=== PATIENT | male | born 1945 | race Caucasian/White ===

== ENCOUNTER → 2017-06-10 | Outpatient (RCR) | payer MEDICARE ==
[~2017-06-10] MED LIST: ACID1TAB PO; ASPI-624 PO; CARV12.53 PO; DIGO125T PO; FOLI1TAB6 PO; HYDR-34 PO; LISI10TA2 PO; LISI2.5T85 PO; LOVA20TA2 PO; OXYC1TAB12 PO; SNN187T PO; TMSL.4C PO
== END | disposition home or self-care (01) ==
LOC: CR3 05-11 10:00
PROVIDERS: ATTEND Orthopaedic Surgery
DX: Z29.8 Encounter for other specified prophylactic measures (principal)

== ENCOUNTER → 2017-07-15 | Outpatient (RCR) | payer MEDICARE | END | disposition home or self-care (01) | LOC: CR3 06-15 09:00 | PROVIDERS: ATTEND Family Medicine | DX: Z29.8 Encounter for other specified prophylactic measures (principal) ==

== ENCOUNTER → 2017-08-19 | Outpatient (RCR) | payer MEDICARE | END | disposition home or self-care (01) | LOC: CR3 07-20 09:05 | PROVIDERS: ATTEND Family Medicine | DX: Z29.8 Encounter for other specified prophylactic measures (principal) ==

== ENCOUNTER 2017-09-21 09:25 | Outpatient (RCR) | payer MEDICARE | END 2017-09-23 | disposition home or self-care (01) | LOC: CR3 09:25 | PROVIDERS: ATTEND Family Medicine | DX: Z29.8 Encounter for other specified prophylactic measures (principal) ==

== ENCOUNTER → 2017-11-04 | Outpatient (RCR) | payer MEDICARE | END | disposition home or self-care (01) | LOC: CR3 10-05 09:00 | PROVIDERS: ATTEND Family Medicine | DX: Z29.8 Encounter for other specified prophylactic measures (principal) ==

== ENCOUNTER 2017-12-09 09:58 | Outpatient (RCR) | payer MEDICARE | END 2017-12-11 | disposition home or self-care (01) | LOC: CR3 09:58 | PROVIDERS: ATTEND Family Medicine | DX: Z29.8 Encounter for other specified prophylactic measures (principal) ==

== ENCOUNTER → 2018-01-13 | Outpatient (RCR) | payer MEDICARE | END | disposition home or self-care (01) | LOC: CR3 12-14 06:00 | PROVIDERS: ATTEND Family Medicine | DX: Z29.8 Encounter for other specified prophylactic measures (principal) ==

== ENCOUNTER → 2018-02-17 | Outpatient (RCR) | payer MEDICARE | END | disposition home or self-care (01) | LOC: CR3 01-18 09:30 | PROVIDERS: ATTEND Family Medicine | DX: Z29.8 Encounter for other specified prophylactic measures (principal) ==

== ENCOUNTER → 2018-03-24 | Outpatient (RCR) | payer MEDICARE | END | disposition home or self-care (01) | LOC: CR3 02-22 09:00 | PROVIDERS: ATTEND Family Medicine | DX: Z29.8 Encounter for other specified prophylactic measures (principal) ==

== ENCOUNTER 2018-04-05 12:06 | Outpatient (RCR) | payer MEDICARE | END 2018-04-28 | disposition home or self-care (01) | LOC: CR3 12:06 | PROVIDERS: ATTEND Family Medicine | DX: Z29.8 Encounter for other specified prophylactic measures (principal) ==

== ENCOUNTER → 2018-06-16 | Outpatient (RCR) | payer MEDICARE | END | disposition home or self-care (01) | LOC: CR3 05-17 09:53 | PROVIDERS: ATTEND Family Medicine | DX: Z29.8 Encounter for other specified prophylactic measures (principal) ==

== ENCOUNTER 2018-07-19 08:53 | Outpatient (RCR) | payer MEDICARE | END 2018-07-21 | disposition home or self-care (01) | LOC: CR3 08:53 | PROVIDERS: ATTEND Family Medicine | DX: Z29.8 Encounter for other specified prophylactic measures (principal) ==

== ENCOUNTER 2018-08-18 09:09 | Outpatient (RCR) | payer MEDICARE | END 2018-08-21 | disposition home or self-care (01) | LOC: CR3 09:09 | PROVIDERS: ATTEND Family Medicine | DX: Z29.8 Encounter for other specified prophylactic measures (principal) ==

== ENCOUNTER 2018-09-20 09:18 | Outpatient (RCR) | payer MEDICARE | END 2018-09-22 | disposition home or self-care (01) | LOC: CR3 09:18 | PROVIDERS: ATTEND Family Medicine | DX: Z29.8 Encounter for other specified prophylactic measures (principal) ==

== ENCOUNTER 2018-10-20 09:51 | Outpatient (RCR) | payer MEDICARE | END 2018-10-24 | disposition home or self-care (01) | LOC: CR3 09:51 | PROVIDERS: ATTEND Family Medicine | DX: Z29.8 Encounter for other specified prophylactic measures (principal) ==

== ENCOUNTER → 2018-11-24 | Outpatient (RCR) | payer MEDICARE | END | disposition home or self-care (01) | LOC: CR3 10-25 09:00 | PROVIDERS: ATTEND Family Medicine | DX: Z29.8 Encounter for other specified prophylactic measures (principal) ==

== ENCOUNTER 2018-12-29 09:28 | Outpatient (RCR) | payer MEDICARE | END 2018-12-31 | disposition home or self-care (01) | LOC: CR3 09:28 | PROVIDERS: ATTEND Family Medicine | DX: Z29.8 Encounter for other specified prophylactic measures (principal) ==

== ENCOUNTER 2019-01-06 19:52 | Emergency (ER) | payer MEDICARE ==
[~2019-01-06] VITALS: Ht 163 cm; Wt 88.0 kg
[2019-01-06] MEDS ORDERED: SOTA80TA62 (19:59)
[2019-01-06] MEDS ORDERED: LOVA20TA2 (19:59)
--- NOTE | 2019-01-06 20:20 | NUR ---
informed pt/family of anticipated wait times for lab results. no needs at this time.
[2019-01-06 20:27] LABS: BASOPHILS % (AUTO) 1 % (0-10); EOSINOPHILS # (AUTO) 0.3 10^3/uL (0.0-0.3); EOSINOPHILS % (AUTO) 5 % (0-10); HEMATOCRIT 37 % (40-54); HEMOGLOBIN 12.2 G/DL (13.3-17.7); LYMPHOCYTES # (AUTO) 2.2 X 10^3 (1.0-4.0); LYMPHOCYTES % (AUTO) 32 % (12-44); MEAN CORPUSCULAR HEMOGLOBIN 32 PG (25-34); MEAN CORPUSCULAR HGB CONC 33 G/DL (32-36); MEAN CORPUSCULAR VOLUME 98 FL (80-99); MEAN PLATELET VOLUME 11.5 FL (7.4-10.4); MONOCYTES # (AUTO) 0.8 X 10^3 (0.0-1.0); MONOCYTES % (AUTO) 12 % (0-12); NEUTROPHILS # (AUTO) 3.5 X 10^3 (1.8-7.8); NEUTROPHILS % (AUTO) 51 % (42-75); PLATELET COUNT 121 10^3/uL (130-400); RED CELL DISTRIBUTION WIDTH 12.8 % (10.0-14.5); WHITE BLOOD COUNT 6.9 10^3/uL (4.3-11.0)
--- NOTE | 2019-01-06 20:35 | NUR ---
pacemaker interrogation completed.
[2019-01-06 20:40] LABS: ALANINE AMINOTRANSFERASE 15 U/L (0-55); ALBUMIN 4.1 GM/DL (3.2-4.5); ALKALINE PHOSPHATASE 78 U/L (40-136); BILIRUBIN,TOTAL 0.3 MG/DL (0.1-1.0); BUN/CREATININE RATIO 18; CARBON DIOXIDE 22 MMOL/L (21-32); CHLORIDE 107 MMOL/L (98-107); CREATININE SERUM 1.59 MG/DL (0.60-1.30); GFR ESTIMATED 43; GLUCOSE 99 MG/DL (70-105); POTASSIUM 4.5 MMOL/L (3.6-5.0); SODIUM 140 MMOL/L (135-145); TOTAL PROTEIN 6.9 GM/DL (6.4-8.2)
--- NOTE | 2019-01-06 20:47 | ED Fall/Injury ---
General Chief Complaint: Trauma-Non Activation Stated Complaint: FALL,HEAD LAC Nursing Triage Note: fall, no loc Source: patient Exam Limitations: no limitations History of Present Illness Date Seen by Provider: Jan 06, 2019 Time Seen by Provider: 19:53 Initial Comments This 73-year-old gentleman presents to the emergency room via EMS after having a fall in the home. The fall was unwitnessed but family was in the other room and heard it. They report that he seemed rather dazed at that time but quickly came around to his baseline level of consciousness. They're uncertain if he actually lost consciousness. He hasn't abrasion and some swelling to the right scalp. 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 He denies any pain at this time. He is alert and oriented to his baseline. Family reports no issues with acute illnesses recently. He has a pacemaker. He denies any chest pain, shortness of breath, or palpitations. He is in an atrial paced rhythm on the monitor. Location Injury Occurred: home Allergies and Home Medications Allergies Coded Allergies: No Known Drug Allergies (Unverified , 03/14/13) Home Medications Aspirin 81 Mg Tablet, 81 MG PO DAILY, (Reported) Carvedilol 12.5 Mg Tablet, 12.5 MG PO BID, (Reported) Digoxin 125 Mcg Tablet, 125 MCG PO DAILY, (Reported) Folic Acid/Mv,Fe,Other Min 1 Each Tablet, 1 TAB PO DAILY, (Reported) Lisinopril 2.5 Mg Tablet, 2.5 MG PO DAILY, (Reported) Lovastatin 20 Mg Tablet, 20 MG PO DAILY, (Reported) Oxycodone Hcl/Acetaminophen 1 Tab Tablet, 1-2 TAB PO Q4H PRN for PAIN Prescribed by: IRMA VELEZ on 06/28/13 1653 Oxycodone Hcl/Acetaminophen 1 Tab Tablet, 1 TAB PO TID Prescribed by: IRMA VELEZ on 06/28/13 1653 Senna 187 Mg Tab, 17.2 MG PO HS Prescribed by: IRMA VELEZ on 03/25/13 1037 Tamsulosin Hcl 0.4 Mg Cap.sr.24h, 0.4 MG PO DAILY Prescribed by: IRMA VELEZ on 03/25/13 1037 Patient Home Medication List Home Medication List Reviewed: Yes Review of Systems Review of Systems Constitutional: no symptoms reported Eyes: No Symptoms Reported Ears, Nose, Mouth, Throat: no symptoms reported Respiratory: no symptoms reported Cardiovascular: see HPI Gastrointestinal: no symptoms reported Genitourinary: no symptoms reported Musculoskeletal: see HPI Skin: see HPI Psychiatric/Neurological: See HPI Past Yhujthj-Kstwkr-Qebrsn Hx Past Med/Social Hx: Reviewed and Corrections made Patient Social History Alcohol Use: Occasionally Uses Alcohol Beverage of Choice: Beer Recreational Drug Use: No Smoking Status: Former Smoker 2nd Hand Smoke Exposure: No Recent Foreign Travel: No Contact w/Someone Who Travel: No Recent Infectious Disease Expo: No Recent Hopitalizations: No Physical Abuse: No Sexual Abuse: No Mistreated: No Fear: No Immunizations Up To Date Date of Pneumonia Vaccine: Dec 10, 2012 Date of Influenza Vaccine: Dec 10, 2012 Seasonal Allergies Seasonal Allergies: No Past Medical History Surgeries: Yes (PACEMAKER/ILEOSTOMY, left knee patella fracture) Bowel Surgery, Defibrillator, Orthopedic, Pacemaker Respiratory: No Cardiac: Yes (DEFIBRILLATOR, heart block ) High Cholesterol, Hypertension Neurological: Yes (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) TIA Reproductive Disorders: No Sexually Transmitted Disease: No HIV/AIDS: No Genitourinary: Yes Renal Failure, Dialysis Gastrointestinal: Yes (ABD TRAUMA/PREVIOUS ILEOSTOMY) Obstructive Bowel Musculoskeletal: Yes Arthritis Endocrine: No HEENT: No Cancer: No Psychosocial: No Integumentary: Yes (MRSA) Blood Disorders: No Adverse Reaction/Blood Tranf: No Family Medical History Dementia 03 MOTHER Family history: Cardiovascular disease 03 FATHER 09 BROTHER Physical Exam Vital Signs Vital Signs - First Documented 01/06/19 19:53 Temp 36.5 Pulse 81 Resp 18 B/P (MAP) 141/76 (97) Pulse Ox 100 O2 Delivery Room Air Capillary Refill : Less Than 3 Seconds Height, Weight, BMI Height: 5'7.00" Weight: 190lbs. 0.0oz. 86.188392su; 33.00 BMI Method: General Appearance: WD/WN, no apparent distress HEENT: PERRL/EOMI, other (Swelling and bruising over the right parietal scalp) Neck: normal inspection Cardiovascular: regular rate, rhythm, no edema, no murmur Respiratory: lungs clear, normal breath sounds, no respiratory distress, no accessory muscle use Gastrointestinal: normal bowel sounds, non tender, soft Extremities: non-tender, normal inspection, no pedal edema Neurologic/Psychiatric: piano technician II-XII nml as tested, no motor/sensory deficits, alert, normal mood/affect, oriented x 3, other (Memory deficits) Skin: normal color, warm/dry Progress/Results/Core Measures Results/Orders Lab Results Laboratory Tests Test 01/06/19 20:10 01/06/19 21:15 Range/Units White Blood Count 6.9 4.3-11.0 10^3/uL Red Blood Count 3.76 L 4.35-5.85 10^6/uL Hemoglobin 12.2 L 13.3-17.7 G/DL Hematocrit 37 L 40-54 % Mean Corpuscular Volume 98 80-99 FL Mean Corpuscular Hemoglobin 32 25-34 PG Mean Corpuscular Hemoglobin Concent 33 32-36 G/DL Red Cell Distribution Width 12.8 10.0-14.5 % Platelet Count 121 L 130-400 10^3/uL Mean Platelet Volume 11.5 H 7.4-10.4 FL Neutrophils (%) (Auto) 51 42-75 % Lymphocytes (%) (Auto) 32 12-44 % Monocytes (%) (Auto) 12 0-12 % Eosinophils (%) (Auto) 5 0-10 % Basophils (%) (Auto) 1 0-10 % Neutrophils # (Auto) 3.5 1.8-7.8 X 10^3 Lymphocytes # (Auto) 2.2 1.0-4.0 X 10^3 Monocytes # (Auto) 0.8 0.0-1.0 X 10^3 Eosinophils # (Auto) 0.3 0.0-0.3 10^3/uL Basophils # (Auto) 0.0 0.0-0.1 10^3/uL Sodium Level 140 135-145 MMOL/L Potassium Level 4.5 3.6-5.0 MMOL/L Chloride Level 107 98-107 MMOL/L Carbon Dioxide Level 22 21-32 MMOL/L Anion Gap 11 5-14 MMOL/L Blood Urea Nitrogen 29 H 7-18 MG/DL Creatinine 1.59 H 0.60-1.30 MG/DL Estimat Glomerular Filtration Rate 43 BUN/Creatinine Ratio 18 Glucose Level 99 70-105 MG/DL Calcium Level 9.0 8.5-10.1 MG/DL Corrected Calcium 8.9 8.5-10.1 MG/DL Magnesium Level 2.0 1.6-2.4 MG/DL Total Bilirubin 0.3 0.1-1.0 MG/DL Aspartate Amino Transf (AST/SGOT) 24 5-34 U/L Alanine Aminotransferase (ALT/SGPT) 15 0-55 U/L Alkaline Phosphatase 78 40-136 U/L Troponin I < 0.028 <0.028 NG/ML Total Protein 6.9 6.4-8.2 GM/DL Albumin 4.1 3.2-4.5 GM/DL Digoxin Level < 0.30 L 0.80-2.00 NG/ML Urine Color YELLOW Urine Clarity CLEAR Urine pH 6.0 5-9 Urine Specific [place] 1.020 1.016-1.022 Urine Protein NEGATIVE NEGATIVE Urine Glucose (UA) NEGATIVE NEGATIVE Urine Ketones NEGATIVE NEGATIVE Urine Nitrite NEGATIVE NEGATIVE Urine Bilirubin NEGATIVE NEGATIVE Urine Urobilinogen 0.2 < = 1.0 MG/DL Urine Leukocyte Esterase NEGATIVE NEGATIVE Urine RBC (Auto) NEGATIVE NEGATIVE Urine RBC NONE /HPF Urine WBC 0-2 /HPF Urine Crystals NONE /LPF Urine Bacteria TRACE /HPF Urine Casts NONE /LPF Urine Mucus NEGATIVE /LPF Urine Culture Indicated NO My Orders Orders - YVON NAVA MD Ed Iv/Invasive Line Start (01/06/19 20:07) Ekg Tracing (01/06/19 20:07) Monitor-Rhythm Ecg Trace Only (01/06/19 20:07) Cbc With Automated Diff (01/06/19 20:07) Comprehensive Metabolic Panel (01/06/19 20:07) Magnesium (01/06/19 20:07) Troponin I (01/06/19 20:07) Ua Culture If Indicated (01/06/19 20:07) Digoxin (01/06/19 20:12) Ct Head/Cervical Spine Wo (01/06/19 20:47) Amiodarone For Bolus (Cordarone Bolus) (01/06/19 22:00) Amiodarone Injection (Cordarone Injectio (01/06/19 22:00) Medications Given in ED Current Medications Medications Dose Ordered Sig/Cristal Route Start Time Stop Time Status Last Admin Dose Admin Amiodarone HCl 150 mg/Dextrose 103 ml @ 600 mls/hr ONCE ONCE IV 01/06/19 22:00 01/06/19 22:10 DC 01/06/19 22:06 600 MLS/HR Vital Signs/I&O 01/06/19 01/06/19 01/06/19 01/06/19 19:53 20:15 20:30 20:45 Temp 36.5 Pulse 81 79 78 71 Resp 18 18 16 16 B/P (MAP) 141/76 (97) 143/76 135/71 141/72 Pulse Ox 100 100 99 99 O2 Delivery Room Air 01/06/19 01/06/19 01/06/19 01/06/19 21:00 21:15 21:30 22:31 Temp 36.6 Pulse 73 79 70 70 Resp 18 16 16 12 B/P (MAP) 132/73 132/74 147/86 138/93 Pulse Ox 100 99 100 100 O2 Delivery Room Air 01/07/19 00:00 Intake Total 103 ml Balance 103 ml Blood Pressure Mean: 97 POS Progress Progress Note : Time: 21:35 Progress Note Patient was seen and evaluated. Initial workup was relatively unremarkable. CT of the head and C-spine is pending at this time. Device was interrogated and he was found to have an episode of V. tach with a heart rate around 178. This resulted in anti-VT pacing. This resulted in acceleration of the heart rate to around 270. This had the appearance of ventricular fibrillation and was defibrillated. The device client account representative recommended electrophysiological consultation due to these events. I consulted with Dr. Fox, mixer operator raw salt sanitation worker at [facility]. He recommends transfer to patient's primary mixer operator raw salt at [facility] if possible. Patient and family are agreeable to this and also prefer transfer for continuity of care which is important in this case. Initial ECG Impression Date: Jan 06, 2019 Initial ECG Impression Time: 20:16 Initial ECG Rate: 70 Comment Atrial paced rhythm with no ischemic changes. QTC 506. Diagnostic Imaging Diagonstic Imaging: CT Plain Films/CT/US/NM/MRI: c-spine, head Comments CT head and cervical spine viewed by me and report reviewed. See report below: NAME: GREG MACEDO [facility] REC#: [id number] PT STATUS: REG ER : 1945 PHYSICIAN: YVON NAVA MD ADMIT DATE: 01/06/19/ER Signed Date of Exam:01/06/19 CT HEAD/CERVICAL SPINE WO PROCEDURE: CT head and CT cervical spine without contrast. TECHNIQUE: Multiple contiguous axial images were obtained through the brain and cervical spine without the use of intravenous contrast. Sagittal and coronal reformations through the cervical spine were then performed. Auto Exposure Controls were utilized during the CT exam to meet ALARA standards for radiation dose reduction. DATE: January 06, 2019. COMPARISON: None. INDICATION: 73-year-old male, fall. Head and neck pain. FINDINGS: There is mucosal thickening of the left maxillary sinus. There is no identified air-fluid level in the paranasal sinuses. The mastoid air cells and middle ears are well aerated bilaterally. There is no identified skull fracture. There is proportional prominence of the ventricles and CSF spaces consistent with moderate cerebral volume loss. There are areas of low attenuation in the periventricular and subcortical white matter which are nonspecific but most likely relate to changes of chronic small vessel ischemic disease. There is no mass effect or midline shift. There is no acute intracranial hemorrhage. There is no abnormal extra-axial fluid collection. There is no identified facet joint subluxation or dislocation. There are facet degenerative changes. There is ankylosis across the right C2-C3 and C3-C4 facet articulations and ankylosis across the left C2-C3 facet articulation. There is no asymmetric widening of the cervical disc spaces. There is straightening of the normal lumbar lordosis. There is grade 1 anterolisthesis of C2 on C3. There is mild grade 1 anterolisthesis of C7 on T1. There is chondrocalcinosis and arthritis at the C1-C2 articulation. There is no identified acute fracture. Multilevel advanced disc degenerative changes of the cervical spine. CT is limited for assessment of disc pathology as well as additional non-bony causes of pathology in the spinal canal. There are bilateral carotid vascular calcifications. The carotid arteries have a retropharyngeal course. IMPRESSION: 1. No identified acute intracranial abnormality. 2. Moderate cerebral volume loss and changes of chronic small vessel ischemic disease. 3. No identified acute abnormality of the cervical spine. Dictated by: Dictated on workstation # [id number] Dict: 01/06/192133 Trans: 01/06/192144 [facility] [id number] Interpreted by: DIONE ESPINAL MD Electronically signed by: DIONE ESPINAL MD 11/28/19 2145 Departure Impression Primary Impression: Ventricular tachycardia Additional Impressions: Ventricular fibrillation Syncope Qualified Codes: R55 - Syncope and collapse Defibrillator discharge Contusion of scalp Qualified Codes: S00.03XA - Contusion of scalp, initial encounter Disposition: XFER SHT-TRM HOSP Condition: Improved Transfer Transfer Reason: Exceeds level of care Time Spoke to Accepting Phy: 21:31 Transfer Progress Notes Patient was accepted by Dr. Lam on-call for Dr. Stark at [facility] in [place]. Transfer Time: 22:39 Transfer Facility: [facility] Method of Transfer: EMS Departure-Patient Inst. Referrals: IRMA VELEZ MD (PCP/Family) Primary Care Physician Copy Copies To 1: IRMA VELEZ MD, JOSHUA T MD Jan 06, 2019 20:47 POS
[2019-01-06 21:23] LABS: BILIRUBIN,URINE NEGATIVE (NEGATIVE); CLARITY,URINE CLEAR; COLOR,URINE YELLOW; GLUCOSE, URINE (UA) NEGATIVE (NEGATIVE); KETONES,URINE NEGATIVE (NEGATIVE); LEUKOCYTE ESTERASE ,URINE NEGATIVE (NEGATIVE); NITRITE,URINE NEGATIVE (NEGATIVE); PROTEIN,URINE NEGATIVE (NEGATIVE)
[2019-01-06 21:29] LABS: BACTERIA,URINE TRACE /HPF; WBC,URINE 0-2 /HPF
--- NOTE | 2019-01-06 21:42 | Diagnostic Imaging Report ---
PROCEDURE: CT head and CT cervical spine without contrast. TECHNIQUE: Multiple contiguous axial images were obtained through the brain and cervical spine without the use of intravenous contrast. Sagittal and coronal reformations through the cervical spine were then performed. Auto Exposure Controls were utilized during the CT exam to meet ALARA standards for radiation dose reduction. DATE: January 06, 2019. COMPARISON: None. INDICATION: 73-year-old male, fall. Head and neck pain. FINDINGS: There is mucosal thickening of the left maxillary sinus. There is no identified air-fluid level in the paranasal sinuses. The mastoid air cells and middle ears are well aerated bilaterally. There is no identified skull fracture. There is proportional prominence of the ventricles and CSF spaces consistent with moderate cerebral volume loss. There are areas of low attenuation in the periventricular and subcortical white matter which are nonspecific but most likely relate to changes of chronic small vessel ischemic disease. There is no mass effect or midline shift. There is no acute intracranial hemorrhage. There is no abnormal extra-axial fluid collection. There is no identified facet joint subluxation or dislocation. There are facet degenerative changes. There is ankylosis across the right C2-C3 and C3-C4 facet articulations and ankylosis across the left C2-C3 facet articulation. There is no asymmetric widening of the cervical disc spaces. There is straightening of the normal lumbar lordosis. There is grade 1 anterolisthesis of C2 on C3. There is mild grade 1 anterolisthesis of C7 on T1. There is chondrocalcinosis and arthritis at the C1-C2 articulation. There is no identified acute fracture. Multilevel advanced disc degenerative changes of the cervical spine. CT is limited for assessment of disc pathology as well as additional non-bony causes of pathology in the spinal canal. There are bilateral carotid vascular calcifications. The carotid arteries have a retropharyngeal course. IMPRESSION: 1. No identified acute intracranial abnormality. 2. Moderate cerebral volume loss and changes of chronic small vessel ischemic disease. 3. No identified acute abnormality of the cervical spine. Dictated by: Dictated on workstation # [id number]
--- NOTE | 2019-01-06 21:51 | NUR ---
shift capt. contacted for transfer. [id number]- dispatch contacted for transfer.
[2019-01-06] MEDS ORDERED: AMIODARONE FOR BOLUS 150 MG in D5W 100 ML IVPB 100 ML IV ONE (22:00)
[2019-01-06] MEDS ORDERED: AMIODARONE INJECTION 450 MG in D5W IV SOLUTION (EXCEL) 250 ML IV SCH (22:00)
[2019-01-06 22:31] VITALS: BP 138/93
--- OUTSIDE RECORDS SUMMARY | 2019-02-01 23:31 | XMS REPORT | Referral Summary ---
Author Author [facility] Organization [facility] Address Unknown Phone Unavailable Care Team Providers Care Property Investor Name Role Phone Tonio Hawkins PCP Encounter [facility] [id number] Date(s): 12/05/14 - 12/05/14 [facility] [address] [place], [place] [address] Discharge Diagnosis: Nonsustained ventricular tachycardia Discharge Diagnosis: Overweight Discharge Diagnosis: Anemia Discharge Diagnosis: Cardiomyopathy, nonischemic Discharge Diagnosis: Hyperlipidemia Discharge Diagnosis: Encounter for immunization Discharge Diagnosis: Kidney disease, chronic, stage III (GFR 30-59 ml/min) Discharge Disposition: 01-Home or Self Care Attending Physician: Tonio Hawkins MD Admitting Physician: Tonio Hawkins MD Vital Signs Most recent to 1 oldest [Reference Range]: Peripheral Pulse 60 bpm Rate [60-100 bpm] (12/05/14 10:19 AM) Blood Pressure 132/80 mmHg [90-140/60-90 mmHg] (12/05/14 10:19 AM) Problem List Condition Effective Dates Status Health Status Informan t Anemia(Confirmed) Active Cardiac Active defibrillator in situ(Confirmed) Cardiomyopathy(Confi Active rmed) CKD (chronic kidney Active disease)(Confirmed) 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) Hyperlipidemia(Confi Active rmed) Obesity(Confirmed) Active patient Knee Active osteoarthritis(Confi rmed) Ventricular Active arrhythmia(Confirmed ) Allergies, Adverse Reactions, Alerts Substance Reaction Severity Status LORazepam hallucinations Active Medications amoxicillin 500 mg oral capsule See Instructions, 4 caps Oral one hr before dental procedure, 0 Refill(s) Start Date: 06/05/14 Status: Ordered aspirin 81 mg, 0 Refill(s) Start Date: 11/29/13 Status: Ordered digoxin 125 mcg (0.125 mg) oral tablet tabs, Oral, Daily, 0 Refill(s) Start Date: 11/29/13 Status: Ordered lisinopril 2.5 mg, Oral, Daily, 0 Refill(s) Start Date: 11/29/13 Status: Ordered lovastatin 20 mg oral tablet tabs, Oral, Daily, 0 Refill(s) Start Date: 11/29/13 Status: Ordered Multivitamins oral capsule caps, Oral, Daily, 0 Refill(s) Start Date: 11/29/13 Status: Ordered sotalol 80 mg oral tablet 1 tabs, Oral, BID, Dr Stark, # 60 tabs, 0 Refill(s) Start Date: 12/05/13 Status: Ordered Results Hematology Most recent to 1 oldest [Reference Range]: WBC [4.8-10.8 8.3 10*3/uL 10*3/uL] (12/05/14 11:40 AM) RBC [4.60-6.20] 4.14 *LOW* (12/05/14 11:40 AM) Hgb [14.0-18.0 13.2 gm/dL gm/dL] *LOW* (12/05/14 11:40 AM) Hct [42.0-52.0 %] 39.2 % *LOW* (12/05/14 11:40 AM) MCV [82.0-99.0 fL] 94.7 fL (12/05/14 11:40 AM) MCH [27.0-32.0 pg] 31.9 pg (12/05/14 11:40 AM) MCHC [32.0-36.0 33.7 gm/dL gm/dL] (12/05/14 11:40 AM) RDW [11.5-14.5 %] 13.2 % (12/05/14 11:40 AM) Platelet [150-400 163 10*3/uL 10*3/uL] (12/05/14 11:40 AM) MPV [8.8-14.8 fL] 10.9 fL (12/05/14 11:40 AM) Immature 0.4 % Granulocytes (12/05/14 11:40 AM) [0.0-1.0 %] Neutrophils [51-75 64 % %] (12/05/14 1140 AM) Lymphocytes [20-46 23 % %] (12/05/14 1140 AM) Monocytes [4-11 %] 9 % (12/05/14 11:40 AM) Eosinophils [0-4 %] 3 % (12/05/1440 AM) Basophils [0-2 %] 1 % (12/05/1440 AM) Neutro Absolute 5.37 10*3 [1.90-7.00 10*3] (12/05/1440 AM) Lymph Absolute 1.88 10*3 [0.80-3.30 10*3] (12/05/14 11:40 AM) [place] Absolute 0.73 10*3 [0.30-1.00 10*3] (12/05/1440 AM) Eos Absolute 0.27 10*3 [0.00-0.50 10*3] (12/05/14 11:40 AM) Baso Absolute 0.05 10*3 [0.00-0.20 10*3] (12/05/14 11:40 AM) Chemistry Most recent to 1 oldest [Reference Range]: Sodium Lvl [135-144 139 mEq/L mEq/L] (12/05/1440 AM) Potassium Lvl 5.0 mEq/L [3.5-5.2 mEq/L] (12/05/1440 AM) Chloride [99-111 103 mEq/L mEq/L] (12/05/1440 AM) CO2 [23-31 mEq/L] 29 mEq/L (12/05/1440 AM) AGAP [3-20] 7 (12/05/14 11:40 AM) BUN [8-26 mg/dL] 28 mg/dL *HI* (12/05/1440 AM) Glucose Lvl [70-99 101 mg/dL mg/dL] *HI* (12/05/1440 AM) Creatinine Lvl 1.39 mg/dL [0.72-1.25 mg/dL] *HI* (12/05/14 11:40 AM) eGFR [>60 mL/min] 51 mL/min 1 *ABN* (12/05/14 11:40 AM) Calcium Lvl 10.2 mg/dL [8.9-10.5 mg/dL] (12/05/14 11:40 AM) Albumin Lvl [3.4-4.8 4.3 gm/dL gm/dL] (12/05/14 11:40 AM) Total Protein 7.3 gm/dL [6.2-8.1 gm/dL] (12/05/14 11:40 AM) Globulin [1.8-4.0 3.0 gm/dL gm/dL] (12/05/14 11:40 AM) ALT [0-55 U/L] 17 U/L (12/05/14 11:40 AM) AST [5-34 U/L] 21 U/L (12/05/14 11:40 AM) Alk Phos [40-150 70 U/L U/L] (12/05/14 11:40 AM) Bili Total [0.2-1.2 0.8 mg/dL mg/dL] (12/05/14 11:40 AM) LDL Direct [0-129 94 mg/dL mg/dL] (12/05/14 11:40 AM) 1Result Comment: Multiply eGFR results by 1.21 for race. Immunizations Vaccine Date Refusal Reason tetanus/diphth/pertuss (Tdap) adult/adol 06/20/11 influenza virus vaccine, inactivated 12/05/14 influenza virus vaccine, live 12/10/12 influenza virus vaccine, live 12/03/11 pneumococcal 23-polyvalent vaccine 06/20/11 Procedures Procedure Date Related Diagnosis Body Site Revision-rt TKA 2006 Abscess-rt leg Social History Social History Type Response Smoking Status Never smoker Assessment and Plan Extracted from: Title: Office Visit Note Author: Tonio Hawkins MD Date: 12/05/14 Assessment/Plan Anemia Mild, hemoglobin stable 13.7 Cardiomyopathy, nonischemic EF stable around 30 percent Chronic kidney disease (CKD), Kidney disease, chronic, stage III (GFR 30-59 ml/min) Creatinine stable around 1.3 Hyperlipidemia Check LDL today, annual lipids in the spring looked good Immunization due Flu shot today Nonsustained ventricular tachycardia Overweight BMI 31 Orders: CBC w/ Differential Comprehensive Metabolic Panel LDL Direct Return to Clinic Plan--patient seems to be doing pretty well overall. We'll administer flu shot today, also lab work, and see me back in 6 months but sooner if needed. He'll see Dr. Stark probably around March. Referrals to Other Providers Referred by: Tonio Hawkins MD
--- OUTSIDE RECORDS SUMMARY | 2019-02-01 23:31 | XMS REPORT | Referral Summary ---
Author Author [facility] Organization [facility] Address Unknown Phone Unavailable Care Team Providers Care Project Internship Name Role Phone Tonio Hawkins PCP Encounter [facility] [id number] Date(s): 12/05/14 - 12/05/14 [facility] [address] [place], [place] [address] Discharge Diagnosis: Nonsustained ventricular tachycardia Discharge Diagnosis: [...] 1.88 10*3 [0.80-3.30 10*3] (12/05/14 11:40 AM) [place] Absolute 0.73 10*3 [0.30-1.00 10*3] (12/05/1440 AM) [...]
--- OUTSIDE RECORDS SUMMARY | 2019-02-01 23:31 | XMS REPORT ---
Author Author Andrade Stark [facility] Address [address] [place] [address] Care Team Providers Care Chief Of Staff Name Role Phone Sourav Stark Unavailable PROBLEMS Type Condition ICD9-CM Code [id number] Code Onset Dates Condition S tatus SNOMED Code Problem DVT 453.9 Active 260474330 Problem Methicillin resistant Staphylococcus aureus 041.12 Active 059575778 Problem Long-term use of high-risk medication Z79.899 Active 288919727 Problem Long-term use of aspirin therapy Z79.82 Active 622813291 Problem S/P implantation of automatic cardioverter/defib rillator (AICD) Z95.810 Active 489984754 Problem Dyslipidemia (high LDL; low HDL) E78.4 Active 476131375 Problem 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 Active 24447694698811 Problem Nonischemic cardiomyopathy I42.9 Act flakita 96304598 ALLERGIES No Known Allergies ENCOUNTERS Encounter Location Date Diagnosis [facility] [address] [place] [address] [id number] Feb, [facility] [address] [place] [address] [id number] Aug, Nonischemic cardiomyopathy I42.9 ; Nonsu stained paroxysmal ventricular tachycardia I47.2 ; S/P implantation of automatic cardioverter/defibrillator (AICD) Z95.810 ; Long-term use of high-risk medication Z79.899 and Long-term use of aspirin therapy Z79.82 [facility] [address] [place] [address] [id number] Aug, Nonischemic cardiomyopathy I42.9 ; Nonsu stained paroxysmal ventricular tachycardia I47.2 and S/P implantation of automatic cardioverter/defibrillator (AICD) Z95.[address] [address] Feb, [address] [place] [address] Feb, Nonischemic cardiomyopathy I42.9 ; Nonsu stained paroxysmal ventricular tachycardia I47.2 ; S/P implantation of automatic cardioverter/defibrillator (AICD) Z95.810 ; Long-term use of high-risk medicat ion Z79.899 and Long-term use of aspirin therapy Z79.[address] [place] [address] Oct, [address] [place] [address] Oct, [address] [place] [address] Sep, [address] [place] [address] Sep, [address] [place] [address] Sep, Nonischemic cardiomyopathy I42.9 ; Nonsu stained paroxysmal ventricular tachycardia I47.2 ; S/P implantation of automatic cardioverter/defibrillator (AICD) Z95.810 ; Dyslipidemia (high LDL; low HDL) E 78.4 ; Long-term use of high-risk medication Z79.899 and Long-term use of aspirin therapy Z79.[address] [place] [address] Aug, [address] [place] [address] Aug, [address] [place] [address] June, [address] [place] [address] June, [address] [place] [address] June, [address] [place] [address] June, [address] [place] [address] May, Nonischemic cardiomyopathy I42.[address] [place] [address] Apr, Nonischemic cardiomyopathy I42.[address] [place] [address] Apr, [address] [place] [address] Mar, [address] [place] [address] Mar, [address] [place] [address] Mar, [address] [place] [address] Mar, [address] [place] [address] Mar, [address] [place] [address] Mar, Nonischemic cardiomyopathy I42.9 ; Nonsu stained paroxysmal ventricular tachycardia I47.2 ; S/P implantation of automatic cardioverter/defibrillator (AICD) Z95.810 ; Dyslipidemia (high LDL; low HDL) E 78.4 ; Long-term use of high-risk medication Z79.899 and Long-term use of aspirin therapy Z79.[address] [place] [address] Mar, Nonischemic cardiomyopathy I42.9 ; Nonsu stained paroxysmal ventricular tachycardia I47.2 ; S/P implantation of automatic cardioverter/defibrillator (AICD) Z95.810 and Dyslipidemia (high LDL; low HDL) E78.[address] [place] [address] Nov, [address] [place] [address] Oct, S/P implantation of automatic cardiovert er/defibrillator (AICD) Z95.810 and Nonischemic cardiomyopathy I42.9 [address] [address] [place] [address] Sep, Nonischemic cardiomyopathy I42.9 ; Nonsu stained paroxysmal ventricular tachycardia I47.2 ; S/P implantation of automatic cardioverter/defibrillator (AICD) Z95.810 and Dyslipidemia (high LDL; low HDL) E78.[address] [place] [address] Apr, Presence of automatic (implantable) card iac defibrillator Z95.810 and Non-ischemic cardiomyopathy I42.[address] [place] [address] Apr, [address] [place] [address] Mar, Ventricular Tachycardia, Nonsustained [address] [place] [address] Mar, Nonischemic cardiomyopathy I42.9 ; Nonsu stained paroxysmal ventricular tachycardia I47.2 ; S/P implantation of automatic cardioverter/defibrillator (AICD) Z95.810 and Dyslipidemia (high LDL; low HDL) E78.4 [address] [place] [address] Sep, [address] [place] [address] Sep, Cardiomyopathy, Nonischemic 425.4 ; DVT 453.9 ; Methicillin resistant Staphylococcus aureus 041.12 ; S/P ICD Placement V45.02 ; Ventricular Tachycardia, Nonsustained 427.1 and Dyslipidemia 272.4 [address] [address] [place] [address] Feb, Cardiomyopathy, Nonischemic 425.4 ; DVT 453.9 ; Methicillin resistant Staphylococcus aureus 041.12 ; S/P ICD Placement V45.02 ; Ventricular Tachycardia, Nonsustained 427.1 and Dyslipidemia 272.[address] [place] [address] Aug, Cardiomyopathy, Nonischemic 425.4 ; DVT 453.9 ; Methicillin resistant Staphylococcus aureus 041.12 ; S/P ICD Placement V45.02 ; Ventricular Tachycardia, Nonsustained 427.1 and Dyslipidemia 272.[address] [facility] [address] [place] [address] Aug, Cardiomyopathy, Nonischemic 425.4 ; S/P ICD Placement V45.02 ; Ventricular Tachycardia, Nonsustained 427.1 and Dyslipidemia 272.[address] [facility] [address] [place] [address] Aug, Cardiomyopathy, Nonischemic 425.4 ; S/P ICD Placement V45.02 ; Ventricular Tachycardia, Nonsustained 427.1 and Dyslipidemia 272.[address] [facility] [address] [place] [address] Feb, [address] [facility] [address] [place] [address] Feb, Cardiomyopathy, Nonischemic 425.4 ; S/P ICD Placement V45.02 ; Ventricular Tachycardia, Nonsustained 427.1 and Dyslipidemia 272.[address] [place] [address] Aug, [address] [facility] [address] [place] [address] Aug, Cardiomyopathy, Nonischemic 425.4 ; S/P ICD Placement V45.02 ; Ventricular Tachycardia, Nonsustained 427.1 and Dyslipidemia 272.[address] [place] [address] May, [address] [facility] [address] [place] [address] Feb, Cardiomyopathy, Nonischemic 425.4 ; S/P ICD Placement V45.02 ; Ventricular Tachycardia, Nonsustained 427.1 and Dyslipidemia 272.[address] [place] [address] Aug, Cardiomyopathy, Nonischemic 425.4 ; S/P ICD Placement V45.02 ; Ventricular Tachycardia, Nonsustained 427.1 and Dyslipidemia 272.[address] [place] [address] Feb, Ventricular Tachycardia, Nonsustained 42 7.1 ; Cardiomyopathy, Nonischemic 425.4 and S/P ICD Placement V45.[address] [facility] [address] [place] [address] Oct, Cardiomyopathy, Nonischemic 425.4 ; S/P ICD Placement V45.02 ; Ventricular Tachycardia, Nonsustained 427.1 and Dyslipidemia 272.[address] [facility] [address] [place] [address] Jul, Battery End Of Life Cardiac Defibrillato r V53.32 ; Cardiomyopathy, Nonischemic 425.4 and Ventricular Tachycardia, Nonsustained 427.[address] [place] [address] Jul, [address] [facility] [address] [place] [address] June, [address] [facility] [address] [facility] [address] June, Cardiomyopathy, Nonischemic 425.4 ; DVT 453.9 ; S/P ICD Placement V45.02 and Ventricular Tachycardia, Nonsustained 427.[address] [facility] [address] [place] [address] May, [address] [facility] [address] [place] [address] Dec, Cardiomyopathy, Nonischemic 425.4 ; S/P ICD Placement V45.02 and Ventricular Tachycardia, Nonsustained 427.[address] [place] [address] Dec, Cardiomyopathy, Nonischemic 425.[address] [place] [address] Aug, [address] [place] [address] Jul, [address] [place] [address] May, Cardiomyopathy, Nonischemic 425.4 ; S/P ICD Placement V45.02 and Ventricular Tachycardia, Nonsustained 427.[address] [place] [address] Dec, [address] [place] [address] Nov, Cardiomyopathy, Nonischemic 425.4 and Ve ntricular Tachycardia, Nonsustained 427.1 IMMUNIZATIONS No Known Immunizations SOCIAL HISTORY Never Assessed REASON FOR VISIT 6 month follow up with a [place] ICD check. PLAN OF CARE Activity Details Follow Up 6 Months icd cv Reason: VITAL SIGNS Height 67 in 2017-09-07 Weight 194 lbs 2017-09-07 BMI 30.38 kg/m2 2017-09-07 Oximetry 97% % 2017-09-07 Heart Rate 83 /min 2017-09-07 Blood pressure systolic 110 mm Hg 2017-09-07 Blood pressure diastolic 72 mm Hg 2017-09-07 MEDICATIONS Medication Instructions Dosage Frequency Start Date End Date Duration S tatus Amoxicillin 500 MG Orally for dentist 4 caps Active Lisinopril 2.5 MG TAKE 1 TABLET BY MOUTH EVERY DAY Active multivitamin po qd 1 tab 24h Active Sotalol HCl 80 MG Orally bid 2.0 tab 12h Aug, Active Aspirin 81 MG Orally qd 1 tab 24h Active Lovastatin 20 MG Orally Once a day in the evening 1 tablet 2016 Active RESULTS No Results PROCEDURES No Known procedures INSTRUCTIONS MEDICATIONS ADMINISTERED No Known Medications MEDICAL (GENERAL) HISTORY Type Description Date Medical History Nonischemic cardiomyopathy Medical History Hx Staph methacillin resistent Medical History LVEF 18%; Medical History Renal insufficiency Medical History DVT LLE; coumadin therapy; Medical History [employer] 3D Biomatrix ICD; Medical History Episode of V Fib, appropriate shock, 06/09 Medical History ICD gen change, BS Teligen, 07/20 Medical History 2D echo, EF 25%, no significant valvular disease, 08/2017 Surgical History knee surgery, right Surgical History Hernia repair Surgical History LT knee surgery
--- OUTSIDE RECORDS SUMMARY | 2019-02-01 23:31 | XMS REPORT | Referral Summary ---
Author Author [facility] Organization [facility] Address Unknown Phone Unavailable Care Team Providers Care Animal Surgeon Name Role Phone Tonio Hawkins PCP Encounter [facility] Date(s): 12/03/15 - 12/03/15 [facility] [address] [place] [address] Discharge Diagnosis: Cardiomyopathy Discharge Diagnosis: Mild chronic anemia Discharge Diagnosis: Cardiac defibrillator in place Discharge Diagnosis: CKD (chronic kidney disease), stage III Discharge Diagnosis: Mixed hyperlipidemia Discharge Disposition: 01-Home or Self Care Attending Physician: Tonio Hawkins MD Admitting Physician: Tonio Hawkins MD Vital Signs Most recent to 1 oldest [Reference Range]: Peripheral Pulse 60 bpm Rate [60-100 bpm] (12/03/15 9:11 AM) Blood Pressure 130/74 mmHg [90-140/60-90 mmHg] (12/03/15 9:11 AM) Problem List Condition Effective Dates Status [...] to 1 oldest [Reference Range]: WBC [4.8-10.8 8.0 10*3/uL 10*3/uL] (12/03/15 9:55 AM) RBC [4.60-6.20] 4.26 *LOW* (12/03/15 9:55 AM) Hgb [14.0-18.0 13.6 gm/dL gm/dL] *LOW* (12/03/15 9:55 AM) Hct [42.0-52.0 %] 41.3 % *LOW* (12/03/15 9:55 AM) MCV [82.0-99.0 fL] 96.9 fL (12/03/15 9:55 AM) MCH [27.0-32.0 pg] 31.9 pg (12/03/15 9:55 AM) MCHC [32.0-36.0 32.9 gm/dL gm/dL] (12/03/15 9:55 AM) RDW [11.5-14.5 %] 12.8 % (12/03/15 9:55 AM) Platelet [150-400 147 10*3/uL 10*3/uL] *LOW* (12/03/15 9:55 AM) MPV [8.8-14.8 fL] 11.2 fL (12/03/15 9:55 AM) Immature 0.1 % Granulocytes (12/03/15 9:55 AM) [0.0-1.0 %] Neutrophils [51-75 67 % %] (12/03/15 9:55 AM) Lymphocytes [20-46 19 % %] *LOW* (12/03/15 9:55 AM) Monocytes [4-11 %] 9 % (12/03/15 9:55 AM) Eosinophils [0-4 %] 4 % (12/03/15 9:55 AM) Basophils [0-2 %] 1 % (12/03/15 9:55 AM) Neutro Absolute 5.37 10*3 [1.90-7.00 10*3] (12/03/15 9:55 AM) Lymph Absolute 1.52 10*3 [0.80-3.30 10*3] (12/03/15 9:55 AM) Mckenzie Absolute 0.73 10*3 [0.30-1.00 10*3] (12/03/15 9:55 AM) Eos Absolute 0.32 10*3 [0.00-0.50 10*3] (12/03/15 9:55 AM) Baso Absolute 0.05 10*3 [0.00-0.20 10*3] (12/03/15 9:55 AM) Chemistry Most recent to 1 oldest [Reference Range]: Sodium Lvl [135-144 141 mEq/L mEq/L] (12/03/15:55 AM) Potassium Lvl 4.6 mEq/L [3.5-5.2 mEq/L] (12/03/15 9:55 AM) Chloride [99-111 104 mEq/L mEq/L] (12/03/15 9:55 AM) CO2 [23-31 mEq/L] 27 mEq/L (12/03/15 9:55 AM) AGAP [3-20] 10 (12/03/15 9:55 AM) BUN [8-26 mg/dL] 28 mg/dL *HI* (12/03/15 9:55 AM) Glucose Lvl [70-99 107 mg/dL mg/dL] *HI* (12/03/15 9:55 AM) Creatinine Lvl 1.38 mg/dL [0.72-1.25 mg/dL] *HI* (12/03/15 9:55 AM) eGFR [>60 mL/min] 51 mL/min 1 *ABN* (12/03/15 9:55 AM) Calcium Lvl 9.6 mg/dL [8.9-10.5 mg/dL] (12/03/15 9:55 AM) Albumin Lvl [3.4-4.8 4.4 gm/dL gm/dL] (12/03/15 9:55 AM) Total Protein 7.1 gm/dL [6.0-7.6 gm/dL] (12/03/15 9:55 AM) Globulin [1.8-4.0 2.7 gm/dL gm/dL] (12/03/15 9:55 AM) ALT [0-55 U/L] 15 U/L (12/03/15 9:55 AM) AST [5-34 U/L] 22 U/L (12/03/15 9:55 AM) Alk Phos [40-150 60 U/L U/L] (12/03/15 9:55 AM) Bili Total [0.2-1.2 0.8 mg/dL mg/dL] (12/03/15 9:55 AM) Chol [0-199 mg/dL] 183 mg/dL (12/03/15 9:55 AM) Trig [0-149 mg/dL] 102 mg/dL (12/03/15 9:55 AM) HDL [40-84 mg/dL] 63 mg/dL (12/03/15 9:55 AM) LDL [0-130 mg/dL] 100 mg/dL (12/03/15 9:55 AM) VLDL Cholesterol 20 mg/dL [0-28 mg/dL] (12/03/15 9:55 AM) Cardiac Risk 2.9 [0.0-5.7] (12/03/15 9:55 AM) 1Result Comment: Multiply eGFR results by 1.21 for race. Immunizations Vaccine Date Refusal Reason tetanus/diphth/pertuss (Tdap) adult/adol 06/20/11 influenza virus vaccine, inactivated 12/03/15 influenza virus vaccine, inactivated 12/05/14 influenza virus vaccine, live 12/10/12 influenza virus vaccine, live 12/03/11 pneumococcal 13-valent conjugate vaccine1 06/07/15 pneumococcal 23-polyvalent vaccine 06/20/11 1Early/Late Reason: Other : just arrived. Procedures Procedure Date Related Diagnosis Body Site Revision-rt TKA 2006 Abscess-rt leg Social History Social History Type Response Smoking Status Former smoker Assessment and Plan Extracted from: Title: Office Visit Note Author: Tonio Hawkins MD Date: 12/03/15 Assessment/Plan Cardiac defibrillator in place Cardiomyopathy CKD (chronic kidney disease), stage III Last creatinine stable 1.39 Ordered: CBC w/ Differential Comprehensive Metabolic Panel Return to Clinic Immunization due Flu shot today, we'll get Zostavax later in [place] Mild chronic anemia Stable hemoglobin around 13 Mixed hyperlipidemia Continue statin, check fasting lipids today Ordered: Lipid Panel Plan--plan is overall doing well, hopefully that will continue. He will continue exercising. We will check lab today and then make further decisions,and see me back in 6 months but sooner if needed. Keep appointment with Dr. Stark for this winter. Referrals to Other Providers Referred by: Tonio Hawkins MD
--- OUTSIDE RECORDS SUMMARY | 2019-02-01 23:31 | XMS REPORT | Referral Summary ---
Author Author [facility] [place] [facility] Organization [facility] Address Unknown Phone Unavailable Care Team Providers Care Wire Roller Name Role Phone Tonio Hawkins PCP Encounter [facility] Date(s): 06/07/15 - 06/07/15 [facility] [address] [place], [place] [address] Discharge Disposition: 01-Home or Self Care Attending Physician: Tonio Hawkins MD Admitting Physician: Tonio Hawkins MD Vital Signs No data available for this section Problem List Condition Effective Dates Status Health [...] 0 Refill(s) Start Date: 11/29/13 Status: Ordered Flonase 50 mcg/inh nasal spray 2 sprays, Nasal, Daily, # 16 g, 6 Refill(s) Start Date: 06/07/15 Status: Ordered lisinopril 2.5 mg, Oral, Daily, [...] Refill(s) Start Date: 12/05/13 Status: Ordered Results No data available for this section Immunizations Vaccine Date Refusal Reason tetanus/diphth/pertuss (Tdap) [...] Smoking Status Former smoker Assessment and Plan No data available for this section
--- OUTSIDE RECORDS SUMMARY | 2019-02-01 23:31 | XMS REPORT | Referral Summary ---
Author Author [facility] [place] [facility] Organization [facility] Address Unknown Phone Unavailable Care Team Providers Care Assistant At Surgery Name Role Phone Tonio Hawkins PCP Encounter [facility] [id number] Date(s): 12/05/14 - 12/05/14 [facility] [address] [place], [place] [address] Discharge Diagnosis: Nonsustained ventricular tachycardia Discharge Diagnosis: Overweight Discharge Diagnosis: Anemia Discharge Diagnosis: Cardiomyopathy, nonischemic Discharge Diagnosis: Hyperlipidemia Discharge Diagnosis: Encounter for immunization Discharge Diagnosis: Kidney disease, chronic, stage III (GFR 30-59 ml/min) Discharge Disposition: 01-Home or Self Care Attending Physician: Tonio Hawkisn MD Admitting Physician: Tonio Hawkins MD Vital [...] 11:40 AM) MPV [8.8-14.8 fL] 10.9 fL (12/05/1440 AM) Immature 0.4 % Granulocytes (12/05/1440 AM) [0.0-1.0 %] Neutrophils [51-75 64 % %] (12/05/14 1140 AM) Lymphocytes [20-46 23 % %] (12/05/14 1140 AM) Monocytes [4-11 %] 9 % (12/05/14 1140 AM) Eosinophils [0-4 %] 3 % (12/05/1440 AM) Basophils [0-2 %] 1 % (12/05/1440 AM) Neutro Absolute 5.37 10*3 [1.90-7.00 10*3] (12/05/1440 AM) Lymph Absolute 1.88 10*3 [0.80-3.30 10*3] (12/05/1440 AM) Williams Absolute 0.73 10*3 [0.30-1.00 10*3] (12/05/1440 AM) Eos Absolute 0.27 10*3 [0.00-0.50 10*3] (12/05/14 11:40 AM) Baso Absolute 0.05 10*3 [0.00-0.20 10*3] (12/05/14 1140 AM) Chemistry Most recent to 1 oldest [Reference Range]: Sodium Lvl [135-144 139 mEq/L mEq/L] (12/05/1440 AM) Potassium Lvl 5.0 mEq/L [3.5-5.2 mEq/L] (12/05/1440 AM) Chloride [99-111 103 mEq/L mEq/L] (12/05/1440 AM) CO2 [23-31 mEq/L] 29 mEq/L (12/05/1440 AM) AGAP [3-20] 7 (12/05/1440 AM) BUN [8-26 mg/dL] 28 mg/dL *HI* (12/05/14 11:40 AM) Glucose Lvl [70-99 101 mg/dL mg/dL] *HI* (12/05/14 11:40 AM) Creatinine Lvl 1.39 mg/dL [0.72-1.25 mg/dL] [...]
--- OUTSIDE RECORDS SUMMARY | 2019-02-01 23:31 | XMS REPORT ---
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 Active 91593527215156 Problem S/P implantation of automatic cardioverter/defib rillator (AICD) Z95.810 Active 547961526 Problem Dyslipidemia (high LDL; low HDL) E78.4 Active 690116778 Problem Nonischemic cardiomyopathy I42.9 Act flakita [id number] ALLERGIES No Known Allergies ENCOUNTERS Encounter Location Date Diagnosis [facility] [address] [place] [address] Feb, [facility] [address] [place], [place] [phone] Jan, Nonischemic cardiomyopathy I42.9 ; Nonsu stained paroxysmal ventricular tachycardia I47.2 ; S/P implantation of automatic cardioverter/defibrillator (AICD) Z95.810 ; Long-term use of high-risk medication Z79.899 and Long-term use of aspirin therapy Z79.82 [facility] [address] [place] [phone] Aug, Nonischemic cardiomyopathy I42.9 ; Nonsu stained paroxysmal ventricular tachycardia I47.2 ; S/P implantation of automatic cardioverter/defibrillator (AICD) Z95.810 ; Long-term use of high-risk medication Z79.899 and Long-term use of aspirin therapy Z79.82 [facility] [address] [place] [phone] Aug, Nonsustained paroxysmal ventricular tach ycardia I47.2 [facility] [address] [place] [phone] Aug, Dyslipidemia (high LDL; low HDL) E78.4 [facility] [address] [place] [phone] Feb, Nonischemic cardiomyopathy I42.9 ; Nonsu stained paroxysmal ventricular tachycardia I47.2 ; S/P implantation of automatic cardioverter/defibrillator (AICD) Z95.810 ; Long-term use of high-risk medication Z79.899 and Long-term use of aspirin therapy Z79.82 [facility] [address] [place] [id number] Aug, Nonischemic cardiomyopathy I42.9 ; Nonsu stained paroxysmal ventricular tachycardia I47.2 ; S/P implantation of automatic cardioverter/defibrillator (AICD) Z95.810 ; Long-term use of high-risk medication Z79.899 and Long-term use of aspirin therapy Z79.82 [facility] [address] [place] [phone] Aug, Nonischemic cardiomyopathy I42.9 ; Nonsu stained paroxysmal ventricular tachycardia I47.2 and S/P implantation of automatic cardioverter/defibrillator (AICD) Z95.[address] [phone] Feb, [address] [address] Feb, Nonischemic cardiomyopathy I42.9 ; Nonsu stained paroxysmal ventricular tachycardia I47.2 ; S/P implantation of automatic cardioverter/defibrillator (AICD) Z95.810 ; Long-term use of high-risk medication Z79.899 and Long-term use of aspirin therapy Z79.[address] [phone] Oct, [address] [address] Oct, [facility] [address] [facility] [address] [place] [phone] Sep, [facility] [address] [address] Sep, [facility] [address] [place] [phone] Sep, Nonischemic cardiomyopathy I42.9 ; Nonsu stained paroxysmal ventricular tachycardia I47.2 ; S/P implantation of automatic cardioverter/defibrillator (AICD) Z95.810 ; Dyslipidemia (high LDL; low HDL) E78.4 ; Long-term use of high- risk medication Z79.899 and Long-term use of aspirin therapy Z79.82 [facility] [address] [facility] [address] [address] Aug, [facility] [address] [place] [address] [address] Aug, [facility] [address] [facility] [address] [place] [phone] June, [facility] [address] [facility] [address] [address] June, [facility] [address] [address] June, [facility] [address] [place] [address] [phone] June, [facility] [address] [facility] [address] [address] May, Nonischemic cardiomyopathy I42.9 [facility] [address] [facility] [address] [place] [address], [place] [address] Apr, Nonischemic cardiomyopathy I42.9 [facility] [address] [facility] [address] [place] [address] Apr, [facility] [address] [facility] [address] [address] [place] [phone] Mar, [facility] [address] [address] Mar, [address] [address] Mar, [address] [address] Mar, [address] [address] Mar, [address] [address] Mar, Nonischemic cardiomyopathy I42.9 ; Nonsu stained paroxysmal ventricular tachycardia I47.2 ; S/P implantation of automatic cardioverter/defibrillator (AICD) Z95.810 ; Dyslipidemia (high LDL; low HDL) E78.4 ; Long-term use of high- risk medication Z79.899 and Long-term use of aspirin therapy Z79.[address] [address] Mar, Nonischemic cardiomyopathy I42.9 ; Nonsu stained paroxysmal ventricular tachycardia I47.2 ; S/P implantation of automatic cardioverter/defibrillator (AICD) Z95.810 and Dyslipidemia (high LDL; low HDL) E78.[address] [address] Nov, [address] [address] Oct, S/P implantation of automatic cardiovert er/defibrillator (AICD) Z95.810 and Nonischemic cardiomyopathy I42.[address] [address] Sep, Nonischemic cardiomyopathy I42.9 ; Nonsu stained paroxysmal ventricular tachycardia I47.2 ; S/P implantation of automatic cardioverter/defibrillator (AICD) Z95.810 and Dyslipidemia (high LDL; low HDL) E78.[address] [address] Apr, Presence of automatic (implantable) card iac defibrillator Z95.810 and Non- ischemic cardiomyopathy I42.[address] [address] Apr, [address] [address] Mar, Ventricular Tachycardia, Nonsustained [address] [address] Mar, Nonischemic cardiomyopathy I42.9 ; Nonsu stained paroxysmal ventricular tachycardia I47.2 ; S/P implantation of automatic cardioverter/defibrillator (AICD) Z95.810 and Dyslipidemia (high LDL; low HDL) E78.[address] [address] Sep, [address] [address] Sep, Cardiomyopathy, Nonischemic 425.4 ; DVT 453.9 ; Methicillin resistant Staphylococcus aureus 041.12 ; S/P ICD Placement V45.02 ; Ventricular Tachycardia, Nonsustained 427.1 and Dyslipidemia 272.[address] [address] Feb, Cardiomyopathy, Nonischemic 425.4 ; DVT 453.9 ; Methicillin resistant Staphylococcus aureus 041.12 ; S/P ICD Placement V45.02 ; Ventricular Tachycardia, Nonsustained 427.1 and Dyslipidemia 272.[address] [address] Aug, Cardiomyopathy, Nonischemic 425.4 ; DVT 453.9 ; Methicillin resistant Staphylococcus aureus 041.12 ; S/P ICD Placement V45.02 ; Ventricular Tachycardia, Nonsustained 427.1 and Dyslipidemia 272.[address] [address] Aug, Cardiomyopathy, Nonischemic 425.4 ; S/P ICD Placement V45.02 ; Ventricular Tachycardia, Nonsustained 427.1 and Dyslipidemia 272.4 [facility] [address] [place] [address] Aug, Cardiomyopathy, Nonischemic 425.4 ; S/P ICD Placement V45.02 ; Ventricular Tachycardia, Nonsustained 427.1 and Dyslipidemia 272.[address] [address] Feb, [address] [address] Feb, Cardiomyopathy, Nonischemic 425.4 ; S/P ICD Placement V45.02 ; Ventricular Tachycardia, Nonsustained 427.1 and Dyslipidemia 272.[address] [address] Aug, [address] [address] Aug, Cardiomyopathy, Nonischemic 425.4 ; S/P ICD Placement V45.02 ; Ventricular Tachycardia, Nonsustained 427.1 and Dyslipidemia 272.[address] [address] May, [address] [address] Feb, Cardiomyopathy, Nonischemic 425.4 ; S/P ICD Placement V45.02 ; Ventricular Tachycardia, Nonsustained 427.1 and Dyslipidemia 272.[address] [address] Aug, Cardiomyopathy, Nonischemic 425.4 ; S/P ICD Placement V45.02 ; Ventricular Tachycardia, Nonsustained 427.1 and Dyslipidemia 272.[address] [address] Feb, Ventricular Tachycardia, Nonsustained 42 7.1 ; Cardiomyopathy, Nonischemic 425.4 and S/P ICD Placement V45.[address] [address] Oct, Cardiomyopathy, Nonischemic 425.4 ; S/P ICD Placement V45.02 ; Ventricular Tachycardia, Nonsustained 427.1 and Dyslipidemia 272.4 [facility] [address] [place] [address] [address] 15 Jul, 2010 [facility] [employer] Cardiac Defibrillato r V53.32 ; Cardiomyopathy, Nonischemic 425.4 and Ventricular Tachycardia, Nonsustained 427.1 [facility] [address] [place] [address] [address] 08 Jul, 2010 [facility] [address] [place] [address] [address] June, [facility] [address] [place] [address] [address] June, Cardiomyopathy, Nonischemic 425.4 ; DVT 453.9 ; S/P ICD Placement V45.02 and Ventricular Tachycardia, Nonsustained 427.1 [facility] [address] [place] [address] May, [facility] [address] [place] [address] [address] Dec, Cardiomyopathy, Nonischemic 425.4 ; S/P ICD Placement V45.02 and Ventricular Tachycardia, Nonsustained 427.1 [facility] [address] [place] [address] Dec, Cardiomyopathy, Nonischemic 425.4 [facility] [address] [place] [address] Aug, [facility] [address] [place] [address] [address] Jul, [facility] [address] [place] [address] [address] May, Cardiomyopathy, Nonischemic 425.4 ; S/P ICD Placement V45.02 and Ventricular Tachycardia, Nonsustained 427.1 [facility] [address] [place] [address] [address] Dec, [facility] [address] [place] [address] [address] Nov, Cardiomyopathy, Nonischemic 425.4 and Ve ntricular Tachycardia, Nonsustained 427.1 IMMUNIZATIONS No Known Immunizations SOCIAL HISTORY Never Assessed REASON FOR VISIT [facility]P W/[facility] CHK DX CP PLAN OF CARE Activity Details Follow Up keep benito appt with icd Reaso n: VITAL SIGNS Height 67 in 2019-01-26 Weight 213 lbs 2019-01-26 BMI 33.36 kg/m2 2019-01-26 Oximetry 97 % 2019-01-26 Heart Rate 72 /min 2019-01-26 Blood pressure systolic 128 mm Hg 2019-01-26 Blood pressure diastolic 70 mm Hg 2019-01-26 MEDICATIONS Medication Instructions Dosage Frequency Start Date End Date Duration S clayton Lisinopril 5 MG take 1 tablet by mouth every day Not-Taking Sotalol HCl 80 MG Orally every 12 hrs 2 tablet 12h Not-Taking Lovastatin 20 MG Orally Once a day in the evening 1 tablet 23 2016 Active Carvedilol 6.25 MG Orally Twice a day 1 tablet 12h Active multivitamin po qd 1 tab 24h Active Aspirin 81 MG Orally qd 1 tab 24h Active Amiodarone HCl 200 MG Orally Once a day 1 tablet 24h Active Amoxicillin 500 MG Orally for dentist 4 caps Active RESULTS No Results PROCEDURES Procedure Date Ordered Result Body Site Ofc Program ICD Dual, Staff Jan 26, 2019 INSTRUCTIONS MEDICATIONS ADMINISTERED No Known Medications MEDICAL (GENERAL) HISTORY Type Description Date Medical History Nonischemic cardiomyopathy Medical History Hx Staph methacillin resistent Medical History LVEF 18%; Medical History Renal insufficiency Medical History DVT LLE; coumadin therapy; Medical History Storm Player ICD; Medical History Episode of V Fib, appropriate shock, 06/09 1 Medical History ICD gen change, BS Teligen, 07/20 Medical History 2D echo, EF 25%, no significant valvular disease, 08/2017 Medical History Cath: moderate CAD, 12/2018, [facility], Hosp for V fib, placed on Amioderone therapy Surgical History knee surgery, right Surgical History Hernia repair Surgical History LT knee surgery -2013 Hospitalization History [facility] for episode of syncope 12/2018
--- OUTSIDE RECORDS SUMMARY | 2019-02-01 23:31 | XMS REPORT | Referral Summary ---
Author Author [facility] [place] [facility] Organization [facility] Address Unknown Phone Unavailable Care Team Providers Care Scratch Finisher Name Role Phone Tonio Hawkins PCP Encounter VC Date(s): 06/07/15 - 06/07/15 [facility] [address] [place], [place] [address] Discharge Diagnosis: Hyperlipidemia Discharge Diagnosis: CKD (chronic kidney disease), stage III Discharge Diagnosis: Cardiomyopathy Discharge Diagnosis: OA (osteoarthritis) of knee Discharge Diagnosis: Seasonal allergies Discharge Disposition: 01-Home or Self Care Attending Physician: Tonio Hawkins MD Admitting Physician: Tonio Hawkins MD Vital Signs Most recent to 1 oldest [Reference Range]: Peripheral Pulse 70 bpm Rate [60-100 bpm] (06/07/15 10:15 AM) Blood Pressure 163/84 mmHg [90-140/60-90 mmHg] *HI* (06/07/15 10:15 AM) SpO2 96 % (06/07/15 10:15 AM) Problem List Condition Effective Dates Status [...] to 1 oldest [Reference Range]: WBC [4.8-10.8 7.0 10*3/uL 10*3/uL] (06/07/15 11:40 AM) RBC [4.60-6.20] 4.17 *LOW* (06/07/15 11:40 AM) Hgb [14.0-18.0 13.2 gm/dL gm/dL] *LOW* (06/07/15 11:40 AM) Hct [42.0-52.0 %] 40.8 % *LOW* (06/07/15 11:40 AM) MCV [82.0-99.0 fL] 97.8 fL (06/07/15 11:40 AM) MCH [27.0-32.0 pg] 31.7 pg (06/07/15 11:40 AM) MCHC [32.0-36.0 32.4 gm/dL gm/dL] (06/07/15 11:40 AM) RDW [11.5-14.5 %] 13.0 % (06/07/15 11:40 AM) Platelet [150-400 164 10*3/uL 10*3/uL] (06/07/15 11:40 AM) MPV [8.8-14.8 fL] 10.7 fL (06/07/1540 AM) Immature 0.1 % Granulocytes (06/07/1540 AM) [0.0-1.0 %] Neutrophils [51-75 60 % %] (06/07/1540 AM) Lymphocytes [20-46 23 % %] (06/07/1540 AM) Monocytes [4-11 %] 11 % (06/07/1540 AM) Eosinophils [0-4 %] 5 % *HI* (06/07/1540 AM) Basophils [0-2 %] 1 % (06/07/1540 AM) Neutro Absolute 4.19 10*3 [1.90-7.00 10*3] (06/07/15 AM) Lymph Absolute 1.62 10*3 [0.80-3.30 10*3] (06/07/1540 AM) [place] Absolute 0.74 10*3 [0.30-1.00 10*3] (06/07/1540 AM) Eos Absolute 0.34 10*3 [0.00-0.50 10*3] (06/07/1540 AM) Baso Absolute 0.06 10*3 [0.00-0.20 10*3] (06/07/1540 AM) Chemistry Most recent to 1 oldest [Reference Range]: Sodium Lvl [135-144 141 mEq/L mEq/L] (06/07/1540 AM) Potassium Lvl 4.6 mEq/L [3.5-5.2 mEq/L] (06/07/1540 AM) Chloride [99-111 105 mEq/L mEq/L] (06/07/1540 AM) CO2 [23-31 mEq/L] 28 mEq/L (06/07/1540 AM) AGAP [3-20] 8 (06/07/1540 AM) BUN [8-26 mg/dL] 25 mg/dL (06/07/1540 AM) Glucose Lvl [70-99 116 mg/dL mg/dL] *HI* (06/07/1540 AM) Creatinine Lvl 1.39 mg/dL [0.72-1.25 mg/dL] *HI* (06/07/15 11:40 AM) eGFR [>60 mL/min] 51 mL/min 1 *ABN* (06/07/15 11:40 AM) Calcium Lvl 9.5 mg/dL [8.9-10.5 mg/dL] (06/07/15 11:40 AM) Albumin Lvl [3.4-4.8 4.3 gm/dL gm/dL] (06/07/15 11:40 AM) Total Protein 6.9 gm/dL [6.2-8.1 gm/dL] (06/07/15 11:40 AM) Globulin [1.8-4.0 2.6 gm/dL gm/dL] (06/07/15 11:40 AM) ALT [0-55 U/L] 17 U/L (06/07/15 11:40 AM) AST [5-34 U/L] 19 U/L (06/07/15 11:40 AM) Alk Phos [40-150 66 U/L U/L] (06/07/15 11:40 AM) Bili Total [0.2-1.2 0.3 mg/dL mg/dL] (06/07/15 11:40 AM) PSA (wihout Reflex 1.1 ng/mL 2 Free) [0.0-4.5 (06/07/15 11:40 AM) ng/mL] LDL Direct [0-129 93 mg/dL mg/dL] (06/07/15 11:40 AM) 1Result Comment: Multiply eGFR results by 1.21 for race. 2Result Comment: AUA PSA Best Practice Guidelines: Age-Adjusted PSA Values by Ethnic Group Age Range Asians - Caucasians Americans 40-49 0-2.0 0-2.0 0-2.5 50-59 0-3.0 0-4.0 0-3.5 60-69 0-4.0 0-4.5 0-4.5 70-79 0-5.0 0-5.5 0-6.5 Immunizations Vaccine Date Refusal Reason tetanus/diphth/pertuss (Tdap) [...] Visit Note Author: Tonio Hawkins MD Date: 06/07/15 Assessment/Plan Cardiomyopathy Follow-up with Dr. Stark as directed CKD (chronic kidney disease), stage III Last creatinine stable 1.39 Ordered: CBC w/ Differential Comprehensive Metabolic Panel Hyperlipidemia Continue statin, check lab today Ordered: LDL Direct Return to Clinic Immunization due Prevnar 13 today, Zostavax later Ordered: pneumococcal 13-valent conjugate vaccine, 0.5 mL, IntraMuscular, Once, First Dose: 06/07/15 12:00:00 CDT, Stop Date: 06/07/15 12:00:00 CDT, Form: Injection OA (osteoarthritis) of knee Prostate cancer screening Check PSA Ordered: Prostate Specific Antigen Seasonal allergies Rx printed and given for generic Flonase nasal spray which should be safeif he wants to try Orders: fluticasone nasal, 2 sprays, Nasal, Daily, # 16 g, 6 Refill(s) Plan--he appears to be doing well, says he did great on the trip in [place] [address] [facility]. It was a long trip but he did not have any difficulty and he seemed to havebettersense of well-being after the trip. We will check lab today, administer Prevnar vaccination, see me back in 6 months but sooner if needed. He will continue exercising. Referrals to Other Providers Referred by: Tonio Hawkins MD
--- OUTSIDE RECORDS SUMMARY | 2019-02-01 23:31 | XMS REPORT ---
Author Author Andrade Stark Organization [facility] Address [address] 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 Active 37882122345353 Problem S/P implantation of automatic cardioverter/defib rillator (AICD) Z95.810 Active 440844532 Problem Dyslipidemia (high LDL; low HDL) E78.4 Active 379161872 Problem Nonischemic cardiomyopathy I42.9 Act flakita 40808047 ALLERGIES No Known Allergies ENCOUNTERS Encounter Location Date [facility] [address] [place] [phone] Feb, [facility] [address] [place], [place] [phone] Aug, Nonischemic cardiomyopathy I42.9 ; Nonsu stained paroxysmal ventricular tachycardia I47.2 ; S/P implantation of automatic cardioverter/defibrillator (AICD) Z95.810 ; Long-term use of high-risk medication Z79.899 and Long-term use of aspirin therapy Z79.82 [facility] [address] [place], [place] [phone] Aug, Nonsustained paroxysmal ventricular tach ycardia I47.2 [facility] [address] [place], [place] [phone] Aug, Dyslipidemia (high LDL; low HDL) E78.4 [facility] [address] [place], [place] [phone] Feb, Nonischemic cardiomyopathy I42.9 ; Nonsu stained paroxysmal ventricular tachycardia I47.2 ; S/P implantation of automatic cardioverter/defibrillator (AICD) Z95.810 ; Long-term use of high-risk medication Z79.899 and Long-term use of aspirin therapy Z79.82 [facility] [address] [place] [phone] Aug, Nonischemic cardiomyopathy I42.9 ; Nonsu stained paroxysmal ventricular tachycardia I47.2 ; S/P implantation of automatic cardioverter/defibrillator (AICD) Z95.810 ; Long-term use of high-risk medication Z79.899 and Long-term use of aspirin therapy Z79.82 [facility] [address] [place] [phone] Aug, Nonischemic cardiomyopathy I42.9 ; Nonsu stained paroxysmal ventricular tachycardia I47.2 and S/P implantation of automatic cardioverter/defibrillator (AICD) Z95.[address] [facility] [phone] Feb, [address] 6 [phone] Feb, Nonischemic cardiomyopathy I42.9 ; Nonsu stained paroxysmal ventricular tachycardia I47.2 ; S/P implantation of automatic cardioverter/defibrillator (AICD) Z95.810 ; Long-term use of high-risk medication Z79.899 and Long-term use of aspirin therapy Z79.[address] 6 [phone] Oct, [address] 6 [phone] Oct, [address] 6 [phone] Sep, [facility] [address] [place] [phone] Sep, [address] 6 [phone] Sep, Nonischemic cardiomyopathy I42.9 ; Nonsu stained paroxysmal ventricular tachycardia I47.2 ; S/P implantation of automatic cardioverter/defibrillator (AICD) Z95.810 ; Dyslipidemia (high LDL; low HDL) E78.4 ; Long-term use of high- risk medication Z79.899 and Long-term use of aspirin therapy Z79.82 [facility] [address] 6 [phone] Aug, [facility] [address] [place] [phone] Aug, [facility] [address] [place] [address] 6 [phone] June, [facility] [address] [place] [phone] June, [facility] [address] [place] [phone] June, [facility] [address] [place] [phone] June, [facility] [address] [place] [phone] May, Nonischemic cardiomyopathy I42.9 [facility] [address] [place] [phone] Apr, Nonischemic cardiomyopathy I42.9 [facility] [address] [place] [phone] Apr, [facility] [address] [place] [phone] Mar, [facility] [address] [place] [address] 6 [phone] Mar, [facility] [address] [place] [address] 6 [phone] Mar, [facility] [address] [place] [address] 6 [phone] Mar, [facility] [address] [place] [address] 6 [phone] Mar, [facility] [address] [place] [address] 6 [phone] Mar, Nonischemic cardiomyopathy I42.9 ; Nonsu stained paroxysmal ventricular tachycardia I47.2 ; S/P implantation of automatic cardioverter/defibrillator (AICD) Z95.810 ; Dyslipidemia (high LDL; low HDL) E78.4 ; Long-term use of high- risk medication Z79.899 and Long-term use of aspirin therapy Z79.[address] 6 [phone] 08 Mar, 2016 Nonischemic cardiomyopathy I42.9 ; Nonsu stained paroxysmal ventricular tachycardia I47.2 ; S/P implantation of automatic cardioverter/defibrillator (AICD) Z95.810 and Dyslipidemia (high LDL; low HDL) E78.[address] 6 [phone] Nov, [address] 6 [phone] Oct, S/P implantation of automatic cardiovert er/defibrillator (AICD) Z95.810 and Nonischemic cardiomyopathy I42.9 [place] [phone] Sep, Nonischemic cardiomyopathy I42.9 ; Nonsu stained paroxysmal ventricular tachycardia I47.2 ; S/P implantation of automatic cardioverter/defibrillator (AICD) Z95.810 and Dyslipidemia (high LDL; low HDL) E78.[address] 6 [phone] Apr, Presence of automatic (implantable) card iac defibrillator Z95.810 and Non- ischemic cardiomyopathy I42.[address] 6 [phone] Apr, [address] 6 [phone] 17 Mar, 2015 Ventricular Tachycardia, Nonsustained [address] 6 [phone] 03 Mar, 2015 Nonischemic cardiomyopathy I42.9 ; Nonsu stained paroxysmal ventricular tachycardia I47.2 ; S/P implantation of automatic cardioverter/defibrillator (AICD) Z95.810 and Dyslipidemia (high LDL; low HDL) E78.4 [facility] [phone] Sep, [place] [phone] Sep, Cardiomyopathy, Nonischemic 425.4 ; DVT 453.9 ; Methicillin resistant Staphylococcus aureus 041.12 ; S/P ICD Placement V45.02 ; Ventricular Tachycardia, Nonsustained 427.1 and Dyslipidemia 272.4 [place] [phone] Feb, Cardiomyopathy, Nonischemic 425.4 ; DVT 453.9 ; Methicillin resistant Staphylococcus aureus 041.12 ; S/P ICD Placement V45.02 ; Ventricular Tachycardia, Nonsustained 427.1 and Dyslipidemia 272.4 [place] [phone] Aug, Cardiomyopathy, Nonischemic 425.4 ; DVT 453.9 ; Methicillin resistant Staphylococcus aureus 041.12 ; S/P ICD Placement V45.02 ; Ventricular Tachycardia, Nonsustained 427.1 and Dyslipidemia 272.4 [place] [phone] Aug, Cardiomyopathy, Nonischemic 425.4 ; S/P ICD Placement V45.02 ; Ventricular Tachycardia, Nonsustained 427.1 and Dyslipidemia 272.4 [place] [phone] Aug, Cardiomyopathy, Nonischemic 425.4 ; S/P ICD Placement V45.02 ; Ventricular Tachycardia, Nonsustained 427.1 and Dyslipidemia 272.4 [place] [phone] Feb, [place] [phone] Feb, Cardiomyopathy, Nonischemic 425.4 ; S/P ICD Placement V45.02 ; Ventricular Tachycardia, Nonsustained 427.1 and Dyslipidemia 272.4 [place] [phone] Aug, [place] [phone] Aug, Cardiomyopathy, Nonischemic 425.4 ; S/P ICD Placement V45.02 ; Ventricular Tachycardia, Nonsustained 427.1 and Dyslipidemia 272.[address] 6 [phone] May, [place] [phone] Feb, Cardiomyopathy, Nonischemic 425.4 ; S/P ICD Placement V45.02 ; Ventricular Tachycardia, Nonsustained 427.1 and Dyslipidemia 272.4 [place] [phone] Aug, Cardiomyopathy, Nonischemic 425.4 ; S/P ICD Placement V45.02 ; Ventricular Tachycardia, Nonsustained 427.1 and Dyslipidemia 272.4 [place] [phone] Feb, Ventricular Tachycardia, Nonsustained 42 7.1 ; Cardiomyopathy, Nonischemic 425.4 and S/P ICD Placement V45.02 [place] [phone] Oct, Cardiomyopathy, Nonischemic 425.4 ; S/P ICD Placement V45.02 ; Ventricular Tachycardia, Nonsustained 427.1 and Dyslipidemia 272.[address] 6 [phone] Jul, [facility] [employer] Cardiac Defibrillato r V53.32 ; Cardiomyopathy, Nonischemic 425.4 and Ventricular Tachycardia, Nonsustained 427.[address] 6 [phone] Jul, [address] 6 [phone] June, [address] 6 [phone] June, Cardiomyopathy, Nonischemic 425.4 ; DVT 453.9 ; S/P ICD Placement V45.02 and Ventricular Tachycardia, Nonsustained 427.[address] 6 [phone] May, [place] [phone] Dec, Cardiomyopathy, Nonischemic 425.4 ; S/P ICD Placement V45.02 and Ventricular Tachycardia, Nonsustained 427.1 [facility] [address] [place] [phone] Dec, Cardiomyopathy, Nonischemic 425.[address] [facility] [address] [place] [phone] Aug, [facility] [address] [place] [phone] Jul, [facility] [address] [place] [phone] May, Cardiomyopathy, Nonischemic 425.4 ; S/P ICD Placement V45.02 and Ventricular Tachycardia, Nonsustained 427.1 [facility] [address] [place] [phone] Dec, [facility] [address] [place] [phone] Nov, Cardiomyopathy, Nonischemic 425.4 and Ve ntricular Tachycardia, Nonsustained 427.1 IMMUNIZATIONS No Known Immunizations SOCIAL HISTORY Never Assessed REASON FOR VISIT 6 month follow up with Echo, results and [place] device check DX: Dyslipidemia PLAN OF CARE Activity Details Follow Up feb 2019 cv Reason: VITAL SIGNS Height 67 in 2018-09-08 Weight 200 lbs 2018-09-08 BMI 31.32 kg/m2 2018-09-08 Oximetry 93 % 2018-09-08 Heart Rate 77 /min 2018-09-08 Blood pressure systolic 110 mm Hg 2018-09-08 Blood pressure diastolic 70 mm Hg 2018-09-08 MEDICATIONS Medication Instructions Dosage Frequency Start Date End Date Duration S tatus Lovastatin 20 MG Orally Once a day in the evening 1 tablet 23 2016 Active Lisinopril 5 MG take 1 tablet by mouth every day Active Amoxicillin 500 MG Orally for dentist 4 caps Active multivitamin po qd 1 tab 24h Active Aspirin 81 MG Orally qd 1 tab 24h Active Sotalol HCl 80 MG TAKE 2 TABLETS BY MOUTH TWICE DAILY 90 Active RESULTS No Results PROCEDURES Procedure Date Ordered Result Body Site Ofc Program ICD Dual, Staff September 08, 2018 INSTRUCTIONS MEDICATIONS ADMINISTERED No Known Medications MEDICAL (GENERAL) HISTORY Type Description Date Medical History Nonischemic cardiomyopathy Medical History Hx Staph methacillin resistent Medical History LVEF 18%; 10-2004 Medical History Renal insufficiency Medical History DVT LLE; coumadin therapy; Medical History RallyOn ICD; Medical History Episode of V Fib, appropriate shock, 06/09 Medical History ICD gen change, BS Teligen, 07/20 Medical History 2D echo, EF 25%, no significant valvular disease, 08/2017 Surgical History knee surgery, right Surgical History Hernia repair Surgical History LT knee surgery
--- OUTSIDE RECORDS SUMMARY | 2019-02-01 23:31 | XMS REPORT | Referral Summary ---
Author Author [facility] Organization [facility] Address Unknown Phone Unavailable Care Team Providers Care Riveting Machine Operator Tape Control Name Role Phone Tonio Hawkins PCP Encounter VC Date(s): 06/02/16 - 06/02/16 [facility] [address] [place] [place] [address] Discharge Diagnosis: Anemia Discharge Diagnosis: CKD (chronic kidney disease) Discharge Diagnosis: Total knee replacement status Discharge Diagnosis: Mixed hyperlipidemia Discharge Diagnosis: CKD (chronic kidney disease), stage III Discharge Diagnosis: Cardiac defibrillator in situ Discharge Diagnosis: Obesity Discharge Diagnosis: Cardiomyopathy Discharge Disposition: 01-Home or Self Care Attending Physician: Tonio Hawkins MD Vital Signs Most recent to 1 oldest [Reference Range]: Peripheral Pulse 67 bpm Rate [60-100 bpm] (06/02/16 10:17 AM) Blood Pressure 146/92 mmHg [90-140/60-90 mmHg] *HI* (06/02/16 10:17 AM) Problem List Condition Effective Dates Status Health Status Informan t Anemia(Confirmed) Active Cardiac Active defibrillator in situ(Confirmed) Cardiomyopathy(Confi Active rmed) CKD (chronic kidney Active disease)(Confirmed) 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) Hyperlipidemia(Confi Active rmed) Knee Active osteoarthritis(Confi rmed) Obesity(Confirmed) Active patient Ventricular Active arrhythmia(Confirmed ) Allergies, Adverse Reactions, [...] Status: Ordered sotalol 80 mg oral tablet 120 mg 1.5 tabs, Oral, BID, Dr Stark, # 60 tabs, 0 Refill(s) Start Date: 12/05/13 Status: Ordered Results Hematology Most recent to 1 oldest [Reference Range]: WBC [4.8-10.8 7.8 10*3/uL 10*3/uL] (06/02/16 11:10 AM) RBC [4.60-6.20] 4.30 *LOW* (06/02/16 11:10 AM) Hgb [14.0-18.0 13.0 gm/dL gm/dL] *LOW* (06/02/16 11:10 AM) Hct [42.0-52.0 %] 41.3 % *LOW* (06/02/16 11:10 AM) MCV [82.0-99.0 fL] 96.0 fL (06/02/16 11:10 AM) MCH [27.0-32.0 pg] 30.2 pg (06/02/16 11:10 AM) MCHC [32.0-36.0 31.5 gm/dL gm/dL] *LOW* (06/02/16 11:10 AM) RDW [11.5-14.5 %] 12.8 % (06/02/16 11:10 AM) Platelet [150-400 215 10*3/uL 10*3/uL] (06/02/16 11:10 AM) MPV [8.8-14.8 fL] 10.3 fL (06/02/16 11:10 AM) Immature 0.3 % Granulocytes (06/02/16 11:10 AM) [0.0-1.0 %] Neutrophils [51-75 66 % %] (06/02/16 11:10 AM) Lymphocytes [20-46 17 % %] *LOW* (06/02/16:10 AM) Monocytes [4-11 %] 12 % *HI* (06/02/16 11:10 AM) Eosinophils [0-4 %] 4 % (06/02/16 11:10 AM) Basophils [0-2 %] 1 % (06/02/16 11:10 AM) Neutro Absolute 5.20 [1.90-7.00] (06/02/16 11:10 AM) Lymph Absolute 1.35 [0.80-3.30] (06/02/16 11:10 AM) [place] Absolute 0.90 [0.30-1.00] (06/02/16 11:10 AM) Eos Absolute 0.29 [0.00-0.50] (06/02/16 11:10 AM) Baso Absolute 0.07 [0.00-0.20] (06/02/16 11:10 AM) Chemistry Most recent to 1 oldest [Reference Range]: Sodium Lvl [135-144 141 mEq/L mEq/L] (06/02/16:10 AM) Potassium Lvl 4.7 mEq/L [3.5-5.2 mEq/L] (06/02/16:10 AM) Chloride [99-111 106 mEq/L mEq/L] (06/02/16 11:10 AM) CO2 [23-31 mEq/L] 28 mEq/L (06/02/16 11:10 AM) AGAP [3-20 mEq/L] 7 mEq/L (06/02/16 11:10 AM) BUN [8-26 mg/dL] 26 mg/dL (06/02/16 11:10 AM) Glucose Lvl [70-99 92 mg/dL mg/dL] (06/02/16 11:10 AM) Creatinine Lvl 1.27 mg/dL [0.72-1.25 mg/dL] *HI* (06/02/16 11:10 AM) eGFR [>60 mL/min] 56 mL/min 1 *ABN* (06/02/16 1110 AM) Calcium Lvl 9.7 mg/dL [8.4-10.2 mg/dL] (06/02/16 11:10 AM) Albumin Lvl [3.4-4.8 4.1 gm/dL gm/dL] (06/02/16 11:10 AM) Total Protein 7.5 gm/dL [6.0-7.6 gm/dL] (06/02/16 11:10 AM) Globulin [1.8-4.0 3.4 gm/dL gm/dL] (06/02/16 11:10 AM) ALT [0-55 U/L] 16 U/L (06/02/16 11:10 AM) AST [5-34 U/L] 22 U/L (06/02/16 11:10 AM) Alk Phos [40-150 75 U/L U/L] (06/02/16 11:10 AM) Bili Total [0.2-1.2 0.3 mg/dL mg/dL] (06/02/16 11:10 AM) LDL Direct [0-129 99 mg/dL mg/dL] (06/02/16 11:10 AM) 1Result Comment: Multiply eGFR results by 1.21 for race. Immunizations Given and Recorded Vaccine Date Status Refusal Reason tetanus/diphth/pertuss (Tdap) adult/adol 06/20/11 Recorded influenza virus vaccine, inactivated 12/03/15 G iven influenza virus vaccine, inactivated 12/05/ G iven influenza virus vaccine, live 12/10/12 Given influenza virus vaccine, live 12/03/11 Given pneumococcal 13-valent conjugate vaccine1 06/07/15 Given pneumococcal 23-polyvalent vaccine 06/20/11 Rec orded 1Early/Late Reason: Other : just arrived. Procedures Procedure Date Related Diagnosis Body Site Revision-rt TKA 2006 Abscess-rt leg Social History Social History Type Response Smoking Status Former smoker Assessment and Plan Extracted from: Title: Office Visit Note Author: Tonio Hawkins MD Date: 06/02/16 Assessment/Plan 1.CKD (chronic kidney disease) Creatinine has been stable around 1.4 2.Cardiomyopathy EF 35 percent as above 3.Cardiac defibrillator in situ As per Dr. Stark 4.Total knee replacement status 5.Obesity BMI 31 although has lost some weight 6.Mixed hyperlipidemia Check lab today, apparently ate not taking the statin 7.Anemia Hemoglobin has been stable at over 13, likely related to chronic kidney disease Plan--overall he appears to be doing relatively well, hopefully that will continue. Continue to avoid falls. We will check some lab today and then make further decisions. is going to call the dentist office in [place] to clarify the antibioticand if he is taking it properly. He brought in all of his medshere in the office for me to review, fortunately is not on a lot. We will see him back in 6 months, give flu shot at thattime, consider Zostavax at some point, call if needs somethingsooner. [facility]. Referrals to Other Providers Referred by: Tonio Hawkins MD
--- OUTSIDE RECORDS SUMMARY | 2019-02-01 23:31 | XMS REPORT | Referral Summary ---
Author Organization Unknown Address Unknown Phone Unavailable Care Team Providers Care Extermination Inspector Name Role Phone Tonio Hawkins PCP Encounter VC Date(s): 06/05/14 - 06/05/14 [facility] [place] [address] [place], [place] [address] Discharge Diagnosis: Hyperlipidemia Discharge Diagnosis: Cardiomyopathy Discharge Diagnosis: Anemia Discharge Diagnosis: CKD (chronic kidney disease) Discharge Disposition: Home or Self Care Attending Physician: Tonio Hawkins MD Admitting Physician: Tonio Hawkins MD Vital Signs Most recent to 1 oldest [Reference Range]: Peripheral Pulse 60 bpm Rate [60-100 bpm] (06/05/14 1:01 PM) Blood Pressure 141/78 mmHg [90-140/60-90 mmHg] *HI* (06/05/14 1:01 PM) Problem List Condition Effective Dates Status Health Status Informan t Anemia(Confirmed) Active Cardiac Active defibrillator in situ(Confirmed) Cardiomyopathy(Confi Active rmed) CKD (chronic kidney Active disease)(Confirmed) 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) Hyperlipidemia(Confi Active rmed) Ventricular Active arrhythmia(Confirmed ) Allergies, Adverse Reactions, Alerts Substance Reaction Severity Status LORazepam hallucinations Active Medications amoxicillin 500 mg oral capsule See Instructions, 4 caps Oral one hr before dental procedure, 0 Refill(s) Special Instructions: 4 caps Oral one hr before dental procedure Start Date: 06/05/14 Status: Ordered aspirin 81 mg, 0 Refill(s) Start Date: 11/29/13 Status: Ordered digoxin 125 mcg (0.125 mg) oral tablet tabs, Oral, Daily, 0 Refill(s) Start Date: 11/29/13 Status: Ordered lisinopril 2.5 mg, Oral, Daily, 0 Refill(s) Start Date: 10/21/14 Status: Ordered lovastatin 20 mg oral tablet tabs, Oral, Daily, 0 Refill(s) Start Date: 11/29/13 Status: Ordered Multivitamins oral capsule caps, Oral, Daily, 0 Refill(s) Start Date: 11/29/13 Status: Ordered sotalol 80 mg oral tablet 1 tabs, Oral, BID, Dr Stark, # 60 tabs, 0 Refill(s) Special Instructions: Dr Stark Start Date: 12/05/13 Status: Ordered Results Hematology Most recent to 1 oldest [Reference Range]: WBC [4.8-10.8 K/uL] 9.3 K/uL (06/05/14 1:45 PM) RBC [4.60-6.20 M/uL] 4.28 M/uL *LOW* (06/05/14 1:45 PM) Hgb [14.0-18.0 13.7 gm/dL gm/dL] *LOW* (06/05/14 1:45 PM) Hct [42.0-52.0 %] 41.4 % *LOW* (06/05/14 1:45 PM) MCV [82.0-99.0 fL] 96.7 fL (06/05/14 1:45 PM) MCH [27.0-32.0 pg] 32.0 pg (06/05/14 1:45 PM) MCHC [32.0-36.0 33.1 gm/dL gm/dL] (06/05/14 1:45 PM) RDW [11.5-14.5 %] 12.9 % (06/05/14 1:45 PM) Platelet [150-400 165 K/uL K/uL] (06/05/14 1:45 PM) MPV [8.8-14.8 fL] 11.0 fL (06/05/14 1:45 PM) Immature 0.2 % Granulocytes (06/05/14 1:45 PM) [0.0-1.0 %] Neutrophils [51-75 63 % %] (06/05/14 1:45 PM) Lymphocytes [20-46 24 % %] (06/05/14 1:45 PM) Monocytes [4-11 %] 8 % (06/05/14 1:45 PM) Eosinophils [0-4 %] 4 % (06/05/14 1:45 PM) Basophils [0-2 %] 1 % (06/05/14 1:45 PM) Neutro Absolute 5.85 THOUS [1.90-7.00 THOUS] (06/05/14 1:45 PM) Lymph Absolute 2.22 THOUS [0.80-3.30 THOUS] (06/05/14 1:45 PM) [place] Absolute 0.74 THOUS [0.30-1.00 THOUS] (06/05/14 1:45 PM) Eos Absolute 0.37 THOUS [0.00-0.50 THOUS] (06/05/14 1:45 PM) Baso Absolute 0.05 THOUS [0.00-0.20 THOUS] (06/05/14 1:45 PM) Chemistry Most recent to 1 oldest [Reference Range]: Sodium Lvl [135-144 142 mEq/L mEq/L] (06/05/14 1:45 PM) Potassium Lvl 4.7 mEq/L [3.5-5.2 mEq/L] (06/05/14 1:45 PM) Chloride [99-111 106 mEq/L mEq/L] (06/05/14 1:45 PM) CO2 [23-31 mEq/L] 28 mEq/L (06/05/14 1:45 PM) AGAP [3-20] 8 (06/05/14 1:45 PM) BUN [8-26 mg/dL] 24 mg/dL (06/05/14 1:45 PM) Glucose Lvl [70-99 101 mg/dL mg/dL] *HI* (06/05/14 1:45 PM) Creatinine Lvl 1.29 mg/dL [0.72-1.25 mg/dL] *HI* (06/05/14 1:45 PM) eGFR [>60 mL/min] 56 mL/min 1 *ABN* (06/05/14 1:45 PM) Calcium Lvl 10.4 mg/dL [8.9-10.5 mg/dL] (06/05/14 1:45 PM) Albumin Lvl [3.4-4.8 4.5 gm/dL gm/dL] (06/05/14 1:45 PM) Total Protein 7.6 gm/dL [6.2-8.1 gm/dL] (06/05/14 1:45 PM) Globulin [1.8-4.0 3.1 gm/dL gm/dL] (06/05/14 1:45 PM) ALT [0-55 unit/L] 17 unit/L (06/05/14 1:45 PM) AST [5-34 unit/L] 20 unit/L (06/05/14 1:45 PM) Alk Phos [40-150 73 unit/L unit/L] (06/05/14 1:45 PM) Bili Total [0.2-1.2 0.6 mg/dL mg/dL] (06/05/14 1:45 PM) Chol [0-199 mg/dL] 189 mg/dL (06/05/14 1:45 PM) Trig [0-149 mg/dL] 110 mg/dL (06/05/14 1:45 PM) HDL [40-84 mg/dL] 68 mg/dL (06/05/14 1:45 PM) LDL [0-130 mg/dL] 99 mg/dL (06/05/14 1:45 PM) VLDL Cholesterol 22 mg/dL [0-28 mg/dL] (06/05/14 1:45 PM) Cardiac Risk 2.8 [0.0-5.7] (06/05/14 1:45 PM) 1Result Comment: Multiply eGFR results by 1.21 for race. Immunizations Vaccine Date Refusal Reason tetanus/diphth/pertuss (Tdap) adult/adol 06/20/11 influenza virus vaccine, live 12/10/12 influenza virus vaccine, live 12/03/11 pneumococcal 23-polyvalent vaccine 06/20/11 Procedures Procedure Date Related Diagnosis Body Site Revision-rt TKA 2006 Abscess-rt leg Social History Social History Type Response Smoking Status Never smoker Assessment and Plan Extracted from: Title: Ambulatory Patient Education Author: Tonio Hawkins MD Date: 06/05/14 Family Medicine Chronic Kidney Disease Chronic kidney disease occurs when the kidneys are damaged over a long period. The kidneys are two organs that lie on either side of the spine between the middle of the back and the front of the abdomen. The kidneys: Remove wastes and extra water from the blood. Produce important hormones. These help keep bones strong, regulate blood pressure, and help create red blood cells. Balance the fluids and chemicals in the blood and tissues. A small amount of kidney damage may not cause problems, but a large amount of damage may make it difficult or impossible for the kidneys to work the way they should. If steps are not taken to slow down the kidney damage or stop it from getting worse, the kidneys may stop working permanently. Most of the time, chronic kidney disease does not go away. However, it can often be controlled, and those with the disease can usually live normal lives. CAUSES The most common causes of chronic kidney disease are diabetes and high blood pressure (hypertension ). Chronic kidney disease may also be caused by: Diseases that cause kidneys' filters to become inflamed. Diseases that affect the immune system. Genetic diseases. Medicines that damage the kidneys, such as anti-inflammatory medicines. Poisoning or exposure to toxic substances. A reoccurring kidney or urinary infection. A problem with urine flow. This may be caused by: Cancer. Kidney stones. An enlarged prostate in males. SYMPTOMS Because the kidney damage in chronic kidney disease occurs slowly, symptoms develop slowly and may not be obvious until the kidney damage becomes severe. A person may have a kidney disease for years without showing any symptoms. Symptoms can include: Swelling (edema ) of the legs, ankles, or feet. Tiredness (lethargy ). Nausea or vomiting. Confusion. Problems with urination, such as: Decreased urine production. Frequent urination, especially at night. Frequent accidents in children who are potty trained. Muscle twitches and cramps. Shortness of breath. Weakness. Persistent itchiness. Loss of appetite. Metallic taste in the mouth. Trouble sleeping. Slowed development in children. Short stature in children. DIAGNOSIS Chronic kidney disease may be detected and diagnosed by tests, including blood, urine, imaging, or kidney biopsy tests. TREATMENT Most chronic kidney diseases cannot be cured. Treatment usually involves relieving symptoms and preventing or slowing the progression of the disease. Treatment may include: A special diet. You may need to avoid alcohol and foods thatare salty and high in potassium. Medicines. These may: Lower blood pressure. Relieve anemia. Relieve swelling. Protect the bones. HOME CARE INSTRUCTIONS Follow your prescribed diet. Only take mwtt-nni-prnptjd or prescription medicines as directed by your caregiver. Do not take any new medicines (prescription, ndfw-zxe-idxkijv, or nutritional supplements) unless approved by your caregiver. Many medicines can worsen your kidney damage or need to have the dose adjusted. Quit smoking if you are a smoker. Talk to your caregiver about a smoking cessation program. Keep all follow-up appointments as directed by your caregiver. SEEK IMMEDIATE MEDICAL CARE IF: Your symptoms get worse or you develop new symptoms. You develop symptoms of end-stage kidney disease. These include: Headaches. Abnormally dark or light skin. Numbness in the hands or feet. Easy bruising. Frequent hiccups. Menstruation stops. You have a fever. You have decreased urine production. You havepain or bleeding when urinating. MAKE SURE YOU: Understand these instructions. Will watch your condition. Will get help right away if you are not doing well or get worse. FOR MORE INFORMATION [place] [employer] Patients: www.aakp.org National Kidney Foundation: www.kidney.org [employer]: www.akfinc.org Life Options [facility] Program: www.lifeoptions.org and www.kidneyschool.org Document Released: 11/04/2008 Document Revised: 01/12/2013 Document Reviewed: 09/24/2012 ExitCare Patient Information 2014 [employer]. No follow up information was provided. Extracted from: Title: Office Visit Note Author: Tonio Hawkins MD Date: 06/05/14 Assessment/Plan Anemia Last hemoglobin stable 13.6 Cardiomyopathy Stable as per Dr. Stark CKD (chronic kidney disease) Last creatinine stable 1.35 Hyperlipidemia Continue statin, check annual fasting lipids today Plan he is doing overall well, hopefully that will continue. Continue exercising. Check lab today and then make further decisions. See me back in 6 months, administer flu shot and probably Prevnar vaccine at that time. He did not want Prevnar today. Call if needs something sooner. Referrals to Other Providers Referred by: Tonio Hawkins MD
--- OUTSIDE RECORDS SUMMARY | 2019-02-01 23:31 | XMS REPORT ---
Author Author Andrade Stark Organization [facility] Address [address] [place] [address] Care Team Providers Care Fabric Designer Name Role Phone Sourav Stark Unavailable PROBLEMS Type Condition ICD9-CM Code KPI79-AR Code Onset Dates Condition S tatus SNOMED Code Problem DVT 453.9 Active 433866690 Problem Methicillin resistant Staphylococcus aureus 041.12 Active 196513057 Problem Long-term use of high-risk medication Z79.899 Active 168351378 Problem Long-term use of aspirin therapy Z79.82 Active 448246349 Problem S/P implantation of automatic cardioverter/defib rillator (AICD) Z95.810 Active 307755503 Problem Dyslipidemia (high LDL; low HDL) E78.4 Active 803410457 Problem 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 Active 99668913185669 Problem Nonischemic cardiomyopathy I42.9 Act flakita 65038439 ALLERGIES No Information ENCOUNTERS Encounter Location Date Diagnosis [facility] [address] [address] Aug, [facility] [address] Feb, [facility] [address] [address] Feb, Nonischemic cardiomyopathy I42.9 ; Nonsu stained paroxysmal ventricular tachycardia I47.2 ; S/P implantation of automatic cardioverter/defibrillator (AICD) Z95.810 ; Long-term use of high-risk medication Z79.899 and Long-term use of aspirin therapy Z79.82 [facility] [address] [address] Oct, [facility] [address] [address] Oct, [facility] [address] [facility] [address] [facility] [address] [place] [address] Sep, [facility] [address] [place] [address] [address] [facility] [address] [place] [phone] Sep, [facility] [address] [place] [address] [address] [facility] [address] [place] [address] Sep, Nonischemic cardiomyopathy I42.9 ; Nonsu stained paroxysmal ventricular tachycardia I47.2 ; S/P implantation of automatic cardioverter/defibrillator (AICD) Z95.810 ; Dyslipidemia (high LDL; low HDL) E78.4 ; Long-term use of high- risk medication Z79.899 and Long-term use of aspirin therapy Z79.82 [facility] [address] [place] [address] [address] [facility] [address] [place] [address], [place] [address] Aug, [facility] [address] [place] [address] [address] [facility] [address] [place] [address] Aug, [facility] [address] [place] [address] [address] [facility] [address] [place] [address], [place] [address] June, [facility] [address] [place] [address] [address] [facility] [address] [place] [address], [place] [address] June, [facility] [address] [place] [address] [address] [facility] [address] [place] [address], [place] [address] June, [facility] [address] [place] [address] [address] [facility] [address] [place] [address] June, [facility] [address] [place] [address] [address] [address] [place] [address] May, Nonischemic cardiomyopathy I42.9 [facility] [address] [place] [address] [address] [address] [place] [address], [place] [address] Apr, Nonischemic cardiomyopathy I42.9 [facility] [address] [place] [address] [address] [address] [place] [address] Apr, [facility] [address] [place] [address] [address] [address] [place] [address], [place] [address] Mar, [facility] [address] [place] [address] [address] [place] [address] Mar, [facility] [address] [place] [address] [address] [facility] [address] [place] [address] [address] Mar, [facility] [address] [address] Mar, [facility] [address] [address] Mar, [facility] [address] [address] Mar, Nonischemic cardiomyopathy I42.9 ; Nonsu stained paroxysmal ventricular tachycardia I47.2 ; S/P implantation of automatic cardioverter/defibrillator (AICD) Z95.810 ; Dyslipidemia (high LDL; low HDL) E78.4 ; Long-term use of high- risk medication Z79.899 and Long-term use of aspirin therapy Z79.82 [facility] [address] [address] Mar, Nonischemic cardiomyopathy I42.9 ; Nonsu stained paroxysmal ventricular tachycardia I47.2 ; S/P implantation of automatic cardioverter/defibrillator (AICD) Z95.810 and Dyslipidemia (high LDL; low HDL) E78.4 [facility] [address] [address] Nov, [facility] [address] [address] Oct, S/P implantation of automatic cardiovert er/defibrillator (AICD) Z95.810 and Nonischemic cardiomyopathy I42.9 [facility] [address] [address] Sep, Nonischemic cardiomyopathy I42.9 ; Nonsu stained paroxysmal ventricular tachycardia I47.2 ; S/P implantation of automatic cardioverter/defibrillator (AICD) Z95.810 and Dyslipidemia (high LDL; low HDL) E78.4 [facility] [address] [address] Apr, Presence of automatic (implantable) card iac defibrillator Z95.810 and Non-ischemic cardiomyopathy I42.9 [facility] [address] [address] Apr, [address] [address] 17 Mar, 2015 Ventricular Tachycardia, Nonsustained [address] [address] 03 Mar, 2015 Nonischemic cardiomyopathy I42.9 ; Nonsu stained paroxysmal ventricular tachycardia I47.2 ; S/P implantation of automatic cardioverter/defibrillator (AICD) Z95.810 and Dyslipidemia (high LDL; low HDL) E78.[address] [address] Sep, [address] [address] Sep, Cardiomyopathy, Nonischemic 425.4 ; DVT 453.9 ; Methicillin resistant Staphylococcus aureus 041.12 ; S/P ICD Placement V45.02 ; Ventricular Tachycardia, Nonsustained 427.1 and Dyslipidemia 272.[address] [address] Feb, Cardiomyopathy, Nonischemic 425.4 ; DVT 453.9 ; Methicillin resistant Staphylococcus aureus 041.12 ; S/P ICD Placement V45.02 ; Ventricular Tachycardia, Nonsustained 427.1 and Dyslipidemia 272.[address] [address] Aug, Cardiomyopathy, Nonischemic 425.4 ; DVT 453.9 ; Methicillin resistant Staphylococcus aureus 041.12 ; S/P ICD Placement V45.02 ; Ventricular Tachycardia, Nonsustained 427.1 and Dyslipidemia 272.[address] [address] Aug, Cardiomyopathy, Nonischemic 425.4 ; S/P ICD Placement V45.02 ; Ventricular Tachycardia, Nonsustained 427.1 and Dyslipidemia 272.[address] [address] Aug, Cardiomyopathy, Nonischemic 425.4 ; S/P ICD Placement V45.02 ; Ventricular Tachycardia, Nonsustained 427.1 and Dyslipidemia 272.[address] [address] Feb, [facility] [address] [address] Feb, Cardiomyopathy, Nonischemic 425.4 ; S/P ICD Placement V45.02 ; Ventricular Tachycardia, Nonsustained 427.1 and Dyslipidemia 272.4 [facility] [address] [address] Aug, [facility] [address] [address] Aug, Cardiomyopathy, Nonischemic 425.4 ; S/P ICD Placement V45.02 ; Ventricular Tachycardia, Nonsustained 427.1 and Dyslipidemia 272.[address] [facility] [address] [address] May, [facility] [address] [address] Feb, Cardiomyopathy, Nonischemic 425.4 ; S/P ICD Placement V45.02 ; Ventricular Tachycardia, Nonsustained 427.1 and Dyslipidemia 272.[address] [address] Aug, Cardiomyopathy, Nonischemic 425.4 ; S/P ICD Placement V45.02 ; Ventricular Tachycardia, Nonsustained 427.1 and Dyslipidemia 272.[address] [address] Feb, Ventricular Tachycardia, Nonsustained 42 7.1 ; Cardiomyopathy, Nonischemic 425.4 and S/P ICD Placement V45.02 [facility] [address] [address] Oct, Cardiomyopathy, Nonischemic 425.4 ; S/P ICD Placement V45.02 ; Ventricular Tachycardia, Nonsustained 427.1 and Dyslipidemia 272.[address] [address] 15 Jul, 2010 Battery End Of Life Cardiac Defibrillato r V53.32 ; Cardiomyopathy, Nonischemic 425.4 and Ventricular Tachycardia, Nonsustained 427.1 [facility] [address] [address] Jul, [facility] [address] [address] June, [facility] [address] [address] June, Cardiomyopathy, Nonischemic 425.4 ; DVT 453.9 ; S/P ICD Placement V45.02 and Ventricular Tachycardia, Nonsustained 427.1 [facility] [address] [address] May, [facility] [address] [address] Dec, Cardiomyopathy, Nonischemic 425.4 ; S/P ICD Placement V45.02 and Ventricular Tachycardia, Nonsustained 427.1 [facility] [address] [address] Dec, Cardiomyopathy, Nonischemic 425.4 [facility] [address] [address] Aug, [facility] [address] [address] Jul, [facility] [address] [address] May, Cardiomyopathy, Nonischemic 425.4 ; S/P ICD Placement V45.02 and Ventricular Tachycardia, Nonsustained 427.1 [facility] [address] [address] Dec, [facility] [address] [address] Nov, Cardiomyopathy, Nonischemic 425.4 and Ve ntricular Tachycardia, Nonsustained 427.1 IMMUNIZATIONS No Known Immunizations SOCIAL HISTORY Never Assessed REASON FOR VISIT med refill PLAN OF CARE VITAL SIGNS MEDICATIONS Medication Instructions Dosage Frequency Start Date End Date Duration S tatus Lisinopril 2.5 MG Orally Once a day 1 tablet 24h 90 days Active RESULTS No Results PROCEDURES No Known procedures INSTRUCTIONS MEDICATIONS ADMINISTERED No Known Medications MEDICAL (GENERAL) HISTORY Type Description Date Medical History Nonischemic cardiomyopathy Medical History Hx Staph methacillin resistent Medical History LVEF 18%; Medical History Renal insufficiency Medical History DVT LLE; coumadin therapy; Medical History Slack ICD; Medical History Episode of V Fib, appropriate shock, 06/09 1 Medical History ICD gen change, BS Hira, 07/20 Surgical History knee surgery, right Surgical History Hernia repair Surgical History LT knee surgery
--- OUTSIDE RECORDS SUMMARY | 2019-02-01 23:31 | XMS REPORT | Referral Summary ---
Author Author [facility] [place] Organization [facility] Address Unknown Phone Unavailable Care Team Providers Care Warp Tier Name Role Phone Tonio Hawkins PCP Encounter VC Date(s): 12/02/16 - 12/02/16 [facility] [address] [place], [place] [address] Discharge Diagnosis: Cardiomyopathy Discharge Diagnosis: Cardiac defibrillator in situ Discharge Diagnosis: CKD (chronic kidney disease) Discharge Diagnosis: Obesity Discharge Diagnosis: Anemia Discharge Diagnosis: Hyperlipidemia Discharge Disposition: 01-Home or Self Care Attending Physician: Tonio Hawkins MD Admitting Physician: Tonio Hawkins MD Vital Signs Most recent to 1 oldest [Reference Range]: Peripheral Pulse 92 bpm Rate [60-100 bpm] (12/02/16 10:45 AM) Blood Pressure 102/70 mmHg [90-140/60-90 mmHg] (12/02/16 10:45 AM) SpO2 99 % (12/02/16 10:45 AM) Problem List Condition Effective Dates Status [...] No data available for this section Immunizations Given and Recorded Vaccine Date Status Refusal Reason influenza virus vaccine, inactivated 12/02/16 G iven influenza virus vaccine, inactivated 12/03/15 G iven influenza virus vaccine, inactivated 12/05/14 G iven pneumococcal 13-valent conjugate vaccine1 06/07/15 Given influenza virus vaccine, live 12/10/12 Given influenza virus vaccine, live 12/03/11 Given tetanus/diphth/pertuss (Tdap) adult/adol 06/20/11 Recorded pneumococcal 23-polyvalent vaccine 06/20/11 Rec orded 1Early/Late Reason: Other : just arrived. Procedures Procedure Date Related Diagnosis Body Site Revision-rt TKA 2006 Abscess-rt leg Social History Social History Type Response Smoking Status Former smoker entered on: 06/07/15 Assessment and Plan Extracted from: Title: Office Visit Note Author: Tonio Hawkins MD Date: 12/02/16 1.Cardiomyopathy 2.Cardiac defibrillator in situ As per Dr. Stark 3.Anemia Recent hemoglobin stable 13.3 4.CKD (chronic kidney disease) Recent creatinine stable 1.4 5.Hyperlipidemia Continue statin, recent lipids are good as above 6.Obesity weightbetter BMI 29.9 Flu vaccine need flu Shot today, he will get Zostavax locally Ordered: influenza virus vaccine, inactivated, 0.5 mL, IntraMuscular, Once, First Dose: 12/02/16 10:50:00 CDT, Stop Date: 12/02/16 10:50:00 CDT, NOW Plan--overallAndrade appears to be doing well and hopefully that will continue. We'll continue current medical regimen and stay active and exercise. He will see Dr. Stark in February, see me in 6 months or May but call sooner if needed. Referrals to Other Providers Referred by: Tonio Hawkins MD
--- OUTSIDE RECORDS SUMMARY | 2019-02-01 23:32 | XMS REPORT ---
Author Author Andrade Stark Organization [employer] Address Unknown Phone Unavailable Care Team Providers Care Senior Sql Developer Name Role Phone Sourav Stark CP Unavailable Allergies, Adverse Reactions, Alerts Substance Reaction Event Type N.K.D.A. Info Not Available Non Drug Allergy Problems Problem Type Condition ICD-9 Code Onset Dates Condition Statu s Assessment S/P ICD Placement V45.02 Active Assessment DVT 453.9 Active Assessment Methicillin resistant Staphylococcus aureus 041.12 Active Assessment Dyslipidemia 272.4 Active Assessment Ventricular Tachycardia, Nonsustained 427.1 Active Problem Cardiomyopathy, Nonischemic 425.4 Active Problem DVT 453.9 Active Problem Dyslipidemia 272.4 Active Problem Ventricular Tachycardia, Nonsustained 427.1 Active Assessment Cardiomyopathy, Nonischemic 425.4 Active Problem S/P ICD Placement V45.02 Active Problem Methicillin resistant Staphylococcus aureus 041.12 Active Medications Medication Code System Code Instructions Start Date End Date Status Dosage Digoxin [facility] [address]-93 125MCG Orally q[place] 1 [place] [address]-26 2.5 MG qd 1 [place] [address]-44 81 MG Orally qd 1 [place] [address]-58 80 MG Orally bid September 05, 2013 1.5 tab multivitamin NDC 0 po qd 1 tab Procedures Procedure Coding System Code Date Office Visit, Est Pt., Level 4 CPT-4 14854 A 2014 Ofc Program ICD Dual, Staff CPT-4 86399 Sep 13, 2014 Vital Signs Date/Time: Sep 13, 2014 BMI 32.39 Index Weight 206.8 lbs Height 67 in Cardiac Monitoring Heart Rate 72 /min Oximetry 98% % Blood Pressure Diastolic 70 mm Hg Blood Pressure Systolic 120 mm Hg Results No Known Results Summary Purpose [employer] Submission
--- OUTSIDE RECORDS SUMMARY | 2019-02-01 23:32 | XMS REPORT ---
Author Author Andrade Stark Organization [facility] Address [address] [place] [address] Care Team Providers Care Tour Narrator Name Role Phone Sourav Stark Unavailable PROBLEMS Type Condition ICD9-CM Code [id number]-MD Code Onset Dates Condition S tatus SNOMED Code Problem DVT 453.9 Active 202934309 Problem Dyslipidemia 272.4 Active 0138539 07 Problem Cardiomyopathy, Nonischemic 425.4 Ac tive 72739874 Problem Ventricular Tachycardia, Nonsustained 427.1 Active 10532918793931 Problem Methicillin resistant Staphylococcus aureus 041.12 Active 193038022 Problem S/P ICD Placement V45.02 Active 44 1521511 Problem Long-term use of high-risk medication Z79.899 Active 564102750 Problem Long-term use of aspirin therapy Z79.82 Active 603694937059313 Problem S/P implantation of automatic cardioverter/defib rillator (AICD) Z95.810 Active 871190412 Problem Dyslipidemia (high LDL; low HDL) E78.4 Active 637151610 Problem Nonsustained paroxysmal ventricular tachycardia I47.2 Active 91762201508900 Problem Nonischemic cardiomyopathy I42.9 Act flakita [id number] ALLERGIES Unknown Allergies SOCIAL HISTORY No smoking Hx information available PLAN OF CARE VITAL SIGNS MEDICATIONS Medication Instructions Dosage Frequency Start Date End Date Duration S tatus Lisinopril 2.5 MG Orally qd 1 tab 24h 90 days Acti ve RESULTS No Results PROCEDURES No Known procedures IMMUNIZATIONS No Known Immunizations
--- OUTSIDE RECORDS SUMMARY | 2019-02-01 23:32 | XMS REPORT ---
Author Author Andrade Stark Organization [facility] Address [address] [place] [address] Care Team Providers Care Automatic Bandsaw Tender Name Role Phone Sourav Stark Unavailable PROBLEMS Type Condition ICD9-CM Code SZR80-ER Code Onset Dates Condition S tatus SNOMED Code Problem DVT 453.9 Active 785137695 Problem Methicillin resistant Staphylococcus aureus 041.12 Active 096000189 Problem Long-term use of high-risk medication Z79.899 Active 665396310 Problem Long-term use of aspirin therapy Z79.82 Active 775759434 Problem S/P implantation of automatic cardioverter/defib rillator (AICD) Z95.810 Active 725385391 Problem Dyslipidemia (high LDL; low HDL) E78.4 Active 852109389 Problem 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 Active 00420291267776 Problem Nonischemic cardiomyopathy I42.9 Act flakita 29249353 ALLERGIES No Information ENCOUNTERS Encounter Location Date Diagnosis [facility] [address] [address] Aug, [facility] [address] Feb, [facility] [address] [address] Feb, Nonischemic cardiomyopathy I42.9 ; Nonsu stained paroxysmal ventricular tachycardia I47.2 ; S/P implantation of automatic cardioverter/defibrillator (AICD) Z95.810 ; Long-term use of high-risk medication Z79.899 and Long-term use of aspirin therapy Z79.82 [facility] [address] [address] Oct, [facility] [address] [address] Oct, [facility] [address] [address] [place] [address] Sep, [facility] [address] [place] [address] [address] [place] [address] Sep, [facility] [address] [place] [address] [address] [place] [address] Sep, Nonischemic cardiomyopathy I42.9 ; Nonsu stained paroxysmal ventricular tachycardia I47.2 ; S/P implantation of automatic cardioverter/defibrillator (AICD) Z95.810 ; Dyslipidemia (high LDL; low HDL) E78.4 ; Long-term use of high- risk medication Z79.899 and Long-term use of aspirin therapy Z79.82 [facility] [address] [place] [address] [address] [place] [address], [place] [address] Aug, [facility] [address] [place] [address] [address] [place] [address] Aug, [facility] [address] [place] [address] [address] [place] [address], [place] [address] June, [facility] [address] [place] [address] [address] [place] [address], [place] [address] June, [facility] [address] [place] [address] [address] [place] [address], [place] [address] June, [facility] [address] [place] [address] [address] [place] [address] June, [facility] [address] [place] [address] [address] [place] [address] May, Nonischemic cardiomyopathy I42.9 [facility] [address] [place] [address] [address] [place] [address], [place] [address] Apr, Nonischemic cardiomyopathy I42.9 [facility] [address] [place] [address] [address] [place] [address] Apr, [facility] [address] [place] [address] [address] [place] [address], [place] [address] Mar, [facility] [address] [place] [address] [address] [place] [address] Mar, [facility] [address] [place] [address] [address] [place] [address] [address] Mar, [facility] [address] [address] Mar, [facility] [address] [address] Mar, [facility] [address] [address] Mar, Nonischemic cardiomyopathy I42.9 ; Nonsu stained paroxysmal ventricular tachycardia I47.2 ; S/P implantation of automatic cardioverter/defibrillator (AICD) Z95.810 ; Dyslipidemia (high LDL; low HDL) E78.4 ; Long-term use of high- risk medication Z79.899 and Long-term use of aspirin therapy Z79.82 [facility] [address] [address] Mar, Nonischemic cardiomyopathy I42.9 ; Nonsu stained paroxysmal ventricular tachycardia I47.2 ; S/P implantation of automatic cardioverter/defibrillator (AICD) Z95.810 and Dyslipidemia (high LDL; low HDL) E78.4 [facility] [address] [address] Nov, [facility] [address] [address] Oct, S/P implantation of automatic cardiovert er/defibrillator (AICD) Z95.810 and Nonischemic cardiomyopathy I42.9 [facility] [address] [address] Sep, Nonischemic cardiomyopathy I42.9 ; Nonsu stained paroxysmal ventricular tachycardia I47.2 ; S/P implantation of automatic cardioverter/defibrillator (AICD) Z95.810 and Dyslipidemia (high LDL; low HDL) E78.4 [facility] [address] [address] Apr, Presence of automatic (implantable) card iac defibrillator Z95.810 and Non-ischemic cardiomyopathy I42.9 [facility] [address] [address] Apr, [address] [address] 17 Mar, 2015 Ventricular Tachycardia, Nonsustained [address] [address] 03 Mar, 2015 Nonischemic cardiomyopathy I42.9 ; Nonsu stained paroxysmal ventricular tachycardia I47.2 ; S/P implantation of automatic cardioverter/defibrillator (AICD) Z95.810 and Dyslipidemia (high LDL; low HDL) E78.[address] [address] Sep, [address] [address] Sep, Cardiomyopathy, Nonischemic 425.4 ; DVT 453.9 ; Methicillin resistant Staphylococcus aureus 041.12 ; S/P ICD Placement V45.02 ; Ventricular Tachycardia, Nonsustained 427.1 and Dyslipidemia 272.[address] [address] Feb, Cardiomyopathy, Nonischemic 425.4 ; DVT 453.9 ; Methicillin resistant Staphylococcus aureus 041.12 ; S/P ICD Placement V45.02 ; Ventricular Tachycardia, Nonsustained 427.1 and Dyslipidemia 272.[address] [address] Aug, Cardiomyopathy, Nonischemic 425.4 ; DVT 453.9 ; Methicillin resistant Staphylococcus aureus 041.12 ; S/P ICD Placement V45.02 ; Ventricular Tachycardia, Nonsustained 427.1 and Dyslipidemia 272.[address] [address] Aug, Cardiomyopathy, Nonischemic 425.4 ; S/P ICD Placement V45.02 ; Ventricular Tachycardia, Nonsustained 427.1 and Dyslipidemia 272.[address] [address] Aug, Cardiomyopathy, Nonischemic 425.4 ; S/P ICD Placement V45.02 ; Ventricular Tachycardia, Nonsustained 427.1 and Dyslipidemia 272.[address] [address] Feb, [facility] [address] [address] Feb, Cardiomyopathy, Nonischemic 425.4 ; S/P ICD Placement V45.02 ; Ventricular Tachycardia, Nonsustained 427.1 and Dyslipidemia 272.4 [facility] [address] [address] Aug, [facility] [address] [address] Aug, Cardiomyopathy, Nonischemic 425.4 ; S/P ICD Placement V45.02 ; Ventricular Tachycardia, Nonsustained 427.1 and Dyslipidemia 272.4 [facility] [address] [address] May, [facility] [address] [address] Feb, Cardiomyopathy, Nonischemic 425.4 ; S/P ICD Placement V45.02 ; Ventricular Tachycardia, Nonsustained 427.1 and Dyslipidemia 272.[address] [address] Aug, Cardiomyopathy, Nonischemic 425.4 ; S/P ICD Placement V45.02 ; Ventricular Tachycardia, Nonsustained 427.1 and Dyslipidemia 272.[address] [address] Feb, Ventricular Tachycardia, Nonsustained 42 7.1 ; Cardiomyopathy, Nonischemic 425.4 and S/P ICD Placement V45.02 [facility] [address] [address] Oct, Cardiomyopathy, Nonischemic 425.4 ; S/P ICD Placement V45.02 ; Ventricular Tachycardia, Nonsustained 427.1 and Dyslipidemia 272.[address] [address] 15 Jul, 2010 Battery End Of Life Cardiac Defibrillato r V53.32 ; Cardiomyopathy, Nonischemic 425.4 and Ventricular Tachycardia, Nonsustained 427.1 [facility] [address] [address] Jul, [facility] [address] [address] June, [facility] [address] [address] June, Cardiomyopathy, Nonischemic 425.4 ; DVT 453.9 ; S/P ICD Placement V45.02 and Ventricular Tachycardia, Nonsustained 427.1 [facility] [address] [address] May, [facility] [address] [address] Dec, Cardiomyopathy, Nonischemic 425.4 ; S/P ICD Placement V45.02 and Ventricular Tachycardia, Nonsustained 427.1 [facility] [address] [address] Dec, Cardiomyopathy, Nonischemic 425.4 [facility] [address] [address] Aug, [facility] [address] [address] Jul, [facility] [address] [address] May, Cardiomyopathy, Nonischemic 425.4 ; S/P ICD Placement V45.02 and Ventricular Tachycardia, Nonsustained 427.1 [facility] [address] [address] Dec, [facility] [address] [address] Nov, Cardiomyopathy, Nonischemic 425.4 and Ve ntricular Tachycardia, Nonsustained 427.1 IMMUNIZATIONS No Known Immunizations SOCIAL HISTORY Never Assessed REASON FOR VISIT Lisinopril refill PLAN OF CARE VITAL SIGNS MEDICATIONS [...] History DVT LLE; coumadin therapy; Medical History StyleSeek ICD; Medical History Episode of V Fib, appropriate shock, 06/09 1 Medical History ICD gen change, BS Teligen, 07/20 Surgical History knee surgery, right Surgical History Hernia repair Surgical History LT knee surgery
--- OUTSIDE RECORDS SUMMARY | 2019-02-01 23:32 | XMS REPORT ---
Author Author Andrade Stark Organization [facility] Address [address] [place] [address] Care Team Providers Care Upscale Security Officer Name Role Phone Sourav Stark Unavailable PROBLEMS Type Condition ICD9-CM Code BSK91-TR Code Onset Dates Condition S tatus SNOMED Code Problem DVT 453.9 Active 732607044 Problem Dyslipidemia 272.4 Active 8269301 07 Problem Cardiomyopathy, Nonischemic 425.4 Ac tive 33965742 Problem Ventricular Tachycardia, Nonsustained 427.1 Active 03880717644190 Problem Methicillin resistant Staphylococcus aureus 041.12 Active 973616424 Problem S/P ICD Placement V45.02 Active 44 0063509 Problem Long-term use of high-risk medication Z79.899 Active 825206520 Problem Long-term use of aspirin therapy Z79.82 Active 026042682956949 Problem S/P implantation of automatic cardioverter/defib rillator (AICD) Z95.810 Active 909702755 Problem Dyslipidemia (high LDL; low HDL) E78.4 Active 593830728 Problem Nonsustained paroxysmal ventricular tachycardia I47.2 Active 16018098933357 Problem Nonischemic cardiomyopathy I42.9 Act flakita 00289682 ALLERGIES Unknown Allergies SOCIAL HISTORY No smoking Hx information available PLAN OF CARE VITAL SIGNS MEDICATIONS Unknown Medications RESULTS No Results PROCEDURES No Known procedures IMMUNIZATIONS No Known Immunizations
--- OUTSIDE RECORDS SUMMARY | 2019-02-01 23:32 | XMS REPORT ---
Author Author Andrade Stark Organization [facility] Address [address] [place] [address] Care Team Providers Care Professor Of Environmental Engineering Name Role Phone Sourav Stark Unavailable PROBLEMS Type Condition ICD9-CM Code XEM16-AO Code Onset Dates Condition S tatus SNOMED Code Problem DVT 453.9 Active 135298075 Problem Dyslipidemia 272.4 Active 2646055 07 Problem Cardiomyopathy, Nonischemic 425.4 Ac tive 27059766 Problem Ventricular Tachycardia, Nonsustained 427.1 Active 61220463991275 Problem Methicillin resistant Staphylococcus aureus 041.12 Active 227125459 Problem S/P ICD Placement V45.02 Active 44 6238072 Problem Long-term use of high-risk medication Z79.899 Active 147037418 Problem Long-term use of aspirin therapy Z79.82 Active 966841413475374 Problem S/P implantation of automatic cardioverter/defib rillator (AICD) Z95.810 Active 396849009 Problem Dyslipidemia (high LDL; low HDL) E78.4 Active 831610994 Problem Nonsustained paroxysmal ventricular tachycardia I47.2 Active 36739290487644 Problem Nonischemic cardiomyopathy I42.9 Act flakita 63000774 ALLERGIES Unknown Allergies SOCIAL HISTORY No smoking Hx information available PLAN OF CARE VITAL SIGNS MEDICATIONS Medication Instructions Dosage Frequency Start Date End Date Duration S tatus Lisinopril 2.5 MG Orally qd 1 tab 24h 90 days Acti ve RESULTS No Results PROCEDURES No Known procedures IMMUNIZATIONS No Known Immunizations
--- OUTSIDE RECORDS SUMMARY | 2019-02-01 23:32 | XMS REPORT ---
Author Author Andrade Stark Organization [facility] Address [address] [place] [address] Care Team Providers Care Senior Portfolio Analyst Name Role Phone Sourav Stark Unavailable PROBLEMS Type Condition ICD9-CM Code MUW80-YC Code Onset Dates Condition S tatus SNOMED Code Problem DVT 453.9 Active 585952746 Problem Dyslipidemia 272.4 Active 6082285 07 Problem Cardiomyopathy, Nonischemic 425.4 Ac tive 01376426 Problem Ventricular Tachycardia, Nonsustained 427.1 Active 01508677884601 Problem Methicillin resistant Staphylococcus aureus 041.12 Active 479396625 Problem S/P ICD Placement V45.02 Active 44 4198013 Problem Long-term use of high-risk medication Z79.899 Active 325788743 Problem Long-term use of aspirin therapy Z79.82 Active 563004960407797 Problem S/P implantation of automatic cardioverter/defib rillator (AICD) Z95.810 Active 107833467 Problem Dyslipidemia (high LDL; low HDL) E78.4 Active 435496824 Problem Nonsustained paroxysmal ventricular tachycardia I47.2 Active 94223961554401 Problem Nonischemic cardiomyopathy I42.9 Act flakita 83069415 ALLERGIES Unknown Allergies SOCIAL HISTORY No smoking Hx information available PLAN OF CARE VITAL SIGNS MEDICATIONS Medication Instructions Dosage Frequency Start Date End Date Duration S tatus Lovastatin 20 MG Orally Once a day 1 tab 24h 30 da ys Active RESULTS No Results PROCEDURES No Known procedures IMMUNIZATIONS No Known Immunizations
--- OUTSIDE RECORDS SUMMARY | 2019-02-01 23:32 | XMS REPORT ---
Author Author Andrade Stark Organization [facility] Address [address] [place] [address] Care Team Providers Care Knockup Worker Name Role Phone Sourav Stark Unavailable PROBLEMS Type Condition ICD9-CM Code SAW30-BO Code Onset Dates Condition S tatus SNOMED Code Problem DVT 453.9 Active 745711443 Problem Dyslipidemia 272.4 Active 8200159 07 Problem Cardiomyopathy, Nonischemic 425.4 Ac tive 71223179 Problem Ventricular Tachycardia, Nonsustained 427.1 Active 20865495160437 Problem Methicillin resistant Staphylococcus aureus 041.12 Active 655699281 Problem S/P ICD Placement V45.02 Active 44 0216114 Problem Long-term use of high-risk medication Z79.899 Active 251511013 Problem Long-term use of aspirin therapy Z79.82 Active 044313425383091 Problem S/P implantation of automatic cardioverter/defib rillator (AICD) Z95.810 Active 530102874 Problem Dyslipidemia (high LDL; low HDL) E78.4 Active 398904027 Problem Nonsustained paroxysmal ventricular tachycardia I47.2 Active 30181417728695 Problem Nonischemic cardiomyopathy I42.9 Act flakita 86424192 ALLERGIES Unknown Allergies SOCIAL HISTORY No smoking Hx information available PLAN OF CARE VITAL SIGNS MEDICATIONS Medication Instructions Dosage Frequency Start Date End Date Duration S tatus Lisinopril 2.5 MG Orally qd 1 tab 24h 90 days Acti ve RESULTS No Results PROCEDURES No Known procedures IMMUNIZATIONS No Known Immunizations
--- OUTSIDE RECORDS SUMMARY | 2019-02-01 23:32 | XMS REPORT ---
Author Author Andrade Stark Organization [facility] Address [address] [place] [address] Care Team Providers Care Machine Clerical Verifier Name Role Phone Sourav Stark Unavailable PROBLEMS Type Condition ICD9-CM Code AEG68-KW Code Onset Dates Condition S tatus SNOMED Code Problem DVT 453.9 Active 611376984 Problem Dyslipidemia 272.4 Active 6667116 07 Problem Cardiomyopathy, Nonischemic 425.4 Ac tive 45241431 Problem Ventricular Tachycardia, Nonsustained 427.1 Active 75008332873243 Problem Methicillin resistant Staphylococcus aureus 041.12 Active 910020853 Problem S/P ICD Placement V45.02 Active 44 7486893 Problem Long-term use of high-risk medication Z79.899 Active 105219637 Problem Long-term use of aspirin therapy Z79.82 Active 299704067592998 Problem S/P implantation of automatic cardioverter/defib rillator (AICD) Z95.810 Active 510627183 Problem Dyslipidemia (high LDL; low HDL) E78.4 Active 343922081 Problem Nonsustained paroxysmal ventricular tachycardia I47.2 Active 23388488417104 Problem Nonischemic cardiomyopathy I42.9 Act flakita 97798646 ALLERGIES Unknown Allergies SOCIAL HISTORY No smoking Hx information available PLAN OF CARE VITAL SIGNS MEDICATIONS Medication Instructions Dosage Frequency Start Date End Date Duration S tatus Sotalol HCl 80 MG Orally every 12 hrs one and one half tablet 12h June, 90 days Active RESULTS No Results PROCEDURES No Known procedures IMMUNIZATIONS No Known Immunizations
--- OUTSIDE RECORDS SUMMARY | 2019-02-01 23:32 | XMS REPORT ---
Author Author Andrade Stark Organization [facility] Address [address] [place] [address] Care Team Providers Care Hr Shared Services Consultant Name Role Phone Soruav Stark Unavailable PROBLEMS Type Condition ICD9-CM Code HFL76-HZ Code Onset Dates Condition S tatus SNOMED Code Problem DVT 453.9 Active 135973146 Problem Dyslipidemia 272.4 Active 7452981 07 Problem Cardiomyopathy, Nonischemic 425.4 Ac tive 79089108 Problem Ventricular Tachycardia, Nonsustained 427.1 Active 86934081813566 Problem Methicillin resistant Staphylococcus aureus 041.12 Active 781130139 Problem S/P ICD Placement V45.02 Active 44 9578470 Problem Long-term use of high-risk medication Z79.899 Active 397374191 Problem Long-term use of aspirin therapy Z79.82 Active 321652228484703 Problem S/P implantation of automatic cardioverter/defib rillator (AICD) Z95.810 Active 429852995 Problem Dyslipidemia (high LDL; low HDL) E78.4 Active 640337315 Problem Nonsustained paroxysmal ventricular tachycardia I47.2 Active 36398865720261 Problem Nonischemic cardiomyopathy I42.9 Act flakita 01977082 ALLERGIES Unknown Allergies SOCIAL HISTORY No smoking Hx information available PLAN OF CARE VITAL SIGNS MEDICATIONS Medication Instructions Dosage Frequency Start Date End Date Duration S tatus Lovastatin 20 MG Orally Once a day in the evening 1 tablet June, 30 day(s) Active RESULTS No Results PROCEDURES No Known procedures IMMUNIZATIONS No Known Immunizations
--- OUTSIDE RECORDS SUMMARY | 2019-02-01 23:32 | XMS REPORT ---
Author Author Andrade Stark Organization [facility] Address [address] [place] [address] Care Team Providers Care Stitcher Operator Name Role Phone Sourav Stark Unavailable PROBLEMS Type Condition ICD9-CM Code [id number] Code Onset Dates Condition S tatus SNOMED Code Problem DVT 453.9 Active 947752894 Problem Methicillin resistant Staphylococcus aureus 041.12 Active 176078311 Problem Long-term use of high-risk medication Z79.899 Active 645251029 Problem Long-term use of aspirin therapy Z79.82 Active 646562870 Problem S/P implantation of automatic cardioverter/defib rillator (AICD) Z95.810 Active 435894793 Problem Dyslipidemia (high LDL; low HDL) E78.4 Active 129159037 Problem 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 Active 01597420228262 Problem Nonischemic cardiomyopathy I42.9 Act flakita [id number] ALLERGIES No Information ENCOUNTERS Encounter Location Date Diagnosis [facility] [address] [address] Aug, [facility] [address] Feb, [facility] [address] [address] Feb, Nonischemic cardiomyopathy I42.9 ; Nonsu stained paroxysmal ventricular tachycardia I47.2 ; S/P implantation of automatic cardioverter/defibrillator (AICD) Z95.810 ; Long-term use of high-risk medication Z79.899 and Long-term use of aspirin therapy Z79.82 [facility] [address] [address] Oct, [facility] [address] [address] Oct, [facility] [address] [facility] [address] [place] [address] Sep, [facility] [address] [place] [address] [address] [place] [address] Sep, [facility] [address] [place] [address] [address] [place] [address] Sep, Nonischemic cardiomyopathy I42.9 ; Nonsu stained paroxysmal ventricular tachycardia I47.2 ; S/P implantation of automatic cardioverter/defibrillator (AICD) Z95.810 ; Dyslipidemia (high LDL; low HDL) E78.4 ; Long-term use of high- risk medication Z79.899 and Long-term use of aspirin therapy Z79.82 [facility] [address] [place] [address] [address] [place] [address], [place] [address] Aug, [facility] [address] [place] [address] [address] [place] [address] Aug, [facility] [address] [place] [address] [address] [place] [address], [place] [address] June, [facility] [address] [place] [address] [address] [place] [address], [place] [address] June, [facility] [address] [place] [address] [address] [place] [address], [place] [address] June, [facility] [address] [place] [address] [address] [place] [address] June, [facility] [address] [place] [address] [address] [place] [address] May, Nonischemic cardiomyopathy I42.9 [facility] [address] [place] [address] [address] [place] [address], [place] [address] Apr, Nonischemic cardiomyopathy I42.9 [facility] [address] [place] [address] [address] [place] [address] Apr, [facility] [address] [place] [address] [address] [place] [address], [place] [address] Mar, [facility] [address] [place] [address] [address] [place] [address] Mar, [facility] [address] [place] [address] [address] [place], [place] [address] [address] Mar, [facility] [address] [address] Mar, [facility] [address] [address] Mar, [facility] [address] [address] Mar, Nonischemic cardiomyopathy I42.9 ; Nonsu stained paroxysmal ventricular tachycardia I47.2 ; S/P implantation of automatic cardioverter/defibrillator (AICD) Z95.810 ; Dyslipidemia (high LDL; low HDL) E78.4 ; Long-term use of high- risk medication Z79.899 and Long-term use of aspirin therapy Z79.82 [facility] [address] [address] Mar, Nonischemic cardiomyopathy I42.9 ; Nonsu stained paroxysmal ventricular tachycardia I47.2 ; S/P implantation of automatic cardioverter/defibrillator (AICD) Z95.810 and Dyslipidemia (high LDL; low HDL) E78.4 [facility] [address] [address] Nov, [facility] [address] [address] Oct, S/P implantation of automatic cardiovert er/defibrillator (AICD) Z95.810 and Nonischemic cardiomyopathy I42.9 [facility] [address] [address] Sep, Nonischemic cardiomyopathy I42.9 ; Nonsu stained paroxysmal ventricular tachycardia I47.2 ; S/P implantation of automatic cardioverter/defibrillator (AICD) Z95.810 and Dyslipidemia (high LDL; low HDL) E78.4 [facility] [address] [address] Apr, Presence of automatic (implantable) card iac defibrillator Z95.810 and Non-ischemic cardiomyopathy I42.9 [facility] [address] [address] Apr, [address] [address] 17 Mar, 2015 Ventricular Tachycardia, Nonsustained [address] [address] 03 Mar, 2015 Nonischemic cardiomyopathy I42.9 ; Nonsu stained paroxysmal ventricular tachycardia I47.2 ; S/P implantation of automatic cardioverter/defibrillator (AICD) Z95.810 and Dyslipidemia (high LDL; low HDL) E78.[address] [address] Sep, [address] [address] Sep, Cardiomyopathy, Nonischemic 425.4 ; DVT 453.9 ; Methicillin resistant Staphylococcus aureus 041.12 ; S/P ICD Placement V45.02 ; Ventricular Tachycardia, Nonsustained 427.1 and Dyslipidemia 272.[address] [address] Feb, Cardiomyopathy, Nonischemic 425.4 ; DVT 453.9 ; Methicillin resistant Staphylococcus aureus 041.12 ; S/P ICD Placement V45.02 ; Ventricular Tachycardia, Nonsustained 427.1 and Dyslipidemia 272.[address] [address] Aug, Cardiomyopathy, Nonischemic 425.4 ; DVT 453.9 ; Methicillin resistant Staphylococcus aureus 041.12 ; S/P ICD Placement V45.02 ; Ventricular Tachycardia, Nonsustained 427.1 and Dyslipidemia 272.[address] [address] Aug, Cardiomyopathy, Nonischemic 425.4 ; S/P ICD Placement V45.02 ; Ventricular Tachycardia, Nonsustained 427.1 and Dyslipidemia 272.[address] [address] Aug, Cardiomyopathy, Nonischemic 425.4 ; S/P ICD Placement V45.02 ; Ventricular Tachycardia, Nonsustained 427.1 and Dyslipidemia 272.[address] [address] Feb, [facility] [address] [address] Feb, Cardiomyopathy, Nonischemic 425.4 ; S/P ICD Placement V45.02 ; Ventricular Tachycardia, Nonsustained 427.1 and Dyslipidemia 272.4 [facility] [address] [address] Aug, [facility] [address] [address] Aug, Cardiomyopathy, Nonischemic 425.4 ; S/P ICD Placement V45.02 ; Ventricular Tachycardia, Nonsustained 427.1 and Dyslipidemia 272.4 [facility] [address] [address] May, [facility] [address] [address] Feb, Cardiomyopathy, Nonischemic 425.4 ; S/P ICD Placement V45.02 ; Ventricular Tachycardia, Nonsustained 427.1 and Dyslipidemia 272.[address] [address] Aug, Cardiomyopathy, Nonischemic 425.4 ; S/P ICD Placement V45.02 ; Ventricular Tachycardia, Nonsustained 427.1 and Dyslipidemia 272.[address] [address] Feb, Ventricular Tachycardia, Nonsustained 42 7.1 ; Cardiomyopathy, Nonischemic 425.4 and S/P ICD Placement V45.02 [facility] [address] [address] Oct, Cardiomyopathy, Nonischemic 425.4 ; S/P ICD Placement V45.02 ; Ventricular Tachycardia, Nonsustained 427.1 and Dyslipidemia 272.[address] [address] 15 Jul, 2010 [employer] Cardiac Defibrillato r V53.32 ; Cardiomyopathy, Nonischemic 425.4 and Ventricular Tachycardia, Nonsustained 427.1 [facility] [address] [address] Jul, [facility] [address] [address] June, [facility] [address] [address] June, Cardiomyopathy, Nonischemic 425.4 ; DVT 453.9 ; S/P ICD Placement V45.02 and Ventricular Tachycardia, Nonsustained 427.1 [facility] [address] [address] May, [facility] [address] [address] Dec, Cardiomyopathy, Nonischemic 425.4 ; S/P ICD Placement V45.02 and Ventricular Tachycardia, Nonsustained 427.1 [facility] [address] [address] Dec, Cardiomyopathy, Nonischemic 425.4 [facility] [address] [address] Aug, [facility] [address] [address] Jul, [facility] [address] [address] May, Cardiomyopathy, Nonischemic 425.4 ; S/P ICD Placement V45.02 and Ventricular Tachycardia, Nonsustained 427.1 [facility] [address] [address] Dec, [facility] [address] [address] Nov, Cardiomyopathy, Nonischemic 425.4 and Ve ntricular Tachycardia, Nonsustained 427.1 IMMUNIZATIONS No Known Immunizations SOCIAL HISTORY Never Assessed REASON FOR VISIT *LABS* PLAN OF CARE VITAL SIGNS MEDICATIONS Unknown Medications RESULTS No Results PROCEDURES No Known procedures INSTRUCTIONS MEDICATIONS ADMINISTERED No Known Medications MEDICAL (GENERAL) HISTORY Type Description Date Medical History Nonischemic cardiomyopathy Medical History Hx Staph methacillin resistent Medical History LVEF 18%; Medical History Renal insufficiency Medical History DVT LLE; coumadin therapy; Medical History [employer] ICD; Medical History Episode of V Fib, appropriate shock, 5/1 1 Medical History ICD gen change, BS Teligen, 07/20 Surgical History knee surgery, right Surgical History Hernia repair Surgical History LT knee surgery
--- OUTSIDE RECORDS SUMMARY | 2019-02-01 23:32 | XMS REPORT ---
Author Author Andrade Stark Organization [employer] Address Unknown Phone Unavailable Care Team Providers Care Dairy Technologist Name Role Phone Sourav Stark CP Unavailable Allergies No Known Allergies Problems Problem Type Condition Code Onset Dates Condition Statu s Problem Ventricular Tachycardia, Nonsustained 427.1 Active Problem S/P ICD Placement V45.02 Active Problem Methicillin resistant Staphylococcus aureus 041.12 Active Problem Nonischemic cardiomyopathy I42.9 A ctive Problem S/P implantation of automatic cardioverter/defib rillator (AICD) Z95.810 Active Problem Nonsustained paroxysmal ventricular tachycardia I47.2 Active Problem Cardiomyopathy, Nonischemic 425.4 Active Problem DVT 453.9 Active Problem Dyslipidemia (high LDL; low HDL) E78.4 Active Problem Dyslipidemia 272.4 Active Medications No Known Medications Results No Known Results Summary Purpose [employer] Submission
--- OUTSIDE RECORDS SUMMARY | 2019-02-01 23:32 | XMS REPORT ---
Author Author Andrade Stark Organization [facility] Address [address] [place] [address] Care Team Providers Care User Experience Architect Name Role Phone Sourav Stark Unavailable PROBLEMS Type Condition ICD9-CM Code CIS70-BL Code Onset Dates Condition S tatus SNOMED Code Problem DVT 453.9 Active 705127487 Problem Methicillin resistant Staphylococcus aureus 041.12 Active 043288024 Problem Long-term use of high-risk medication Z79.899 Active 747462203 Problem Long-term use of aspirin therapy Z79.82 Active 003326584 Problem S/P implantation of automatic cardioverter/defib rillator (AICD) Z95.810 Active 012657370 Problem Dyslipidemia (high LDL; low HDL) E78.4 Active 856384160 Problem 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 Active 87797871452912 Problem Nonischemic cardiomyopathy I42.9 Act flakita 77910171 ALLERGIES No Information ENCOUNTERS Encounter Location Date Diagnosis [facility] [address] [place] [address] [address] Aug, [facility] [address] Feb, [facility] [address] [address] Feb, Nonischemic cardiomyopathy I42.9 ; Nonsu stained paroxysmal ventricular tachycardia I47.2 ; S/P implantation of automatic cardioverter/defibrillator (AICD) Z95.810 ; Long-term use of high-risk medication Z79.899 and Long-term use of aspirin therapy Z79.82 [facility] [address] [address] Oct, [facility] [address] [address] Oct, [facility] [address] [facility] [address] [place] [address] Sep, [facility] [address] [place] [address] [address] [place] [address] Sep, [facility] [address] [place] [address] [address] [place] [address] Sep, Nonischemic cardiomyopathy I42.9 ; Nonsu stained paroxysmal ventricular tachycardia I47.2 ; S/P implantation of automatic cardioverter/defibrillator (AICD) Z95.810 ; Dyslipidemia (high LDL; low HDL) E78.4 ; Long-term use of high- risk medication Z79.899 and Long-term use of aspirin therapy Z79.82 [facility] [address] [place] [address] [address] [place] [address], [place] [address] Aug, [facility] [address] [place] [address] [address] [place] [address] Aug, [facility] [address] [place] [address] [address] [place] [address], [place] [address] June, [facility] [address] [place] [address] [address] [place] [address], [place] [address] June, [facility] [address] [place] [address] [address] [place] [address], [place] [address] June, [facility] [address] [place] [address] [address] [place] [address] June, [facility] [address] [place] [address] [address] [place] [address] May, Nonischemic cardiomyopathy I42.9 [facility] [address] [place] [address] [address] [place] [address], [place] [address] Apr, Nonischemic cardiomyopathy I42.9 [facility] [address] [place] [address] [address] [place] [address] Apr, [facility] [address] [place] [address] [address] [place] [address], [place] [address] Mar, [facility] [address] [place] [address] [address] [place] [address] Mar, [facility] [address] [place] [address] [address] [place], [place] [address] [address] Mar, [facility] [address] [address] Mar, [facility] [address] [address] Mar, [facility] [address] [address] Mar, Nonischemic cardiomyopathy I42.9 ; Nonsu stained paroxysmal ventricular tachycardia I47.2 ; S/P implantation of automatic cardioverter/defibrillator (AICD) Z95.810 ; Dyslipidemia (high LDL; low HDL) E78.4 ; Long-term use of high- risk medication Z79.899 and Long-term use of aspirin therapy Z79.82 [facility] [address] [address] Mar, Nonischemic cardiomyopathy I42.9 ; Nonsu stained paroxysmal ventricular tachycardia I47.2 ; S/P implantation of automatic cardioverter/defibrillator (AICD) Z95.810 and Dyslipidemia (high LDL; low HDL) E78.4 [facility] [address] [address] Nov, [facility] [address] [address] Oct, S/P implantation of automatic cardiovert er/defibrillator (AICD) Z95.810 and Nonischemic cardiomyopathy I42.9 [facility] [address] [address] Sep, Nonischemic cardiomyopathy I42.9 ; Nonsu stained paroxysmal ventricular tachycardia I47.2 ; S/P implantation of automatic cardioverter/defibrillator (AICD) Z95.810 and Dyslipidemia (high LDL; low HDL) E78.4 [facility] [address] [address] Apr, Presence of automatic (implantable) card iac defibrillator Z95.810 and Non-ischemic cardiomyopathy I42.9 [facility] [address] [address] Apr, [address] [address] 17 Mar, 2015 Ventricular Tachycardia, Nonsustained [address] [address] 03 Mar, 2015 Nonischemic cardiomyopathy I42.9 ; Nonsu stained paroxysmal ventricular tachycardia I47.2 ; S/P implantation of automatic cardioverter/defibrillator (AICD) Z95.810 and Dyslipidemia (high LDL; low HDL) E78.[address] [address] Sep, [address] [address] Sep, Cardiomyopathy, Nonischemic 425.4 ; DVT 453.9 ; Methicillin resistant Staphylococcus aureus 041.12 ; S/P ICD Placement V45.02 ; Ventricular Tachycardia, Nonsustained 427.1 and Dyslipidemia 272.[address] [address] Feb, Cardiomyopathy, Nonischemic 425.4 ; DVT 453.9 ; Methicillin resistant Staphylococcus aureus 041.12 ; S/P ICD Placement V45.02 ; Ventricular Tachycardia, Nonsustained 427.1 and Dyslipidemia 272.[address] [address] Aug, Cardiomyopathy, Nonischemic 425.4 ; DVT 453.9 ; Methicillin resistant Staphylococcus aureus 041.12 ; S/P ICD Placement V45.02 ; Ventricular Tachycardia, Nonsustained 427.1 and Dyslipidemia 272.[address] [address] Aug, Cardiomyopathy, Nonischemic 425.4 ; S/P ICD Placement V45.02 ; Ventricular Tachycardia, Nonsustained 427.1 and Dyslipidemia 272.[address] [address] Aug, Cardiomyopathy, Nonischemic 425.4 ; S/P ICD Placement V45.02 ; Ventricular Tachycardia, Nonsustained 427.1 and Dyslipidemia 272.[address] [address] Feb, [facility] [address] [address] Feb, Cardiomyopathy, Nonischemic 425.4 ; S/P ICD Placement V45.02 ; Ventricular Tachycardia, Nonsustained 427.1 and Dyslipidemia 272.4 [facility] [address] [address] Aug, [facility] [address] [address] Aug, Cardiomyopathy, Nonischemic 425.4 ; S/P ICD Placement V45.02 ; Ventricular Tachycardia, Nonsustained 427.1 and Dyslipidemia 272.4 [facility] [address] [address] May, [facility] [address] [address] Feb, Cardiomyopathy, Nonischemic 425.4 ; S/P ICD Placement V45.02 ; Ventricular Tachycardia, Nonsustained 427.1 and Dyslipidemia 272.[address] [address] Aug, Cardiomyopathy, Nonischemic 425.4 ; S/P ICD Placement V45.02 ; Ventricular Tachycardia, Nonsustained 427.1 and Dyslipidemia 272.[address] [address] Feb, Ventricular Tachycardia, Nonsustained 42 7.1 ; Cardiomyopathy, Nonischemic 425.4 and S/P ICD Placement V45.02 [facility] [address] [address] Oct, Cardiomyopathy, Nonischemic 425.4 ; S/P ICD Placement V45.02 ; Ventricular Tachycardia, Nonsustained 427.1 and Dyslipidemia 272.[address] [address] 15 Jul, 2010 [employer] Cardiac Defibrillato r V53.32 ; Cardiomyopathy, Nonischemic 425.4 and Ventricular Tachycardia, Nonsustained 427.1 [facility] [address] [address] Jul, [facility] [address] [address] June, [facility] [address] [address] June, Cardiomyopathy, Nonischemic 425.4 ; DVT 453.9 ; S/P ICD Placement V45.02 and Ventricular Tachycardia, Nonsustained 427.1 [facility] [address] [address] May, [facility] [address] [address] Dec, Cardiomyopathy, Nonischemic 425.4 ; S/P ICD Placement V45.02 and Ventricular Tachycardia, Nonsustained 427.1 [facility] [address] [address] Dec, Cardiomyopathy, Nonischemic 425.4 [facility] [address] [address] Aug, [facility] [address] [address] Jul, [facility] [address] [address] May, Cardiomyopathy, Nonischemic 425.4 ; S/P ICD Placement V45.02 and Ventricular Tachycardia, Nonsustained 427.1 [facility] [address] [address] Dec, [facility] [address] [address] Nov, Cardiomyopathy, Nonischemic 425.4 and Ve ntricular Tachycardia, Nonsustained 427.1 IMMUNIZATIONS No Known Immunizations SOCIAL HISTORY Never Assessed REASON FOR VISIT refill PLAN OF CARE VITAL SIGNS MEDICATIONS [...] History DVT LLE; coumadin therapy; Medical History [employer] ICD; Medical History Episode of V Fib, appropriate shock, 06/09 1 Medical History ICD gen change, BS Teligen, 07/20 Surgical History knee surgery, right Surgical History Hernia repair Surgical History LT knee surgery
--- OUTSIDE RECORDS SUMMARY | 2019-02-01 23:32 | XMS REPORT ---
Author Author Andrade Stark Organization [facility] Address [address] [place] [address] Care Team Providers Care Funder Name Role Phone Sourav Stark Unavailable PROBLEMS Type Condition ICD9-CM Code [id number] Code Onset Dates Condition S tatus SNOMED Code Problem DVT 453.9 Active 266069552 Problem Methicillin resistant Staphylococcus aureus 041.12 Active 914096248 Problem Long-term use of high-risk medication Z79.899 Active 896048805 Problem Long-term use of aspirin therapy Z79.82 Active 737583903 Problem S/P implantation of automatic cardioverter/defib rillator (AICD) Z95.810 Active 557005343 Problem Dyslipidemia (high LDL; low HDL) E78.4 Active 132385570 Problem 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 Active 93885812961404 Problem Nonischemic cardiomyopathy I42.9 Act flakita 76321042 ALLERGIES No Information ENCOUNTERS Encounter Location Date Diagnosis [facility] [address] [address] Aug, [facility] [address] Feb, [facility] [address] [address] Feb, Nonischemic cardiomyopathy I42.9 ; Nonsu stained paroxysmal ventricular tachycardia I47.2 ; S/P implantation of automatic cardioverter/defibrillator (AICD) Z95.810 ; Long-term use of high-risk medication Z79.899 and Long-term use of aspirin therapy Z79.82 [facility] [address] [address] Oct, [facility] [address] [address] Oct, [facility] [address] [facility] [address] [place] [address] Sep, [facility] [address] [place] [address] [facility] [address] [place] [address] Sep, [facility] [address] [place] [address] [address] [facility] [address] [place] [address] Sep, Nonischemic cardiomyopathy I42.9 ; Nonsu stained paroxysmal ventricular tachycardia I47.2 ; S/P implantation of automatic cardioverter/defibrillator (AICD) Z95.810 ; Dyslipidemia (high LDL; low HDL) E78.4 ; Long-term use of high- risk medication Z79.899 and Long-term use of aspirin therapy Z79.82 [facility] [address] [place] [address] [facility] [address] [place] [address], [place] [address] Aug, [facility] [address] [place] [address] [address] [facility] [address] [place] [phone] Aug, [facility] [address] [place] [address] [facility] [address] [place] [address], [place] [address] June, [facility] [address] [place] [address] [facility] [address] [place] [address], [place] [address] June, [facility] [address] [place] [address] [facility] [address] [place] [address], [place] [address] June, [facility] [address] [place] [address] [address] [facility] [address] [place] [address] June, [facility] [address] [place] [address] [address] [facility] [address] [place] [address] May, Nonischemic cardiomyopathy I42.9 [facility] [address] [place] [address] [address] [facility] [address] [place] [address], [place] [address] Apr, Nonischemic cardiomyopathy I42.9 [facility] [address] [place] [address] [address] [facility] [address] [place] [address] Apr, [facility] [address] [place] [address] [address] [facility] [address] [place] [address], [place] [address] Mar, [facility] [address] [place] [address] [address] [facility] [address] [place] [address] Mar, [facility] [address] [place] [address] [address] [facility] [address] [place] [address] [address] Mar, [facility] [address] [address] Mar, [facility] [address] [address] Mar, [facility] [address] [address] Mar, Nonischemic cardiomyopathy I42.9 ; Nonsu stained paroxysmal ventricular tachycardia I47.2 ; S/P implantation of automatic cardioverter/defibrillator (AICD) Z95.810 ; Dyslipidemia (high LDL; low HDL) E78.4 ; Long-term use of high- risk medication Z79.899 and Long-term use of aspirin therapy Z79.82 [facility] [address] [address] Mar, Nonischemic cardiomyopathy I42.9 ; Nonsu stained paroxysmal ventricular tachycardia I47.2 ; S/P implantation of automatic cardioverter/defibrillator (AICD) Z95.810 and Dyslipidemia (high LDL; low HDL) E78.4 [facility] [address] [address] Nov, [facility] [address] [address] Oct, S/P implantation of automatic cardiovert er/defibrillator (AICD) Z95.810 and Nonischemic cardiomyopathy I42.9 [facility] [address] [address] Sep, Nonischemic cardiomyopathy I42.9 ; Nonsu stained paroxysmal ventricular tachycardia I47.2 ; S/P implantation of automatic cardioverter/defibrillator (AICD) Z95.810 and Dyslipidemia (high LDL; low HDL) E78.4 [facility] [address] [address] Apr, Presence of automatic (implantable) card iac defibrillator Z95.810 and Non-ischemic cardiomyopathy I42.9 [facility] [address] [address] Apr, [address] [address] 17 Mar, 2015 Ventricular Tachycardia, Nonsustained [address] [address] 03 Mar, 2015 Nonischemic cardiomyopathy I42.9 ; Nonsu stained paroxysmal ventricular tachycardia I47.2 ; S/P implantation of automatic cardioverter/defibrillator (AICD) Z95.810 and Dyslipidemia (high LDL; low HDL) E78.[address] [address] Sep, [address] [address] Sep, Cardiomyopathy, Nonischemic 425.4 ; DVT 453.9 ; Methicillin resistant Staphylococcus aureus 041.12 ; S/P ICD Placement V45.02 ; Ventricular Tachycardia, Nonsustained 427.1 and Dyslipidemia 272.[address] [address] Feb, Cardiomyopathy, Nonischemic 425.4 ; DVT 453.9 ; Methicillin resistant Staphylococcus aureus 041.12 ; S/P ICD Placement V45.02 ; Ventricular Tachycardia, Nonsustained 427.1 and Dyslipidemia 272.[address] [address] Aug, Cardiomyopathy, Nonischemic 425.4 ; DVT 453.9 ; Methicillin resistant Staphylococcus aureus 041.12 ; S/P ICD Placement V45.02 ; Ventricular Tachycardia, Nonsustained 427.1 and Dyslipidemia 272.[address] [address] Aug, Cardiomyopathy, Nonischemic 425.4 ; S/P ICD Placement V45.02 ; Ventricular Tachycardia, Nonsustained 427.1 and Dyslipidemia 272.[address] [address] Aug, Cardiomyopathy, Nonischemic 425.4 ; S/P ICD Placement V45.02 ; Ventricular Tachycardia, Nonsustained 427.1 and Dyslipidemia 272.[address] [address] Feb, [facility] [address] [address] Feb, Cardiomyopathy, Nonischemic 425.4 ; S/P ICD Placement V45.02 ; Ventricular Tachycardia, Nonsustained 427.1 and Dyslipidemia 272.4 [facility] [address] [address] Aug, [facility] [address] [address] Aug, Cardiomyopathy, Nonischemic 425.4 ; S/P ICD Placement V45.02 ; Ventricular Tachycardia, Nonsustained 427.1 and Dyslipidemia 272.4 [facility] [address] [address] May, [facility] [address] [address] Feb, Cardiomyopathy, Nonischemic 425.4 ; S/P ICD Placement V45.02 ; Ventricular Tachycardia, Nonsustained 427.1 and Dyslipidemia 272.[address] [address] Aug, Cardiomyopathy, Nonischemic 425.4 ; S/P ICD Placement V45.02 ; Ventricular Tachycardia, Nonsustained 427.1 and Dyslipidemia 272.[address] [address] Feb, Ventricular Tachycardia, Nonsustained 42 7.1 ; Cardiomyopathy, Nonischemic 425.4 and S/P ICD Placement V45.02 [facility] [address] [address] Oct, Cardiomyopathy, Nonischemic 425.4 ; S/P ICD Placement V45.02 ; Ventricular Tachycardia, Nonsustained 427.1 and Dyslipidemia 272.[address] [address] 15 Jul, 2010 [employer] Cardiac Defibrillato r V53.32 ; Cardiomyopathy, Nonischemic 425.4 and Ventricular Tachycardia, Nonsustained 427.1 [facility] [address] [address] Jul, [facility] [address] [address] June, [facility] [address] [address] June, Cardiomyopathy, Nonischemic 425.4 ; DVT 453.9 ; S/P ICD Placement V45.02 and Ventricular Tachycardia, Nonsustained 427.1 [facility] [address] [address] May, [facility] [address] [address] Dec, Cardiomyopathy, Nonischemic 425.4 ; S/P ICD Placement V45.02 and Ventricular Tachycardia, Nonsustained 427.1 [facility] [address] [address] Dec, Cardiomyopathy, Nonischemic 425.4 [facility] [address] [address] Aug, [facility] [address] [address] Jul, [facility] [address] [address] May, Cardiomyopathy, Nonischemic 425.4 ; S/P ICD Placement V45.02 and Ventricular Tachycardia, Nonsustained 427.1 [facility] [address] [address] Dec, [facility] [address] [address] Nov, Cardiomyopathy, Nonischemic 425.4 and Ve ntricular Tachycardia, Nonsustained 427.1 IMMUNIZATIONS No Known Immunizations SOCIAL HISTORY Never Assessed REASON FOR VISIT Lovastatin refill PLAN OF CARE VITAL SIGNS MEDICATIONS Unknown Medications RESULTS No Results PROCEDURES No Known procedures INSTRUCTIONS MEDICATIONS ADMINISTERED No Known Medications MEDICAL (GENERAL) HISTORY Type Description Date Medical History Nonischemic cardiomyopathy Medical History Hx Staph methacillin resistent Medical History LVEF 18%; Medical History Renal insufficiency Medical History DVT LLE; coumadin therapy; Medical History [employer] ICD; Medical History Episode of V Fib, appropriate shock, 5/1 1 Medical History ICD gen change, BS Teligen, 07/20 Surgical History knee surgery, right Surgical History Hernia repair Surgical History LT knee surgery
--- OUTSIDE RECORDS SUMMARY | 2019-02-01 23:33 | XMS REPORT | CCD ---
Author Author Andrade Joseph Organization Carri Joseph MD, [facility] Address [address] [place] [address] Phone Care Team Providers Care Human Resources Intern Name Role Phone Carri Joseph PP Unavailable CCM Unavailable Summary Purpose Interface Exchange Insurance Providers Payer name Policy type / Coverage type Covered green party ID Effective Begin Date Effective End Date WPS Medicare Part B Medicare Part B [id number] 2017 Unknown [facility] ica Part B [id number] 2017 Un known Family history Brother Diagnosis Age At Onset Heart disease Unknown Obesity Unknown Grandfather Diagnosis Age At Onset Diabetes mellitus Type 2 Unknown Brother Diagnosis Age At Onset Heart disease Unknown Hypertension Unknown Sister Diagnosis Age At Onset No Known Diseases N/A Mother Diagnosis Age At Onset advanced age Unknown Father Diagnosis Age At Onset Heart Attack Unknown Side Diagnosis Age At Onset Hypertension Unknown Social History Social History Element Codes Description Effective Dates Marital status Unknown M arried with children 10/17/2010 Employment Unknown Sandrae ntly unemployed Disabled - previously worked at [employer] work 10/17/[address]: 578493256 Never smoker 10/17/[address]: 189809412 Never drinks alcohol 10/17/2010 Has the patient ever used illegal drugs? Unknown Has never used illegal drugs 011 Allergies, Adverse Reactions, Alerts Substance Reaction Codes Entered Date Inactivated Date Status * NO KNOWN DRUG [place] RGIES Unknown 10/17/2010 No Inactive Date Active * NO KNOWN FOOD [place] RGIES Unknown 04/10/2011 No Inactive Date Active Past Medical History Illness Codes Condition Status Onset Date Resolved Date Allergic rhinitis du e to pollen ICD-9: 477.0 ICD-10: J30.1 Active 09/22/2018 Unknown Essential (primary) hypertension ICD-9: 401.1 ICD-10: I10 Active 06/02/2017 Unknown Mixed hyperlipidemia ICD-9: 272.2 ICD-10: E78.2 Active 06/02/2017 Unknown Other seborrheic ker atosis ICD-9: 702.19 ICD-10: L82.1 Active 06/03/2018 Unknown Encounter for immuni zation ICD-9: V04.81 ICD-10: Z23 Active 10/18/2013 Unknown Mixed hyperlipidemia ICD-9: 272.4 ICD-10: E78.2 Active 10/18/2013 Unknown Encounter for genera l adult medical examination with abnormal findings ICD-9: V70.0 ICD-10: Z00.01 Active 05/28/2016 Unknown Unsteadiness on feet ICD-9: 781.2 ICD-10: R26.81 Active 12/29/2016 Unknown Ventricular tachycardia ICD-9: 427.1 ICD-10: I47.2 Active 06/02/2017 Unknown Essential (primary) hypertension ICD-9: 401.9 ICD-10: I10 Active 10/18/2013 Unknown Chronic atrial fibri llation ICD-9: 427.31 ICD-10: I48.2 Active 12/21/2013 Unknown Hypothyroidism, unsp ecified ICD-9: 244.9 ICD-10: E03.9 Active 11/27/2016 Unknown Encounter for therap eutic drug level monitoring ICD-9: V58.69 ICD-10: Z51.81 Active 05/27/2016 Unknown Cough ICD-9: 786.2 ICD-10: R05 Active 12/21/2013 Unknown Encounter for immuni zation ICD-9: V03.82 ICD-10: Z23 Active 11/22/2014 Unknown Renal insufficiency ICD- 9: 593.9 Active 04/19/2014 Unknown Atrial fibrillation ICD- 9: 427.31 Active 12/21/2013 Unknown COUGH ICD-9: 786.2 Active 12/21/2013 Unknow n HYPOTHYROIDISM ICD-9: 244.9 Active 12/21/2013 Unknown ESSENTIAL HYPERTENSION ICD-9: 401.9 Active 10/18/2013 Unknown Gait instability ICD-9: 781.2 Active 10/18/2013 Unknown HYPERLIPIDEMIA ICD-9: 272.4 Active 10/18/2013 Unknown Cellulitis of left knee ICD-9: 682.6 Active 06/09/2013 Unknown Knee pain ICD-9: 719.46 Active 04/11/2013 Unknow n Osteoarthritis of le ft knee ICD-9: 715.96 Active 07/2011 Unknown OBESITY ICD-9: 278.00 Active 12/05/2010 Unknow n Hyperlipidemia Unknown Active 11/28/2010 Unknow n Hypothryroidism Unknown Active 11/28/2010 Unknow n VACCIN FOR INFLUENZA ICD-9: V04.81 Active 11/28/2010 Unknown Anemia Unknown Active 10/17/2010 Unknow n Atrial fibrillation Unknown Active 10/17/2010 Unknown Constipation Unknown Active 10/17/2010 Unknow n Hypertension Unknown Active 10/17/2010 Unknow n Hyperthyroidism Unknown Active 10/17/2010 Unknow n Benign essential HTN ICD-9: 401.1 Active 10/17/2010 Unknown ENCNTR LONG-RX USE NEC ICD-9: V58.69 Active 10/17/2010 Unknown Overweight ICD-9: 278.02 Active 10/17/2010 Unknow n Problems Condition Codes Effectiv e Dates Condition Status Allergic rhinitis du e to pollen ICD-9: 477.0 ICD-10: J30.1 09/22/2018 Active Essential (primary) hypertension ICD-9: 401.1 ICD-10: I10 06/02/2017 Active Mixed hyperlipidemia ICD-9: 272.2 ICD-10: E78.2 06/02/2017 Active Other seborrheic ker atosis ICD-9: 702.19 ICD-10: L82.1 06/03/2018 Active Encounter for immuni zation ICD-9: V04.81 ICD-10: Z23 10/18/2013 Active Mixed hyperlipidemia ICD-9: 272.4 ICD-10: E78.2 10/18/2013 Active Encounter for genera l adult medical examination with abnormal findings ICD-9: V70.0 ICD-10: Z00.01 05/28/2016 Active Unsteadiness on feet ICD-9: 781.2 ICD-10: R26.81 12/29/2016 Active Ventricular tachycardia ICD-9: 427.1 ICD-10: I47.2 06/02/2017 Active Essential (primary) hypertension ICD-9: 401.9 ICD-10: I10 10/18/2013 Active Chronic atrial fibri llation ICD-9: 427.31 ICD-10: I48.2 12/21/2013 Active Hypothyroidism, unsp ecified ICD-9: 244.9 ICD-10: E03.9 11/27/2016 Active Encounter for therap eutic drug level monitoring ICD-9: V58.69 ICD-10: Z51.81 05/27/2016 Active Cough ICD-9: 786.2 ICD-10: R05 12/21/2013 Active Encounter for immuni zation ICD-9: V03.82 ICD-10: Z23 11/22/2014 Active Renal insufficiency ICD- 9: 593.9 04/19/2014 Active Atrial fibrillation ICD- 9: 427.31 12/21/2013 Active COUGH ICD-9: 786.2 12/21/2013 Active HYPOTHYROIDISM ICD-9: 244.9 12/21/2013 Active ESSENTIAL HYPERTENSION ICD-9: 401.9 10/18/2013 Active Gait instability ICD-9: 781.2 10/18/2013 Active HYPERLIPIDEMIA ICD-9: 272.4 10/18/2013 Active Cellulitis of left knee ICD-9: 682.6 06/09/2013 Active Knee pain ICD-9: 719.46 04/11/2013 Active Osteoarthritis of le ft knee ICD-9: 715.96 10/16/2011 Active OBESITY ICD-9: 278.00 12/05/2010 Active Hyperlipidemia Unknown 11/28/2010 Active Hypothryroidism Unknown 11/28/2010 Active VACCIN FOR INFLUENZA ICD-9: V04.81 11/28/2010 Active Anemia Unknown 10/17/2010 Active Atrial fibrillation Unknown 10/17/2010 Active Constipation Unknown 10/17/2010 Active Hypertension Unknown 10/17/2010 Active Hyperthyroidism Unknown 10/17/2010 Active Benign essential HTN ICD-9: 401.1 10/17/2010 Active ENCNTR LONG-RX USE NEC ICD-9: V58.69 10/17/2010 Active Overweight ICD-9: 278.02 10/17/2010 Active Medications Medication Codes Instruc tions Start Date Stop Date Sta tus Fill Instructions lisinopril 5 mg tablet RxNorm: 364308 1/2 Tablet(s) PO BID 09/22/2018 12/15/2019 Active this is just an update to his RX - he do es not need it filled at this time lovastatin 20 mg tablet RxNorm: 637059 1 Tablet(s) daily TAKE 1 TABLET BY MOUTH EVERY EVENING 02/04/2018 04/29/2019 Active Generic For:MEVACOR 20MG 9:05:15 AM lisinopril 2.5 mg ta blet RxNorm: 331497 1 Tablet(s) PO daily 02/04/2018 09/21/2018 Inactive lovastatin 20 mg tablet RxNorm: 940032 TAKE 1 TABLET BY MOUTH EVERY EVENING 10/08/2017 02/03/2018 In active Generic For:MEVACOR 20MG 10/08/2017 9:0 5:15 AM sotalol 80 mg tablet RxNorm: 0771424 2 Tablet(s) PO BID Dr Sourav Stark 06/02/2017 No Stop Date Active lovastatin 20 mg tablet RxNorm: 328066 TAKE 1 TABLET BY MOUTH EVERY EVENING 04/03/2017 09/29/2017 In active Generic For:MEVACOR 20MG 04/02/2017 1:1 1:51 PM lovastatin 20 mg tablet RxNorm: 001549 Tablet(s) 1 Tablet(s) PO QPM TAKE 1 TABL ET BY MOUTH EVERY EVENING 10/22/2016 11/20/2016 Inactive [SAVINGS FOR UNINSURED MARGARET ENTS -- BIN:[id number], PCN: ASPROD1, Group: [id number], ID# [id number], Process claim through [employer]Ivision, for questions: . THIS IS NOT INSURANCE.] lovastatin 20 mg tablet RxNorm: 828930 Tablet(s) 1 Tablet(s) PO QPM TAKE 1 TABL ET BY MOUTH EVERY EVENING 09/26/2016 10/21/2016 Inactive [SAVINGS FOR UNINSURED MARGARET ENTS -- BIN:[id number], PCN: ASPROD1, Group: [id number], ID# [id number], Process claim through [employer], for questions: . THIS IS NOT INSURANCE.] Lanoxin 125 mcg tablet RxNorm: 124646 Tablet(s) TAKE 1 TABLET BY MOUTH EVERY M ORNING 11/14/2015 10/06/2017 Inactive lovastatin 20 mg tablet RxNorm: 140541 Tablet(s) 1 Tablet(s) PO QPM TAKE 1 TABL ET BY MOUTH EVERY EVENING 10/01/2015 03/28/2016 Inactive [SAVINGS FOR UNINSURED MARGARET ENTS -- BIN:[id number], PCN: ASPROD1, Group: [id number], ID# [id number], Process claim through MedImpact, for questions: . THIS IS NOT INSURANCE.] Lanoxin 125 mcg tablet RxNorm: 245699 Tablet(s) TAKE 1 TABLET BY MOUTH EVERY M ORNING 07/16/2015 11/12/2015 Inactive Generic For:LANOXIN 0.125MG 07/22/2014 9:09:16 AM lovastatin 20 mg tablet RxNorm: 640495 Tablet(s) 1 Tablet(s) PO QPM TAKE 1 TABL ET BY MOUTH EVERY EVENING 03/23/2015 09/18/2015 Inactive [SAVINGS FOR UNINSURED MARGARET ENTS -- BIN:[id number], PCN: ASPROD1, Group: [id number], ID# [id number], Process claim through Corhythmact, for questions: . THIS IS NOT INSURANCE.] lovastatin 20 mg tablet RxNorm: 243041 1 Tablet(s) PO QPM TAKE 1 TABLET BY MOUT H EVERY EVENING 09/11/2014 03/09/2015 Inactive [SAVINGS FOR UNINSURED MARGARET ENTS -- BIN:[id number], PCN: ASPROD1, Group: [id number], ID# [id number], Process claim through MedImp[employer], for questions: . THIS IS NOT INSURANCE.] Lanoxin 125 mcg tablet RxNorm: 739078 TAKE 1 TABLET BY MOUTH EVERY MORNING 07/24/2014 07/15/2015 In active Generic For:LANOXIN 0.125MG 07/22/2014 9:09:16 AM sotalol 80 mg tablet RxNorm: 3316600 1 1/2 Tablet(s) PO BID 04/19/2014 06/01/2017 Inactive [SAVINGS FOR NON-COVERED DRUGS -- BIN:[id number], PCN: ASPROD1, Group: XXXXX, ID# [id number], Questions: . THIS IS NOT INSURANCE.] lovastatin 20 mg tablet RxNorm: 628815 1 Tablet(s) PO QPM TAKE 1 TABLET BY MOUT H EVERY EVENING 09/06/2013 09/05/2013 Inactive [SAVINGS FOR UNINSURED MARGARET ENTS -- BIN:[id number], PCN: ASPROD1, Group: [id number], ID# [id number], Process claim through MedImpact, for questions: . THIS IS NOT INSURANCE.] lovastatin 20 mg tablet RxNorm: 050023 1 Tablet(s) PO QPM TAKE 1 TABLET BY MOUT H EVERY EVENING 09/06/2013 09/10/2014 Inactive [SAVINGS FOR UNINSURED MARGARET ENTS -- BIN:[id number], PCN: ASPROD1, Group: [id number], ID# [id number], Process claim through MedImpact, for questions: . THIS IS NOT INSURANCE.] Lanoxin 125 mcg tablet RxNorm: 309466 1 Tablet(s) PO daily TAKE 1 TABLET BY MO UTH EVERY MORNING 07/25/2013 07/24/2013 Inactive [SAVINGS FOR UNINSURED MARGARET ENTS -- BIN:[id number], PCN: ASPROD1, Group: [id number], ID# [id number], Process claim through [employer]Imp[employer], for questions: . THIS IS NOT INSURANCE.] Lanoxin 125 mcg tablet RxNorm: 403386 1 Tablet(s) PO daily TAKE 1 TABLET BY MO UTH EVERY MORNING 07/25/2013 08/18/2014 Inactive [SAVINGS FOR UNINSURED MARGARET ENTS -- BIN:[id number], PCN: ASPROD1, Group: [id number], ID# [id number], Process claim through MedImpact, for questions: . THIS IS NOT INSURANCE.] tamsulosin ER 0.4 mg capsule,extended release 24 hr RxNorm: 906062 1 Capsule(s) PO QAM 04/20/2013 04/14/2014 Inactive lovastatin 20 mg tablet RxNorm: 628536 1 Tablet(s) PO QPM TAKE 1 TABLET BY MOUT H EVERY EVENING 08/26/2012 08/26/2012 Inactive lovastatin 20 mg tablet RxNorm: 452934 1 Tablet(s) PO QPM TAKE 1 TABLET BY MOUT H EVERY EVENING 08/26/2012 09/05/2013 Inactive Lanoxin 125 mcg tablet RxNorm: 070405 Tablet(s) PO TAKE 1 TABLET BY MOUTH EVER Y MORNING 06/28/2012 07/24/2013 Inactive lovastatin 20 mg tablet RxNorm: 005552 Tablet(s) PO TAKE 1 TABLET BY MOUTH EVER Y EVENING 04/27/2012 08/26/2012 Inactive lovastatin 20 mg tablet RxNorm: 681536 Tablet(s) PO 11/24/2011 04/26/2012 Inactive TAKE 1 TABLET BY MOUTH EVERY EVENING Lanoxin 125 mcg tablet RxNorm: 645822 Tablet(s) PO 07/14/2011 06/27/2012 Inactive TAKE 1 TABLET BY MOUTH EVERY MORNING lovastatin 20 mg tablet RxNorm: 525386 1 Tablet(s) PO daily 12/05/2010 11/23/2011 Inactive Influenza Virus Vacc ine 0.5 mL RxNorm: IM 11/28/2010 11/28/2010 Inactive multivitamin Oral RxNorm: Oral No Start Date Active aspirin 81 mg Tab, D elayed Release RxNorm: 067750 1 Tablet(s) PO daily No Start Date Active Lanoxin 125 mcg Tab RxNorm: 775897 1 Tablet(s) PO daily No Start Date 07/13/2011 Inactive carvedilol 6.25 mg Tab RxNorm: 952488 1 Tablet(s) PO BID No Start Date 08/17/2012 Inactive lisinopril 2.5 mg ta blet RxNorm: 716616 1 Tablet(s) PO daily No Start Date 02/03/2018 Inactive Lipitor 10 mg Tab RxNorm: 892034 1 Tablet(s) PO daily No Start Date 12/04/2010 Inactive sotalol 80 mg tablet RxNorm: 170823 1 Tablet(s) PO BID No Start Date 04/18/2014 Inactive carvedilol 12.5 mg t ablet RxNorm: 268730 1 Tablet(s) PO BID No Start Date 09/21/2013 Inactive senna 187 mg tablet RxNorm: 271575 1 Tablet(s) PO daily No Start Date 06/22/2013 Inactive Coreg 3.125 mg Tab RxNorm: 979736 1 Tablet(s) PO BID No Start Date 04/09/2011 Inactive tamsulosin ER 0.4 mg capsule,extended release 24 hr RxNorm: 340322 1 Capsule(s) PO QAM No Start Date 04/19/2013 Inactive Medication Administered Medication Codes Instruc tions Start Date Status Influenza Virus Vaccine 0.5 mL RxNorm: 11/28/2010 No longer Active Immunizations Vaccine Codes Date Status Influenza CVX: 141 12/24 completed Zoster CVX: 121 03/23/19 18 completed Pneumococcal (Adult) CVX: 133 11/23/2014 completed Pneumococcal (Adult) CVX: 133 11/23/2014 completed Influenza CVX: 141 10/18 completed Influenza CVX: 141 12/10 completed Pneumococcal CVX: 33 02/2012 completed Influenza CVX: 141 12/03 completed Influenza CVX: 141 12/05 completed Influenza CVX: 141 11/28 completed Assessments Condition Codes Effectiv e Dates Essential (primary) hypertension ICD -10: I10 ICD-9: 401.1 09/22/2018 Allergic rhinitis due to pollen ICD- 10: J30.1 ICD-9: 477.0 09/22/2018 Mixed hyperlipidemia ICD-10: E78.2 ICD-9: 272.2 09/22/2018 Other seborrheic keratosis ICD-10: L 82.1 ICD-9: 702.19 06/03/2018 Encounter for immunization ICD-10: Z 23 ICD-9: V04.81 12/24/2017 Mixed hyperlipidemia ICD-10: E78.2 ICD-9: 272.4 10/07/2017 Encounter for general adult medical exam ination with abnormal findings ICD-10: Z00.01 ICD-9: V70.0 06/04/2017 Unsteadiness on feet ICD-10: R26.81 ICD-9: 781.2 06/02/2017 Ventricular tachycardia ICD-10: I47. 2 ICD-9: 427.1 06/02/2017 Essential (primary) hypertension ICD -10: I10 ICD-9: 401.9 01/28/2017 Hypothyroidism, unspecified ICD-10: E03.9 ICD-9: 244.9 11/27/2016 Chronic atrial fibrillation ICD-10: I48.2 ICD-9: 427.31 11/27/2016 Encounter for therapeutic drug level monitoring ICD-10: Z51.81 ICD-9: V58.69 05/27/2016 Cough ICD-10: R05 ICD-9: 786.2 01/09/2016 Encounter for immunization ICD-10: Z 23 ICD-9: V03.82 11/23/2014 ESSENTIAL HYPERTENSION ICD-9: 401.9 07/20/2014 Renal insufficiency ICD-9: 593.9 04/19/2014 Atrial fibrillation ICD-9: 427.31 04/19/2014 HYPOTHYROIDISM ICD-9: 244.9 04/19/2014 COUGH ICD-9: 786.2 12/21 Gait instability ICD-9: 781.2 10/18/2013 HYPERLIPIDEMIA ICD-9: 272.4 10/18/2013 Arthralgia of knee ICD-9: 719.46 07/13/2013 CELLULITIS OF LEG ICD-9: 682.6 06/23/2013 ENCNTR LONG-RX USE NEC ICD-9: V58.69 08/18/2012 Osteoarthritis of left knee ICD-9: 715.96 10/16/2011 VACCIN FOR INFLUENZA ICD-9: V04.81 12/05/2010 OBESITY ICD-9: 278.00 Overweight ICD-9: 278.02 10/17/2010 Benign essential HTN ICD-9: 401.1 10/17/2010 Reason For Visit Reason For Visit Effective Dates Notes skin lesion 09/22/2018 skin lesion 06/03/2018 hypertension 02/04/2018 vaccination against influenza 12/24/2017 hypertension 10/07/2017 Annual Medicare Wellness Exam 06/04/2017 hypertension 06/02/2017 hypertension 01/28/2017 hypertension 12/29/2016 hypertension 12/01/2016 Annual Medicare Wellness Exam 05/28/2016 hypertension 05/27/2016 cough 01/09/2016 hypertension 11/27/2015 hypertension 05/29/2015 hypertension 11/23/2014 hypertension 07/20/2014 hypertension 04/19/2014 hypertension 12/21/2013 hypertension 10/18/2013 Hospital Follow Up 07/13/2013 knee pain 06/23/2013 cellulitis 06/09/2013 hypertension 04/11/2013 hypertension 02/16/2013 hypertension 08/18/2012 hypertension 02/19/2012 hypertension 10/16/2011 blood pressure followup 04/10/2011 hypertension 12/05/2010 vaccination against influenza 11/28/2010 Results Observation Observation Code Item Item Code Result Date Comp Metabolic Inh869 NA 139 mEq/L 07/12/2018 Comp Metabolic Gao028 K 4.4 mEq/L 07/12/2018 Comp Metabolic Ejt359 CL 105 mEq/L 07/12/2018 Comp Metabolic Myc556 CO2 27.0 mEq/L 07/12/2018 Comp Metabolic Vsj226 AN ION GAP 11 07/12/2018 Comp Metabolic Vff977 GL UCOSE 109 mg/dL 07/12/2018 Comp Metabolic Two572 Cr eat 1.4 mg/dL 07/12/2018 Comp Metabolic Fyr551 eG FR 55 ml/min/1.73m2 07/12 Comp Metabolic Bre009 BUN 26 mg/dL 07/12/2018 Comp Metabolic Gwo481 B/ C Ratio 19.3 Ratio 07/12/2018 Comp Metabolic Quv695 CA LCIUM 9.4 mg/dL 07/12/2018 Comp Metabolic Zdy034 AL K PHOS 62 U/L 07/12/2018 Comp Metabolic Nsc272 T(SGOT) 18 U/L 07/12/2018 Comp Metabolic Jje334 AL T(SGPT) 11 U/L 07/12/2018 Comp Metabolic Tyc303 BI LI T 0.5 mg/dL 07/12/2018 Comp Metabolic Trt919 AL BUMIN 4.2 g/dL 07/12/2018 Comp Metabolic Cka460 TP RO 6.8 g/dL 07/12/2018 Comp Metabolic Utd051 GL OB 2.6 g/dL 07/12/2018 Comp Metabolic Wwm542 A/ G Ratio 1.6 Ratio 07/12/2018 Comp Metabolic Pra828 Os mo 283 mOsmo 07/12/2018 Tsh Ord6 TSH (3rd IS) 2.16 uIU/mL 07/12/2018 Cbc With Differential Ord2 WBC 7.76 K/ul 07/12/2018 Cbc With Differential Ord2 RBC 3.78 M/ul 07/12/2018 Cbc With Differential Ord2 HGB 12.0 g/dl 07/12/2018 Cbc With Differential Ord2 HCT 37.5 % 07/12/2018 Cbc With Differential Ord2 Neut% 57.9 % 07/12/2018 Cbc With Differential Ord2 MCV 99.2 fl 07/12/2018 Cbc With Differential Ord2 Lymph% 24.1 % 07/12/2018 Cbc With Differential Ord2 MCH 31.7 pg 07/12/2018 Cbc With Differential Ord2 Routt% 9.9 % 07/12/2018 Cbc With Differential Ord2 MCHC 32.0 pg 07/12/2018 Cbc With Differential Ord2 Eos% 7.2 % 07/12/2018 Cbc With Differential Ord2 PLT 154 K/ul 07/12/2018 Cbc With Differential Ord2 Baso% 0.9 % 07/12/2018 Cbc With Differential Ord2 RDW 13.6 % 07/12/2018 Cbc With Differential Ord2 Neut ABS# 4.49 K/ul 07/12/2018 Cbc With Differential Ord2 Lymph ABS# 1.87 K/ul 07/12/2018 Cbc With Differential Ord2 Routt ABS# 0.8 K/ul 07/12/2018 Cbc With Differential Ord2 Eos ABS# 0.6 K/ul 07/12/2018 Cbc With Differential Ord2 Baso ABS# 0.1 K/ul 07/12/2018 Total Psa Ord10 PSA 1.05 ng/mL 07/12/2018 Lipid Ord30 CHOL 157 mg/dL 07/12/2018 Lipid Ord30 HDL 68.0 mg/dl 07/12/2018 Lipid Ord30 TRIG 82 mg/dL 07/12/2018 Lipid Ord30 LDL 73 mg/dL 07/12/2018 Lipid Ord30 C/HDL 2.3 Ratio 07/12/2018 Lipid Ord30 CHOL 166 mg/dL 11/27/2016 Lipid Ord30 HDL 57.0 mg/dl 11/27/2016 Lipid Ord30 TRIG 104 mg/dL 11/27/2016 Lipid Ord30 LDL 88 mg/dL 11/27/2016 Lipid Ord30 C/HDL 2.9 Ratio 11/27/2016 Comp Metabolic Ize468 NA 140 mEq/L 11/27/2016 Comp Metabolic Mnd915 K 4.6 mEq/L 11/27/2016 Comp Metabolic Ioy887 CL 103 mEq/L 11/27/2016 Comp Metabolic Yuv106 CO2 28.0 mEq/L 11/27/2016 Comp Metabolic Lgv420 AN ION GAP 14 11/27/2016 Comp Metabolic Lsn292 GL UCOSE 107 mg/dL 11/27/2016 Comp Metabolic Jed358 Cr eat 1.4 mg/dL 11/27/2016 Comp Metabolic Alg367 eG FR 55 ml/min/1.73m2 11/27 Comp Metabolic Zht726 BUN 27 mg/dL 11/27/2016 Comp Metabolic Wdm247 B/ C Ratio 19.9 Ratio 11/27/2016 Comp Metabolic Gpi067 CA LCIUM 9.8 mg/dL 11/27/2016 Comp Metabolic Bmj072 AL K PHOS 61 U/L 11/27/2016 Comp Metabolic Fpm161 T(SGOT) 19 U/L 11/27/2016 Comp Metabolic Pxb985 AL T(SGPT) 14 U/L 11/27/2016 Comp Metabolic Cgx579 BI LI T 0.5 mg/dL 11/27/2016 Comp Metabolic Plp336 AL BUMIN 4.1 g/dL 11/27/2016 Comp Metabolic Gzb521 TP RO 7.1 g/dL 11/27/2016 Comp Metabolic Jda229 GL OB 3.0 g/dL 11/27/2016 Comp Metabolic Oyc572 A/ G Ratio 1.4 Ratio 11/27/2016 Comp Metabolic Noq349 Os mo 285 mOsmo 11/27/2016 Cbc With Differential Ord2 WBC 8.51 K/ul 11/27/2016 Cbc With Differential Ord2 RBC 4.14 M/ul 11/27/2016 Cbc With Differential Ord2 HGB 13.3 g/dl 11/27/2016 Cbc With Differential Ord2 HCT 40.2 % 11/27/2016 Cbc With Differential Ord2 Neut% 71.3 % 11/27/2016 Cbc With Differential Ord2 MCV 97.1 fl 11/27/2016 Cbc With Differential Ord2 Lymph% 16.0 % 11/27/2016 Cbc With Differential Ord2 MCH 32.1 pg 11/27/2016 Cbc With Differential Ord2 Routt% 9.3 % 11/27/2016 Cbc With Differential Ord2 MCHC 33.1 pg 11/27/2016 Cbc With Differential Ord2 Eos% 2.8 % 11/27/2016 Cbc With Differential Ord2 PLT 188 K/ul 11/27/2016 Cbc With Differential Ord2 Baso% 0.6 % 11/27/2016 Cbc With Differential Ord2 RDW 13.4 % 11/27/2016 Cbc With Differential Ord2 Neut ABS# 6.07 K/ul 11/27/2016 Cbc With Differential Ord2 Lymph ABS# 1.36 K/ul 11/27/2016 Cbc With Differential Ord2 Routt ABS# 0.8 K/ul 11/27/2016 Cbc With Differential Ord2 Eos ABS# 0.2 K/ul 11/27/2016 Cbc With Differential Ord2 Baso ABS# 0.1 K/ul 11/27/2016 Tsh Ord6 hTSH II 1.36 uIU/mL 11/27/2016 Cbc With Differential Ord2 WBC 7.82 K/ul 07/04/2016 Cbc With Differential Ord2 RBC 4.08 M/ul 07/04/2016 Cbc With Differential Ord2 HGB 12.9 g/dl 07/04/2016 Cbc With Differential Ord2 HCT 39.5 % 07/04/2016 Cbc With Differential Ord2 Neut% 65.1 % 07/04/2016 Cbc With Differential Ord2 MCV 96.8 fl 07/04/2016 Cbc With Differential Ord2 Lymph% 20.3 % 07/04/2016 Cbc With Differential Ord2 MCH 31.6 pg 07/04/2016 Cbc With Differential Ord2 Routt% 10.4 % 07/04/2016 Cbc With Differential Ord2 MCHC 32.7 pg 07/04/2016 Cbc With Differential Ord2 Eos% 3.7 % 07/04/2016 Cbc With Differential Ord2 PLT 170 K/ul 07/04/2016 Cbc With Differential Ord2 Baso% 0.5 % 07/04/2016 Cbc With Differential Ord2 RDW 13.7 % 07/04/2016 Cbc With Differential Ord2 Neut ABS# 5.09 K/ul 07/04/2016 Cbc With Differential Ord2 Lymph ABS# 1.59 K/ul 07/04/2016 Cbc With Differential Ord2 Routt ABS# 0.8 K/ul 07/04/2016 Cbc With Differential Ord2 Eos ABS# 0.3 K/ul 07/04/2016 Cbc With Differential Ord2 Baso ABS# 0.0 K/ul 07/04/2016 Cbc With Differential Ord2 WBC 8.08 K/ul 05/27/2016 Cbc With Differential Ord2 RBC 4.06 M/ul 05/27/2016 Cbc With Differential Ord2 HGB 12.9 g/dl 05/27/2016 Cbc With Differential Ord2 HCT 39.8 % 05/27/2016 Cbc With Differential Ord2 Neut% 70.7 % 05/27/2016 Cbc With Differential Ord2 MCV 98.0 fl 05/27/2016 Cbc With Differential Ord2 Lymph% 15.0 % 05/27/2016 Cbc With Differential Ord2 MCH 31.8 pg 05/27/2016 Cbc With Differential Ord2 Routt% 10.8 % 05/27/2016 Cbc With Differential Ord2 MCHC 32.4 pg 05/27/2016 Cbc With Differential Ord2 Eos% 3.1 % 05/27/2016 Cbc With Differential Ord2 PLT 202 K/ul 05/27/2016 Cbc With Differential Ord2 Baso% 0.4 % 05/27/2016 Cbc With Differential Ord2 RDW 13.2 % 05/27/2016 Cbc With Differential Ord2 Neut ABS# 5.72 K/ul 05/27/2016 Cbc With Differential Ord2 Lymph ABS# 1.21 K/ul 05/27/2016 Cbc With Differential Ord2 Routt ABS# 0.9 K/ul 05/27/2016 Cbc With Differential Ord2 Eos ABS# 0.3 K/ul 05/27/2016 Cbc With Differential Ord2 Baso ABS# 0.0 K/ul 05/27/2016 Digoxin Ord9 DIGOXIN 0.8 NG/ML 05/27/2016 Lipid Ord30 CHOL 168 mg/dL 05/27/2016 Lipid Ord30 HDL 53.0 mg/dl 05/27/2016 Lipid Ord30 TRIG 100 mg/dL 05/27/2016 Lipid Ord30 LDL 95 mg/dL 05/27/2016 Lipid Ord30 C/HDL 3.2 Ratio 05/27/2016 Comp Metabolic Pcq942 NA 138 mEq/L 05/27/2016 Comp Metabolic Cfv051 K 4.9 mEq/L 05/27/2016 Comp Metabolic Wgj040 CL 101 mEq/L 05/27/2016 Comp Metabolic Kvx094 CO2 28.0 mEq/L 05/27/2016 Comp Metabolic Dhf594 AN ION GAP 14 05/27/2016 Comp Metabolic Ohh014 GL UCOSE 95 mg/dL 05/27/2016 Comp Metabolic Frw688 Cr eat 1.4 mg/dL 05/27/2016 Comp Metabolic Lao591 eG FR 55 ml/min/1.73m2 05/27 Comp Metabolic Waj982 BUN 26 mg/dL 05/27/2016 Comp Metabolic Xsz586 B/ C Ratio 19.0 Ratio 05/27/2016 Comp Metabolic Opg453 CA LCIUM 9.4 mg/dL 05/27/2016 Comp Metabolic Xej452 AL K PHOS 62 U/L 05/27/2016 Comp Metabolic Gpx260 T(SGOT) 19 U/L 05/27/2016 Comp Metabolic Xol294 AL T(SGPT) 14 U/L 05/27/2016 Comp Metabolic Zqo984 BI LI T 0.5 mg/dL 05/27/2016 Comp Metabolic Oyu947 AL BUMIN 3.8 g/dL 05/27/2016 Comp Metabolic Sem435 TP RO 7.1 g/dL 05/27/2016 Comp Metabolic Fdh138 GL OB 3.3 g/dL 05/27/2016 Comp Metabolic Czf432 A/ G Ratio 1.2 Ratio 05/27/2016 Comp Metabolic Yph291 Os mo 280 mOsmo 05/27/2016 Tsh Ord6 hTSH II 1.30 uIU/mL 05/27/2016 Total Psa Ord10 PSA 1.61 ng/mL 05/27/2016 LIPID GRP HDL TE ST 62 MG/DL 08/18/2012 LIPID GRP TRIG 115 MG/DL 08/18/2012 LIPID GRP TEST L DL 103 MG/DL 08/18/2012 LIPID GRP CHOL 188 MG/DL 08/18/2012 LIPID GRP RCHOL/ HDL 3.03 RATIO 08/18/2012 TSH [id number] TSH 1.296 uIU/ML 08/18/2012 CBC [id number] WBC 6.2 10e9/L 08/18/2012 CBC [id number] RBC 4.13 10e12/L 08/18/2012 CBC [id number] HGB 13.5 g/dL 08/18/2012 CBC [id number] HCT DET 40.3 % 08/18/2012 CBC [id number] MCV 97.6 fL 08/18/2012 CBC [id number] MCH 32.7 pg 08/18/2012 CBC [id number] MCHC 33.5 g/dL 08/18/2012 CBC [id number] PLT 159 10e9/L 08/18/2012 CBC [id number] MPV 10.8 fL 08/18/2012 CBC [id number] [place] % 60.9 % 08/18/2012 CBC [id number] LY % 23.1 % 08/18/2012 CBC [id number] MON % 11.2 % 08/18/2012 CBC [id number] EOS % 4.2 % 08/18/2012 CBC [id number] BASO % 0.6 % 08/18/2012 CBC [id number] RDW 13.0 % 08/18/2012 CBC [id number] ABS [place] 3.78 10e9/L 08/18/2012 CBC [id number] ABS LYMPH 1.43 10e9/L 08/18/2012 CBC [id number] ABS MONO 0.69 10e9/L 08/18/2012 CBC [id number] ABS EOS 0.26 10e9/L 08/18/2012 CBC [id number] ABS BASO 0.04 10e9/L 08/18/2012 CBC [id number] RDW-SD 45.1 fL 08/18/2012 GFR CALC [id number] GFR AA >60 ML/MIN 08/18/2012 GFR CALC [id number] GFR NON -AA 51.0L ML/MIN 3 CHEM 14 [id number] AST 21 U/L 08/18/2012 CHEM 14 [id number] ALT 16 IU/L 08/18/2012 CHEM 14 [id number] BUN 26 MG/DL 08/18/2012 CHEM 14 [id number] ALBUMIN 4.3 GM/DL 08/18/2012 CHEM 14 0040038 CHLORIDE 105 MMOL/L 08/18/2012 CHEM 14 [id number] BILI TOT 0.7 MG/DL 08/18/2012 CHEM 14 [id number] ALK PHOS 41 U/L 08/18/2012 CHEM 14 [id number] SODIUM 138 MMOL/L 08/18/2012 CHEM 14 [id number] CREATINI NE 1.39 MG/DL 08/18/2012 CHEM 14 [id number] CALCIUM 9.6 MG/DL 08/18/2012 CHEM 14 [id number] POTASSIUM 4.4 MMOL/L 08/18/2012 CHEM 14 [id number] PROT TOT 7.0 GM/DL 08/18/2012 CHEM 14 [id number] GLUCOSE 104 MG/DL 08/18/2012 CHEM 14 [id number] BICARB 28 MMOL/L 08/18/2012 CHEM 14 [id number] ANION GAP 5 MEQ/L 08/18/2012 GFR CALC [id number] GFR AA 58.0L ML/MIN 02/19/2012 GFR CALC [id number] GFR NON -AA 47.0L ML/MIN 3 CHEM 14 [id number] AST 20 U/L 02/19/2012 CHEM 14 [id number] ALT 18 IU/L 02/19/2012 CHEM 14 [id number] BUN 30 MG/DL 02/19/2012 CHEM 14 [id number] ALBUMIN 4.4 GM/DL 02/19/2012 CHEM 14 [id number] CHLORIDE 105 MMOL/L 02/19/2012 CHEM 14 [id number] BILI TOT 0.5 MG/DL 02/19/2012 CHEM 14 [id number] ALK PHOS 54 U/L 02/19/2012 CHEM 14 [id number] SODIUM 139 MMOL/L 02/19/2012 CHEM 14 [id number] CREATINI NE 1.49 MG/DL 02/19/2012 CHEM 14 [id number] CALCIUM 9.6 MG/DL 02/19/2012 CHEM 14 [id number] POTASSIUM 4.5 MMOL/L 02/19/2012 CHEM 14 [id number] PROT TOT 7.0 GM/DL 02/19/2012 CHEM 14 [id number] GLUCOSE 84 MG/DL 02/19/2012 CHEM 14 [id number] BICARB 26 MMOL/L 02/19/2012 CHEM 14 [id number] ANION GAP 8 MEQ/L 02/19/2012 Review of Systems System Result Effective Dates Constitutional No recent illness 09/22/2018 Constitutional No anorexia 09/22/2018 Constitutional No fatigue 09/22/2018 Constitutional No fever 09/22/2018 Eyes No blindness 2018 Eyes No eye discharge Eyes No vision change Ears/Nose/Throat/Neck No dizziness 09/22/2018 Ears/Nose/Throat/Neck No sore throat 09/22/2018 Ears/Nose/Throat/Neck No otalgia 09/22/2018 Cardiovascular No chest pain/pressure 09/22/2018 Cardiovascular No dyspnea 09/22/2018 Cardiovascular No edema 09/22/2018 Cardiovascular No exercise intolerance 09/22/2018 Cardiovascular No fatigue 09/22/2018 Cardiovascular hypertension 09/22/2018 Cardiovascular No near-syncope/dizziness 09/22/2018 Respiratory No chest congestion 09/22/2018 Respiratory No chest tightness 09/22/2018 Respiratory No cough Respiratory No dyspnea on exertion 09/22/2018 Gastrointestinal No abdominal pain 09/22/2018 Gastrointestinal No constipation 09/22/2018 Gastrointestinal No diarrhea 09/22/2018 Genitourinary/Nephrology No dysuria 09/22/2018 Genitourinary/Nephrology No nocturia 09/22/2018 Genitourinary/Nephrology No urinary incontinence 09/22/2018 Musculoskeletal No stiffness 09/22/2018 Musculoskeletal No arthralgia(s) 09/22/2018 Musculoskeletal No back pain 09/22/2018 Musculoskeletal joint complaint 09/22/2018 Musculoskeletal muscle weakness 09/22/2018 Musculoskeletal No neck pain 09/22/2018 Dermatologic No rash Dermatologic sores 09/22 Neurologic No dizziness 09/22/2018 Neurologic No headache 0 09/22/2018 Neurologic No neck pain 09/22/2018 Neurologic No syncope Psychiatric No anxiety 0 09/22/2018 Psychiatric No depression 09/22/2018 Ears/Nose/Throat/Neck nasal allergies 09/22/2018 Constitutional No recent illness 06/03/2018 Constitutional No anorexia 06/03/2018 Constitutional No fatigue 06/03/2018 Constitutional No fever 06/03/2018 Eyes No blindness 2018 Eyes No eye discharge Eyes No vision change Ears/Nose/Throat/Neck No dizziness 06/03/2018 Ears/Nose/Throat/Neck No sore throat 06/03/2018 Ears/Nose/Throat/Neck No otalgia 06/03/2018 Cardiovascular No chest pain/pressure 06/03/2018 Cardiovascular No dyspnea 06/03/2018 Cardiovascular No edema 06/03/2018 Cardiovascular No exercise intolerance 06/03/2018 Cardiovascular No fatigue 06/03/2018 Cardiovascular hypertension 06/03/2018 Cardiovascular No near-syncope/dizziness 06/03/2018 Respiratory No chest congestion 06/03/2018 Respiratory No chest tightness 06/03/2018 Respiratory No cough Respiratory No dyspnea on exertion 06/03/2018 Gastrointestinal No abdominal pain 06/03/2018 Gastrointestinal No constipation 06/03/2018 Gastrointestinal No diarrhea 06/03/2018 Genitourinary/Nephrology No dysuria 06/03/2018 Genitourinary/Nephrology No nocturia 06/03/2018 Genitourinary/Nephrology No urinary incontinence 06/03/2018 Musculoskeletal No stiffness 06/03/2018 Musculoskeletal No arthralgia(s) 06/03/2018 Musculoskeletal No back pain 06/03/2018 Musculoskeletal joint complaint 06/03/2018 Musculoskeletal muscle weakness 06/03/2018 Musculoskeletal No neck pain 06/03/2018 Dermatologic No rash Dermatologic No sores Neurologic No dizziness 06/03/2018 Neurologic No headache 0 06/03/2018 Neurologic No neck pain 06/03/2018 Neurologic No syncope Psychiatric No anxiety 0 06/03/2018 Psychiatric No depression 06/03/2018 Dermatologic mole change 06/03/2018 Constitutional No recent illness 02/04/2018 Constitutional No anorexia 02/04/2018 Constitutional No fatigue 02/04/2018 Constitutional No fever 02/04/2018 Eyes No blindness 2017 Eyes No eye discharge Eyes No vision change Ears/Nose/Throat/Neck No dizziness 02/04/2018 Ears/Nose/Throat/Neck No sore throat 02/04/2018 Ears/Nose/Throat/Neck No otalgia 02/04/2018 Cardiovascular No chest pain/pressure 02/04/2018 Cardiovascular No dyspnea 02/04/2018 Cardiovascular No edema 02/04/2018 Cardiovascular No exercise intolerance 02/04/2018 Cardiovascular No fatigue 02/04/2018 Cardiovascular hypertension 02/04/2018 Cardiovascular No near-syncope/dizziness 02/04/2018 Respiratory No chest congestion 02/04/2018 Respiratory No chest tightness 02/04/2018 Respiratory No cough Respiratory No dyspnea on exertion 02/04/2018 Gastrointestinal No abdominal pain 02/04/2018 Gastrointestinal No constipation 02/04/2018 Gastrointestinal No diarrhea 02/04/2018 Genitourinary/Nephrology No dysuria 02/04/2018 Genitourinary/Nephrology No nocturia 02/04/2018 Genitourinary/Nephrology No urinary incontinence 02/04/2018 Musculoskeletal No stiffness 02/04/2018 Musculoskeletal No arthralgia(s) 02/04/2018 Musculoskeletal No back pain 02/04/2018 Musculoskeletal joint complaint 02/04/2018 Musculoskeletal muscle weakness 02/04/2018 Musculoskeletal No neck pain 02/04/2018 Dermatologic No rash Dermatologic No sores Neurologic No dizziness 02/04/2018 Neurologic No headache 1 04/07/2017 Neurologic No neck pain 02/04/2018 Neurologic No syncope Psychiatric No anxiety 1 04/07/2017 Psychiatric No depression 02/04/2018 Constitutional No recent illness 10/07/2017 Constitutional No fatigue 10/07/2017 Constitutional No fever 10/07/2017 Eyes No eye discharge Ears/Nose/Throat/Neck No sore throat 10/07/2017 Ears/Nose/Throat/Neck No otalgia 10/07/2017 Cardiovascular No fatigue 10/07/2017 Cardiovascular hypertension 10/07/2017 Respiratory No cough Respiratory No dyspnea on exertion 10/07/2017 Gastrointestinal No abdominal pain 10/07/2017 Musculoskeletal No stiffness 10/07/2017 Musculoskeletal No arthralgia(s) 10/07/2017 Dermatologic No rash Dermatologic No sores Constitutional No anorexia 10/07/2017 Eyes No blindness 2017 Eyes No vision change Ears/Nose/Throat/Neck No dizziness 10/07/2017 Cardiovascular No chest pain/pressure 10/07/2017 Cardiovascular No dyspnea 10/07/2017 Cardiovascular No edema 10/07/2017 Cardiovascular No exercise intolerance 10/07/2017 Cardiovascular No near-syncope/dizziness 10/07/2017 Respiratory No chest congestion 10/07/2017 Respiratory No chest tightness 10/07/2017 Gastrointestinal No constipation 10/07/2017 Gastrointestinal No diarrhea 10/07/2017 Genitourinary/Nephrology No dysuria 10/07/2017 Genitourinary/Nephrology No nocturia 10/07/2017 Genitourinary/Nephrology No urinary incontinence 10/07/2017 Musculoskeletal No back pain 10/07/2017 Musculoskeletal joint complaint 10/07/2017 Musculoskeletal muscle weakness 10/07/2017 Musculoskeletal No neck pain 10/07/2017 Neurologic No dizziness 10/07/2017 Neurologic No headache 0 10/07/2017 Neurologic No neck pain 10/07/2017 Neurologic No syncope Psychiatric No anxiety 0 10/07/2017 Psychiatric No depression 10/07/2017 Constitutional No recent illness 06/04/2017 Constitutional No chills 06/04/2017 Constitutional No diaphoresis 06/04/2017 Constitutional No fever 06/04/2017 Eyes No eye erythema Ears/Nose/Throat/Neck No nasal discharge 06/04/2017 Cardiovascular No chest pain/pressure 06/04/2017 Cardiovascular No dyspnea 06/04/2017 Respiratory No cough Respiratory No dyspnea 0 06/04/2017 Neurologic No alteration of consciousness 06/04/2017 Neurologic No mental status change 06/04/2017 Constitutional No recent illness 06/02/2017 Constitutional No fatigue 06/02/2017 Constitutional No fever 06/02/2017 Cardiovascular No fatigue 06/02/2017 Cardiovascular hypertension 06/02/2017 Respiratory No cough Respiratory No dyspnea on exertion 06/02/2017 Gastrointestinal No abdominal pain 06/02/2017 Musculoskeletal stiffness 06/02/2017 Musculoskeletal No arthralgia(s) 06/02/2017 Psychiatric anxiety 05/11 Psychiatric depression 0 06/02/2017 Eyes No eye discharge Ears/Nose/Throat/Neck No otalgia 06/02/2017 Ears/Nose/Throat/Neck No sore throat 06/02/2017 Dermatologic No rash Dermatologic No sores Constitutional No recent illness 01/28/2017 Constitutional No fatigue 01/28/2017 Constitutional No fever 01/28/2017 Cardiovascular No fatigue 01/28/2017 Cardiovascular hypertension 01/28/2017 Respiratory No cough Respiratory No dyspnea on exertion 01/28/2017 Gastrointestinal No abdominal pain 01/28/2017 Musculoskeletal stiffness 01/28/2017 Musculoskeletal No arthralgia(s) 01/28/2017 Psychiatric anxiety 01/10 Psychiatric depression 1 03/31/2016 Genitourinary/Nephrology No urinary incontinence 01/28/2017 Dermatologic No rash Dermatologic No sores Constitutional No recent illness 12/29/2016 Constitutional No fatigue 12/29/2016 Constitutional No fever 12/29/2016 Psychiatric anxiety 12/11 Psychiatric depression 1 02/29/2016 Musculoskeletal stiffness 12/29/2016 Musculoskeletal No arthralgia(s) 12/29/2016 Cardiovascular hypertension 12/29/2016 Cardiovascular No fatigue 12/29/2016 Respiratory No cough Respiratory No dyspnea on exertion 12/29/2016 Gastrointestinal No abdominal pain 12/29/2016 Constitutional No recent illness 12/01/2016 Constitutional No anorexia 12/01/2016 Constitutional No fatigue 12/01/2016 Constitutional No fever 12/01/2016 Eyes No blindness 2016 Eyes No vision change Ears/Nose/Throat/Neck No dizziness 12/01/2016 Cardiovascular No chest pain/pressure 12/01/2016 Cardiovascular No dyspnea 12/01/2016 Cardiovascular No edema 12/01/2016 Cardiovascular No exercise intolerance 12/01/2016 Cardiovascular No fatigue 12/01/2016 Cardiovascular No near-syncope/dizziness 12/01/2016 Respiratory No chest congestion 12/01/2016 Respiratory No chest tightness 12/01/2016 Respiratory No cough Gastrointestinal No abdominal pain 12/01/2016 Gastrointestinal No constipation 12/01/2016 Gastrointestinal No diarrhea 12/01/2016 Genitourinary/Nephrology No dysuria 12/01/2016 Genitourinary/Nephrology No nocturia 12/01/2016 Genitourinary/Nephrology No urinary incontinence 12/01/2016 Musculoskeletal No stiffness 12/01/2016 Musculoskeletal arthralgia(s) 12/01/2016 Musculoskeletal No back pain 12/01/2016 Musculoskeletal joint complaint 12/01/2016 Musculoskeletal muscle weakness 12/01/2016 Musculoskeletal No neck pain 12/01/2016 Dermatologic No rash Dermatologic No sores Neurologic No dizziness 12/01/2016 Neurologic No headache 1 Neurologic No neck pain 12/01/2016 Neurologic No syncope Psychiatric No anxiety 1 Psychiatric No depression 12/01/2016 Cardiovascular hypertension 12/01/2016 Constitutional No recent illness 05/28/2016 Constitutional No fever 05/28/2016 Eyes No eye erythema Eyes No vision change Cardiovascular No chest pain/pressure 05/28/2016 Cardiovascular No dyspnea 05/28/2016 Respiratory No cough Gastrointestinal No abdominal pain 05/28/2016 Gastrointestinal No constipation 05/28/2016 Gastrointestinal No diarrhea 05/28/2016 Musculoskeletal arthralgia(s) 05/28/2016 Constitutional No chills 05/28/2016 Ears/Nose/Throat/Neck No nasal discharge 05/28/2016 Respiratory No dyspnea 0 05/28/2016 Neurologic No alteration of consciousness 05/28/2016 Neurologic No mental status change 05/28/2016 Constitutional No recent illness 05/27/2016 Constitutional No anorexia 05/27/2016 Constitutional No fatigue 05/27/2016 Constitutional No fever 05/27/2016 Eyes No blindness 2016 Eyes No vision change Ears/Nose/Throat/Neck No dizziness 05/27/2016 Cardiovascular No chest pain/pressure 05/27/2016 Cardiovascular No dyspnea 05/27/2016 Cardiovascular No edema 05/27/2016 Cardiovascular No exercise intolerance 05/27/2016 Cardiovascular No fatigue 05/27/2016 Cardiovascular No near-syncope/dizziness 05/27/2016 Respiratory No chest congestion 05/27/2016 Respiratory No chest tightness 05/27/2016 Respiratory No cough Gastrointestinal No abdominal pain 05/27/2016 Gastrointestinal No constipation 05/27/2016 Gastrointestinal No diarrhea 05/27/2016 Genitourinary/Nephrology No dysuria 05/27/2016 Genitourinary/Nephrology No nocturia 05/27/2016 Genitourinary/Nephrology No urinary incontinence 05/27/2016 Musculoskeletal No stiffness 05/27/2016 Musculoskeletal arthralgia(s) 05/27/2016 Musculoskeletal No back pain 05/27/2016 Musculoskeletal joint complaint 05/27/2016 Musculoskeletal muscle weakness 05/27/2016 Musculoskeletal No neck pain 05/27/2016 Dermatologic No rash Dermatologic No sores Neurologic No dizziness 05/27/2016 Neurologic No headache 0 05/27/2016 Neurologic No neck pain 05/27/2016 Neurologic No syncope Psychiatric No anxiety 0 05/27/2016 Psychiatric No depression 05/27/2016 Constitutional No recent illness 01/09/2016 Constitutional No anorexia 01/09/2016 Constitutional No fatigue 01/09/2016 Constitutional No fever 01/09/2016 Eyes No blindness 2015 Eyes No vision change Ears/Nose/Throat/Neck No dizziness 01/09/2016 Cardiovascular No chest pain/pressure 01/09/2016 Cardiovascular No dyspnea 01/09/2016 Cardiovascular No edema 01/09/2016 Cardiovascular No exercise intolerance 01/09/2016 Cardiovascular No fatigue 01/09/2016 Cardiovascular No near-syncope/dizziness 01/09/2016 Respiratory chest congestion 01/09/2016 Respiratory No chest tightness 01/09/2016 Respiratory cough 2015 Gastrointestinal No abdominal pain 01/09/2016 Gastrointestinal No constipation 01/09/2016 Gastrointestinal No diarrhea 01/09/2016 Genitourinary/Nephrology No dysuria 01/09/2016 Genitourinary/Nephrology No nocturia 01/09/2016 Genitourinary/Nephrology No urinary incontinence 01/09/2016 Musculoskeletal No stiffness 01/09/2016 Musculoskeletal arthralgia(s) 01/09/2016 Musculoskeletal No back pain 01/09/2016 Musculoskeletal muscle weakness 01/09/2016 Musculoskeletal No neck pain 01/09/2016 Dermatologic No rash Dermatologic No sores Psychiatric No anxiety 1 03/10/2015 Psychiatric No depression 01/09/2016 Ears/Nose/Throat/Neck nasal allergies 01/09/2016 Ears/Nose/Throat/Neck nasal discharge 01/09/2016 Constitutional No recent illness 11/27/2015 Constitutional No anorexia 11/27/2015 Constitutional No fatigue 11/27/2015 Constitutional No fever 11/27/2015 Eyes No blindness 2015 Eyes No vision change Ears/Nose/Throat/Neck No dizziness 11/27/2015 Cardiovascular No chest pain/pressure 11/27/2015 Cardiovascular No dyspnea 11/27/2015 Cardiovascular No edema 11/27/2015 Cardiovascular No exercise intolerance 11/27/2015 Cardiovascular No fatigue 11/27/2015 Cardiovascular No near-syncope/dizziness 11/27/2015 Respiratory No chest congestion 11/27/2015 Respiratory No chest tightness 11/27/2015 Respiratory No cough Gastrointestinal No abdominal pain 11/27/2015 Gastrointestinal No constipation 11/27/2015 Gastrointestinal No diarrhea 11/27/2015 Genitourinary/Nephrology No dysuria 11/27/2015 Genitourinary/Nephrology No nocturia 11/27/2015 Genitourinary/Nephrology No urinary incontinence 11/27/2015 Musculoskeletal No stiffness 11/27/2015 Musculoskeletal arthralgia(s) 11/27/2015 Musculoskeletal No back pain 11/27/2015 Musculoskeletal joint complaint 11/27/2015 Musculoskeletal muscle weakness 11/27/2015 Musculoskeletal No neck pain 11/27/2015 Dermatologic No rash Dermatologic No sores Neurologic No dizziness 11/27/2015 Neurologic No headache 1 Neurologic No neck pain 11/27/2015 Neurologic No syncope Psychiatric No anxiety 1 Psychiatric No depression 11/27/2015 Constitutional No recent illness 05/29/2015 Constitutional No anorexia 05/29/2015 Constitutional No fatigue 05/29/2015 Constitutional No fever 05/29/2015 Eyes No blindness 2015 Eyes No vision change Ears/Nose/Throat/Neck No dizziness 05/29/2015 Cardiovascular No chest pain/pressure 05/29/2015 Cardiovascular No dyspnea 05/29/2015 Cardiovascular No edema 05/29/2015 Cardiovascular No exercise intolerance 05/29/2015 Cardiovascular No fatigue 05/29/2015 Cardiovascular No near-syncope/dizziness 05/29/2015 Respiratory No chest congestion 05/29/2015 Respiratory No chest tightness 05/29/2015 Respiratory No cough Gastrointestinal No abdominal pain 05/29/2015 Gastrointestinal No constipation 05/29/2015 Gastrointestinal No diarrhea 05/29/2015 Genitourinary/Nephrology No dysuria 05/29/2015 Genitourinary/Nephrology No nocturia 05/29/2015 Genitourinary/Nephrology No urinary incontinence 05/29/2015 Musculoskeletal No stiffness 05/29/2015 Musculoskeletal arthralgia(s) 05/29/2015 Musculoskeletal No back pain 05/29/2015 Musculoskeletal joint complaint 05/29/2015 Musculoskeletal muscle weakness 05/29/2015 Musculoskeletal No neck pain 05/29/2015 Dermatologic No rash Dermatologic No sores Psychiatric No anxiety 0 05/29/2015 Psychiatric No depression 05/29/2015 Neurologic No dizziness 05/29/2015 Neurologic No headache 0 05/29/2015 Neurologic No neck pain 05/29/2015 Neurologic No syncope Constitutional No recent illness 11/23/2014 Constitutional No anorexia 11/23/2014 Constitutional No fatigue 11/23/2014 Constitutional No fever 11/23/2014 Eyes No blindness 2014 Eyes No vision change Ears/Nose/Throat/Neck No dizziness 11/23/2014 Cardiovascular No chest pain/pressure 11/23/2014 Cardiovascular No dyspnea 11/23/2014 Cardiovascular No edema 11/23/2014 Cardiovascular No exercise intolerance 11/23/2014 Cardiovascular No fatigue 11/23/2014 Cardiovascular No near-syncope/dizziness 11/23/2014 Respiratory No chest congestion 11/23/2014 Respiratory No chest tightness 11/23/2014 Respiratory No cough Gastrointestinal No abdominal pain 11/23/2014 Gastrointestinal No constipation 11/23/2014 Gastrointestinal No diarrhea 11/23/2014 Genitourinary/Nephrology No dysuria 11/23/2014 Genitourinary/Nephrology No nocturia 11/23/2014 Genitourinary/Nephrology No urinary incontinence 11/23/2014 Musculoskeletal No stiffness 11/23/2014 Musculoskeletal arthralgia(s) 11/23/2014 Musculoskeletal No back pain 11/23/2014 Musculoskeletal joint complaint 11/23/2014 Musculoskeletal muscle weakness 11/23/2014 Musculoskeletal No neck pain 11/23/2014 Dermatologic No rash Dermatologic No sores Psychiatric No anxiety 1 Psychiatric No depression 11/23/2014 Constitutional No recent illness 07/20/2014 Constitutional No anorexia 07/20/2014 Constitutional No fatigue 07/20/2014 Constitutional No fever 07/20/2014 Ears/Nose/Throat/Neck No dizziness 07/20/2014 Cardiovascular No chest pain/pressure 07/20/2014 Cardiovascular No dyspnea 07/20/2014 Cardiovascular No edema 07/20/2014 Cardiovascular No exercise intolerance 07/20/2014 Cardiovascular No fatigue 07/20/2014 Cardiovascular No near-syncope/dizziness 07/20/2014 Respiratory No chest congestion 07/20/2014 Respiratory No chest tightness 07/20/2014 Respiratory No cough 12/2014 Gastrointestinal No abdominal pain 07/20/2014 Gastrointestinal No constipation 07/20/2014 Gastrointestinal No diarrhea 07/20/2014 Dermatologic No rash 12/2014 Dermatologic No sores Psychiatric No anxiety 0 07/20/2014 Psychiatric No depression 07/20/2014 Eyes No blindness 2014 Eyes No vision change Musculoskeletal No stiffness 07/20/2014 Musculoskeletal arthralgia(s) 07/20/2014 Musculoskeletal No back pain 07/20/2014 Musculoskeletal joint complaint 07/20/2014 Musculoskeletal muscle weakness 07/20/2014 Musculoskeletal No neck pain 07/20/2014 Genitourinary/Nephrology No dysuria 07/20/2014 Genitourinary/Nephrology No nocturia 07/20/2014 Genitourinary/Nephrology No urinary incontinence 07/20/2014 Constitutional No recent illness 04/19/2014 Constitutional No anorexia 04/19/2014 Constitutional No fatigue 04/19/2014 Constitutional No fever 04/19/2014 Eyes No blindness 2014 Eyes No vision change Ears/Nose/Throat/Neck No dizziness 04/19/2014 Cardiovascular No chest pain/pressure 04/19/2014 Cardiovascular No dyspnea 04/19/2014 Cardiovascular No edema 04/19/2014 Cardiovascular No exercise intolerance 04/19/2014 Cardiovascular No fatigue 04/19/2014 Cardiovascular No near-syncope/dizziness 04/19/2014 Respiratory No chest congestion 04/19/2014 Respiratory No chest tightness 04/19/2014 Respiratory No cough 12/2014 Gastrointestinal No abdominal pain 04/19/2014 Gastrointestinal No constipation 04/19/2014 Gastrointestinal No diarrhea 04/19/2014 Dermatologic No rash 12/2014 Dermatologic No sores Psychiatric No anxiety 0 04/19/2014 Psychiatric No depression 04/19/2014 Musculoskeletal arthralgia(s) 04/19/2014 Musculoskeletal No stiffness 04/19/2014 Musculoskeletal No back pain 04/19/2014 Musculoskeletal No neck pain 04/19/2014 Musculoskeletal muscle weakness 04/19/2014 Musculoskeletal joint complaint 04/19/2014 Constitutional No recent illness 12/21/2013 Constitutional No anorexia 12/21/2013 Constitutional No fatigue 12/21/2013 Constitutional No fever 12/21/2013 Ears/Nose/Throat/Neck No dizziness 12/21/2013 Cardiovascular No chest pain/pressure 12/21/2013 Cardiovascular No dyspnea 12/21/2013 Cardiovascular No edema 12/21/2013 Cardiovascular No exercise intolerance 12/21/2013 Cardiovascular No fatigue 12/21/2013 Cardiovascular No near-syncope/dizziness 12/21/2013 Respiratory No chest congestion 12/21/2013 Respiratory No chest tightness 12/21/2013 Respiratory No cough 01/2014 Gastrointestinal No abdominal pain 12/21/2013 Gastrointestinal No constipation 12/21/2013 Gastrointestinal No diarrhea 12/21/2013 Dermatologic No rash 01/2014 Dermatologic No sores Psychiatric No anxiety 1 02/20/2013 Psychiatric No depression 12/21/2013 Eyes No blindness 2013 Eyes No vision change Constitutional No recent illness 10/18/2013 Constitutional No anorexia 10/18/2013 Constitutional No fatigue 10/18/2013 Constitutional No fever 10/18/2013 Ears/Nose/Throat/Neck No dizziness 10/18/2013 Cardiovascular No chest pain/pressure 10/18/2013 Cardiovascular No dyspnea 10/18/2013 Cardiovascular No edema 10/18/2013 Cardiovascular No exercise intolerance 10/18/2013 Cardiovascular No fatigue 10/18/2013 Cardiovascular No near-syncope/dizziness 10/18/2013 Respiratory No chest congestion 10/18/2013 Respiratory No chest tightness 10/18/2013 Respiratory No cough 10/2013 Gastrointestinal No abdominal pain 10/18/2013 Gastrointestinal No constipation 10/18/2013 Gastrointestinal No diarrhea 10/18/2013 Dermatologic No rash 10/2013 Dermatologic No sores Psychiatric No anxiety 0 10/18/2013 Psychiatric No depression 10/18/2013 Constitutional No recent illness 07/13/2013 Constitutional No anorexia 07/13/2013 Constitutional No fatigue 07/13/2013 Constitutional No fever 07/13/2013 Ears/Nose/Throat/Neck No dizziness 07/13/2013 Respiratory No chest congestion 07/13/2013 Respiratory No chest tightness 07/13/2013 Respiratory No cough 05/2013 Gastrointestinal No abdominal pain 07/13/2013 Gastrointestinal No constipation 07/13/2013 Gastrointestinal No diarrhea 07/13/2013 Dermatologic No rash 05/2013 Dermatologic No sores Psychiatric No anxiety 0 07/13/2013 Psychiatric No depression 07/13/2013 Cardiovascular No chest pain/pressure 07/13/2013 Cardiovascular No dyspnea 07/13/2013 Cardiovascular No edema 07/13/2013 Cardiovascular No exercise intolerance 07/13/2013 Cardiovascular No fatigue 07/13/2013 Cardiovascular No near-syncope/dizziness 07/13/2013 Constitutional No recent illness 06/09/2013 Constitutional No anorexia 06/09/2013 Constitutional No night sweats 06/09/2013 Constitutional No chills 06/09/2013 Constitutional No diaphoresis 06/09/2013 Constitutional No fatigue 06/09/2013 Constitutional No fever 06/09/2013 Constitutional No insomnia 06/09/2013 Constitutional No malaise 06/09/2013 Musculoskeletal muscle weakness 06/09/2013 Constitutional No recent illness 04/11/2013 Constitutional No anorexia 04/11/2013 Constitutional No fatigue 04/11/2013 Constitutional No fever 04/11/2013 Ears/Nose/Throat/Neck No dizziness 04/11/2013 Respiratory No chest congestion 04/11/2013 Respiratory No chest tightness 04/11/2013 Respiratory No cough 04/2013 Gastrointestinal No abdominal pain 04/11/2013 Gastrointestinal No constipation 04/11/2013 Gastrointestinal No diarrhea 04/11/2013 Musculoskeletal No stiffness 04/11/2013 Musculoskeletal No swelling 04/11/2013 Musculoskeletal No arthralgia(s) 04/11/2013 Dermatologic No rash 04/2013 Dermatologic No sores Psychiatric No anxiety 0 04/11/2013 Psychiatric No depression 04/11/2013 Constitutional No recent illness 02/16/2013 Constitutional No anorexia 02/16/2013 Constitutional No fatigue 02/16/2013 Constitutional No fever 02/16/2013 Ears/Nose/Throat/Neck No dizziness 02/16/2013 Respiratory No chest congestion 02/16/2013 Respiratory No chest tightness 02/16/2013 Respiratory No cough 09/2013 Gastrointestinal No abdominal pain 02/16/2013 Gastrointestinal No constipation 02/16/2013 Gastrointestinal No diarrhea 02/16/2013 Musculoskeletal No stiffness 02/16/2013 Musculoskeletal No swelling 02/16/2013 Musculoskeletal No arthralgia(s) 02/16/2013 Dermatologic No rash 09/2013 Dermatologic No sores Psychiatric No anxiety 0 02/16/2013 Psychiatric No depression 02/16/2013 Constitutional No recent illness 08/18/2012 Constitutional No anorexia 08/18/2012 Constitutional No fatigue 08/18/2012 Constitutional No fever 08/18/2012 Ears/Nose/Throat/Neck No dizziness 08/18/2012 Respiratory No chest congestion 08/18/2012 Respiratory No chest tightness 08/18/2012 Respiratory No cough 11/2012 Gastrointestinal No abdominal pain 08/18/2012 Gastrointestinal No constipation 08/18/2012 Gastrointestinal No diarrhea 08/18/2012 Musculoskeletal No stiffness 08/18/2012 Musculoskeletal No swelling 08/18/2012 Musculoskeletal No arthralgia(s) 08/18/2012 Dermatologic No rash 11/2012 Dermatologic No sores Psychiatric No anxiety 0 08/18/2012 Psychiatric No depression 08/18/2012 Constitutional No recent illness 02/19/2012 Constitutional No anorexia 02/19/2012 Constitutional No chills 02/19/2012 Constitutional No fever 02/19/2012 Constitutional No insomnia 02/19/2012 Eyes No vision change Ears/Nose/Throat/Neck No dizziness 02/19/2012 Ears/Nose/Throat/Neck hearing loss 02/19/2012 Ears/Nose/Throat/Neck No sore throat 02/19/2012 Ears/Nose/Throat/Neck No nasal pain 02/19/2012 Ears/Nose/Throat/Neck No sinus congestion 02/19/2012 Respiratory No chest congestion 02/19/2012 Respiratory No chest tightness 02/19/2012 Respiratory No cough 11/2012 Respiratory No dyspnea 0 02/19/2012 Gastrointestinal No abdominal pain 02/19/2012 Gastrointestinal No constipation 02/19/2012 Gastrointestinal No diarrhea 02/19/2012 Gastrointestinal No gastroesophageal reflu x 02/19/2012 Gastrointestinal No nausea 02/19/2012 Gastrointestinal No vomiting 02/19/2012 Musculoskeletal No stiffness 02/19/2012 Musculoskeletal No swelling 02/19/2012 Musculoskeletal No arthralgia(s) 02/19/2012 Dermatologic No mole change 02/19/2012 Dermatologic No rash 11/2012 Dermatologic No sores Neurologic No headache 0 02/19/2012 Psychiatric No anxiety 0 02/19/2012 Psychiatric No depression 02/19/2012 Constitutional No chills 10/16/2011 Constitutional No fever 10/16/2011 Constitutional No insomnia 10/16/2011 Eyes No vision change Ears/Nose/Throat/Neck hearing loss 10/16/2011 Psychiatric No depression 10/16/2011 Ears/Nose/Throat/Neck No nasal pain 10/16/2011 Ears/Nose/Throat/Neck No sinus congestion 10/16/2011 Ears/Nose/Throat/Neck No sore throat 10/16/2011 Respiratory No cough 07/2011 Respiratory No dyspnea 0 10/16/2011 Gastrointestinal No constipation 10/16/2011 Gastrointestinal No diarrhea 10/16/2011 Gastrointestinal No gastroesophageal reflu x 10/16/2011 Gastrointestinal No nausea 10/16/2011 Gastrointestinal No vomiting 10/16/2011 Musculoskeletal No stiffness 10/16/2011 Musculoskeletal No swelling 10/16/2011 Dermatologic No mole change 10/16/2011 Dermatologic No rash 07/2011 Dermatologic No sores Neurologic No headache 0 10/16/2011 Constitutional No recent illness 10/16/2011 Constitutional No anorexia 10/16/2011 Ears/Nose/Throat/Neck No dizziness 10/16/2011 Respiratory No chest congestion 10/16/2011 Respiratory No chest tightness 10/16/2011 Gastrointestinal No abdominal pain 10/16/2011 Musculoskeletal No arthralgia(s) 10/16/2011 Psychiatric No anxiety 0 10/16/2011 Gastrointestinal No gastroesophageal reflu x 04/10/2011 Gastrointestinal No nausea 04/10/2011 Gastrointestinal No vomiting 04/10/2011 Musculoskeletal No swelling 04/10/2011 Musculoskeletal No stiffness 04/10/2011 Dermatologic No rash 02/2011 Dermatologic No sores Dermatologic No mole change 04/10/2011 Neurologic No headache 0 04/10/2011 Constitutional No chills 04/10/2011 Constitutional night sweats 04/10/2011 Constitutional No fever 04/10/2011 Constitutional No insomnia 04/10/2011 Eyes No vision change Ears/Nose/Throat/Neck hearing loss 04/10/2011 Ears/Nose/Throat/Neck No sinus congestion 04/10/2011 Ears/Nose/Throat/Neck No nasal pain 04/10/2011 Ears/Nose/Throat/Neck No sore throat 04/10/2011 Cardiovascular arrhythmia 04/10/2011 Cardiovascular No chest pain/pressure 04/10/2011 Cardiovascular No dyspnea 04/10/2011 Cardiovascular No edema 04/10/2011 Cardiovascular No exercise intolerance 04/10/2011 Cardiovascular No fatigue 04/10/2011 Cardiovascular hypertension 04/10/2011 Cardiovascular No near-syncope/dizziness 04/10/2011 Respiratory No cough 02/2011 Respiratory No dyspnea 0 04/10/2011 Gastrointestinal No constipation 04/10/2011 Gastrointestinal No diarrhea 04/10/2011 Respiratory No cough Gastrointestinal No abdominal pain 12/05/2010 Gastrointestinal No constipation 12/05/2010 Gastrointestinal No diarrhea 12/05/2010 Dermatologic No rash Dermatologic No sores Musculoskeletal No stiffness 12/05/2010 Musculoskeletal No swelling 12/05/2010 Musculoskeletal No arthralgia(s) 12/05/2010 Psychiatric No anxiety 1 Psychiatric No depression 12/05/2010 Constitutional No anorexia 12/05/2010 Constitutional No recent illness 12/05/2010 Constitutional No fatigue 12/05/2010 Constitutional No fever 12/05/2010 Ears/Nose/Throat/Neck No dizziness 12/05/2010 Respiratory No chest congestion 12/05/2010 Respiratory No chest tightness 12/05/2010 Physical Exam Exam Name System Name It em Name Status Result Effective Dates Notes Full Exam - General 1994 Constitutional general appearance Overall: well developed 09/22/2018 None Full Exam - General 1994 Constitutional general appearance Overall: in no acute distress 09/22/2018 None Full Exam - General 1994 Constitutional general appearance Overall: well nourished 09/22/2018 None Full Exam - General 1994 Eyes pupils and irises Overall: pupils equal, round, reactive to light and accomodation 09/22/2018 None Full Exam - General 1994 Ears/Nose/Throat otoscopic exam Overall: external auditory canals clear 09/22/2018 None Full Exam - General 1994 Ears/Nose/Throat otoscopic exam Overall: tympanic membranes clear 09/22/2018 None Full Exam - General 1994 Ears/Nose/Throat oral cavity/pharynx/larynx Overall: oral mucosa clear 09/22/2018 None Full Exam - General 1994 Ears/Nose/Throat oral cavity/pharynx/larynx Overall: oropharyngeal mucosa clear 09/22/2018 None Full Exam - General 1994 Ears/Nose/Throat oral cavity/pharynx/larynx Overall: no masses 09/22/2018 None Full Exam - General 1994 Respiratory auscultation Overall: breath sounds clear bilaterally 09/22/2018 None Full Exam - General 1994 Respiratory respiratory effort/rhythm Overall: no retractions 09/22/2018 None Full Exam - General 1994 Respiratory respiratory effort/rhythm Overall: normal rate 09/22/2018 None Full Exam - General 1994 Cardiovascular auscultation of heart Overall: regular rate 09/22/2018 None Full Exam - General 1994 Cardiovascular auscultation of heart Overall: normal heart sounds 09/22/2018 None Full Exam - General 1994 Cardiovascular auscultation of heart Overall: no murmurs 09/22/2018 None Full Exam - General 1994 Abdomen abdominal exam Overall: no tenderness 09/22/2018 None Full Exam - General 1994 Abdomen abdominal exam Overall: normal bowel sounds 09/22/2018 None Full Exam - General 1994 Lymphatic neck nodes Overall: anterior cervical chain benign 09/22/2018 None Full Exam - General 1994 Lymphatic neck nodes Overall: posterior cervical chain benign 09/22/2018 None Full Exam - General 1994 Neurologic cranial nerves Overall: crainial nerves 2 - 12 grossly intact 09/22/2018 None Full Exam - General 1994 Psychiatric orientation/consciousness Overall: oriented to person, place and time 09/22/2018 None Full Exam - General 1994 Psychiatric mood and affect Overall: normal mood and affect 09/22/2018 None Full Exam - General 1994 Psychiatric mood and affect Mood: happy 09/22/2018 None Full Exam - General 1994 Integument inspection of skin Location: left leg 09/22/2018 on knee over scar from kn ee repair - small healing scab Full Exam - General 1994 Constitutional general appearance Overall: well developed 06/03/2018 None Full Exam - General 1994 Constitutional general appearance Overall: in no acute distress 06/03/2018 None Full Exam - General 1994 Constitutional general appearance Overall: well nourished 06/03/2018 None Full Exam - General 1994 Eyes pupils and irises Overall: pupils equal, round, reactive to light and accomodation 06/03/2018 None Full Exam - General 1994 Ears/Nose/Throat otoscopic exam Overall: external auditory canals clear 06/03/2018 None Full Exam - General 1994 Ears/Nose/Throat otoscopic exam Overall: tympanic membranes clear 06/03/2018 None Full Exam - General 1994 Ears/Nose/Throat oral cavity/pharynx/larynx Overall: oral mucosa clear 06/03/2018 None Full Exam - General 1994 Ears/Nose/Throat oral cavity/pharynx/larynx Overall: oropharyngeal mucosa clear 06/03/2018 None Full Exam - General 1994 Ears/Nose/Throat oral cavity/pharynx/larynx Overall: no masses 06/03/2018 None Full Exam - General 1994 Respiratory auscultation Overall: breath sounds clear bilaterally 06/03/2018 None Full Exam - General 1994 Respiratory respiratory effort/rhythm Overall: no retractions 06/03/2018 None Full Exam - General 1994 Respiratory respiratory effort/rhythm Overall: normal rate 06/03/2018 None Full Exam - General 1994 Cardiovascular auscultation of heart Overall: regular rate 06/03/2018 None Full Exam - General 1994 Cardiovascular auscultation of heart Overall: normal heart sounds 06/03/2018 None Full Exam - General 1994 Cardiovascular auscultation of heart Overall: no murmurs 06/03/2018 None Full Exam - General 1994 Abdomen abdominal exam Overall: no tenderness 06/03/2018 None Full Exam - General 1994 Abdomen abdominal exam Overall: normal bowel sounds 06/03/2018 None Full Exam - General 1994 Lymphatic neck nodes Overall: anterior cervical chain benign 06/03/2018 None Full Exam - General 1994 Lymphatic neck nodes Overall: posterior cervical chain benign 06/03/2018 None Full Exam - General 1994 Integument inspection of skin Overall: no rash, lesions 06/03/2018 None Full Exam - General 1994 Neurologic cranial nerves Overall: crainial nerves 2 - 12 grossly intact 06/03/2018 None Full Exam - General 1994 Psychiatric orientation/consciousness Overall: oriented to person, place and time 06/03/2018 None Full Exam - General 1994 Psychiatric mood and affect Overall: normal mood and affect 06/03/2018 None Full Exam - General 1994 Psychiatric mood and affect Mood: happy 06/03/2018 None Full Exam - General 1994 Constitutional general appearance Overall: well developed 02/04/2018 None Full Exam - General 1994 Constitutional general appearance Overall: in no acute distress 02/04/2018 None Full Exam - General 1994 Constitutional general appearance Overall: well nourished 02/04/2018 None Full Exam - General 1994 Eyes pupils and irises Overall: pupils equal, round, reactive to light and accomodation 02/04/2018 None Full Exam - General 1994 Ears/Nose/Throat otoscopic exam Overall: external auditory canals clear 02/04/2018 None Full Exam - General 1994 Ears/Nose/Throat otoscopic exam Overall: tympanic membranes clear 02/04/2018 None Full Exam - General 1994 Ears/Nose/Throat oral cavity/pharynx/larynx Overall: oral mucosa clear 02/04/2018 None Full Exam - General 1994 Ears/Nose/Throat oral cavity/pharynx/larynx Overall: oropharyngeal mucosa clear 02/04/2018 None Full Exam - General 1994 Ears/Nose/Throat oral cavity/pharynx/larynx Overall: no masses 02/04/2018 None Full Exam - General 1994 Respiratory auscultation Overall: breath sounds clear bilaterally 02/04/2018 None Full Exam - General 1994 Respiratory respiratory effort/rhythm Overall: no retractions 02/04/2018 None Full Exam - General 1994 Respiratory respiratory effort/rhythm Overall: normal rate 02/04/2018 None Full Exam - General 1994 Cardiovascular auscultation of heart Overall: regular rate 02/04/2018 None Full Exam - General 1994 Cardiovascular auscultation of heart Overall: normal heart sounds 02/04/2018 None Full Exam - General 1994 Cardiovascular auscultation of heart Overall: no murmurs 02/04/2018 None Full Exam - General 1994 Abdomen abdominal exam Overall: no tenderness 02/04/2018 None Full Exam - General 1994 Abdomen abdominal exam Overall: normal bowel sounds 02/04/2018 None Full Exam - General 1994 Lymphatic neck nodes Overall: anterior cervical chain benign 02/04/2018 None Full Exam - General 1994 Lymphatic neck nodes Overall: posterior cervical chain benign 02/04/2018 None Full Exam - General 1994 Integument inspection of skin Overall: no rash, lesions 02/04/2018 None Full Exam - General 1994 Neurologic cranial nerves Overall: crainial nerves 2 - 12 grossly intact 02/04/2018 None Full Exam - General 1994 Psychiatric orientation/consciousness Overall: oriented to person, place and time 02/04/2018 None Full Exam - General 1994 Psychiatric mood and affect Overall: normal mood and affect 02/04/2018 None Full Exam - General 1994 Psychiatric mood and affect Mood: happy 02/04/2018 None Full Exam - General 1994 Constitutional general appearance Overall: well developed 10/07/2017 None Full Exam - General 1994 Constitutional general appearance Overall: in no acute distress 10/07/2017 None Full Exam - General 1994 Constitutional general appearance Overall: well nourished 10/07/2017 None Full Exam - General 1994 Eyes pupils and irises Overall: pupils equal, round, reactive to light and accomodation 10/07/2017 None Full Exam - General 1994 Respiratory auscultation Overall: breath sounds clear bilaterally 10/07/2017 None Full Exam - General 1994 Respiratory respiratory effort/rhythm Overall: no retractions 10/07/2017 None Full Exam - General 1994 Respiratory respiratory effort/rhythm Overall: normal rate 10/07/2017 None Full Exam - General 1994 Cardiovascular auscultation of heart Overall: regular rate 10/07/2017 None Full Exam - General 1994 Cardiovascular auscultation of heart Overall: normal heart sounds 10/07/2017 None Full Exam - General 1994 Cardiovascular auscultation of heart Overall: no murmurs 10/07/2017 None Full Exam - General 1994 Abdomen abdominal exam Overall: no tenderness 10/07/2017 None Full Exam - General 1994 Abdomen abdominal exam Overall: normal bowel sounds 10/07/2017 None Full Exam - General 1994 Lymphatic neck nodes Overall: anterior cervical chain benign 10/07/2017 None Full Exam - General 1994 Lymphatic neck nodes Overall: posterior cervical chain benign 10/07/2017 None Full Exam - General 1994 Psychiatric orientation/consciousness Overall: oriented to person, place and time 10/07/2017 None Full Exam - General 1994 Psychiatric mood and affect Overall: normal mood and affect 10/07/2017 None Full Exam - General 1994 Psychiatric mood and affect Mood: happy 10/07/2017 None Full Exam - General 1994 Ears/Nose/Throat otoscopic exam Overall: external auditory canals clear 10/07/2017 None Full Exam - General 1994 Ears/Nose/Throat otoscopic exam Overall: tympanic membranes clear 10/07/2017 None Full Exam - General 1994 Ears/Nose/Throat oral cavity/pharynx/larynx Overall: oral mucosa clear 10/07/2017 None Full Exam - General 1994 Ears/Nose/Throat oral cavity/pharynx/larynx Overall: oropharyngeal mucosa clear 10/07/2017 None Full Exam - General 1994 Ears/Nose/Throat oral cavity/pharynx/larynx Overall: no masses 10/07/2017 None Full Exam - General 1994 Integument inspection of skin Overall: no rash, lesions 10/07/2017 None Full Exam - General 1994 Neurologic cranial nerves Overall: crainial nerves 2 - 12 grossly intact 10/07/2017 None Full Exam - General 1994 Constitutional general appearance Overall: well developed 06/04/2017 None Full Exam - General 1994 Constitutional general appearance Overall: in no acute distress 06/04/2017 None Full Exam - General 1994 Constitutional general appearance Overall: well nourished 06/04/2017 None Full Exam - General 1994 Eyes conjunctiva/eyelids Overall: conjunctiva clear 06/04/2017 None Full Exam - General 1994 Eyes conjunctiva/eyelids Overall: eyelids normal 06/04/2017 None Full Exam - General 1994 Ears/Nose/Throat lips/teeth/gingiva Overall: benign lips 06/04/2017 None Full Exam - General 1994 Respiratory respiratory effort/rhythm Overall: no retractions 06/04/2017 None Full Exam - General 1994 Respiratory respiratory effort/rhythm Overall: normal rate 06/04/2017 None Full Exam - General 1994 Musculoskeletal head and neck Overall: head atraumatic 06/04/2017 None Full Exam - General 1994 Neurologic cranial nerves Overall: crainial nerves 2 - 12 grossly intact 06/04/2017 None Full Exam - General 1994 Psychiatric orientation/consciousness Overall: oriented to person, place and time 06/04/2017 None Full Exam - General 1994 Psychiatric mood and affect Overall: normal mood and affect 06/04/2017 None Full Exam - General 1994 Psychiatric appearance Overall: well-groomed, good eye contact 06/04/2017 None Full Exam - General 1994 Constitutional general appearance Overall: well developed 06/02/2017 None Full Exam - General 1994 Constitutional general appearance Overall: in no acute distress 06/02/2017 None Full Exam - General 1994 Constitutional general appearance Overall: well nourished 06/02/2017 None Full Exam - General 1994 Eyes pupils and irises Overall: pupils equal, round, reactive to light and accomodation 06/02/2017 None Full Exam - General 1994 Respiratory auscultation Overall: breath sounds clear bilaterally 06/02/2017 None Full Exam - General 1994 Respiratory respiratory effort/rhythm Overall: no retractions 06/02/2017 None Full Exam - General 1994 Respiratory respiratory effort/rhythm Overall: normal rate 06/02/2017 None Full Exam - General 1994 Cardiovascular auscultation of heart Overall: regular rate 06/02/2017 None Full Exam - General 1994 Cardiovascular auscultation of heart Overall: normal heart sounds 06/02/2017 None Full Exam - General 1994 Cardiovascular auscultation of heart Overall: no murmurs 06/02/2017 None Full Exam - General 1994 Psychiatric orientation/consciousness Overall: oriented to person, place and time 06/02/2017 None Full Exam - General 1994 Psychiatric mood and affect Overall: normal mood and affect 06/02/2017 None Full Exam - General 1994 Psychiatric mood and affect Mood: happy 06/02/2017 None Full Exam - General 1994 Abdomen abdominal exam Overall: no tenderness 06/02/2017 None Full Exam - General 1994 Abdomen abdominal exam Overall: normal bowel sounds 06/02/2017 None Full Exam - General 1994 Lymphatic neck nodes Overall: anterior cervical chain benign 06/02/2017 None Full Exam - General 1994 Lymphatic neck nodes Overall: posterior cervical chain benign 06/02/2017 None Full Exam - General 1994 Constitutional general appearance Overall: well developed 01/28/2017 None Full Exam - General 1994 Constitutional general appearance Overall: in no acute distress 01/28/2017 None Full Exam - General 1994 Constitutional general appearance Overall: well nourished 01/28/2017 None Full Exam - General 1994 Eyes pupils and irises Overall: pupils equal, round, reactive to light and accomodation 01/28/2017 None Full Exam - General 1994 Respiratory auscultation Overall: breath sounds clear bilaterally 01/28/2017 None Full Exam - General 1994 Respiratory respiratory effort/rhythm Overall: no retractions 01/28/2017 None Full Exam - General 1994 Respiratory respiratory effort/rhythm Overall: normal rate 01/28/2017 None Full Exam - General 1994 Cardiovascular auscultation of heart Overall: regular rate 01/28/2017 None Full Exam - General 1994 Cardiovascular auscultation of heart Overall: normal heart sounds 01/28/2017 None Full Exam - General 1994 Cardiovascular auscultation of heart Overall: no murmurs 01/28/2017 None Full Exam - General 1994 Psychiatric orientation/consciousness Overall: oriented to person, place and time 01/28/2017 None Full Exam - General 1994 Psychiatric mood and affect Overall: normal mood and affect 01/28/2017 None Full Exam - General 1994 Psychiatric mood and affect Mood: happy 01/28/2017 None Full Exam - General 1994 Abdomen abdominal exam Overall: no tenderness 01/28/2017 None Full Exam - General 1994 Abdomen abdominal exam Overall: normal bowel sounds 01/28/2017 None Full Exam - General 1994 Constitutional general appearance Overall: well nourished 12/29/2016 None Full Exam - General 1994 Constitutional general appearance Overall: well developed 12/29/2016 None Full Exam - General 1994 Constitutional general appearance Overall: in no acute distress 12/29/2016 None Full Exam - General 1994 Eyes pupils and irises Overall: pupils equal, round, reactive to light and accomodation 12/29/2016 None Full Exam - General 1994 Respiratory auscultation Overall: breath sounds clear bilaterally 12/29/2016 None Full Exam - General 1994 Respiratory respiratory effort/rhythm Overall: normal rate 12/29/2016 None Full Exam - General 1994 Respiratory respiratory effort/rhythm Overall: no retractions 12/29/2016 None Full Exam - General 1994 Cardiovascular auscultation of heart Overall: regular rate 12/29/2016 None Full Exam - General 1994 Cardiovascular auscultation of heart Overall: normal heart sounds 12/29/2016 None Full Exam - General 1994 Cardiovascular auscultation of heart Overall: no murmurs 12/29/2016 None Full Exam - General 1994 Psychiatric orientation/consciousness Overall: oriented to person, place and time 12/29/2016 None Full Exam - General 1994 Psychiatric mood and affect Mood: happy 12/29/2016 None Full Exam - General 1994 Psychiatric mood and affect Overall: normal mood and affect 12/29/2016 None Full Exam - General 1994 Constitutional general appearance Overall: in no acute distress 12/01/2016 None Full Exam - General 1994 Constitutional general appearance Overall: well nourished 12/01/2016 None Full Exam - General 1994 Eyes pupils and irises Overall: pupils equal, round, reactive to light and accomodation 12/01/2016 None Full Exam - General 1994 Ears/Nose/Throat otoscopic exam Overall: external auditory canals clear 12/01/2016 None Full Exam - General 1994 Ears/Nose/Throat otoscopic exam Overall: tympanic membranes clear 12/01/2016 None Full Exam - General 1994 Ears/Nose/Throat oral cavity/pharynx/larynx Overall: oral mucosa clear 12/01/2016 None Full Exam - General 1994 Ears/Nose/Throat oral cavity/pharynx/larynx Overall: oropharyngeal mucosa clear 12/01/2016 None Full Exam - General 1994 Ears/Nose/Throat oral cavity/pharynx/larynx Overall: no masses 12/01/2016 None Full Exam - General 1994 Respiratory auscultation Overall: breath sounds clear bilaterally 12/01/2016 None Full Exam - General 1994 Respiratory respiratory effort/rhythm Overall: no retractions 12/01/2016 None Full Exam - General 1994 Respiratory respiratory effort/rhythm Overall: normal rate 12/01/2016 None Full Exam - General 1994 Cardiovascular auscultation of heart Overall: regular rate 12/01/2016 None Full Exam - General 1994 Cardiovascular auscultation of heart Overall: normal heart sounds 12/01/2016 None Full Exam - General 1994 Abdomen abdominal exam Overall: no tenderness 12/01/2016 None Full Exam - General 1994 Abdomen abdominal exam Overall: normal bowel sounds 12/01/2016 None Full Exam - General 1994 Constitutional general appearance Overall: well developed 12/01/2016 None Full Exam - General 1994 Lymphatic neck nodes Overall: anterior cervical chain benign 12/01/2016 None Full Exam - General 1994 Lymphatic neck nodes Overall: posterior cervical chain benign 12/01/2016 None Full Exam - General 1994 Integument inspection of skin Overall: no rash, lesions 12/01/2016 None Full Exam - General 1994 Neurologic cranial nerves Overall: crainial nerves 2 - 12 grossly intact 12/01/2016 None Full Exam - General 1994 Psychiatric orientation/consciousness Overall: oriented to person, place and time 12/01/2016 None Full Exam - General 1994 Psychiatric mood and affect Overall: normal mood and affect 12/01/2016 None Full Exam - General 1994 Constitutional general appearance Overall: well developed 05/28/2016 None Full Exam - General 1994 Constitutional general appearance Overall: in no acute distress 05/28/2016 None Full Exam - General 1994 Constitutional general appearance Overall: well nourished 05/28/2016 None Full Exam - General 1994 Eyes pupils and irises Overall: pupils equal, round, reactive to light and accomodation 05/28/2016 None Full Exam - General 1994 Ears/Nose/Throat oral cavity/pharynx/larynx Overall: oral mucosa clear 05/28/2016 None Full Exam - General 1994 Respiratory auscultation Overall: breath sounds clear bilaterally 05/28/2016 None Full Exam - General 1994 Respiratory respiratory effort/rhythm Overall: no retractions 05/28/2016 None Full Exam - General 1994 Respiratory respiratory effort/rhythm Overall: normal rate 05/28/2016 None Full Exam - General 1994 Cardiovascular auscultation of heart Overall: regular rate 05/28/2016 None Full Exam - General 1994 Cardiovascular auscultation of heart Overall: normal heart sounds 05/28/2016 None Full Exam - General 1994 Neurologic cranial nerves Overall: crainial nerves 2 - 12 grossly intact 05/28/2016 None Full Exam - General 1994 Psychiatric orientation/consciousness Overall: oriented to person, place and time 05/28/2016 None Full Exam - General 1994 Psychiatric mood and affect Overall: normal mood and affect 05/28/2016 None Full Exam - General 1994 Eyes conjunctiva/eyelids Overall: conjunctiva clear 05/28/2016 None Full Exam - General 1994 Ears/Nose/Throat lips/teeth/gingiva Overall: benign lips 05/28/2016 None Full Exam - General 1994 Constitutional general appearance Overall: well developed 05/27/2016 None Full Exam - General 1994 Constitutional general appearance Overall: in no acute distress 05/27/2016 None Full Exam - General 1994 Constitutional general appearance Overall: well nourished 05/27/2016 None Full Exam - General 1994 Eyes pupils and irises Overall: pupils equal, round, reactive to light and accomodation 05/27/2016 None Full Exam - General 1994 Ears/Nose/Throat otoscopic exam Overall: external auditory canals clear 05/27/2016 None Full Exam - General 1994 Ears/Nose/Throat otoscopic exam Overall: tympanic membranes clear 05/27/2016 None Full Exam - General 1994 Ears/Nose/Throat oral cavity/pharynx/larynx Overall: oral mucosa clear 05/27/2016 None Full Exam - General 1994 Ears/Nose/Throat oral cavity/pharynx/larynx Overall: oropharyngeal mucosa clear 05/27/2016 None Full Exam - General 1994 Ears/Nose/Throat oral cavity/pharynx/larynx Overall: no masses 05/27/2016 None Full Exam - General 1994 Respiratory auscultation Overall: breath sounds clear bilaterally 05/27/2016 None Full Exam - General 1994 Respiratory respiratory effort/rhythm Overall: no retractions 05/27/2016 None Full Exam - General 1994 Respiratory respiratory effort/rhythm Overall: normal rate 05/27/2016 None Full Exam - General 1994 Cardiovascular auscultation of heart Overall: regular rate 05/27/2016 None Full Exam - General 1994 Cardiovascular auscultation of heart Overall: normal heart sounds 05/27/2016 None Full Exam - General 1994 Abdomen abdominal exam Overall: no tenderness 05/27/2016 None Full Exam - General 1994 Abdomen abdominal exam Overall: normal bowel sounds 05/27/2016 None Full Exam - General 1994 Integument inspection of skin Overall: no rash, lesions 05/27/2016 None Full Exam - General 1994 Neurologic cranial nerves Overall: crainial nerves 2 - 12 grossly intact 05/27/2016 None Full Exam - General 1994 Psychiatric orientation/consciousness Overall: oriented to person, place and time 05/27/2016 None Full Exam - General 1994 Psychiatric mood and affect Overall: normal mood and affect 05/27/2016 None Full Exam - General 1994 Lymphatic neck nodes Overall: anterior cervical chain benign 05/27/2016 None Full Exam - General 1994 Lymphatic neck nodes Overall: posterior cervical chain benign 05/27/2016 None Full Exam - General 1994 Constitutional general appearance Overall: well developed 01/09/2016 None Full Exam - General 1994 Constitutional general appearance Overall: in no acute distress 01/09/2016 None Full Exam - General 1994 Constitutional general appearance Overall: well nourished 01/09/2016 None Full Exam - General 1994 Eyes pupils and irises Overall: pupils equal, round, reactive to light and accomodation 01/09/2016 None Full Exam - General 1994 Ears/Nose/Throat otoscopic exam Overall: external auditory canals clear 01/09/2016 None Full Exam - General 1994 Ears/Nose/Throat otoscopic exam Overall: tympanic membranes clear 01/09/2016 None Full Exam - General 1994 Ears/Nose/Throat oral cavity/pharynx/larynx Overall: oral mucosa clear 01/09/2016 None Full Exam - General 1994 Ears/Nose/Throat oral cavity/pharynx/larynx Overall: oropharyngeal mucosa clear 01/09/2016 None Full Exam - General 1994 Ears/Nose/Throat oral cavity/pharynx/larynx Overall: no masses 01/09/2016 None Full Exam - General 1994 Respiratory auscultation Overall: breath sounds clear bilaterally 01/09/2016 None Full Exam - General 1994 Respiratory respiratory effort/rhythm Overall: no retractions 01/09/2016 None Full Exam - General 1994 Respiratory respiratory effort/rhythm Overall: normal rate 01/09/2016 None Full Exam - General 1994 Cardiovascular auscultation of heart Overall: regular rate 01/09/2016 None Full Exam - General 1994 Cardiovascular auscultation of heart Overall: normal heart sounds 01/09/2016 None Full Exam - General 1994 Abdomen abdominal exam Overall: no tenderness 01/09/2016 None Full Exam - General 1994 Abdomen abdominal exam Overall: normal bowel sounds 01/09/2016 None Full Exam - General 1994 Integument inspection of skin Overall: no rash, lesions 01/09/2016 None Full Exam - General 1994 Neurologic cranial nerves Overall: crainial nerves 2 - 12 grossly intact 01/09/2016 None Full Exam - General 1994 Psychiatric orientation/consciousness Overall: oriented to person, place and time 01/09/2016 None Full Exam - General 1994 Psychiatric mood and affect Overall: normal mood and affect 01/09/2016 None Full Exam - General 1994 Constitutional general appearance Overall: well developed 11/27/2015 None Full Exam - General 1994 Constitutional general appearance Overall: in no acute distress 11/27/2015 None Full Exam - General 1994 Constitutional general appearance Overall: well nourished 11/27/2015 None Full Exam - General 1994 Eyes pupils and irises Overall: pupils equal, round, reactive to light and accomodation 11/27/2015 None Full Exam - General 1994 Ears/Nose/Throat otoscopic exam Overall: external auditory canals clear 11/27/2015 None Full Exam - General 1994 Ears/Nose/Throat otoscopic exam Overall: tympanic membranes clear 11/27/2015 None Full Exam - General 1994 Ears/Nose/Throat oral cavity/pharynx/larynx Overall: oral mucosa clear 11/27/2015 None Full Exam - General 1994 Ears/Nose/Throat oral cavity/pharynx/larynx Overall: oropharyngeal mucosa clear 11/27/2015 None Full Exam - General 1994 Ears/Nose/Throat oral cavity/pharynx/larynx Overall: no masses 11/27/2015 None Full Exam - General 1994 Respiratory auscultation Overall: breath sounds clear bilaterally 11/27/2015 None Full Exam - General 1994 Respiratory respiratory effort/rhythm Overall: no retractions 11/27/2015 None Full Exam - General 1994 Respiratory respiratory effort/rhythm Overall: normal rate 11/27/2015 None Full Exam - General 1994 Cardiovascular auscultation of heart Overall: regular rate 11/27/2015 None Full Exam - General 1994 Cardiovascular auscultation of heart Overall: normal heart sounds 11/27/2015 None Full Exam - General 1994 Abdomen abdominal exam Overall: no tenderness 11/27/2015 None Full Exam - General 1994 Abdomen abdominal exam Overall: normal bowel sounds 11/27/2015 None Full Exam - General 1994 Integument inspection of skin Overall: no rash, lesions 11/27/2015 None Full Exam - General 1994 Neurologic cranial nerves Overall: crainial nerves 2 - 12 grossly intact 11/27/2015 None Full Exam - General 1994 Psychiatric orientation/consciousness Overall: oriented to person, place and time 11/27/2015 None Full Exam - General 1994 Psychiatric mood and affect Overall: normal mood and affect 11/27/2015 None Full Exam - General 1994 Constitutional general appearance Overall: well developed 05/29/2015 None Full Exam - General 1994 Constitutional general appearance Overall: in no acute distress 05/29/2015 None Full Exam - General 1994 Constitutional general appearance Overall: well nourished 05/29/2015 None Full Exam - General 1994 Eyes pupils and irises Overall: pupils equal, round, reactive to light and accomodation 05/29/2015 None Full Exam - General 1994 Ears/Nose/Throat otoscopic exam Overall: external auditory canals clear 05/29/2015 None Full Exam - General 1994 Ears/Nose/Throat otoscopic exam Overall: tympanic membranes clear 05/29/2015 None Full Exam - General 1994 Ears/Nose/Throat oral cavity/pharynx/larynx Overall: oral mucosa clear 05/29/2015 None Full Exam - General 1994 Ears/Nose/Throat oral cavity/pharynx/larynx Overall: oropharyngeal mucosa clear 05/29/2015 None Full Exam - General 1994 Ears/Nose/Throat oral cavity/pharynx/larynx Overall: no masses 05/29/2015 None Full Exam - General 1994 Respiratory auscultation Overall: breath sounds clear bilaterally 05/29/2015 None Full Exam - General 1994 Respiratory respiratory effort/rhythm Overall: no retractions 05/29/2015 None Full Exam - General 1994 Respiratory respiratory effort/rhythm Overall: normal rate 05/29/2015 None Full Exam - General 1994 Cardiovascular auscultation of heart Overall: regular rate 05/29/2015 None Full Exam - General 1994 Cardiovascular auscultation of heart Overall: normal heart sounds 05/29/2015 None Full Exam - General 1994 Abdomen abdominal exam Overall: no tenderness 05/29/2015 None Full Exam - General 1994 Abdomen abdominal exam Overall: normal bowel sounds 05/29/2015 None Full Exam - General 1994 Integument inspection of skin Overall: no rash, lesions 05/29/2015 None Full Exam - General 1994 Neurologic cranial nerves Overall: crainial nerves 2 - 12 grossly intact 05/29/2015 None Full Exam - General 1994 Psychiatric orientation/consciousness Overall: oriented to person, place and time 05/29/2015 None Full Exam - General 1994 Psychiatric mood and affect Overall: normal mood and affect 05/29/2015 None Full Exam - General 1994 Constitutional general appearance Overall: well developed 11/23/2014 None Full Exam - General 1994 Constitutional general appearance Overall: in no acute distress 11/23/2014 None Full Exam - General 1994 Constitutional general appearance Overall: well nourished 11/23/2014 None Full Exam - General 1994 Eyes pupils and irises Overall: pupils equal, round, reactive to light and accomodation 11/23/2014 None Full Exam - General 1994 Ears/Nose/Throat otoscopic exam Overall: external auditory canals clear 11/23/2014 None Full Exam - General 1994 Ears/Nose/Throat otoscopic exam Overall: tympanic membranes clear 11/23/2014 None Full Exam - General 1994 Ears/Nose/Throat oral cavity/pharynx/larynx Overall: oral mucosa clear 11/23/2014 None Full Exam - General 1994 Ears/Nose/Throat oral cavity/pharynx/larynx Overall: oropharyngeal mucosa clear 11/23/2014 None Full Exam - General 1994 Ears/Nose/Throat oral cavity/pharynx/larynx Overall: no masses 11/23/2014 None Full Exam - General 1994 Respiratory auscultation Overall: breath sounds clear bilaterally 11/23/2014 None Full Exam - General 1994 Respiratory respiratory effort/rhythm Overall: no retractions 11/23/2014 None Full Exam - General 1994 Respiratory respiratory effort/rhythm Overall: normal rate 11/23/2014 None Full Exam - General 1994 Cardiovascular auscultation of heart Overall: regular rate 11/23/2014 None Full Exam - General 1994 Cardiovascular auscultation of heart Overall: normal heart sounds 11/23/2014 None Full Exam - General 1994 Abdomen abdominal exam Overall: no tenderness 11/23/2014 None Full Exam - General 1994 Abdomen abdominal exam Overall: normal bowel sounds 11/23/2014 None Full Exam - General 1994 Integument inspection of skin Overall: no rash, lesions 11/23/2014 None Full Exam - General 1994 Neurologic cranial nerves Overall: crainial nerves 2 - 12 grossly intact 11/23/2014 None Full Exam - General 1994 Psychiatric orientation/consciousness Overall: oriented to person, place and time 11/23/2014 None Full Exam - General 1994 Psychiatric mood and affect Overall: normal mood and affect 11/23/2014 None Full Exam - General 1994 Constitutional general appearance Overall: well developed 07/20/2014 None Full Exam - General 1994 Constitutional general appearance Overall: in no acute distress 07/20/2014 None Full Exam - General 1994 Constitutional general appearance Overall: well nourished 07/20/2014 None Full Exam - General 1994 Eyes pupils and irises Overall: pupils equal, round, reactive to light and accomodation 07/20/2014 None Full Exam - General 1994 Ears/Nose/Throat otoscopic exam Overall: external auditory canals clear 07/20/2014 None Full Exam - General 1994 Ears/Nose/Throat otoscopic exam Overall: tympanic membranes clear 07/20/2014 None Full Exam - General 1994 Ears/Nose/Throat oral cavity/pharynx/larynx Overall: oral mucosa clear 07/20/2014 None Full Exam - General 1994 Ears/Nose/Throat oral cavity/pharynx/larynx Overall: oropharyngeal mucosa clear 07/20/2014 None Full Exam - General 1994 Ears/Nose/Throat oral cavity/pharynx/larynx Overall: no masses 07/20/2014 None Full Exam - General 1994 Respiratory auscultation Overall: breath sounds clear bilaterally 07/20/2014 None Full Exam - General 1994 Respiratory respiratory effort/rhythm Overall: no retractions 07/20/2014 None Full Exam - General 1994 Respiratory respiratory effort/rhythm Overall: normal rate 07/20/2014 None Full Exam - General 1994 Cardiovascular auscultation of heart Overall: regular rate 07/20/2014 None Full Exam - General 1994 Cardiovascular auscultation of heart Overall: normal heart sounds 07/20/2014 None Full Exam - General 1994 Abdomen abdominal exam Overall: no tenderness 07/20/2014 None Full Exam - General 1994 Abdomen abdominal exam Overall: normal bowel sounds 07/20/2014 None Full Exam - General 1994 Neurologic cranial nerves Overall: crainial nerves 2 - 12 grossly intact 07/20/2014 None Full Exam - General 1994 Psychiatric orientation/consciousness Overall: oriented to person, place and time 07/20/2014 None Full Exam - General 1994 Psychiatric mood and affect Overall: normal mood and affect 07/20/2014 None Full Exam - General 1994 Integument inspection of skin Overall: no rash, lesions 07/20/2014 None Full Exam - General 1994 Constitutional general appearance Overall: well developed 04/19/2014 None Full Exam - General 1994 Constitutional general appearance Overall: in no acute distress 04/19/2014 None Full Exam - General 1994 Constitutional general appearance Overall: well nourished 04/19/2014 None Full Exam - General 1994 Eyes pupils and irises Overall: pupils equal, round, reactive to light and accomodation 04/19/2014 None Full Exam - General 1994 Ears/Nose/Throat otoscopic exam Overall: external auditory canals clear 04/19/2014 None Full Exam - General 1994 Ears/Nose/Throat otoscopic exam Overall: tympanic membranes clear 04/19/2014 None Full Exam - General 1995 Ears/Nose/Throat oral cavity/pharynx/larynx Overall: oral mucosa clear 04/19/2014 None Full Exam - General 1994 Ears/Nose/Throat oral cavity/pharynx/larynx Overall: oropharyngeal mucosa clear 04/19/2014 None Full Exam - General 1994 Ears/Nose/Throat oral cavity/pharynx/larynx Overall: no masses 04/19/2014 None Full Exam - General 1994 Respiratory auscultation Overall: breath sounds clear bilaterally 04/19/2014 None Full Exam - General 1994 Respiratory respiratory effort/rhythm Overall: no retractions 04/19/2014 None Full Exam - General 1994 Respiratory respiratory effort/rhythm Overall: normal rate 04/19/2014 None Full Exam - General 1994 Cardiovascular auscultation of heart Overall: regular rate 04/19/2014 None Full Exam - General 1994 Cardiovascular auscultation of heart Overall: normal heart sounds 04/19/2014 None Full Exam - General 1994 Abdomen abdominal exam Overall: no tenderness 04/19/2014 None Full Exam - General 1994 Abdomen abdominal exam Overall: normal bowel sounds 04/19/2014 None Full Exam - General 1994 Musculoskeletal lower extremity Palpation - knee: warm 04/19/2014 mild warmth - no erythema - surgical incision c/d/i - kj in place over center of inicision Full Exam - General 1994 Integument inspection of skin Overall: no rash, lesions 04/19/2014 None Full Exam - General 1994 Neurologic cranial nerves Overall: crainial nerves 2 - 12 grossly intact 04/19/2014 None Full Exam - General 1994 Psychiatric orientation/consciousness Overall: oriented to person, place and time 04/19/2014 None Full Exam - General 1994 Psychiatric mood and affect Overall: normal mood and affect 04/19/2014 None Full Exam - General 1994 Constitutional general appearance Overall: well developed 12/21/2013 None Full Exam - General 1994 Constitutional general appearance Overall: in no acute distress 12/21/2013 None Full Exam - General 1994 Constitutional general appearance Overall: well nourished 12/21/2013 None Full Exam - General 1994 Ears/Nose/Throat otoscopic exam Overall: external auditory canals clear 12/21/2013 None Full Exam - General 1994 Ears/Nose/Throat otoscopic exam Overall: tympanic membranes clear 12/21/2013 None Full Exam - General 1994 Ears/Nose/Throat oral cavity/pharynx/larynx Overall: oral mucosa clear 12/21/2013 None Full Exam - General 1994 Ears/Nose/Throat oral cavity/pharynx/larynx Overall: oropharyngeal mucosa clear 12/21/2013 None Full Exam - General 1994 Ears/Nose/Throat oral cavity/pharynx/larynx Overall: no masses 12/21/2013 None Full Exam - General 1994 Respiratory auscultation Overall: breath sounds clear bilaterally 12/21/2013 None Full Exam - General 1994 Respiratory respiratory effort/rhythm Overall: no retractions 12/21/2013 None Full Exam - General 1994 Respiratory respiratory effort/rhythm Overall: normal rate 12/21/2013 None Full Exam - General 1994 Cardiovascular auscultation of heart Overall: regular rate 12/21/2013 None Full Exam - General 1994 Cardiovascular auscultation of heart Overall: normal heart sounds 12/21/2013 None Full Exam - General 1994 Abdomen abdominal exam Overall: no tenderness 12/21/2013 None Full Exam - General 1994 Abdomen abdominal exam Overall: normal bowel sounds 12/21/2013 None Full Exam - General 1994 Musculoskeletal lower extremity Palpation - knee: warm 12/21/2013 mild warmth - no erythema - surgical incision c/d/i - kj in place over center of inicision Full Exam - General 1994 Integument inspection of skin Overall: no rash, lesions 12/21/2013 None Full Exam - General 1994 Psychiatric orientation/consciousness Overall: oriented to person, place and time 12/21/2013 None Full Exam - General 1994 Psychiatric mood and affect Overall: normal mood and affect 12/21/2013 None Full Exam - General 1994 Eyes pupils and irises Overall: pupils equal, round, reactive to light and accomodation 12/21/2013 None Full Exam - General 1994 Neurologic cranial nerves Overall: crainial nerves 2 - 12 grossly intact 12/21/2013 None Full Exam - General 1994 Constitutional general appearance Overall: well developed 07/13/2013 None Full Exam - General 1994 Constitutional general appearance Overall: in no acute distress 07/13/2013 None Full Exam - General 1994 Constitutional general appearance Overall: well nourished 07/13/2013 None Full Exam - General 1994 Ears/Nose/Throat otoscopic exam Overall: external auditory canals clear 07/13/2013 None Full Exam - General 1994 Ears/Nose/Throat otoscopic exam Overall: tympanic membranes clear 07/13/2013 None Full Exam - General 1994 Ears/Nose/Throat oral cavity/pharynx/larynx Overall: oral mucosa clear 07/13/2013 None Full Exam - General 1994 Ears/Nose/Throat oral cavity/pharynx/larynx Overall: oropharyngeal mucosa clear 07/13/2013 None Full Exam - General 1994 Ears/Nose/Throat oral cavity/pharynx/larynx Overall: no masses 07/13/2013 None Full Exam - General 1994 Respiratory auscultation Overall: breath sounds clear bilaterally 07/13/2013 None Full Exam - General 1994 Respiratory respiratory effort/rhythm Overall: no retractions 07/13/2013 None Full Exam - General 1994 Respiratory respiratory effort/rhythm Overall: normal rate 07/13/2013 None Full Exam - General 1994 Cardiovascular auscultation of heart Overall: regular rate 07/13/2013 None Full Exam - General 1994 Cardiovascular auscultation of heart Overall: normal heart sounds 07/13/2013 None Full Exam - General 1994 Abdomen abdominal exam Overall: no tenderness 07/13/2013 None Full Exam - General 1994 Abdomen abdominal exam Overall: normal bowel sounds 07/13/2013 None Full Exam - General 1994 Integument inspection of skin Overall: no rash, lesions 07/13/2013 None Full Exam - General 1994 Psychiatric orientation/consciousness Overall: oriented to person, place and time 07/13/2013 None Full Exam - General 1994 Psychiatric mood and affect Overall: normal mood and affect 07/13/2013 None Full Exam - General 1994 Musculoskeletal lower extremity Palpation - knee: warm 07/13/2013 mild warmth - no erythema - surgical incision c/d/i - kj in place over center of inicision Full Exam - General 1994 Constitutional general appearance Overall: well developed 06/09/2013 None Full Exam - General 1994 Constitutional general appearance Overall: in no acute distress 06/09/2013 None Full Exam - General 1994 Constitutional general appearance Overall: well nourished 06/09/2013 None Full Exam - General 1994 Psychiatric orientation/consciousness Overall: oriented to person, place and time 06/09/2013 None Full Exam - General 1994 Musculoskeletal lower extremity Inspection - knee: valgus deformity 06/09/2013 None Full Exam - General 1994 Musculoskeletal lower extremity Inspection - knee: presence of a scar 06/09/2013 with open area and pustular drainage noted Full Exam - General 1994 Musculoskeletal lower extremity Palpation - knee: prepatellar swelling 06/09/2013 boggy Full Exam - General 1994 Constitutional general appearance Overall: well developed 04/11/2013 None Full Exam - General 1994 Constitutional general appearance Overall: in no acute distress 04/11/2013 None Full Exam - General 1994 Constitutional general appearance Overall: well nourished 04/11/2013 None Full Exam - General 1994 Ears/Nose/Throat otoscopic exam Overall: external auditory canals clear 04/11/2013 None Full Exam - General 1995 Ears/Nose/Throat otoscopic exam Overall: tympanic membranes clear 04/11/2013 None Full Exam - General 1994 Ears/Nose/Throat oral cavity/pharynx/larynx Overall: oral mucosa clear 04/11/2013 None Full Exam - General 1994 Ears/Nose/Throat oral cavity/pharynx/larynx Overall: oropharyngeal mucosa clear 04/11/2013 None Full Exam - General 1994 Ears/Nose/Throat oral cavity/pharynx/larynx Overall: no masses 04/11/2013 None Full Exam - General 1994 Respiratory auscultation Overall: breath sounds clear bilaterally 04/11/2013 None Full Exam - General 1994 Respiratory respiratory effort/rhythm Overall: no retractions 04/11/2013 None Full Exam - General 1994 Respiratory respiratory effort/rhythm Overall: normal rate 04/11/2013 None Full Exam - General 1994 Cardiovascular auscultation of heart Overall: regular rate 04/11/2013 None Full Exam - General 1994 Cardiovascular auscultation of heart Overall: normal heart sounds 04/11/2013 None Full Exam - General 1994 Abdomen abdominal exam Overall: no tenderness 04/11/2013 None Full Exam - General 1994 Abdomen abdominal exam Overall: normal bowel sounds 04/11/2013 None Full Exam - General 1994 Integument inspection of skin Overall: no rash, lesions 04/11/2013 None Full Exam - General 1994 Psychiatric orientation/consciousness Overall: oriented to person, place and time 04/11/2013 None Full Exam - General 1994 Psychiatric mood and affect Overall: normal mood and affect 04/11/2013 None Full Exam - General 1994 Musculoskeletal lower extremity Overall: knee benign 04/11/2013 left knee with surgical s andria strip over anterior knee with some debris from healing tissue over scar on anterior left knee Full Exam - General 1994 Constitutional general appearance Overall: well developed 02/16/2013 None Full Exam - General 1994 Constitutional general appearance Overall: in no acute distress 02/16/2013 None Full Exam - General 1994 Constitutional general appearance Overall: well nourished 02/16/2013 None Full Exam - General 1994 Ears/Nose/Throat otoscopic exam Overall: external auditory canals clear 02/16/2013 None Full Exam - General 1994 Ears/Nose/Throat otoscopic exam Overall: tympanic membranes clear 02/16/2013 None Full Exam - General 1995 Ears/Nose/Throat oral cavity/pharynx/larynx Overall: oral mucosa clear 02/16/2013 None Full Exam - General 1995 Ears/Nose/Throat oral cavity/pharynx/larynx Overall: oropharyngeal mucosa clear 02/16/2013 None Full Exam - General 1994 Ears/Nose/Throat oral cavity/pharynx/larynx Overall: no masses 02/16/2013 None Full Exam - General 1994 Respiratory auscultation Overall: breath sounds clear bilaterally 02/16/2013 None Full Exam - General 1994 Respiratory respiratory effort/rhythm Overall: no retractions 02/16/2013 None Full Exam - General 1994 Respiratory respiratory effort/rhythm Overall: normal rate 02/16/2013 None Full Exam - General 1994 Cardiovascular auscultation of heart Overall: regular rate 02/16/2013 None Full Exam - General 1994 Cardiovascular auscultation of heart Overall: normal heart sounds 02/16/2013 None Full Exam - General 1994 Abdomen abdominal exam Overall: no tenderness 02/16/2013 None Full Exam - General 1994 Abdomen abdominal exam Overall: normal bowel sounds 02/16/2013 None Full Exam - General 1994 Integument inspection of skin Overall: no rash, lesions 02/16/2013 None Full Exam - General 1994 Psychiatric orientation/consciousness Overall: oriented to person, place and time 02/16/2013 None Full Exam - General 1994 Psychiatric mood and affect Overall: normal mood and affect 02/16/2013 None Full Exam - General 1994 Constitutional general appearance Overall: well nourished 08/18/2012 None Full Exam - General 1994 Constitutional general appearance Overall: well developed 08/18/2012 None Full Exam - General 1994 Constitutional general appearance Overall: in no acute distress 08/18/2012 None Full Exam - General 1994 Ears/Nose/Throat otoscopic exam Overall: external auditory canals clear 08/18/2012 None Full Exam - General 1995 Ears/Nose/Throat otoscopic exam Overall: tympanic membranes clear 08/18/2012 None Full Exam - General 1995 Ears/Nose/Throat oral cavity/pharynx/larynx Overall: oral mucosa clear 08/18/2012 None Full Exam - General 1995 Ears/Nose/Throat oral cavity/pharynx/larynx Overall: oropharyngeal mucosa clear 08/18/2012 None Full Exam - General 1995 Ears/Nose/Throat oral cavity/pharynx/larynx Overall: no masses 08/18/2012 None Full Exam - General 1995 Respiratory auscultation Overall: breath sounds clear bilaterally 08/18/2012 None Full Exam - General 1995 Respiratory respiratory effort/rhythm Overall: no retractions 08/18/2012 None Full Exam - General 1995 Respiratory respiratory effort/rhythm Overall: normal rate 08/18/2012 None Full Exam - General 1994 Cardiovascular auscultation of heart Overall: regular rate 08/18/2012 None Full Exam - General 1994 Cardiovascular auscultation of heart Overall: normal heart sounds 08/18/2012 None Full Exam - General 1994 Abdomen abdominal exam Overall: no tenderness 08/18/2012 None Full Exam - General 1994 Abdomen abdominal exam Overall: normal bowel sounds 08/18/2012 None Full Exam - General 1994 Integument inspection of skin Overall: no rash, lesions 08/18/2012 None Full Exam - General 1994 Psychiatric orientation/consciousness Overall: oriented to person, place and time 08/18/2012 None Full Exam - General 1994 Psychiatric mood and affect Overall: normal mood and affect 08/18/2012 None Full Exam - General 1994 Constitutional general appearance Overall: well developed 02/19/2012 None Full Exam - General 1994 Constitutional general appearance Overall: in no acute distress 02/19/2012 None Full Exam - General 1994 Constitutional general appearance Overall: well nourished 02/19/2012 None Full Exam - General 1994 Eyes conjunctiva/eyelids Overall: conjunctiva clear 02/19/2012 None Full Exam - General 1994 Eyes conjunctiva/eyelids Overall: cornea clear 02/19/2012 None Full Exam - General 1995 Eyes conjunctiva/eyelids Overall: eyelids normal 02/19/2012 None Full Exam - General 1995 Ears/Nose/Throat external ear Overall: normal appearance 02/19/2012 None Full Exam - General 1994 Ears/Nose/Throat external ear Overall: no masses 02/19/2012 None Full Exam - General 1995 Ears/Nose/Throat external ear Overall: normal mastoids 02/19/2012 None Full Exam - General 1995 Ears/Nose/Throat external nose Overall: benign appearance 02/19/2012 None Full Exam - General 1995 Ears/Nose/Throat external nose Overall: no masses 02/19/2012 None Full Exam - General 1995 Ears/Nose/Throat external nose Overall: non-tender 02/19/2012 None Full Exam - General 1995 Ears/Nose/Throat otoscopic exam Overall: external auditory canals clear 02/19/2012 None Full Exam - General 1995 Ears/Nose/Throat otoscopic exam Overall: tympanic membranes clear 02/19/2012 None Full Exam - General 1995 Ears/Nose/Throat oral cavity/pharynx/larynx Overall: oral mucosa clear 02/19/2012 None Full Exam - General 1995 Ears/Nose/Throat oral cavity/pharynx/larynx Overall: oropharyngeal mucosa clear 02/19/2012 None Full Exam - General 1995 Ears/Nose/Throat oral cavity/pharynx/larynx Overall: no masses 02/19/2012 None Full Exam - General 1994 Respiratory auscultation Overall: breath sounds clear bilaterally 02/19/2012 None Full Exam - General 1994 Respiratory respiratory effort/rhythm Overall: no retractions 02/19/2012 None Full Exam - General 1994 Respiratory respiratory effort/rhythm Overall: normal rate 02/19/2012 None Full Exam - General 1994 Cardiovascular auscultation of heart Overall: regular rate 02/19/2012 None Full Exam - General 1994 Cardiovascular auscultation of heart Overall: normal heart sounds 02/19/2012 None Full Exam - General 1994 Abdomen abdominal exam Overall: no tenderness 02/19/2012 None Full Exam - General 1994 Abdomen abdominal exam Overall: normal bowel sounds 02/19/2012 None Full Exam - General 1994 Musculoskeletal digits and nails Overall: no clubbing 02/19/2012 None Full Exam - General 1994 Musculoskeletal digits and nails Overall: digits benign 02/19/2012 None Full Exam - General 1994 Musculoskeletal lower extremity Inspection - knee: varus deformity 02/19/2012 None Full Exam - General 1994 Musculoskeletal lower extremity Inspection - knee: presence of a scar 02/19/2012 None Full Exam - General 1994 Musculoskeletal lower extremity Palpation - knee: crepitus 02/19/2012 None Full Exam - General 1994 Integument inspection of skin Overall: no rash, lesions 02/19/2012 None Full Exam - General 1995 Neurologic mental status Overall: alert 02/19/2012 None Full Exam - General 1995 Neurologic mental status Overall: oriented 02/19/2012 None Full Exam - General 1995 Psychiatric orientation/consciousness Overall: oriented to person, place and time 02/19/2012 None Full Exam - General 1995 Psychiatric mood and affect Overall: normal mood and affect 02/19/2012 None Full Exam - General 1995 Psychiatric mood and affect Mood: happy 02/19/2012 None Full Exam - General 1995 Integument inspection of skin Overall: no rash, lesions 10/16/2011 None Full Exam - General 1995 Neurologic mental status Overall: alert 10/16/2011 None Full Exam - General 1995 Neurologic mental status Overall: oriented 10/16/2011 None Full Exam - General 1995 Psychiatric mood and affect Overall: normal mood and affect 10/16/2011 None Full Exam - General 1995 Psychiatric mood and affect Mood: happy 10/16/2011 None Full Exam - General 1995 Ears/Nose/Throat oral cavity/pharynx/larynx Overall: oral mucosa clear 10/16/2011 None Full Exam - General 1995 Ears/Nose/Throat oral cavity/pharynx/larynx Overall: oropharyngeal mucosa clear 10/16/2011 None Full Exam - General 1995 Ears/Nose/Throat oral cavity/pharynx/larynx Overall: no masses 10/16/2011 None Full Exam - General 1994 Psychiatric orientation/consciousness Overall: oriented to person, place and time 10/16/2011 None Full Exam - General 1994 Musculoskeletal lower extremity Inspection - knee: presence of a scar 10/16/2011 None Full Exam - General 1994 Musculoskeletal lower extremity Inspection - knee: varus deformity 10/16/2011 None Full Exam - General 1994 Musculoskeletal lower extremity Palpation - knee: crepitus 10/16/2011 None Full Exam - General 1994 Ears/Nose/Throat external nose Overall: benign appearance 10/16/2011 None Full Exam - General 1995 Ears/Nose/Throat external nose Overall: no masses 10/16/2011 None Full Exam - General 1995 Ears/Nose/Throat external nose Overall: non-tender 10/16/2011 None Full Exam - General 1995 Ears/Nose/Throat otoscopic exam Overall: external auditory canals clear 10/16/2011 None Full Exam - General 1995 Ears/Nose/Throat otoscopic exam Overall: tympanic membranes clear 10/16/2011 None Full Exam - General 1994 Respiratory auscultation Overall: breath sounds clear bilaterally 10/16/2011 None Full Exam - General 1994 Respiratory respiratory effort/rhythm Overall: no retractions 10/16/2011 None Full Exam - General 1994 Respiratory respiratory effort/rhythm Overall: normal rate 10/16/2011 None Full Exam - General 1994 Cardiovascular auscultation of heart Overall: regular rate 10/16/2011 None Full Exam - General 1994 Cardiovascular auscultation of heart Overall: normal heart sounds 10/16/2011 None Full Exam - General 1994 Abdomen abdominal exam Overall: no tenderness 10/16/2011 None Full Exam - General 1995 Abdomen abdominal exam Overall: normal bowel sounds 10/16/2011 None Full Exam - General 1995 Musculoskeletal digits and nails Overall: no clubbing 10/16/2011 None Full Exam - General 1994 Musculoskeletal digits and nails Overall: digits benign 10/16/2011 None Full Exam - General 1994 Constitutional general appearance Overall: well developed 10/16/2011 None Full Exam - General 1994 Constitutional general appearance Overall: in no acute distress 10/16/2011 None Full Exam - General 1994 Constitutional general appearance Overall: well nourished 10/16/2011 None Full Exam - General 1994 Eyes conjunctiva/eyelids Overall: conjunctiva clear 10/16/2011 None Full Exam - General 1994 Eyes conjunctiva/eyelids Overall: cornea clear 10/16/2011 None Full Exam - General 1994 Eyes conjunctiva/eyelids Overall: eyelids normal 10/16/2011 None Full Exam - General 1994 Ears/Nose/Throat external ear Overall: normal appearance 10/16/2011 None Full Exam - General 1994 Ears/Nose/Throat external ear Overall: no masses 10/16/2011 None Full Exam - General 1994 Ears/Nose/Throat external ear Overall: normal mastoids 10/16/2011 None Full Exam - General 1994 Constitutional general appearance Overall: well nourished 04/10/2011 None Full Exam - General 1994 Constitutional general appearance Overall: well developed 04/10/2011 None Full Exam - General 1994 Constitutional general appearance Overall: in no acute distress 04/10/2011 None Full Exam - General 1994 Eyes conjunctiva/eyelids Overall: conjunctiva clear 04/10/2011 None Full Exam - General 1994 Eyes conjunctiva/eyelids Overall: eyelids normal 04/10/2011 None Full Exam - General 1994 Eyes conjunctiva/eyelids Overall: cornea clear 04/10/2011 None Full Exam - General 1994 Ears/Nose/Throat external ear Overall: no masses 04/10/2011 None Full Exam - General 1995 Ears/Nose/Throat external ear Overall: normal appearance 04/10/2011 None Full Exam - General 1995 Ears/Nose/Throat external ear Overall: normal mastoids 04/10/2011 None Full Exam - General 1995 Ears/Nose/Throat external nose Overall: benign appearance 04/10/2011 None Full Exam - General 1995 Ears/Nose/Throat external nose Overall: non-tender 04/10/2011 None Full Exam - General 1995 Ears/Nose/Throat external nose Overall: no masses 04/10/2011 None Full Exam - General 1995 Ears/Nose/Throat otoscopic exam Overall: tympanic membranes clear 04/10/2011 None Full Exam - General 1995 Ears/Nose/Throat otoscopic exam Overall: external auditory canals clear 04/10/2011 None Full Exam - General 1995 Respiratory auscultation Overall: breath sounds clear bilaterally 04/10/2011 None Full Exam - General 1994 Respiratory respiratory effort/rhythm Overall: normal rate 04/10/2011 None Full Exam - General 1994 Respiratory respiratory effort/rhythm Overall: no retractions 04/10/2011 None Full Exam - General 1994 Cardiovascular auscultation of heart Overall: regular rate 04/10/2011 None Full Exam - General 1994 Cardiovascular auscultation of heart Overall: normal heart sounds 04/10/2011 None Full Exam - General 1994 Abdomen abdominal exam Overall: no tenderness 04/10/2011 None Full Exam - General 1995 Abdomen abdominal exam Overall: normal bowel sounds 04/10/2011 None Full Exam - General 1994 Musculoskeletal digits and nails Overall: digits benign 04/10/2011 None Full Exam - General 1994 Musculoskeletal digits and nails Overall: no clubbing 04/10/2011 None Full Exam - General 1994 Integument inspection of skin Overall: no rash, lesions 04/10/2011 None Full Exam - General 1994 Neurologic mental status Overall: oriented 04/10/2011 None Full Exam - General 1994 Neurologic mental status Overall: alert 04/10/2011 None Full Exam - General 1994 Psychiatric mood and affect Mood: happy 04/10/2011 None Full Exam - General 1994 Psychiatric mood and affect Overall: normal mood and affect 04/10/2011 None Full Exam - General 1994 Psychiatric orientation/consciousness Overall: oriented to person, place and time 12/05/2010 None Full Exam - General 1994 Psychiatric mood and affect Overall: normal mood and affect 12/05/2010 None Full Exam - General 1994 Integument inspection of skin Overall: no rash, lesions 12/05/2010 None Full Exam - General 1994 Abdomen abdominal exam Overall: no tenderness 12/05/2010 None Full Exam - General 1994 Constitutional general appearance Overall: in no acute distress 12/05/2010 None Full Exam - General 1994 Abdomen abdominal exam Overall: normal bowel sounds 12/05/2010 None Full Exam - General 1994 Cardiovascular auscultation of heart Overall: regular rate 12/05/2010 None Full Exam - General 1994 Cardiovascular auscultation of heart Overall: normal heart sounds 12/05/2010 None Full Exam - General 1994 Respiratory respiratory effort/rhythm Overall: normal rate 12/05/2010 None Full Exam - General 1994 Respiratory respiratory effort/rhythm Overall: no retractions 12/05/2010 None Full Exam - General 1994 Respiratory auscultation Overall: breath sounds clear bilaterally 12/05/2010 None Full Exam - General 1994 Ears/Nose/Throat otoscopic exam Overall: tympanic membranes clear 12/05/2010 None Full Exam - General 1994 Ears/Nose/Throat otoscopic exam Overall: external auditory canals clear 12/05/2010 None Full Exam - General 1994 Ears/Nose/Throat oral cavity/pharynx/larynx Overall: oropharyngeal mucosa clear 12/05/2010 None Full Exam - General 1994 Ears/Nose/Throat oral cavity/pharynx/larynx Overall: no masses 12/05/2010 None Full Exam - General 1994 Ears/Nose/Throat oral cavity/pharynx/larynx Overall: oral mucosa clear 12/05/2010 None Full Exam - General 1994 Constitutional general appearance Overall: well nourished 12/05/2010 None Full Exam - General 1994 Constitutional general appearance Overall: well developed 12/05/2010 None Procedures Procedure Codes Date ADMIN INFLUENZA VIRU S VAC CPT-4: G0008 12/24/2017 FLU VAC NO PRSV 4 VA L 3 YRS+ CPT-4: 91597 12/24/2017 PPPS, SUBSEQ VISIT CPT- 4: G0439 06/04/2017 PPPS, SUBSEQ VISIT CPT- 4: G0439 05/28/2016 ADMIN PNEUMOCOCCAL V ACCINE SNOMED CT: 03357798 CPT-4: G0009 11/23/2014 PNEUMOCOCCAL VACC [address]: 11422816 CPT-4: 34797 11/23/2014 FLU VAC NO PRSV 4 VA L 3 YRS+ CPT-4: 68838 10/18/2013 ADMIN INFLUENZA VIRU S VAC Assigned to/Ayaka Snyder CPT-4: H2024Vxfidqs 10/18/2013 ROUTINE VENIPUNCTURE CPT-4: 29070 08/18/2012 ROUTINE VENIPUNCTURE CPT-4: 24317 02/19/2012 ROUTINE VENIPUNCTURE CPT-4: 31418 04/10/2011 ADMIN INFLUENZA VIRU S VAC CPT-4: G0008 12/05/2010 FLULAVAL VACC, 3 YRS & >, IM CPT-4: Q2036 12/05/2010 ROUTINE VENIPUNCTURE CPT-4: 62635 11/28/2010 ADMIN INFLUENZA VIRU S VAC CPT-4: G0008 11/28/2010 FLULAVAL VACC, 3 YRS & >, IM CPT-4: Q2036 11/28/2010 ROUTINE VENIPUNCTURE CPT-4: 33119 10/17/2010 Vital Signs Date Vital 09/22/2018 Blood Pressure 1: 106/60 Code: 8480-6 BMI: 34.6 Code: 36246-8 Heart Rate 1: 50 bpm Height: 5'5" SpO2: 96% Weight: 208 lbs 06/03/2018 Blood Pressure 1: 124/66 Code: 8480-6 BMI: 33.8 Code: 83289-7 Heart Rate 1: 74 bpm Height: 5'5" SpO2: 99% Weight: 203 lbs 02/04/2018 Blood Pressure 1: 120/66 Code: 8480-6 BMI: 33.6 Code: 50186-4 Heart Rate 1: 80 bpm Height: 5'5" Respiratory Rate: 18 bpm Weight: 202 lbs 10/07/2017 Blood Pressure 1: 108/64 Code: 8480-6 BMI: 32.3 Code: 74331-7 Heart Rate 1: 83 bpm Height: 5'5" SpO2: 98% Weight: 194 lbs 06/04/2017 Blood Pressure 1: 116/64 Code: 8480-6 BMI: 33.3 Code: 05428-6 Heart Rate 1: 70 bpm Height: 5'5" SpO2: 97% Waist Measure (cm): 97 cm Weight: 200 lbs 06/02/2017 Blood Pressure 1: 120/72 Code: 8480-6 BMI: 33.1 Code: 41175-5 Heart Rate 1: 70 bpm Height: 5'5" SpO2: 97% Weight: 199 lbs 01/28/2017 Blood Pressure 1: 128/78 Code: 8480-6 BMI: 31.8 Code: 88721-9 Heart Rate 1: 81 bpm Height: 5'5" SpO2: 98% Weight: 191 lbs 12/29/2016 Blood Pressure 1: 130/76 Code: 8480-6 BMI: 31.1 Code: 34993-0 Heart Rate 1: 80 bpm Height: 5'5" SpO2: 98% Weight: 187 lbs 12/01/2016 Blood Pressure 1: 128/80 Code: 8480-6 BMI: 32.0 Code: 83785-3 Heart Rate 1: 78 bpm Height: 5'5" SpO2: 98% Weight: 192 lbs 05/28/2016 Blood Pressure 1: 138/80 Code: 8480-6 BMI: 33.6 Code: 12741-9 Heart Rate 1: 62 bpm Height: 5'5" SpO2: 97% Waist Measure (cm): 97 cm Weight: 202 lbs 05/27/2016 Blood Pressure 1: 138/80 Code: 8480-6 BMI: 33.6 Code: 37418-4 Heart Rate 1: 60 bpm Height: 5'5" SpO2: 98% Weight: 202 lbs 01/09/2016 Blood Pressure 1: 132/76 Code: 8480-6 BMI: 34.1 Code: 74606-7 Heart Rate 1: 62 bpm Height: 5'5" SpO2: 95% Weight: 205 lbs 11/27/2015 Blood Pressure 1: 140/80 Code: 8480-6 BMI: 35.3 Code: 80306-6 Heart Rate 1: 77 bpm Height: 5'5" SpO2: 96% Weight: 212 lbs 05/29/2015 Blood Pressure 1: 130/74 Code: 8480-6 BMI: 34.2 Code: 32817-9 Heart Rate 1: 59 bpm Height: 5'5" SpO2: 97% Weight: 205 lbs 8 oz 11/23/2014 Blood Pressure 1: 136/76 Code: 8480-6 BMI: 33.8 Code: 98754-6 Heart Rate 1: 68 bpm Height: 5'5" SpO2: 98% Weight: 203 lbs 07/20/2014 Blood Pressure 1: 140/88 Code: 8480-6 BMI: 34.4 Code: 46198-7 Heart Rate 1: 68 bpm Height: 5'5" Weight: 207 lbs 04/19/2014 Blood Pressure 1: 130/88 Code: 8480-6 BMI: 34.6 Code: 76887-7 Heart Rate 1: 64 bpm Height: 5'5" Weight: 208 lbs 12/21/2013 Blood Pressure 1: 140/76 Code: 8480-6 BMI: 33.8 Code: 44935-2 Heart Rate 1: 64 bpm Height: 5'5" Weight: 203 lbs 10/18/2013 Blood Pressure 1: 138/70 Code: 8480-6 BMI: 33.1 Code: 72877-1 Heart Rate 1: 74 bpm Height: 5'5" Weight: 199 lbs 07/13/2013 Blood Pressure 1: 115/60 Code: 8480-6 BMI: 30.5 Code: 86782-5 Heart Rate 1: 76 bpm Height: 5'5" Weight: 183 lbs 06/23/2013 Blood Pressure 1: 108/58 Code: 8480-6 Heart Rate 1: 80 bpm Temperature: 37.2 (C) / 98.9 (F) Weight: 06/09/2013 Rives rature: 36.7 (C) / 98.0 (F) Weight: 04/11/2013 Blood Pressure 1: 104/64 Code: 8480-6 Heart Rate 1: 76 bpm Weight: 02/16/2013 Blood Pressure 1: 130/82 Code: 8480-6 BMI: 35.8 Code: 99512-3 Heart Rate 1: 76 bpm Height: 5'5" Weight: 215 lbs 08/18/2012 Blood Pressure 1: 104/64 Code: 8480-6 BMI: 33.6 Code: 78854-6 Heart Rate 1: 64 bpm Height: 5'5" Weight: 202 lbs 02/19/2012 Blood Pressure 1: 120/74 Code: 8480-6 BMI: 33.8 Code: 01579-8 Heart Rate 1: 64 bpm Height: 5'5" Respiratory Rate: 16 bpm Weight: 203 lbs 10/16/2011 Blood Pressure 1: 130/68 Code: 8480-6 Heart Rate 1: 80 bpm Weight: 201 lbs 04/10/2011 Blood Pressure 1: 134/74 Code: 8480-6 Heart Rate 1: 64 bpm Respiratory Rate: 16 bpm Weight: 202 lbs 12/05/2010 Blood Pressure 1: 128/72 Code: 8480-6 BMI: 33.5 Code: 57892-8 Heart Rate 1: 68 bpm Height: 5'5" Respiratory Rate: 16 bpm Weight: 201 lbs 8 oz Functional Status No Functional Status data History of Present Illness Symptom Name Status Resu lt Effective Date Notes Quality enlarging 09/22/2018 None Quality non-tender 09/22/2018 None Quality raised 09/22/2018 None Quality rubbery 09/22/2018 None Onset of Symptom _ wee ks ago 09/22/2018 None Quality chronic 09/22/2018 None Quality primary hypert ension 09/22/2018 None Onset and Resolution o ngoing 09/22/2018 None Onset of Symptom durin g adulthood 09/22/2018 None Blood Pressure Values not checking blood pressure at home 09/22/2018 None Severity mild 09/22/2018 None Alleviating Factors me dication 09/22/2018 None Exacerbating Factors s tress 09/22/2018 None Pertinent Findings Den ies dizziness 09/22/2018 None Pertinent Findings Den ies dyspnea 09/22/2018 None Pertinent Findings Den ies edema 09/22/2018 None Onset and Resolution g radual in onset 09/22/2018 None Onset of Symptom durin g adulthood 09/22/2018 None Significant Medications statin 09/22/2018 None Alleviating Factors me dication 09/22/2018 None Exacerbating Factors d iet 09/22/2018 None Location Left Knee 09/22/2018 None Quality enlarging 06/03/2018 None Quality non-tender 06/03/2018 None Quality raised 06/03/2018 None Quality rubbery 06/03/2018 None Onset of Symptom _ wee ks ago 06/03/2018 None Location Right Knee 06/03/2018 None Quality chronic 06/03/2018 None Quality primary hypert ension 06/03/2018 None Onset and Resolution o ngoing 06/03/2018 None Onset of Symptom durin g adulthood 06/03/2018 None Blood Pressure Values not checking blood pressure at home 06/03/2018 None Severity mild 06/03/2018 None Alleviating Factors me dication 06/03/2018 None Exacerbating Factors s tress 06/03/2018 None Pertinent Findings Den ies dizziness 06/03/2018 None Pertinent Findings Den ies dyspnea 06/03/2018 None Pertinent Findings Den ies edema 06/03/2018 None Onset and Resolution g radual in onset 06/03/2018 None Onset of Symptom durin g adulthood 06/03/2018 None Significant Medications statin 06/03/2018 None Alleviating Factors me dication 06/03/2018 None Exacerbating Factors d iet 06/03/2018 None Quality chronic 02/04/2018 None Quality primary hypert ension 02/04/2018 None Onset and Resolution o ngoing 02/04/2018 None Onset of Symptom durin g adulthood 02/04/2018 None Blood Pressure Values not checking blood pressure at home 02/04/2018 None Severity mild 02/04/2018 None Alleviating Factors me dication 02/04/2018 None Exacerbating Factors s tress 02/04/2018 None Pertinent Findings Den ies dizziness 02/04/2018 None Pertinent Findings Den ies dyspnea 02/04/2018 None Pertinent Findings Den ies edema 02/04/2018 None Onset and Resolution g radual in onset 02/04/2018 None Onset of Symptom durin g adulthood 02/04/2018 None Significant Medications statin 02/04/2018 None Alleviating Factors me dication 02/04/2018 None Exacerbating Factors d iet 02/04/2018 None hypertension Quality chr onic 10/07/2017 None hypertension Quality willa lior hypertension 10/07/2017 None hypertension Onset and Resolution ongoing 10/07/2017 None hypertension Onset of Symptom during adulthood 10/07/2017 None hypertension Blood Pressure Values not checking blood pressure at home 10/07/2017 None hypertension Severity mi ld 10/07/2017 None hypertension Alleviating Factors medication 10/07/2017 None hypertension Exacerbating Factors stress 10/07/2017 None hypertension Pertinent Findings Denies dizziness 10/07/2017 None hypertension Pertinent Findings Denies dyspnea 10/07/2017 None hypertension Pertinent Findings Denies edema 10/07/2017 None hyperlipidemia Onset and Resolution gradual in onset 10/07/2017 None hyperlipidemia Onset of Symptom during adulthood 10/07/2017 None hyperlipidemia Significant Medications statin 10/07/2017 None hyperlipidemia Alleviating Factors medication 10/07/2017 None hyperlipidemia Exacerbating Factors diet 10/07/2017 None Annual Medicare Wellness Exam Alcohol Use does not drink any alcohol 06/04/2017 None Annual Medicare Wellness Exam Aspirin Use yes 06/04/2017 None Annual Medicare Wellness Exam Blood Glucose (self reported) don't know 06/04/2017 No ne Annual Medicare Wellness Exam Blood Pressure (self reported) low / normal (120/80) 06/04/2017 None Annual Medicare Wellness Exam Choles terol (self reported) don't know 06/04/2017 No ne Annual Medicare Wellness Exam Depres myriam (last 6 months) almost never 06/04/2017 None Annual Medicare Wellness Exam Depres myriam or Hopelessness almost never 06/04/2017 None Annual Medicare Wellness Exam Descri be Your Health good 06/04/2017 None Annual Medicare Wellness Exam Exerci se Habits exercises 2 days per week 06/04/2017 None Annual Medicare Wellness Exam Exerci se Habits exercises 1 minutes per day 06/04/2017 None Annual Medicare Wellness Exam Handli ng Stress usually bre effectively 06/04/2017 None Annual Medicare Wellness Exam Hemagl obin A-1C (self reported) don't know 06/04/2017 No ne Annual Medicare Wellness Exam Hours of Sleep 8 06/04/2017 None Annual Medicare Wellness Exam Intera ction with Friends yes 06/04/2017 None Annual Medicare Wellness Exam Intere sts & Pleasure almost all of the time 06/04/2017 None Annual Medicare Wellness Exam Life S atisfaction satisfied 06/04/2017 Non e Annual Medicare Wellness Exam Motor Vehicle Safety always fastens seat belt: y 06/05/19 18 None Annual Medicare Wellness Exam Motor Vehicle Safety drives after drinking: n 06/04/2017 None Annual Medicare Wellness Exam Motor Vehicle Safety rides with someone who has been drinking: n 06/04/2017 None Annual Medicare Wellness Exam Nutrition servings of fried food / high fat foods per day: 1 06/04/2017 None Annual Medicare Wellness Exam Nutrition servings of high fiber / whole grain per day: 2 06/04/2017 None Annual Medicare Wellness Exam Nutrition servings of vegetables / fruit per day: 4 06/04/2017 None Annual Medicare Wellness Exam Smokin g and Tobacco Use non smoker 06/04/2017 No ne Annual Medicare Wellness Exam Social & Emotional Support always 06/04/2017 None Annual Medicare Wellness Exam Stress almost never 06/04/2017 None Annual Medicare Wellness Exam Sun Exposure protects skin when outdoors: y 06/04/2017 None hypertension Quality chr onic 06/02/2017 None hypertension Quality willa lior hypertension 06/02/2017 None hypertension Onset and Resolution ongoing 06/02/2017 None hypertension Onset of Symptom during adulthood 06/02/2017 None hypertension Blood Pressure Values not checking blood pressure at home 06/02/2017 None hypertension Severity mi ld 06/02/2017 None hypertension Alleviating Factors medication 06/02/2017 None hypertension Exacerbating Factors stress 06/02/2017 None hypertension Pertinent Findings Denies dizziness 06/02/2017 None hypertension Pertinent Findings Denies dyspnea 06/02/2017 None hypertension Pertinent Findings Denies edema 06/02/2017 None gait abnormality Quality unsteady 06/02/2017 None gait abnormality Quality waddling 06/02/2017 None gait abnormality Onset and Resolution ongoing 06/02/2017 None hypertension Quality chr onic 01/28/2017 None hypertension Quality willa tinajero hypertension 01/28/2017 None hypertension Onset and Resolution ongoing 01/28/2017 None hypertension Onset of Symptom during adulthood 01/28/2017 None hypertension Blood Pressure Values not checking blood pressure at home 01/28/2017 None hypertension Severity mi ld 01/28/2017 None hypertension Alleviating Factors medication 01/28/2017 None hypertension Exacerbating Factors stress 01/28/2017 None hypertension Pertinent Findings Denies dizziness 01/28/2017 None hypertension Pertinent Findings Denies dyspnea 01/28/2017 None hypertension Pertinent Findings Denies edema 01/28/2017 None gait abnormality Quality waddling 01/28/2017 None gait abnormality Onset and Resolution ongoing 01/28/2017 None gait abnormality Assistive devices cane 01/28/2017 None gait abnormality Quality unsteady 01/28/2017 None hypertension Quality chr onic 12/29/2016 None hypertension Quality willa tinajreo hypertension 12/29/2016 None hypertension Onset and Resolution ongoing 12/29/2016 None hypertension Onset of Symptom during adulthood 12/29/2016 None hypertension Blood Pressure Values not checking blood pressure at home 12/29/2016 None hypertension Severity mi ld 12/29/2016 None hypertension Alleviating Factors medication 12/29/2016 None hypertension Exacerbating Factors stress 12/29/2016 None hypertension Pertinent Findings Denies dizziness 12/29/2016 None hypertension Pertinent Findings Denies dyspnea 12/29/2016 None hypertension Pertinent Findings Denies edema 12/29/2016 None gait abnormality Onset and Resolution ongoing 12/29/2016 None gait abnormality Quality waddling 12/29/2016 None gait abnormality Assistive devices cane 12/29/2016 None hypertension Quality chr onic 12/01/2016 None hypertension Onset and Resolution ongoing 12/01/2016 None hypertension Onset of Symptom during adulthood 12/01/2016 None hypertension Blood Pressure Values not checking blood pressure at home 12/01/2016 None hypertension Severity mi ld 12/01/2016 None hypertension Alleviating Factors medication 12/01/2016 None hypertension Exacerbating Factors stress 12/01/2016 None hypertension Pertinent Findings Denies dizziness 12/01/2016 None hypertension Pertinent Findings Denies dyspnea 12/01/2016 None hypertension Pertinent Findings Denies edema 12/01/2016 None hyperlipidemia Onset and Resolution gradual in onset 12/01/2016 None hyperlipidemia Onset of Symptom during adulthood 12/01/2016 None hyperlipidemia Alleviating Factors medication 12/01/2016 None hyperlipidemia Exacerbating Factors diet 12/01/2016 None hyperlipidemia Significant Medications statin 12/01/2016 None hypertension Quality willa lior hypertension 12/01/2016 None Annual Medicare Wellness Exam Alcohol Use does not drink any alcohol 05/28/2016 None Annual Medicare Wellness Exam Aspirin Use yes 05/28/2016 None Annual Medicare Wellness Exam Blood Glucose (self reported) don't know 05/28/2016 No ne Annual Medicare Wellness Exam Blood Pressure (self reported) low / normal (120/80) 05/28/2016 None Annual Medicare Wellness Exam Choles terol (self reported) don't know 05/28/2016 No ne Annual Medicare Wellness Exam Depres myriam (last 6 months) almost never 05/28/2016 None Annual Medicare Wellness Exam Depres myriam or Hopelessness almost never 05/28/2016 None Annual Medicare Wellness Exam Descri be Your Health fair 05/28/2016 None Annual Medicare Wellness Exam Exerci se Habits exercises 2 days per week 05/28/2016 None Annual Medicare Wellness Exam Exerci se Habits exercises 60 minutes per day 05/28/2016 None Annual Medicare Wellness Exam Handli ng Stress usually bre effectively 05/28/2016 None Annual Medicare Wellness Exam Hemagl obin A-1C (self reported) don't know 05/28/2016 No ne Annual Medicare Wellness Exam Hours of Sleep 8 05/28/2016 None Annual Medicare Wellness Exam Intera ction with Friends yes 05/28/2016 None Annual Medicare Wellness Exam Intere sts & Pleasure most of the time 05/28/2016 None Annual Medicare Wellness Exam Life S atisfaction very satisfied 05/28/2016 None Annual Medicare Wellness Exam Motor Vehicle Safety always fastens seat belt: y 05/29/19 17 None Annual Medicare Wellness Exam Motor Vehicle Safety drives after drinking: n 05/28/2016 None Annual Medicare Wellness Exam Motor Vehicle Safety rides with someone who has been drinking: n 05/28/2016 None Annual Medicare Wellness Exam Nutrition servings of fried food / high fat foods per day: 1 05/28/2016 None Annual Medicare Wellness Exam Nutrition servings of high fiber / whole grain per day: 1 05/28/2016 None Annual Medicare Wellness Exam Nutrition servings of vegetables / fruit per day: 3 05/28/2016 None Annual Medicare Wellness Exam Smokin g and Tobacco Use non smoker 05/28/2016 No ne Annual Medicare Wellness Exam Social & Emotional Support always 05/28/2016 None Annual Medicare Wellness Exam Stress almost never 05/28/2016 None Annual Medicare Wellness Exam Sun Exposure protects skin when outdoors: y 05/28/2016 None hypertension Quality chr onic 05/27/2016 None hypertension Onset and Resolution ongoing 05/27/2016 None hypertension Onset of Symptom during adulthood 05/27/2016 None hypertension Blood Pressure Values not checking blood pressure at home 05/27/2016 None hypertension Severity mi ld 05/27/2016 None hypertension Alleviating Factors medication 05/27/2016 None hypertension Exacerbating Factors stress 05/27/2016 None hypertension Pertinent Findings Denies dizziness 05/27/2016 None hypertension Pertinent Findings Denies dyspnea 05/27/2016 None hypertension Pertinent Findings Denies edema 05/27/2016 None hyperlipidemia Onset and Resolution gradual in onset 05/27/2016 None hyperlipidemia Onset and Resolution ongoing 05/27/2016 None hyperlipidemia Onset of Symptom during adulthood 05/27/2016 None hyperlipidemia Alleviating Factors medication 05/27/2016 None hyperlipidemia Exacerbating Factors diet 05/27/2016 None cough Quality acute 01/09/2016 None cough Quality dry 01/09/2016 None cough Quality intermitte nt 01/09/2016 None cough Onset and Resolution sudden in onset 01/09/2016 None cough Onset of Symptom 1 days ago 01/09/2016 None cough Pertinent Findings Denies fever 01/09/2016 None cough Pertinent Findings Denies chills 01/09/2016 None cough Pertinent Findings hoarseness 01/09/2016 None cough Pertinent Findings Denies sputum production 01/09/2016 None nasal discharge Location in both nares 01/09/2016 None nasal discharge Quality acute 01/09/2016 None nasal discharge Quality clear 01/09/2016 None nasal discharge Quality intermittent 01/09/2016 None nasal discharge Onset and Resolution sudden in onset 01/09/2016 None nasal discharge Onset of Symptom 1 days ago 01/09/2016 None nasal discharge Pertinent Findings cough 01/09/2016 None nasal discharge Pertinent Findings hoarseness 01/09/2016 None hypertension Quality chr onic 11/27/2015 None hypertension Onset and Resolution ongoing 11/27/2015 None hypertension Onset of Symptom during adulthood 11/27/2015 None hypertension Blood Pressure Values not checking blood pressure at home 11/27/2015 None hypertension Severity mi ld 11/27/2015 None hypertension Alleviating Factors medication 11/27/2015 None hypertension Exacerbating Factors stress 11/27/2015 None hypertension Pertinent Findings Denies dizziness 11/27/2015 None hypertension Pertinent Findings Denies dyspnea 11/27/2015 None hypertension Pertinent Findings Denies edema 11/27/2015 None hyperlipidemia Onset and Resolution gradual in onset 11/27/2015 None hyperlipidemia Onset and Resolution ongoing 11/27/2015 None hyperlipidemia Onset of Symptom during adulthood 11/27/2015 None hyperlipidemia Alleviating Factors medication 11/27/2015 None hyperlipidemia Exacerbating Factors diet 11/27/2015 None hypertension Quality chr onic 05/29/2015 None hypertension Onset and Resolution ongoing 05/29/2015 None hypertension Blood Pressure Values not checking blood pressure at home 05/29/2015 None hypertension Severity mi ld 05/29/2015 None hypertension Alleviating Factors medication 05/29/2015 None hypertension Exacerbating Factors change in dietary habits 05/29/2015 None hypertension Exacerbating Factors stress 05/29/2015 None hypertension Pertinent Findings Denies dizziness 05/29/2015 None hypertension Pertinent Findings Denies dyspnea 05/29/2015 None hypertension Onset of Symptom during adulthood 05/29/2015 None hypertension Pertinent Findings Denies edema 05/29/2015 None hypertension Quality chr onic 11/23/2014 None hypertension Onset and Resolution ongoing 11/23/2014 None hypertension Blood Pressure Values not checking blood pressure at home 11/23/2014 None hypertension Severity mi ld 11/23/2014 None hypertension Alleviating Factors medication 11/23/2014 None hypertension Exacerbating Factors change in dietary habits 11/23/2014 None hypertension Exacerbating Factors stress 11/23/2014 None hypertension Pertinent Findings Denies dizziness 11/23/2014 None hypertension Pertinent Findings Denies dyspnea 11/23/2014 None hypertension Quality chr onic 07/20/2014 None hypertension Onset and Resolution ongoing 07/20/2014 None hypertension Blood Pressure Values not checking blood pressure at home 07/20/2014 None hypertension Severity mi ld 07/20/2014 None hypertension Alleviating Factors medication 07/20/2014 None hypertension Exacerbating Factors change in dietary habits 07/20/2014 None hypertension Exacerbating Factors stress 07/20/2014 None hypertension Pertinent Findings Denies dizziness 07/20/2014 None hypertension Pertinent Findings Denies dyspnea 07/20/2014 None hypertension Onset and Resolution ongoing 04/19/2014 None hypertension Blood Pressure Values not checking blood pressure at home 04/19/2014 None hypertension Severity mi ld 04/19/2014 None hypertension Alleviating Factors medication 04/19/2014 None hypertension Exacerbating Factors change in dietary habits 04/19/2014 None hypertension Exacerbating Factors stress 04/19/2014 None hypertension Pertinent Findings Denies dizziness 04/19/2014 None hypertension Pertinent Findings Denies dyspnea 04/19/2014 None hypertension Quality chr onic 04/19/2014 None hypertension Onset and Resolution ongoing 12/21/2013 None hypertension Blood Pressure Values not checking blood pressure at home 12/21/2013 None hypertension Pertinent Findings Denies dizziness 12/21/2013 None hypertension Pertinent Findings Denies dyspnea 12/21/2013 None cough Quality dry 12/21/2013 None cough Quality intermitte nt 12/21/2013 None cough Onset of Symptom _ weeks ago 12/21/2013 since they switched air c onditioner to heater cough Pertinent Findings Denies dyspnea 12/21/2013 None cough Pertinent Findings Denies fever 12/21/2013 None cough Pertinent Findings post nasal drip 12/21/2013 None hypertension Alleviating Factors medication 12/21/2013 None hypertension Exacerbating Factors change in dietary habits 12/21/2013 None hypertension Exacerbating Factors stress 12/21/2013 None hypertension Severity mi ld 12/21/2013 None hypertension Onset and Resolution ongoing 10/18/2013 None hypertension Blood Pressure Values not checking blood pressure at home 10/18/2013 None hypertension Pertinent Findings Denies dizziness 10/18/2013 None hypertension Pertinent Findings Denies dyspnea 10/18/2013 None headache Quality intermi ttent 10/18/2013 None headache Pertinent Findings Denies dizziness 10/18/2013 None headache Pertinent Findings Denies lightheadedness 10/18/2013 None Hospital Follow Up _ Oth er: left knee infection 07/13/2013 - post repair of patella - partial staple removal by Dr. Rivera's PA - Romeo Arzola - will remove rest of the kj in 10-14 days - Hospital Follow Up Location left knee 07/13/2013 None Hospital Follow Up Severity moderate 07/13/2013 - improving - Hospital Follow Up Pertinent Findings other arthralgias 07/13/2013 None Hospital Follow Up Pertinent Findings Denies pain 07/13/2013 None knee pain Location on th e left 06/23/2013 None knee pain Quality sharp pain 06/23/2013 None knee pain Pertinent Findings swelling 06/23/2013 None cellulitis Quality acute 06/09/2013 None cellulitis Onset and Resolution ongoing 06/09/2013 None cellulitis Onset of Symptom _ days ago 06/09/2013 None cellulitis Limitation on Activities does not limit activities 06/09/2013 None cellulitis Frequency of Episodes increasing 06/09/2013 None cellulitis Triggers no k nown associated factors 06/09/2013 left knee incision from previous surgery with open wound-PTcalled and concerned with opening and serous drainage cellulitis Significant Medical Conditions trauma 06/09/2013 had patella fracture with surgery in March cellulitis Significant Medical Conditions previous cellulitis 06/09/2013 had staph infection in finger previously with multiple complications cellulitis Associated Injuries unknown 06/09/2013 None cellulitis Pertinent Findings Denies bleeding 06/09/2013 None cellulitis Pertinent Findings drainage 06/09/2013 None cellulitis Pertinent Findings Denies fever 06/09/2013 None cellulitis Pertinent Findings limited eye motion 06/09/2013 None cellulitis Pertinent Findings Denies tenderness 06/09/2013 None cellulitis Pertinent Findings Denies warmth 06/09/2013 None hypertension Quality chr onic 04/11/2013 None hypertension Onset and Resolution ongoing 04/11/2013 None hypertension Blood Pressure Values not checking blood pressure at home 04/11/2013 None hypertension Onset of Symptom during adulthood 04/11/2013 None hypertension Pertinent Findings Denies anxiety 04/11/2013 None hypertension Pertinent Findings Denies decreased energy 04/11/2013 None hypertension Exacerbating Factors stress 04/11/2013 None hypertension Alleviating Factors medication 04/11/2013 None hypertension Quality chr onic 02/16/2013 None hypertension Onset and Resolution ongoing 02/16/2013 None hypertension Blood Pressure Values not checking blood pressure at home 02/16/2013 None hypertension Severity mi ld 02/16/[address] ress 02/16/2013 None hypertension Alleviating Factors medication 02/16/2013 None hyperlipidemia Onset and Resolution ongoing 02/16/2013 None hypertension Quality chr onic 08/18/2012 None hypertension Onset and Resolution ongoing 08/18/2012 None hypertension Blood Pressure Values not checking blood pressure at home 08/18/2012 None hyperlipidemia Onset and Resolution ongoing 08/18/2012 None hypertension Severity mi ld 08/18/[address] ress 08/18/2012 None hypertension Alleviating Factors medication 08/18/2012 None hypertension Quality chr onic 02/19/2012 None hypertension Onset and Resolution ongoing 02/19/2012 None hypertension Onset of Symptom during adulthood 02/19/2012 None hypertension Blood Pressure Values not checking blood pressure at home 02/19/[address] ress 02/19/2012 None hypertension Alleviating Factors medication 02/19/2012 None hypertension Pertinent Findings Denies anxiety 02/19/2012 None hypertension Pertinent Findings Denies decreased energy 02/19/2012 None hypertension Pertinent Findings Denies dizziness 02/19/2012 None hypertension Pertinent Findings Denies edema 02/19/2012 None hyperlipidemia Onset and Resolution ongoing 02/19/2012 None hyperlipidemia Onset of Symptom during adulthood 02/19/2012 None hyperlipidemia Severity moderate 02/19/2012 None hyperlipidemia Alleviating Factors medication 02/19/2012 None hyperlipidemia Quality c hronic 02/19/2012 None hypertension Quality chr onic 10/16/2011 None hypertension Onset and Resolution ongoing 10/16/2011 None hypertension Onset of Symptom during adulthood 10/16/2011 None hypertension Blood Pressure Values not checking blood pressure at home 10/16/[address] ress 10/16/2011 None hypertension Alleviating Factors medication 10/16/2011 None hyperlipidemia Quality c hronic 10/16/2011 None hyperlipidemia Onset of Symptom during adulthood 10/16/2011 None hyperlipidemia Severity moderate 10/16/2011 None hyperlipidemia Alleviating Factors medication 10/16/2011 None hypertension Pertinent Findings Denies anxiety 10/16/2011 None hypertension Pertinent Findings Denies dizziness 10/16/2011 None hypertension Pertinent Findings Denies decreased energy 10/16/2011 None hypertension Pertinent Findings Denies edema 10/16/2011 None hyperlipidemia Onset and Resolution ongoing 10/16/2011 None blood pressure followup Blood Pressu re Values not checking blood pressure at home 04/10/2011 None blood pressure followup Severity mild 04/10/2011 None blood pressure followup Frequency of Episodes daily 04/10/2011 None blood pressure followup Quality chronic 04/10/2011 None blood pressure followup Onset of Symptom during adulthood 04/10/2011 None blood pressure followup Pertinent Findings Denies anxiety 04/10/2011 None blood pressure followup Pertinent Findings Denies cold intolerance 04/10/2011 None blood pressure followup Pertinent Findings Denies confusion 04/10/2011 None blood pressure followup Pertinent Findings Denies decreased energy 04/10/2011 None blood pressure followup Pertinent Findings Denies dizziness 04/10/2011 None blood pressure followup Pertinent Findings Denies edema 04/10/2011 None blood pressure followup Pertinent Findings Denies heat intolerance 04/10/2011 None blood pressure followup Pertinent Findings Denies lethargy 04/10/2011 None blood pressure followup Pertinent Findings Denies nausea 04/10/2011 None blood pressure followup Pertinent Findings Denies muscle weakness 04/10/2011 None blood pressure followup Exacerbating Factors stress 04/10/2011 None blood pressure followup Alleviating Factor s medication 04/10/2011 None blood pressure followup Significant Medical Conditions cerebrovascular accident 04/10/2011 None blood pressure followup Significant Medical Conditions cardiac disease 04/10/2011 None blood pressure followup Significant Medical Conditions hypothyroidism 04/10/2011 None blood pressure followup Triggers stress 04/10/2011 None hypertension Quality chr onic 12/05/2010 None hypertension Onset and Resolution ongoing 12/05/2010 None hyperlipidemia Quality c hronic 12/05/2010 None hyperlipidemia Onset and Resolution ongoing 12/05/2010 states got something gm per than lipitor but stopped it when ran out of refills.(lovastatin 10mg) has not been on any chol med for 1 week hypertension Onset of Symptom during adulthood 12/05/2010 None hypertension Blood Pressure Values not checking blood pressure at home 12/05/[address] ress 12/05/2010 None hypertension Alleviating Factors medication 12/05/2010 None hyperlipidemia Onset of Symptom during adulthood 12/05/2010 None hyperlipidemia Severity moderate 12/05/2010 None hyperlipidemia Alleviating Factors medication 12/05/2010 None Advance Directives No Advance Directive data Encounters Encounter Performer Loca tion Codes Date ([id number]) [id number] EST. P ATIENT, LEVEL III Diagnosis: Essential (primary) hypertension[ICD10: I10] Diagnosis: Mixed hyperlipidemia[ICD10: E78.2] Diagnosis: Allergic rhinitis due to pollen[ICD10: J30.1] Carri Joseph MD, LL C CPT-4: [id number] 09/22/2018 ([id number]) [id number] EST. P ATIENT, LEVEL IV Diagnosis: Essential (primary) hypertension[ICD10: I10] Diagnosis: Mixed hyperlipidemia[ICD10: E78.2] Diagnosis: Other seborrheic keratosis[ICD10: L82.1] Carri Joseph MD, LL C CPT-4: [id number] 06/03/2018 ([id number]) [id number] EST. P ATIENT, LEVEL IV Diagnosis: Essential (primary) hypertension[ICD10: I10] Diagnosis: Mixed hyperlipidemia[ICD10: E78.2] Carri Joseph MD [facility] CPT- 4: [id number] 02/04/2018 ([id number]) [id number] EST. P ATIENT, LEVEL IV Diagnosis: Essential (primary) hypertension[ICD10: I10] Diagnosis: Mixed hyperlipidemia[ICD10: E78.2] Carri Joseph MD [facility] CPT- 4: 30849 10/07/2017 ([id number]) 01730 EST. P ATIENT, LEVEL IV Diagnosis: Essential (primary) hypertension[ICD10: I10] Diagnosis: Mixed hyperlipidemia[ICD10: E78.2] Diagnosis: Ventricular tachycardia[ICD10: I47.2] Diagnosis: Unsteadiness on feet[ICD10: R26.81] Carri Joseph MD [facility] CPT- 4: 49397 06/02/2017 ([id number]) 12314 EST. P ATIENT, LEVEL III Diagnosis: Essential (primary) hypertension[ICD10: I10] Carri Joseph MD, C CPT-4: 31333 01/28/2017 ([id number]) 74773 EST. P ATIENT, LEVEL III Diagnosis: Essential (primary) hypertension[ICD10: I10] Diagnosis: Unsteadiness on feet[ICD10: R26.81] Carri Joseph MD [facility] CPT- 4: 95213 12/29/2016 ([id number]) 84103 EST. P ATIENT, LEVEL IV Diagnosis: Essential (primary) hypertension[ICD10: I10] Diagnosis: Mixed hyperlipidemia[ICD10: E78.2] Carri Joseph MD, [facility] CPT- 4: 62262 12/01/2016 44921 EST. PATIENT, LEVEL IV Diagnosis: Essential (primary) hypertension[ICD10: I10] Diagnosis: Chronic atrial fibrillation[ICD10: I48.2] Diagnosis: Mixed hyperlipidemia[ICD10: E78.2] Diagnosis: Encounter for therapeutic drug level monitoring[ICD10: Z51.81] Carri Joseph MD, [facility] CPT-4: 46945 05/27/2016 ([id number]) 55103 EST. P ATIENT, LEVEL III Diagnosis: Essential (primary) hypertension[ICD10: I10] Diagnosis: Cough[ICD10: R05] Carri Joseph MD, [facility] CPT-4: 95292 01/09/2016 ([id number]) 63518 EST. P ATIENT, LEVEL IV Diagnosis: Essential (primary) hypertension[ICD10: I10] Diagnosis: Chronic atrial fibrillation[ICD10: I48.2] Diagnosis: Mixed hyperlipidemia[ICD10: E78.2] Carri Joseph MD, [facility] CPT- 4: 91149 11/27/2015 ([id number]) 12079 EST. P ATIENT, LEVEL IV Diagnosis: Essential (primary) hypertension[ICD10: I10] Diagnosis: Chronic atrial fibrillation[ICD10: I48.2] Diagnosis: Mixed hyperlipidemia[ICD10: E78.2] Carri Joseph MD, [facility] CPT- 4: 52918 05/29/2015 ([id number]) 03557 EST. P ATIENT, LEVEL III Diagnosis: Essential (primary) hypertension[ICD10: I10] Diagnosis: Encounter for immunization[ICD10: Z23] Carri Joseph MD, [facility] CPT-4: 70285 11/23/2014 ([id number]) 39444 EST. P ATIENT, LEVEL III Diagnosis: ESSENTIAL HYPERTENSION[ICD9: 401.9] Carri Joseph MD, [facility] CPT- 4: 28466 07/20/2014 ([id number]) 88388 EST. P ATIENT, LEVEL IV Diagnosis: ESSENTIAL HYPERTENSION[ICD9: 401.9] Diagnosis: Renal insufficiency[ICD9: 593.9] Diagnosis: Atrial fibrillation[ICD9: 427.31] Diagnosis: HYPOTHYROIDISM[ICD9: 244.9] Carri Joseph MD, [facility] CPT-4: 25405 04/19/2014 ([id number]) 04862 EST. P ATIENT, LEVEL IV Diagnosis: ESSENTIAL HYPERTENSION[ICD9: 401.9] Diagnosis: HYPOTHYROIDISM[ICD9: 244.9] Diagnosis: COUGH[ICD9: 786.2] Diagnosis: Atrial fibrillation[ICD9: 427.31] Carri Joseph MD, [facility] CPT-4: 30230 12/21/2013 ([id number]) 35828 EST. P ATIENT, LEVEL IV Diagnosis: VACCIN FOR INFLUENZA[ICD10: Z23] Diagnosis: ESSENTIAL HYPERTENSION[ICD9: 401.9] Diagnosis: HYPERLIPIDEMIA[ICD9: 272.4] Diagnosis: Gait instability[ICD9: 781.2] Carri Joseph MD, [facility] CPT-4: 06908 10/18/2013 ([id number]) 97162 EST. P ATIENT, LEVEL III Diagnosis: ESSENTIAL HYPERTENSION[SNOMED: 52867133] Diagnosis: Arthralgia of knee[ICD9: 719.46] Carri Joseph MD, [facility] CPT-4: 84360 07/13/2013 ([id number]) Patient adm itted to the hospital from clinic (NO CHARGE) Diagnosis: JOINT PAIN-L/LEG[ICD9: 719.46] Diagnosis: CELLULITIS OF LEG[ICD9: 682.6] Carri Joseph MD, [facility] CPT-4: 80104E 06/23/2013 ([id number]) 77393 EST. P ATIENT, LEVEL III Diagnosis: Cellulitis of left knee[ICD9: 682.6] Carri Joseph MD, [facility] CPT-4: 57804 06/09/2013 ([id number]) 99443 EST. P ATIENT, LEVEL III Diagnosis: ESSENTIAL HYPERTENSION[SNOMED: 99965703] Diagnosis: Knee pain[ICD9: 719.46] Carri Joseph MD, [facility] CPT-4: 51849 04/11/2013 ([id number]) 42450 EST. P ATIENT, LEVEL IV Diagnosis: ESSENTIAL HYPERTENSION[SNOMED: 04214139] Diagnosis: HYPERLIPIDEMIA[ICD9: 272.4] Carri Joseph MD, [facility] CPT-4: 77347 02/16/2013 ([id number]) 32728 EST. P ATIENT, LEVEL IV Diagnosis: HYPERLIPIDEMIA[ICD9: 272.4] Diagnosis: ESSENTIAL HYPERTENSION[SNOMED: 81614079] Diagnosis: ENCNTR LONG-RX USE NEC[ICD9: V58.69] Carri Joseph MD, [facility] CPT-4: 62130 08/18/2012 ([id number]) 38150 EST. P ATIENT, LEVEL IV Diagnosis: ESSENTIAL HYPERTENSION[SNOMED: 59130423] Diagnosis: Renal insufficiency[ICD9: 593.9] Carri Joseph MD, [facility] CPT-4: 26109 02/19/2012 Miscellaneous no lisset rge Diagnosis: ESSENTIAL HYPERTENSION[SNOMED: 38114098] Carri Joseph MD, C CPT-4: 16559 12/23/2011 ([id number]) 30085 EST. P ATIENT, LEVEL IV Diagnosis: ESSENTIAL HYPERTENSION[SNOMED: 27028948] Diagnosis: HYPERLIPIDEMIA[ICD9: 272.4] Diagnosis: Osteoarthritis of left knee[ICD9: 715.96] Carri Joseph MD, [facility] CPT-4: 83339 10/16/2011 ([id number]) 14326 EST. P ATIENT, LEVEL IV Diagnosis: ESSENTIAL HYPERTENSION[SNOMED: 82279833] Diagnosis: HYPERLIPIDEMIA[ICD9: 272.4] Diagnosis: HYPOTHYROIDISM[ICD9: 244.9] Carri Joseph MD, [facility] CPT-4: 98853 04/10/2011 81781 EST. PATIENT, LEVEL IV Diagnosis: ESSENTIAL HYPERTENSION[SNOMED: 38558468] Diagnosis: HYPERLIPIDEMIA[ICD9: 272.4] Diagnosis: OBESITY[ICD9: 278.00] Diagnosis: VACCIN FOR INFLUENZA[ICD9: V04.81] Carri Joseph MD, [facility] CPT- 4: 42044 12/05/2010 Plan of Care Planned Activity Notes C odes Status Date Visit Plan: Hypertension - too well controlled - continue with current medications - except changes as follows: due to low blood pressure readings - change the lisinopril back to 1/2 pill twice daily instead of a full pill in the morning. Pt is to otherwise continue with no added salt diet. Pt has been encouraged to exercise daily. The pt has been advised to call the office if there are any acute concerns about change in blood pressure readings at home. Hyperlipidemia - pt has been counseled about appropriate diet, exercise, and need for low fat food choices. I have discussed the need for the patient to take medications as prescribed. If the patient has negative side effects from the medication, they are to CALL the office and not abruptly discontinue the medication without discussion with a practitioner in the office. We will check labs in 3-6 months for follow up on the patient's chronic medical problem and to assure normal liver response to medications. Allergies - chronic - recommended pt to use allergy medication as prescribed. Pt has been counseled as to the appropriate use of the medication. Pt to call if allergy symptoms are not controlled with the medication. Pt and instructed as follows: it is okay for Andrade to take an over the counter allergy pill like citlaly or claritin or zyrtec - as long as the medication does not have a decongestant - like being named Citlaly-D. He can take CORCIDIN HBP - this is safe to take for people who need cough and cold medication but have heart conditions. 09/22/2018 Patient Education: Patient Medication Summary Completed 09/22/2018 Patient Education: Cholesterol Management Completed 09/22/2018 Visit Plan: Hypertension - terry dalton - continue with current medications, continue with no added salt diet. Pt has been encouraged to exercise daily. The pt has been advised to call the office if there are any acute concerns about change in blood pressure readings at home. Hyperlipidemia - pt has been counseled about appropriate diet, exercise, and need for low fat food choices. I have discussed the need for the patient to take medications as prescribed. If the patient has negative side effects from the medication, they are to CALL the office and not abruptly discontinue the medication without discussion with a practitioner in the office. We will check labs in 3-6 months for follow up on the patient's chronic medical problem and to assure normal liver response to medications. Blair Garcia - discussed with pt - no treatment needed at this time. 06/03/2018 Appointment: Carri Jospeh WPtel: [facility] (15 min) Moderate 06/03/2018 Patient Education: Patient Medication Summary Completed 06/03/2018 Patient Education: Cholesterol Management Completed 06/03/2018 Appointment: Carri Joseph [facility]Ptel[facility] [phone] [facility] (15 min) Moderate 05/27/2018 Patient Education: Patient Medication Summary Completed 02/08/2018 Care Plan: Comp Metabolic Pending 02/08/2018 Care Plan: Cbc With Differential Pending 02/08/2018 Care Plan: Lipid Pending 02/08/2018 Visit Plan: Hypertension - well con trolled - continue with current medications, continue with no added salt diet. Pt has been encouraged to exercise daily. The pt has been advised to call the office if there are any acute concerns about change in blood pressure readings at home. Hyperlipidemia - pt has been counseled about appropriate diet, exercise, and need for low fat food choices. I have discussed the need for the patient to take medications as prescribed. If the patient has negative side effects from the medication, they are to CALL the office and not abruptly discontinue the medication without discussion with a practitioner in the office. We will check labs in 3-6 months for follow up on the patient's chronic medical problem and to assure normal liver response to medications. 02/04/2018 Appointment: Carri Joseph [facility]el[facility] [phone] [facility] (15 min) Moderate 02/04/2018 Patient Education: Patient Medication Summary Completed 02/04/2018 Patient Education: Cholesterol Management Completed 02/04/2018 Appointment: Injection 12/24/2017 Patient Education: Patient Medication Summary Completed 12/24/2017 Visit Plan: Hypertension - well con trolled - continue with current medications, continue with no added salt diet. Pt has been encouraged to exercise daily. The pt has been advised to call the office if there are any acute concerns about change in blood pressure readings at home. Hyperlipidemia - pt has been counseled about appropriate diet, exercise, and need for low fat food choices. I have discussed the need for the patient to take medications as prescribed. If the patient has negative side effects from the medication, they are to CALL the office and not abruptly discontinue the medication without discussion with a practitioner in the office. We will check labs in 3-6 months for follow up on the patient's chronic medical problem and to assure normal liver response to medications. 10/07/2017 Appointment: Carri Joseph [facility]el[facility] [phone] [facility] (15 min) Moderate 10/07/2017 Patient Education: Patient Medication Summary Completed 10/07/2017 Visit Plan: Medicare Exam - today telma e discussed the patients past history, immunizations, preventative exams/evaluations - colonoscopy, fecal occult blood testing, routine labs for renal function, glucose, cholesterol, osteoporosis evaluations, cardiovascular testing and cancer screenings. We have also discussed mental health and the signs/symptoms of depression. The patient was advised of home safety evaluations and the need to make sure that as the aging process continues, we need to be aware of different ways to make the home a safer place to reside. The patient has also been counseled that exercise is necessary - and of utmost importance as we age to help decrease fall risk and to maintain independece in the home. Today we discussed the need for the patient to create paperwork for Advanced directives as well as for the patient to provide this office with a copy of her DOPA paperwork for health care surrogate. 06/04/2017 Appointment: Samira Rojas [facility]Ptel[facility] [phone] [id number] [facility] - Annual Wellness Visit 06/04/2017 Patient Education: Patient Medication Summary Completed 06/04/2017 Visit Plan: Hypertension - well lizbeth angelaed - continue with current medications, continue with no added salt diet. Pt has been encouraged to exercise daily. The pt has been advised to call the office if there are any acute concerns about change in blood pressure readings at home. Nonsustained Ventricular Tachycardia - agree with the plan for increased sotalol, monitor symptoms. Hyperlipidemia - pt has been counseled about appropriate diet, exercise, and need for low fat food choices. I have discussed the need for the patient to take medications as prescribed. If the patient has negative side effects from the medication, they are to CALL the office and not abruptly discontinue the medication without discussion with a practitioner in the office. We will check labs in 3-6 months for follow up on the patient's chronic medical problem and to assure normal liver response to medications. Gait instability - continue with exercise - pt goes to outpatient wellness two days a week - I have encouraged pt to continue with activity and increase activity as tolerated. Continue with use of cane for stability with ambulation. 06/02/2017 Appointment: Carri [facility]el[facility] [phone] [facility] (15 min) Moderate 06/02/2017 Patient Education: Patient Medication Summary Completed 06/02/2017 Appointment: Carri Joseph WPtel: [facility] (15 min) Moderate 05/26/2017 Visit Plan: Hypertension - well con trolled - continue with current medications, continue with no added salt diet. Pt has been encouraged to exercise daily. The pt has been advised to call the office if there are any acute concerns about change in blood pressure readings at home. Unsteadiness on feet - stable - with use of cane and current exercise regimen. Occasional falling episodes. 01/28/2017 Appointment: Carri Joseph WPtel: [address] [place], [place] [id number] (15 min) Moderate 01/28/2017 Patient Education: Patient Medication Summary Completed 01/28/2017 Patient Education: Obesity Completed 01/28/2017 Visit Plan: Hypertension - well con trolled - continue with current medications, continue with no added salt diet. Pt has been encouraged to exercise daily. The pt has been advised to call the office if there are any acute concerns about change in blood pressure readings at home. Gait instability - continue with therapy twice a week. Recommended pt does not need to go to a jail. 12/29/2016 Appointment: Carri Joseph WPtel: [facility]5 [facility] (15 min) Moderate 12/29/2016 Patient Education: Patient Medication Summary Completed 12/29/2016 Patient Education: Obesity Completed 12/29/2016 Patient Education: Hypertension Completed 12/29/2016 Visit Plan: Hypertension - well con trolled - continue with current medications, continue with no added salt diet. Pt has been encouraged to exercise daily. The pt has been advised to call the office if there are any acute concerns about change in blood pressure readings at home. Hyperlipidemia - pt has been counseled about appropriate diet, exercise, and need for low fat food choices. I have discussed the need for the patient to take medications as prescribed. If the patient has negative side effects from the medication, they are to CALL the office and not abruptly discontinue the medication without discussion with a practitioner in the office. We will check labs in 3-6 months for follow up on the patient's chronic medical problem and to assure normal liver response to medications. Hx of renal disease - no change in current management. 12/01/2016 Appointment: Carri Joseph WPtel: [phone] [facility] (15 min) Moderate 12/01/2016 Patient Education: Patient Medication Summary Completed 12/01/2016 Patient Education: Obesity Completed 12/01/2016 Patient Education: Patient Medication Summary Completed 11/27/2016 Visit Plan: Medicare Exam - today w e discussed the patients past history, immunizations, preventative exams/evaluations - colonoscopy, fecal occult blood testing, routine labs for renal function, glucose, cholesterol, osteoporosis evaluations, cardiovascular testing and cancer screenings. We have also discussed mental health and the signs/symptoms of depression. The patient was advised of home safety evaluations and the need to make sure that as the aging process continues, we need to be aware of different ways to make the home a safer place to reside. The patient has also been counseled that exercise is necessary - and of utmost importance as we age to help decrease fall risk and to maintain independence in the home. Today we discussed the need for the patient to create paperwork for Advanced directives as well as for the patient to provide this office with a copy of her DOPA paperwork for health care surrogate. 05/28/2016 Appointment: Samira Rojas WPtel: [phone] [facility] [facility] - Annual Wellness Visit 05/28/2016 Patient Education: Patient Medication Summary Completed 05/28/2016 Patient Education: Obesity Completed 05/28/2016 Visit Plan: Hypertension - well con trolled - continue with current medications, continue with no added salt diet. Pt has been encouraged to exercise daily. The pt has been advised to call the office if there are any acute concerns about change in blood pressure readings at home. Hyperlipidemia - pt has been counseled about appropriate diet, exercise, and need for low fat food choices. I have discussed the need for the patient to take medications as prescribed. If the patient has negative side effects from the medication, they are to CALL the office and not abruptly discontinue the medication without discussion with a practitioner in the office. We will check labs in 3-6 months for follow up on the patient's chronic medical problem and to assure normal liver response to medications. Atrial Fibrillation - pt on chronic anticoagulation and is currently rate controlled. The pt is to have labs done as appropriate to monitor medication levels and is to report if they start to feel as if their heart rate is becoming uncontrolled. 05/27/2016 Appointment: Carri Joseph [facility]Ptel[phone] [facility] (15 min) Moderate 05/27/2016 Patient Education: Patient Medication Summary Completed 05/27/2016 Patient Education: Obesity Completed 05/27/2016 Patient Education: Hypertension Completed 05/27/2016 Visit Plan: Hypertension - well con trolled - continue with current medications, continue with no added salt diet. Pt has been encouraged to exercise daily. The pt has been advised to call the office if there are any acute concerns about change in blood pressure readings at home. URI - corcidin hbp - get this medication - over the counter - take as directed on the box can also use benadryl at bedtime to help decrease congestion before bed mucinex 1200mg twice daily x 5 days 01/09/2016 Appointment: Carri Joseph WPtel: [phone] [facility] (15 min) Moderate 01/09/2016 Patient Education: Patient Medication Summary Completed 01/09/2016 Visit Plan: Hypertension - well con trolled - continue with current medications, continue with no added salt diet. Pt has been encouraged to exercise daily. The pt has been advised to call the office if there are any acute concerns about change in blood pressure readings at home. Hyperlipidemia - pt has been counseled about appropriate diet, exercise, and need for low fat food choices. I have discussed the need for the patient to take medications as prescribed. If the patient has negative side effects from the medication, they are to CALL the office and not abruptly discontinue the medication without discussion with a practitioner in the office. We will check labs in 3-6 months for follow up on the patient's chronic medical problem and to assure normal liver response to medications. Atrial Fibrillation - pt is currently rate controlled. The pt is to have labs done as appropriate to monitor medication levels and is to report if they start to feel as if their heart rate is becoming uncontrolled. 11/27/2015 Appointment: Carri Joseph [facility]Ptel: [phone] [facility] (15 min) Moderate 11/27/2015 Patient Education: Patient Medication Summary Completed 11/27/2015 Patient Education: Obesity Completed 11/27/2015 Visit Plan: Hypertension - well con trolled - continue with current medications, continue with no added salt diet. Pt has been encouraged to exercise daily. The pt has been advised to call the office if there are any acute concerns about change in blood pressure readings at home. Hyperlipidemia - pt has been counseled about appropriate diet, exercise, and need for low fat food choices. I have discussed the need for the patient to take medications as prescribed. If the patient has negative side effects from the medication, they are to CALL the office and not abruptly discontinue the medication without discussion with a practitioner in the office. We will check labs in 3-6 months for follow up on the patient's chronic medical problem and to assure normal liver response to medications. Atrial Fibrillation - pt currently rate controlled. The pt is to have labs done as appropriate to monitor medication levels and is to report if they start to feel as if their heart rate is becoming uncontrolled. 05/29/2015 Patient Education: Patient Medication Summary Completed 05/29/2015 Patient Education: Obesity Completed 05/29/2015 Appointment: Carri Joseph [facility]Ptel: [phone] [facility] (15 min) Moderate 05/24/2015 Appointment: Injection 12/20/2014 Visit Plan: Hypertension - well con trolled - continue with current medications, continue with no added salt diet. Pt has been encouraged to exercise daily. The pt has been advised to call the office if there are any acute concerns about change in blood pressure readings at home. 11/23/2014 Appointment: Carri Joseph WPtel: [phone] [facility] (15 min) Moderate 11/23/2014 Patient Education: Patient Medication Summary Completed 11/23/2014 Patient Education: Hypertension Completed 11/23/2014 Visit Plan: Hypertension - well con trolled - continue with current medications, continue with no added salt diet. Pt has been encouraged to exercise daily. The pt has been advised to call the office if there are any acute concerns about change in blood pressure readings at home. 07/20/2014 Appointment: Carri Joseph [facility]Ptel[facility] [phone] [facility] Follow up 07/20/2014 Patient Education: Patient Medication Summary Completed 07/20/2014 Visit Plan: Hypertension - well con trolled - continue with current medications, continue with no added salt diet. Pt has been encouraged to exercise daily. The pt has been advised to call the office if there are any acute concerns about change in blood pressure readings at home. Hypothyroidism - pt with chronic hypothyroidism, continue with current medication, will monitor pt to signs or symptoms of lack of adequate supplementation. Pt is to continue with current dose of medication unless directed otherwise. Check labs at regular intervals wither q 3 months or q 6 months based on previous levels of control. A trial Fibrillation - pt on chronic anticoagulation and is currently rate controlled. The pt is to have labs done as appropriate to monitor medication levels and is to report if they start to feel as if their heart rate is becoming uncontrolled. Renal insufficiency - recommended pt to increase fluid intake. Pt needs to start increasing activity - regular treatments with outpatient wellness therapy. 04/19/2014 Appointment: Carri Joseph WPtel: [phone] [facility] Follow up 04/19/2014 Patient Education: Patient Medication Summary Completed 04/19/2014 Patient Education: Hypertension Completed 04/19/2014 Visit Plan: Hypertension - well con trolled - continue with current medications, continue with no added salt diet. Pt has been encouraged to exercise daily. The pt has been advised to call the office if there are any acute concerns about change in blood pressure readings at home. Hypothyroidism - pt with chronic hypothyroidism, continue with current medication, will monitor pt to signs or symptoms of lack of adequate supplementation. Pt is to continue with current dose of medication unless directed otherwise. Check labs at regular intervals wither q 3 months or q 6 months based on previous levels of control. A trial Fibrillation - pt on chronic anticoagulation and is currently rate controlled. The pt is to have labs done as appropriate to monitor medication levels and is to report if they start to feel as if their heart rate is becoming uncontrolled. Cough - advised pt to increase fluids, vitamin C, and call if symptoms worsen. 12/21/2013 Patient Education: Patient Medication Summary Completed 12/21/2013 Patient Education: Hypertension Completed 12/21/2013 Appointment: Carri Joseph WPtel: [address] [place], [place] [id number] Follow up 12/20/2013 Visit Plan: Hypertension - well con trolled - continue with current medications, continue with no added salt diet. Pt has been encouraged to exercise daily. The pt has been advised to call the office if there are any acute concerns about change in blood pressure readings at home. Hyperlipidemia - pt has been counseled about appropriate diet, exercise, and need for low fat food choices. I have discussed the need for the patient to take medications as prescribed. If the patient has negative side effects from the medication, they are to CALL the office and not abruptly discontinue the medication without discussion with a practitioner in the office. We will check labs in 3-6 months for follow up on the patient's chronic medical problem and to assure normal liver response to medications. 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 10/18/2013 Appointment: Carri Joseph WPtel: [facility] Follow up 10/18/2013 Patient Education: Patient Medication Summary Completed 10/18/2013 Patient Education: Hypertension Completed 10/18/2013 Appointment: Carri Joseph WPtel: [address] [place], [place] [id number] Follow up 08/16/2013 Visit Plan: Hypertension - well con trolled - continue with current medications, continue with no added salt diet. Pt has been encouraged to exercise daily. The pt has been advised to call the office if there are any acute concerns about change in blood pressure readings at home. Knee - improving - recommended pt to follow up with Dr. Rivera for removal of the kj and to call if symptoms do not improve. 07/13/2013 Appointment: Carri Joseph WPtel: [facility] [facility] follow up 07/13/2013 Patient Education: Patient Medication Summary Completed 07/13/2013 Patient Education: Hypertension Completed 07/13/2013 Visit Plan: ADMIT FROM CLINIC TO [facility] - PT IS ACUTELY ILL, REQUIRES HOSPITALIZATION. THE PATIENT HAS BEEN EVALUATED IN CLINIC AND THIS STANDS THE HOSPITAL HISTORY AND PHYSICAL EXAMINATION. THE PATIENT HAS BEEN SENT TO THE HOSPITAL WITH WRITTEN ORDERS FOR TREATMENT AND EVALUATION OF THE ACUTE ILLNESS. Dr. Gaurav Rivera to see patient in hospital for evaluation of his knee. 06/23/2013 Patient Education: Patient Medication Summary Completed 06/23/2013 Visit Plan: Cellulitis-left knee-ca lled Dr Rivera's office- patient is to see him today at 12:45. Culture of knee done today in the office. 06/09/2013 Appointment: India Lowe WPtel: [address] [facility] Follow up 06/09/2013 Patient Education: Patient Medication Summary Completed 06/09/2013 Visit Plan: Hypertension - well con trolled - continue with current medications, continue with no added salt diet. Pt has been encouraged to exercise daily. The pt has been advised to call the office if there are any acute concerns about change in blood pressure readings at home. Knee pain - improved - continue with rehab per Dr. Rivera - pt to see Dr. Rivera in a week for re-eval of knee. 04/11/2013 Appointment: Carri Joseph WPtel: [address] [facility] Follow up 04/11/2013 Patient Education: Patient Medication Summary Completed 04/11/2013 Patient Education: Hypertension Completed 04/11/2013 Visit Plan: Hypertension - well con trolled - continue with current medications, continue with no added salt diet. Pt has been encouraged to exercise daily. The pt has been advised to call the office if there are any acute concerns about change in blood pressure readings at home. Hyperlipidemia - pt has been counseled about appropriate diet, exercise, and need for low fat food choices. I have discussed the need for the patient to take medications as prescribed. If the patient has negative side effects from the medication, they are to CALL the office and not abruptly discontinue the medication without discussion with a practicioner in the office. We will check labs in 3-6 months for follow up on the patient's chronic medical problem and to assure normal liver response to medications. 02/16/2013 Appointment: Carri Joseph WPtel: [facility] Follow up 02/16/2013 Patient Education: Patient Medication Summary Completed 02/16/2013 Patient Education: Hypertension Completed 02/16/2013 Visit Plan: Hypertension - well con trolled - continue with current medications, continue with no added salt diet. Pt has been encouraged to exercise daily. The pt has been advised to call the office if there are any acute concerns about change in blood pressure readings at home. Hyperlipidemia - pt has been counseled about appropriate diet, exercise, and need for low fat food choices. I have discussed the need for the patient to take medications as prescribed. If the patient has negative side effects from the medication, they are to CALL the office and not abruptly discontinue the medication without discussion with a practicioner in the office. We will check labs in 3-6 months for follow up on the patient's chronic medical problem and to assure normal liver response to medications. 08/18/2012 Appointment: Carri oJseph WPtel: [facility] Follow up 08/18/2012 Patient Education: Patient Medication Summary Completed 08/18/2012 Patient Education: Hypertension Completed 08/18/2012 Appointment: Carri Joseph WPtel: [facility] Follow up 06/22/2012 Visit Plan: Hypertension - well con trolled - continue with current medications, continue with no added salt diet. Pt has been encouraged to exercise daily. The pt has been advised to call the office if there are any acute concerns about change in blood pressure readings at home. Renal insufficiency - pt to have follow up labs in a month to two months and he has been instructed to increase his fluid intake of water by at least 16 ounces every day. 02/19/2012 Appointment: Carri Joseph WPtel: [facility] Follow up 02/19/2012 Patient Education: Patient Medication Summary Completed 02/19/2012 Patient Education: Hypertension Completed 02/19/2012 Care Plan: CBC Pending 02/19/2012 Visit Plan: no charge for viist - p t with skin mole, no need for removal, no treatment rendered. 12/23/2011 App[facility]ment: [phone] [facility] 12/23/2011 Patient Education: Patient Medication Summary Completed 12/23/2011 Patient Education: Hypertension Completed 12/23/2011 Visit Plan: Hypertension - well con trolled - continue with current medications, continue with no added salt diet. Pt has been encouraged to exercise daily. The pt has been advised to call the office if there are any acute concerns about change in blood pressure readings at home. Cardiologost is increasing coreg to 12.5 mg twice daily. Hyperlipidemia - pt has been counseled about appropriate diet, exercise, and need for low fat food choices. I have discussed the need for the patient to take medications as prescribed. If the patient has negative side effects from the medication, they are to CALL the office and not abruptly discontinue the medication without discussion with a practicioner in the office. We will check labs in 3-6 months for follow up on the patient's chronic medical problem and to assure normal liver response to medications. Arthritis- occasionally uncontrolled symptoms- recommend pt to take antiinflammatory as directed for pain control. Use tylenol for break through pain symptoms. PT HAS BEEN ADVISED TO STATT ON GLUCOSAMIN AND CHONDROITON. 10/16/2011 Appointment: [phone] Follow up 10/16/2011 Patient Education: Patient Medication Summary Completed 10/16/2011 Patient Education: High Blood Pressure: Essential Hypertension Completed 10/16/2011 Visit Plan: Hypertension - well con trolled - continue with current medications, continue with no added salt diet. Pt has been encouraged to exercise daily. The pt has been advised to call the office if there are any acute concerns about change in blood pressure readings at home. Hyperlipidemia - pt has been counseled about appropriate diet, exercise, and need for low fat food choices. I have discussed the need for the patient to take medications as prescribed. If the patient has negative side effects from the medication, they are to CALL the office and not abruptly discontinue the medication without discussion with a practicioner in the office. We will check labs in 3-6 months for follow up on the patient's chronic medical problem and to assure normal liver response to medications. Hypothyroidism - pt with chronic hypothyroidism, continue with current medication, will monitor pt to signs or symptoms of lack of adequate supplementation. Pt is to continue with current dose of medication unless directed otherwise. Check labs at regular intervals wither q 3 months or q 6 months based on previous levels of control. CHECK LABS TODAY 04/10/2011 Appointment: Carri Joseph WPtel[facility] Other 04/10/2011 Patient Education: Patient Medication Summary Completed 04/10/2011 Patient Education: High Blood Pressure: Essential Hypertension Completed 04/10/2011 Visit Plan: Hypertension - well con troayshaed - continue with current medications, continue with no added salt diet. Pt has been encouraged to exercise daily. The pt has been advised to call the office if there are any acute concerns about change in blood pressure readings at home. Hyperlipidemia - pt has been counseled about appropriate diet, exercise, and need for low fat food choices. I have discussed the need for the patient to take medications as prescribed. If the patient has negative side effects from the medication, they are to CALL the office and not abruptly discontinue the medication without discussion with a practicioner in the office. We will check labs in 3-6 months for follow up on the patient's chronic medical problem and to assure normal liver response to medications. Increase lovastatin to 20mg daily. Obesity - chronic issue with this patient. The pt has been counseled about diet changes, calorie restriction, and need to exercise. Pt will RTC in one month for weight check. flu shot today 12/05/2010 Appointment: Carri Joseph WPtel[facility] Other 12/05/2010 Patient Education: Patient Medication Summary Completed 12/05/2010 Patient Education: High Blood Pressure: Essential Hypertension Completed 12/05/2010 Appointment: Carri Joseph WPtel: [facility] Lab Draw 11/28/2010 Patient Education: Patient Medication Summary Completed 11/28/2010 Patient Education: High Blood Pressure: Essential Hypertension Completed 11/28/2010 Appointment: Carri Joseph [facility]Ptel[phone] [facility] [place] Lab Draw 10/17/2010 Patient Education: Patient Medication Summary Completed 10/17/2010 Instructions Comment . ADMIT FROM CLINIC TO HOSPITAL - PT IS ACUTELY ILL, REQUIRES HOSPITALIZATION. THE PATIENT HAS BEEN EVALUATED IN CLINIC AND THIS STANDS THE HOSPITAL HISTORY AND PHYSICAL EXAMINATION. THE PATIENT HAS BEEN SENT TO THE HOSPITAL WITH WRITTEN ORDERS FOR TREATMENT AND EVALUATION OF THE ACUTE ILLNESS. Dr. Gaurav Rivera to see patient in hospital for evaluation of his knee. . Hypertension - wel l controlled - continue with current medications, continue with no added salt diet. Pt has been encouraged to exercise daily. The pt has been advised to call the office if there are any acute concerns about change in blood pressure readings at home. Hyperlipidemia - pt has been counseled about appropriate diet, exercise, and need for low fat food choices. I have discussed the need for the patient to take medications as prescribed. If the patient has negative side effects from the medication, they are to CALL the office and not abruptly discontinue the medication without discussion with a practitioner in the office. We will check labs in 3-6 months for follow up on the patient's chronic medical problem and to assure normal liver response to medications. Atrial Fibrillation - pt on chronic anticoagulation and is currently rate controlled. The pt is to have labs done as appropriate to monitor medication levels and is to report if they start to feel as if their heart rate is becoming uncontrolled. . no charge for viis t - pt with skin mole, no need for removal, no treatment rendered. . Hypertension - wel l controlled - continue with current medications, continue with no added salt diet. Pt has been encouraged to exercise daily. The pt has been advised to call the office if there are any acute concerns about change in blood pressure readings at home. Hypothyroidism - pt with chronic hypothyroidism, continue with current medication, will monitor pt to signs or symptoms of lack of adequate supplementation. Pt is to continue with current dose of medication unless directed otherwise. Check labs at regular intervals wither q 3 months or q 6 months based on previous levels of control. Atrial Fibrillation - pt on chronic anticoagulation and is currently rate controlled. The pt is to have labs done as appropriate to monitor medication levels and is to report if they start to feel as if their heart rate is becoming uncontrolled. Renal insufficiency - recommended pt to increase fluid intake. Pt needs to start increasing activity - regular treatments with outpatient wellness therapy. [facility] HAVE NOT ALREADY HAD [facility] THIS SEASON. For the three days after getting the flu shot take tylenol 500 mg three times a day.. Hypertension - well controlled - continue with current medications, continue with no added salt diet. Pt has been encouraged to exercise daily. The pt has been advised to call the office if there are any acute concerns about change in blood pressure readings at home. Renal insufficiency - pt to have follow up labs in a month to two months and he has been instructed to increase his fluid intake of water by at least 16 ounces every day. . Medicare Exam - to day we discussed the patients past history, immunizations, preventative exams/evaluations - colonoscopy, fecal occult blood testing, routine labs for renal function, glucose, cholesterol, osteoporosis evaluations, cardiovascular testing and cancer screenings. We have also discussed mental health and the signs/symptoms of depression. The patient was advised of home safety evaluations and the need to make sure that as the aging process continues, we need to be aware of different ways to make the home a safer place to reside. The patient has also been counseled that exercise is necessary - and of utmost importance as we age to help decrease fall risk and to maintain independece in the home. Today we discussed the need for the patient to create paperwork for Advanced directives as well as for the patient to provide this office with a copy of her [employer]OP[employer] paperwork for health care surrogate. CULTURE OF WOUND TOD AY IN THE OFFICE APPOINTMENT WITH DR RIVERA AT 12:45 TODAY. Cellulitis-left knee-called Dr Rivera's office-patient is to see him today at 12:45. Culture of knee done today in the office. . Hypertension - wel l controlled - continue with current medications, continue with no added salt diet. Pt has been encouraged to exercise daily. The pt has been advised to call the office if there are any acute concerns about change in blood pressure readings at home. Unsteadiness on feet - stable - with use of cane and current exercise regimen. Occasional falling episodes. . Hypertension - wel l controlled - continue with current medications, continue with no added salt diet. Pt has been encouraged to exercise daily. The pt has been advised to call the office if there are any acute concerns about change in blood pressure readings at home. Gait instability - continue with therapy twice a week. Recommended pt does not need to go to a jail. . Medicare Exam - to day we discussed the patients past history, immunizations, preventative exams/evaluations - colonoscopy, fecal occult blood testing, routine labs for renal function, glucose, cholesterol, osteoporosis evaluations, cardiovascular testing and cancer screenings. We have also discussed mental health and the signs/symptoms of depression. The patient was advised of home safety evaluations and the need to make sure that as the aging process continues, we need to be aware of different ways to make the home a safer place to reside. The patient has also been counseled that exercise is necessary - and of utmost importance as we age to help decrease fall risk and to maintain independence in the home. Today we discussed the need for the patient to create paperwork for Advanced directives as well as for the patient to provide this office with a copy of her [employer]OP[employer] paperwork for health care surrogate. . Hypertension - wel l controlled - continue with current medications, continue with no added salt diet. Pt has been encouraged to exercise daily. The pt has been advised to call the office if there are any acute concerns about change in blood pressure readings at home. Knee - improving - recommended pt to follow up with Dr. Rivera for removal of the kj and to call if symptoms do not improve. lora or tomasa [facility] colon health - take twice daily when having diarrhea . Hypertension - well controlled - meño nue with current medications, continue with no added salt diet. Pt has been encouraged to exercise daily. The pt has been advised to call the office if there are any acute concerns about change in blood pressure readings at home. Hyperlipidemia - pt has been counseled about appropriate diet, exercise, and need for low fat food choices. I have discussed the need for the patient to take medications as prescribed. If the patient has negative side effects from the medication, they are to CALL the office and not abruptly discontinue the medication without discussion with a practitioner in the office. We will check labs in 3-6 months for follow up on the patient's chronic medical problem and to assure normal liver response to medications. Atrial Fibrillation - pt currently rate controlled. The pt is to have labs done as appropriate to monitor medication levels and is to report if they start to feel as if their heart rate is becoming uncontrolled. corcidin hbp - get t his medication - over the counter - take as directed on the box can also use benadryl at bedtime to help decrease congestion before bed mucinex 1200mg twice daily x 5 days . Hypertension - well controlled - meño nue with current medications, continue with no added salt diet. Pt has been encouraged to exercise daily. The pt has been advised to call the office if there are any acute concerns about change in blood pressure readings at home. URI - corcidin hbp - get this medication - over the counter - take as directed on the box can also use benadryl at bedtime to help decrease congestion before bed mucinex 1200mg twice daily x 5 days due to low blood pre ssure readings - change the lisinopril back to 1/2 pill twice daily instead of a full pill in the morning. it is okay for Andrade to take an over the counter allergy pill like citlaly or claritin or zyrtec - as long as the medication does not have a decongestant - like being named Citlaly-D. He can take CORCIDIN HBP - this is safe to take for people who need cough and cold medication but have heart conditions. . Hypertension - too well controlled - c ontinue with current medications - except changes as follows: due to low blood pressure readings - change the lisinopril back to 1/2 pill twice daily instead of a full pill in the morning. Pt is to otherwise continue with no added salt diet. Pt has been encouraged to exercise daily. The pt has been advised to call the office if there are any acute concerns about change in blood pressure readings at home. Hyperlipidemia - pt has been counseled about appropriate diet, exercise, and need for low fat food choices. I have discussed the need for the patient to take medications as prescribed. If the patient has negative side effects from the medication, they are to CALL the office and not abruptly discontinue the medication without discussion with a practitioner in the office. We will check labs in 3-6 months for follow up on the patient's chronic medical problem and to assure normal liver response to medications. Allergies - chronic - recommended pt to use allergy medication as prescribed. Pt has been counseled as to the appropriate use of the medication. Pt to call if allergy symptoms are not controlled with the medication. Pt and instructed as follows: it is okay for Andrade to take an over the counter allergy pill like citlaly or claritin or zyrtec - as long as the medication does not have a decongestant - like being named Citlaly-D. He can take CORCIDIN HBP - this is safe to take for people who need cough and cold medication but have heart conditions. . Hypertension - wel l controlled - continue with current medications, continue with no added salt diet. Pt has been encouraged to exercise daily. The pt has been advised to call the office if there are any acute concerns about change in blood pressure readings at home. Nonsustained Ventricular Tachycardia - agree with the plan for increased sotalol, monitor symptoms. Hyperlipidemia - pt has been counseled about appropriate diet, exercise, and need for low fat food choices. I have discussed the need for the patient to take medications as prescribed. If the patient has negative side effects from the medication, they are to CALL the office and not abruptly discontinue the medication without discussion with a practitioner in the office. We will check labs in 3-6 months for follow up on the patient's chronic medical problem and to assure normal liver response to medications. Gait instability - continue with exercise - pt goes to outpatient wellness two days a week - I have encouraged pt to continue with activity and increase activity as tolerated. Continue with use of cane for stability with ambulation. . Hypertension - wel l controlled - continue with current medications, continue with no added salt diet. Pt has been encouraged to exercise daily. The pt has been advised to call the office if there are any acute concerns about change in blood pressure readings at home. Knee pain - improved - continue with rehab per Dr. Rivera - pt to see Dr. Rivera in a week for re-eval of knee. . Hypertension - wel l controlled - continue with current medications, continue with no added salt diet. Pt has been encouraged to exercise daily. The pt has been advised to call the office if there are any acute concerns about change in blood pressure readings at home. Hyperlipidemia - pt has been counseled about appropriate diet, exercise, and need for low fat food choices. I have discussed the need for the patient to take medications as prescribed. If the patient has negative side effects from the medication, they are to CALL the office and not abruptly discontinue the medication without discussion with a practitioner in the office. We will check labs in 3-6 months for follow up on the patient's chronic medical problem and to assure normal liver response to medications. . Hypertension - wel l controlled - continue with current medications, continue with no added salt diet. Pt has been encouraged to exercise daily. The pt has been advised to call the office if there are any acute concerns about change in blood pressure readings at home. Hyperlipidemia - pt has been counseled about appropriate diet, exercise, and need for low fat food choices. I have discussed the need for the patient to take medications as prescribed. If the patient has negative side effects from the medication, they are to CALL the office and not abruptly discontinue the medication without discussion with a practicioner in the office. We will check labs in 3-6 months for follow up on the patient's chronic medical problem and to assure normal liver response to medications. Increase lovastatin to 20mg daily. Obesity - chronic issue with this patient. The pt has been counseled about diet changes, calorie restriction, and need to exercise. Pt will RTC in one month for weight check. flu shot today Pt should take tylen ol when he has a headache. Ibuprofen should be used rarely due to renal function. . Hypertension - well controlled - meño nue with current medications, continue with no added salt diet. Pt has been encouraged to exercise daily. The pt has been advised to call the office if there are any acute concerns about change in blood pressure readings at home. Hyperlipidemia - pt has been counseled about appropriate diet, exercise, and need for low fat food choices. I have discussed the need for the patient to take medications as prescribed. If the patient has negative side effects from the medication, they are to CALL the office and not abruptly discontinue the medication without discussion with a practitioner in the office. We will check labs in 3-6 months for follow up on the patient's chronic medical problem and to assure normal liver response to medications. 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 . Hypertension - wel l controlled - continue with current medications, continue with no added salt diet. Pt has been encouraged to exercise daily. The pt has been advised to call the office if there are any acute concerns about change in blood pressure readings at home. Hypothyroidism - pt with chronic hypothyroidism, continue with current medication, will monitor pt to signs or symptoms of lack of adequate supplementation. Pt is to continue with current dose of medication unless directed otherwise. Check labs at regular intervals wither q 3 months or q 6 months based on previous levels of control. Atrial Fibrillation - pt on chronic anticoagulation and is currently rate controlled. The pt is to have labs done as appropriate to monitor medication levels and is to report if they start to feel as if their heart rate is becoming uncontrolled. Cough - advised pt to increase fluids, vitamin C, and call if symptoms worsen. . Hypertension - wel l controlled - continue with current medications, continue with no added salt diet. Pt has been encouraged to exercise daily. The pt has been advised to call the office if there are any acute concerns about change in blood pressure readings at home. . Hypertension - wel l controlled - continue with current medications, continue with no added salt diet. Pt has been encouraged to exercise daily. The pt has been advised to call the office if there are any acute concerns about change in blood pressure readings at home. Hyperlipidemia - pt has been counseled about appropriate diet, exercise, and need for low fat food choices. I have discussed the need for the patient to take medications as prescribed. If the patient has negative side effects from the medication, they are to CALL the office and not abruptly discontinue the medication without discussion with a practitioner in the office. We will check labs in 3-6 months for follow up on the patient's chronic medical problem and to assure normal liver response to medications. . Hypertension - wel l controlled - continue with current medications, continue with no added salt diet. Pt has been encouraged to exercise daily. The pt has been advised to call the office if there are any acute concerns about change in blood pressure readings at home. Hyperlipidemia - pt has been counseled about appropriate diet, exercise, and need for low fat food choices. I have discussed the need for the patient to take medications as prescribed. If the patient has negative side effects from the medication, they are to CALL the office and not abruptly discontinue the medication without discussion with a practicioner in the office. We will check labs in 3-6 months for follow up on the patient's chronic medical problem and to assure normal liver response to medications. . Hypertension - wel l controlled - continue with current medications, continue with no added salt diet. Pt has been encouraged to exercise daily. The pt has been advised to call the office if there are any acute concerns about change in blood pressure readings at home. Hyperlipidemia - pt has been counseled about appropriate diet, exercise, and need for low fat food choices. I have discussed the need for the patient to take medications as prescribed. If the patient has negative side effects from the medication, they are to CALL the office and not abruptly discontinue the medication without discussion with a practicioner in the office. We will check labs in 3-6 months for follow up on the patient's chronic medical problem and to assure normal liver response to medications. Hypothyroidism - pt with chronic hypothyroidism, continue with current medication, will monitor pt to signs or symptoms of lack of adequate supplementation. Pt is to continue with current dose of medication unless directed otherwise. Check labs at regular intervals wither q 3 months or q 6 months based on previous levels of control. CHECK LABS TODAY . Hypertension - wel l controlled - continue with current medications, continue with no added salt diet. Pt has been encouraged to exercise daily. The pt has been advised to call the office if there are any acute concerns about change in blood pressure readings at home. [facility] is increasing coreg to 12.5 mg twice daily. Hyperlipidemia - pt has been counseled about appropriate diet, exercise, and need for low fat food choices. I have discussed the need for the patient to take medications as prescribed. If the patient has negative side effects from the medication, they are to CALL the office and not abruptly discontinue the medication without discussion with a practicioner in the office. We will check labs in 3-6 months for follow up on the patient's chronic medical problem and to assure normal liver response to medications. Arthritis- occasionally uncontrolled symptoms- recommend pt to take antiinflammatory as directed for pain control. Use tylenol for break through pain symptoms. PT HAS BEEN ADVISED TO STATT ON GLUCOSAMIN AND CHONDROITON. prevnar 13 shot toda y . Hypertension - well controlled - meño nue with current medications, continue with no added salt diet. Pt has been encouraged to exercise daily. The pt has been advised to call the office if there are any acute concerns about change in blood pressure readings at home. . Hypertension - wel l controlled - continue with current medications, continue with no added salt diet. Pt has been encouraged to exercise daily. The pt has been advised to call the office if there are any acute concerns about change in blood pressure readings at home. Hyperlipidemia - pt has been counseled about appropriate diet, exercise, and need for low fat food choices. I have discussed the need for the patient to take medications as prescribed. If the patient has negative side effects from the medication, they are to CALL the office and not abruptly discontinue the medication without discussion with a practitioner in the office. We will check labs in 3-6 months for follow up on the patient's chronic medical problem and to assure normal liver response to medications. Atrial Fibrillation - pt is currently rate controlled. The pt is to have labs done as appropriate to monitor medication levels and is to report if they start to feel as if their heart rate is becoming uncontrolled. . Hypertension - wel l controlled - continue with current medications, continue with no added salt diet. Pt has been encouraged to exercise daily. The pt has been advised to call the office if there are any acute concerns about change in blood pressure readings at home. Hyperlipidemia - pt has been counseled about appropriate diet, exercise, and need for low fat food choices. I have discussed the need for the patient to take medications as prescribed. If the patient has negative side effects from the medication, they are to CALL the office and not abruptly discontinue the medication without discussion with a practicioner in the office. We will check labs in 3-6 months for follow up on the patient's chronic medical problem and to assure normal liver response to medications. . Hypertension - wel l controlled - continue with current medications, continue with no added salt diet. Pt has been encouraged to exercise daily. The pt has been advised to call the office if there are any acute concerns about change in blood pressure readings at home. Hyperlipidemia - pt has been counseled about appropriate diet, exercise, and need for low fat food choices. I have discussed the need for the patient to take medications as prescribed. If the patient has negative side effects from the medication, they are to CALL the office and not abruptly discontinue the medication without discussion with a practitioner in the office. We will check labs in 3-6 months for follow up on the patient's chronic medical problem and to assure normal liver response to medications. Hx of renal disease - no change in current management. . Hypertension - wel l controlled - continue with current medications, continue with no added salt diet. Pt has been encouraged to exercise daily. The pt has been advised to call the office if there are any acute concerns about change in blood pressure readings at home. Hyperlipidemia - pt has been counseled about appropriate diet, exercise, and need for low fat food choices. I have discussed the need for the patient to take medications as prescribed. If the patient has negative side effects from the medication, they are to CALL the office and not abruptly discontinue the medication without discussion with a practitioner in the office. We will check labs in 3-6 months for follow up on the patient's chronic medical problem and to assure normal liver response to medications. Blair Garcia - discussed with pt - no treatment needed at this time.
--- OUTSIDE RECORDS SUMMARY | 2019-02-01 23:34 | XMS REPORT | CCD ---
Author Author Andrade Joseph Organization Carri Joseph MD, [facility] Address [address] [place] [address] Phone Care Team Providers Care Powderman Name Role Phone Carri Joseph PP Unavailable CCM Unavailable Summary Purpose Interface Exchange Insurance Providers Payer name Policy type / Coverage type Covered constitution party ID Effective Begin Date Effective End Date WPS Medicare Part B Medicare Part B [id number] 2017 Unknown [facility] ica Part B [id number] 2017 Un known Family history Brother Diagnosis [...] M arried with children 10/17/2010 Employment Unknown Curre ntly unemployed Disabled - previously worked at [email or web address] in [employer] work 10/17/[address]: 978905666 Never smoker 10/17/[address]: 806443874 Never drinks alcohol 10/17/2010 Has the patient [...] Codes Condition Status Onset Date Resolved Date Essential (primary) hypertension ICD-9: 401.1 ICD-10: I10 [...] Condition Codes Effectiv e Dates Condition Status Essential (primary) hypertension ICD-9: 401.1 ICD-10: I10 [...] Stop Date Sta tus Fill Instructions lisinopril 2.5 mg ta blet RxNorm: 832625 1 Tablet(s) PO daily 02/04/2018 04/29/2019 Active lovastatin 20 mg tablet RxNorm: 977691 1 Tablet(s) daily TAKE 1 TABLET BY MOUTH EVERY EVENING 02/04/2018 04/29/2019 Active Generic For:MEVACOR 20MG 9:05:15 AM lovastatin 20 mg tablet RxNorm: 552820 TAKE 1 TABLET BY MOUTH EVERY EVENING 10/08/2017 02/03/2018 In active Generic For:MEVACOR 20MG 10/08/2017 9:0 5:15 AM sotalol 80 mg tablet RxNorm: 8699325 2 Tablet(s) PO BID Dr Sourav Stark 06/02/2017 No Stop Date Active lovastatin 20 mg tablet RxNorm: 636663 TAKE 1 TABLET BY MOUTH EVERY EVENING 04/03/2017 09/29/2017 In active Generic For:MEVACOR 20MG 04/02/2017 1:1 1:51 PM lovastatin 20 mg tablet RxNorm: 711185 Tablet(s) 1 Tablet(s) PO QPM TAKE 1 TABL ET BY MOUTH EVERY EVENING 10/22/2016 11/20/2016 Inactive [SAVINGS FOR UNINSURED MARGARET ENTS -- BIN:[id number], PCN: ASPROD1, Group: [id number], ID# [id number], Process claim through MedImp[employer], for questions: . THIS IS NOT INSURANCE.] lovastatin 20 mg tablet RxNorm: 529626 Tablet(s) 1 Tablet(s) PO QPM TAKE 1 TABL ET BY MOUTH EVERY EVENING 09/26/2016 10/21/2016 Inactive [SAVINGS FOR UNINSURED MARGARET ENTS -- BIN:[id number], PCN: ASPROD1, Group: [id number], ID# [id number], Process claim through MedImp[employer], for questions: . THIS IS NOT INSURANCE.] Lanoxin 125 mcg tablet RxNorm: 865376 Tablet(s) TAKE 1 TABLET BY MOUTH EVERY M ORNING 11/14/2015 10/06/2017 Inactive lovastatin 20 mg tablet RxNorm: 301933 Tablet(s) 1 Tablet(s) PO QPM TAKE 1 TABL ET BY MOUTH EVERY EVENING 10/01/2015 03/28/2016 Inactive [SAVINGS FOR UNINSURED MARGARET ENTS -- BIN:[id number], PCN: ASPROD1, Group: [id number], ID# [id number], Process claim through MedImpact, for questions: . THIS IS NOT INSURANCE.] Lanoxin 125 mcg tablet RxNorm: 042525 Tablet(s) TAKE 1 TABLET BY MOUTH EVERY M ORNING 07/16/2015 11/12/2015 Inactive Generic For:LANOXIN 0.125MG 07/22/2014 9:09:16 AM lovastatin 20 mg tablet RxNorm: 969455 Tablet(s) 1 Tablet(s) PO QPM TAKE 1 TABL ET BY MOUTH EVERY EVENING 03/23/2015 09/18/2015 Inactive [SAVINGS FOR UNINSURED MARGARET ENTS -- BIN:[id number], PCN: ASPROD1, Group: [id number], ID# [id number], Process claim through MedImp[employer], for questions: . THIS IS NOT INSURANCE.] lovastatin 20 mg tablet RxNorm: 987537 1 Tablet(s) PO QPM TAKE 1 TABLET BY MOUT H EVERY EVENING 09/11/2014 03/09/2015 Inactive [SAVINGS FOR UNINSURED MARGARET ENTS -- BIN:[id number], PCN: ASPROD1, Group: [id number], ID# [id number], Process claim through MedImpact, for questions: . THIS IS NOT INSURANCE.] Lanoxin 125 mcg tablet RxNorm: 054093 TAKE 1 TABLET BY MOUTH EVERY MORNING 07/24/2014 07/15/2015 In active Generic For:LANOXIN 0.125MG 07/22/2014 9:09:16 AM sotalol 80 mg tablet RxNorm: 8273826 1 1/2 Tablet(s) PO BID 04/19/2014 06/01/2017 Inactive [SAVINGS FOR NON-COVERED DRUGS -- BIN:[id number] [id number], PCN: ASPROD1, Group: XXXXX, ID# [id number], Questions: . THIS IS NOT INSURANCE.] lovastatin 20 mg tablet RxNorm: 886779 1 Tablet(s) PO QPM TAKE 1 TABLET BY MOUT H EVERY EVENING 09/06/2013 09/05/2013 Inactive [SAVINGS FOR UNINSURED MARGARET ENTS -- BIN:[id number], PCN: ASPROD1, Group: [id number], ID# [id number], Process claim through MedImpact, for questions: . THIS IS NOT INSURANCE.] lovastatin 20 mg tablet RxNorm: 538647 1 Tablet(s) PO QPM TAKE 1 TABLET BY MOUT H EVERY EVENING 09/06/2013 09/10/2014 Inactive [SAVINGS FOR UNINSURED MARGARET ENTS -- BIN:052574, PCN: ASPROD1, Group: [id number], ID# [id number], Process claim through MedImpact, for questions: . THIS IS NOT INSURANCE.] Lanoxin 125 mcg tablet RxNorm: 876858 1 Tablet(s) PO daily TAKE 1 TABLET BY MO UTH EVERY MORNING 07/25/2013 07/24/2013 Inactive [SAVINGS FOR UNINSURED MARGARET ENTS -- BIN:[id number], PCN: ASPROD1, Group: [id number], ID# [id number], Process claim through MedImpact, for questions: . THIS IS NOT INSURANCE.] Lanoxin 125 mcg tablet RxNorm: 721806 1 Tablet(s) PO daily TAKE 1 TABLET BY MO UTH EVERY MORNING 07/25/2013 08/18/2014 Inactive [SAVINGS FOR UNINSURED MARGARET ENTS -- BIN:[id number], PCN: ASPROD1, Group: [id number], ID# [id number], Process claim through MedImpact, for questions: . THIS IS NOT INSURANCE.] tamsulosin ER 0.4 mg capsule,extended release 24 hr RxNorm: 380547 1 Capsule(s) PO QAM 04/20/2013 04/14/2014 Inactive lovastatin 20 mg tablet RxNorm: 268912 1 Tablet(s) PO QPM TAKE 1 TABLET BY MOUT H EVERY EVENING 08/26/2012 08/26/2012 Inactive lovastatin 20 mg tablet RxNorm: 005550 1 Tablet(s) PO QPM TAKE 1 TABLET BY MOUT H EVERY EVENING 08/26/2012 09/05/2013 Inactive Lanoxin 125 mcg tablet RxNorm: 125883 Tablet(s) PO TAKE 1 TABLET BY MOUTH EVER Y MORNING 06/28/2012 07/24/2013 Inactive lovastatin 20 mg tablet RxNorm: 707444 Tablet(s) PO TAKE 1 TABLET BY MOUTH EVER Y EVENING 04/27/2012 08/26/2012 Inactive lovastatin 20 mg tablet RxNorm: 278860 Tablet(s) PO 11/24/2011 04/26/2012 Inactive TAKE 1 TABLET BY MOUTH EVERY EVENING Lanoxin 125 mcg tablet RxNorm: 153367 Tablet(s) PO 07/14/2011 06/27/2012 Inactive TAKE 1 TABLET BY MOUTH EVERY MORNING lovastatin 20 mg tablet RxNorm: 657986 1 Tablet(s) PO daily 12/05/2010 11/23/2011 Inactive Influenza Virus Vacc ine 0.5 mL RxNorm: IM 11/28/2010 11/28/2010 Inactive multivitamin Oral RxNorm: Oral No Start Date Active aspirin 81 mg Tab, D elayed Release RxNorm: 825820 1 Tablet(s) PO daily No Start Date Active Lanoxin 125 mcg Tab RxNorm: 011282 1 Tablet(s) PO daily No Start Date 07/13/2011 Inactive carvedilol 6.25 mg Tab RxNorm: 316615 1 Tablet(s) PO BID No Start Date 08/17/2012 Inactive lisinopril 2.5 mg ta blet RxNorm: 117374 1 Tablet(s) PO daily No Start Date 02/03/2018 Inactive Lipitor 10 mg Tab RxNorm: 346161 1 Tablet(s) PO daily No Start Date 12/04/2010 Inactive sotalol 80 mg tablet RxNorm: 906639 1 Tablet(s) PO BID No Start Date 04/18/2014 Inactive carvedilol 12.5 mg t ablet RxNorm: 413464 1 Tablet(s) PO BID No Start Date 09/21/2013 Inactive senna 187 mg tablet RxNorm: 568232 1 Tablet(s) PO daily No Start Date 06/22/2013 Inactive Coreg 3.125 mg Tab RxNorm: 773091 1 Tablet(s) PO BID No Start Date 04/09/2011 Inactive tamsulosin ER 0.4 mg capsule,extended release 24 hr RxNorm: 102056 1 Capsule(s) PO QAM No Start Date [...] completed Assessments Condition Codes Effectiv e Dates Other seborrheic keratosis ICD-10: L 82.1 ICD-9: 702.19 06/03/2018 Mixed hyperlipidemia ICD-10: E78.2 ICD-9: 272.2 06/03/2018 Essential (primary) hypertension ICD -10: I10 ICD-9: 401.1 06/03/2018 Encounter for immunization ICD-10: Z 23 [...] For Visit Effective Dates Notes skin lesion 06/03/2018 hypertension 02/04/2018 vaccination against [...] Observation Code Item Item Code Result Date Lipid Ord30 CHOL 166 mg/dL 11/27/2016 Lipid Ord30 HDL 57.0 mg/dl 11/27/2016 Lipid Ord30 TRIG 104 mg/dL 11/27/2016 Lipid Ord30 LDL 88 mg/dL 11/27/2016 Lipid Ord30 C/HDL 2.9 Ratio 11/27/2016 Comp Metabolic Yra668 NA 140 mEq/L 11/27/2016 Comp Metabolic Imy896 K 4.6 mEq/L 11/27/2016 Comp Metabolic Pxz231 CL 103 mEq/L 11/27/2016 Comp Metabolic Keu925 CO2 28.0 mEq/L 11/27/2016 Comp Metabolic Aid875 AN ION GAP 14 11/27/2016 Comp Metabolic Ydw116 GL UCOSE 107 mg/dL 11/27/2016 Comp Metabolic Yie920 Cr eat 1.4 mg/dL 11/27/2016 Comp Metabolic Uiu215 eG FR 55 ml/min/1.73m2 11/27 Comp Metabolic Zeq839 BUN 27 mg/dL 11/27/2016 Comp Metabolic Abu390 B/ C Ratio 19.9 Ratio 11/27/2016 Comp Metabolic Epk504 CA LCIUM 9.8 mg/dL 11/27/2016 Comp Metabolic Wfz262 AL K PHOS 61 U/L 11/27/2016 Comp Metabolic Usn497 T(SGOT) 19 U/L 11/27/2016 Comp Metabolic Hkf232 AL T(SGPT) 14 U/L 11/27/2016 Comp Metabolic Kqw877 BI LI T 0.5 mg/dL 11/27/2016 Comp Metabolic Iyx206 AL BUMIN 4.1 g/dL 11/27/2016 Comp Metabolic Kpg070 TP RO 7.1 g/dL 11/27/2016 Comp Metabolic Pgi004 GL OB 3.0 g/dL 11/27/2016 Comp Metabolic Vot770 A/ G Ratio 1.4 Ratio 11/27/2016 Comp Metabolic Euv765 Os mo 285 mOsmo 11/27/2016 Cbc With [...] 32.1 pg 11/27/2016 Cbc With Differential Ord2 [place]% 9.3 % 11/27/2016 Cbc With Differential Ord2 [...] 1.36 K/ul 11/27/2016 Cbc With Differential Ord2 [place] ABS# 0.8 K/ul 11/27/2016 Cbc With Differential [...] 31.6 pg 07/04/2016 Cbc With Differential Ord2 [place]% 10.4 % 07/04/2016 Cbc With Differential Ord2 [...] 1.59 K/ul 07/04/2016 Cbc With Differential Ord2 [place] ABS# 0.8 K/ul 07/04/2016 Cbc With Differential [...] 31.8 pg 05/27/2016 Cbc With Differential Ord2 [place]% 10.8 % 05/27/2016 Cbc With Differential Ord2 [...] 1.21 K/ul 05/27/2016 Cbc With Differential Ord2 [place] ABS# 0.9 K/ul 05/27/2016 Cbc With Differential Ord2 Eos ABS# 0.3 K/ul 05/27/2016 Cbc With Differential Ord2 Baso ABS# 0.0 K/ul 05/27/2016 Digoxin Ord9 DIGOXIN 0.8 NG/ML 05/27/2016 Lipid Ord30 CHOL 168 mg/dL 05/27/2016 Lipid Ord30 HDL 53.0 mg/dl 05/27/2016 Lipid Ord30 TRIG 100 mg/dL 05/27/2016 Lipid Ord30 LDL 95 mg/dL 05/27/2016 Lipid Ord30 C/HDL 3.2 Ratio 05/27/2016 Comp Metabolic Xba725 NA 138 mEq/L 05/27/2016 Comp Metabolic Vnm373 K 4.9 mEq/L 05/27/2016 Comp Metabolic Igt870 CL 101 mEq/L 05/27/2016 Comp Metabolic Lah043 CO2 28.0 mEq/L 05/27/2016 Comp Metabolic Viu852 AN ION GAP 14 05/27/2016 Comp Metabolic Xum009 GL UCOSE 95 mg/dL 05/27/2016 Comp Metabolic Dpy852 Cr eat 1.4 mg/dL 05/27/2016 Comp Metabolic Rzg551 eG FR 55 ml/min/1.73m2 05/27 Comp Metabolic Gyv500 BUN 26 mg/dL 05/27/2016 Comp Metabolic Pbo287 B/ C Ratio 19.0 Ratio 05/27/2016 Comp Metabolic Jrx533 CA LCIUM 9.4 mg/dL 05/27/2016 Comp Metabolic Imk868 AL K PHOS 62 U/L 05/27/2016 Comp Metabolic Ldx169 T(SGOT) 19 U/L 05/27/2016 Comp Metabolic Oqs342 AL T(SGPT) 14 U/L 05/27/2016 Comp Metabolic Oop076 BI LI T 0.5 mg/dL 05/27/2016 Comp Metabolic Iam887 AL BUMIN 3.8 g/dL 05/27/2016 Comp Metabolic Hay993 TP RO 7.1 g/dL 05/27/2016 Comp Metabolic Nrf993 GL OB 3.3 g/dL 05/27/2016 Comp Metabolic Qtf151 A/ G Ratio 1.2 Ratio 05/27/2016 Comp Metabolic Cgf769 Os mo 280 mOsmo 05/27/2016 Tsh Ord6 hTSH II 1.30 uIU/mL 05/27/2016 Total Psa Ord10 PSA 1.61 ng/mL 05/27/2016 LIPID GRP HDL TE ST 62 MG/DL 08/18/2012 LIPID GRP TRIG 115 MG/DL 08/18/2012 LIPID GRP TEST L DL 103 MG/DL 08/18/2012 LIPID GRP CHOL 188 MG/DL 08/18/2012 LIPID GRP RCHOL/ HDL 3.03 RATIO 08/18/2012 TSH 8436271 TSH 1.296 uIU/ML 08/18/2012 CBC 3101431 WBC 6.2 10e9/L 08/18/2012 CBC 4907232 RBC 4.13 10e12/L 08/18/2012 CBC 5987354 HGB 13.5 g/dL 08/18/2012 CBC 0515536 HCT DET 40.3 % 08/18/2012 CBC 3544725 MCV 97.6 fL 08/18/2012 CBC 0580375 MCH 32.7 pg 08/18/2012 CBC 6172105 MCHC 33.5 g/dL 08/18/2012 CBC 8187590 PLT 159 10e9/L 08/18/2012 CBC 1899808 MPV 10.8 fL 08/18/2012 CBC 0147826 [place] % 60.9 % 08/18/2012 CBC 4353686 LY % 23.1 % 08/18/2012 CBC 7448426 MON % 11.2 % 08/18/2012 CBC 2192767 EOS % 4.2 % 08/18/2012 CBC 2994346 BASO % 0.6 % 08/18/2012 CBC 3933490 RDW 13.0 % 08/18/2012 CBC 1522590 ABS [place] 3.78 10e9/L 08/18/2012 CBC 1947400 ABS LYMPH 1.43 10e9/L 08/18/2012 CBC 4890919 ABS MONO 0.69 10e9/L 08/18/2012 CBC 0872146 ABS EOS 0.26 10e9/L 08/18/2012 CBC 3825909 ABS BASO 0.04 10e9/L 08/18/2012 CBC 3920602 RDW-SD 45.1 fL 08/18/2012 GFR CALC 9639730 GFR AA >60 ML/MIN 08/18/2012 GFR CALC 0391665 GFR NON -AA 51.0L ML/MIN 3 CHEM 14 3428382 AST 21 U/L 08/18/2012 CHEM 14 4518480 ALT 16 IU/L 08/18/2012 CHEM 14 4549907 BUN 26 MG/DL 08/18/2012 CHEM 14 7164377 ALBUMIN 4.3 GM/DL 08/18/2012 CHEM 14 8736005 CHLORIDE 105 MMOL/L 08/18/2012 CHEM 14 2844133 BILI TOT 0.7 MG/DL 08/18/2012 CHEM 14 0864340 ALK PHOS 41 U/L 08/18/2012 CHEM 14 8191691 SODIUM 138 MMOL/L 08/18/2012 CHEM 14 3289769 CREATINI NE 1.39 MG/DL 08/18/2012 CHEM 14 2967807 CALCIUM 9.6 MG/DL 08/18/2012 CHEM 14 8162389 POTASSIUM 4.4 MMOL/L 08/18/2012 CHEM 14 4769961 PROT TOT 7.0 GM/DL 08/18/2012 CHEM 14 2772154 GLUCOSE 104 MG/DL 08/18/2012 CHEM 14 1827305 BICARB 28 MMOL/L 08/18/2012 CHEM 14 3540077 ANION GAP 5 MEQ/L 08/18/2012 GFR CALC 7325820 GFR AA 58.0L ML/MIN 02/19/2012 GFR CALC 4779207 GFR NON -AA 47.0L ML/MIN 3 CHEM 14 2254023 AST 20 U/L 02/19/2012 CHEM 14 7283610 ALT 18 IU/L 02/19/2012 CHEM 14 4788984 BUN 30 MG/DL 02/19/2012 CHEM 14 1918466 ALBUMIN 4.4 GM/DL 02/19/2012 CHEM 14 8021892 CHLORIDE 105 MMOL/L 02/19/2012 CHEM 14 4133561 BILI TOT 0.5 MG/DL 02/19/2012 CHEM 14 8976286 ALK PHOS 54 U/L 02/19/2012 CHEM 14 3648232 SODIUM 139 MMOL/L 02/19/2012 CHEM 14 0780265 CREATINI NE 1.49 MG/DL 02/19/2012 CHEM 14 1032264 CALCIUM 9.6 MG/DL 02/19/2012 CHEM 14 1601637 POTASSIUM 4.5 MMOL/L 02/19/2012 CHEM 14 0073504 PROT TOT 7.0 GM/DL 02/19/2012 CHEM 14 3794105 GLUCOSE 84 MG/DL 02/19/2012 CHEM 14 0432786 BICARB 26 MMOL/L 02/19/2012 CHEM 14 9503330 ANION GAP 8 MEQ/L 02/19/2012 Review of Systems System Result Effective Dates Constitutional No recent illness 06/03/2018 Constitutional No [...] lesions 02/16/2013 None Full Exam - General 1995 Psychiatric orientation/consciousness Overall: oriented to person, place and time 02/16/2013 None Full Exam - General 1994 Psychiatric mood and affect Overall: normal mood and affect 02/16/2013 None Full Exam - General 1995 Constitutional general appearance Overall: well nourished 08/18/2012 None Full Exam - General 1995 Constitutional general appearance Overall: well developed 08/18/2012 None Full Exam - General 1995 Constitutional general appearance Overall: in no acute distress 08/18/2012 None Full Exam - General 1995 Ears/Nose/Throat otoscopic exam Overall: external auditory canals clear 08/18/2012 None Full Exam - General 1995 Ears/Nose/Throat otoscopic exam Overall: tympanic membranes clear 08/18/2012 None Full Exam - General 1995 Ears/Nose/Throat oral cavity/pharynx/larynx Overall: oral mucosa clear 08/18/2012 None Full Exam - General 1995 Ears/Nose/Throat oral cavity/pharynx/larynx Overall: oropharyngeal mucosa clear 08/18/2012 None Full Exam - General 1994 Ears/Nose/Throat oral cavity/pharynx/larynx Overall: no masses 08/18/2012 None Full Exam - General 1994 Respiratory auscultation Overall: breath sounds clear bilaterally 08/18/2012 None Full Exam - General 1994 Respiratory respiratory effort/rhythm Overall: no retractions 08/18/2012 None Full Exam - General 1994 Respiratory respiratory effort/rhythm Overall: normal rate 08/18/2012 [...] nourished 02/19/2012 None Full Exam - General 1995 Eyes conjunctiva/eyelids Overall: conjunctiva clear 02/19/2012 None Full Exam - General 1995 Eyes conjunctiva/eyelids Overall: cornea clear 02/19/2012 None Full Exam - General 1995 Eyes conjunctiva/eyelids Overall: eyelids normal 02/19/2012 None Full Exam - General 1995 Ears/Nose/Throat external ear Overall: normal appearance 02/19/2012 None Full Exam - General 1995 Ears/Nose/Throat external ear Overall: no masses 02/19/2012 [...] clubbing 02/19/2012 None Full Exam - General 1995 Musculoskeletal digits and nails Overall: digits benign 02/19/2012 None Full Exam - General 1995 Musculoskeletal lower extremity Inspection - knee: varus deformity 02/19/2012 None Full Exam - General 1995 Musculoskeletal lower extremity Inspection - knee: presence of a scar 02/19/2012 None Full Exam - General 1995 Musculoskeletal lower extremity Palpation - knee: crepitus 02/19/2012 None Full Exam - General 1995 [...] time 10/16/2011 None Full Exam - General 1995 Musculoskeletal lower extremity Inspection - knee: presence of a scar 10/16/2011 None Full Exam - General 1995 Musculoskeletal lower extremity Inspection - knee: varus [...] bilaterally 10/16/2011 None Full Exam - General 1995 Respiratory respiratory effort/rhythm Overall: no retractions 10/16/2011 None Full Exam - General 1995 Respiratory respiratory effort/rhythm Overall: normal rate 10/16/2011 None Full Exam - General 1994 Cardiovascular auscultation of heart Overall: regular rate 10/16/2011 None Full Exam - General 1994 Cardiovascular auscultation of heart Overall: normal heart sounds 10/16/2011 None Full Exam - General 1994 Abdomen abdominal exam Overall: no tenderness 10/16/2011 None Full Exam - General 1994 [...] nourished 04/10/2011 None Full Exam - General 1995 Constitutional general appearance Overall: well developed 04/10/2011 None Full Exam - General 1995 Constitutional general appearance Overall: in no acute distress 04/10/2011 None Full Exam - General 1995 Eyes conjunctiva/eyelids Overall: conjunctiva clear 04/10/2011 None Full Exam - General 1995 Eyes conjunctiva/eyelids Overall: eyelids normal 04/10/2011 None Full Exam - General 1994 Eyes conjunctiva/eyelids Overall: cornea clear 04/10/2011 None Full Exam - General 1995 Ears/Nose/Throat external ear Overall: no masses 04/10/2011 None Full Exam - General 1995 Ears/Nose/Throat external ear Overall: normal appearance 04/10/2011 None Full Exam - General 1995 Ears/Nose/Throat external ear Overall: normal mastoids 04/10/2011 None Full Exam - General 1995 Ears/Nose/Throat external nose Overall: benign appearance 04/10/2011 None Full Exam - General 1994 Ears/Nose/Throat external nose Overall: non-tender 04/10/2011 None [...] tenderness 04/10/2011 None Full Exam - General 1994 [...] PRSV 4 VA L 3 YRS+ CPT-4: 37861 12/24/2017 PPPS, SUBSEQ VISIT CPT- 4: G0439 06/04/2017 PPPS, SUBSEQ VISIT CPT- 4: G0439 05/28/2016 ADMIN PNEUMOCOCCAL V ACCINE SNOMED CT: 86977139 CPT-4: G0009 11/23/2014 PNEUMOCOCCAL VACC [address]: 45996736 CPT-4: 20159 11/23/2014 FLU VAC NO PRSV 4 VA L 3 YRS+ CPT-4: 25007 10/18/2013 ADMIN INFLUENZA VIRU S VAC Assigned to/Ayaka Snyder CPT-4: N7396Ccjdtny 10/18/2013 ROUTINE VENIPUNCTURE CPT-4: 30428 08/18/2012 ROUTINE VENIPUNCTURE CPT-4: 64282 02/19/2012 ROUTINE VENIPUNCTURE CPT-4: 91387 04/10/2011 ADMIN INFLUENZA VIRU S VAC CPT-4: G0008 12/05/2010 FLULAVAL VACC, 3 YRS & >, IM CPT-4: Q2036 12/05/2010 ROUTINE VENIPUNCTURE CPT-4: 25027 11/28/2010 ADMIN INFLUENZA VIRU S VAC CPT-4: G0008 11/28/2010 FLULAVAL VACC, 3 YRS & >, IM CPT-4: Q2036 11/28/2010 ROUTINE VENIPUNCTURE CPT-4: 52603 10/17/2010 Vital Signs Date Vital 06/03/2018 Blood Pressure 1: 124/66 Code: 8480-6 BMI: 33.8 Code: 39499-3 Heart Rate 1: 74 bpm Height: 5'5" SpO2: 99% Weight: 203 lbs 02/04/2018 Blood Pressure 1: 120/66 Code: 8480-6 BMI: 33.6 Code: 17035-0 Heart Rate 1: 80 bpm Height: 5'5" Respiratory Rate: 18 bpm Weight: 202 lbs 10/07/2017 Blood Pressure 1: 108/64 Code: 8480-6 BMI: 32.3 Code: 26509-1 Heart Rate 1: 83 bpm Height: 5'5" SpO2: 98% Weight: 194 lbs 06/04/2017 Blood Pressure 1: 116/64 Code: 8480-6 BMI: 33.3 Code: 16159-1 Heart Rate 1: 70 bpm Height: 5'5" SpO2: 97% Waist Measure (cm): 97 cm Weight: 200 lbs 06/02/2017 Blood Pressure 1: 120/72 Code: 8480-6 BMI: 33.1 Code: 53689-7 Heart Rate 1: 70 bpm Height: 5'5" SpO2: 97% Weight: 199 lbs 01/28/2017 Blood Pressure 1: 128/78 Code: 8480-6 BMI: 31.8 Code: 60111-2 Heart Rate 1: 81 bpm Height: 5'5" SpO2: 98% Weight: 191 lbs 12/29/2016 Blood Pressure 1: 130/76 Code: 8480-6 BMI: 31.1 Code: 67801-6 Heart Rate 1: 80 bpm Height: 5'5" SpO2: 98% Weight: 187 lbs 12/01/2016 Blood Pressure 1: 128/80 Code: 8480-6 BMI: 32.0 Code: 23478-2 Heart Rate 1: 78 bpm Height: 5'5" SpO2: 98% Weight: 192 lbs 05/28/2016 Blood Pressure 1: 138/80 Code: 8480-6 BMI: 33.6 Code: 10364-9 Heart Rate 1: 62 bpm Height: 5'5" SpO2: 97% Waist Measure (cm): 97 cm Weight: 202 lbs 05/27/2016 Blood Pressure 1: 138/80 Code: 8480-6 BMI: 33.6 Code: 00224-4 Heart Rate 1: 60 bpm Height: 5'5" SpO2: 98% Weight: 202 lbs 01/09/2016 Blood Pressure 1: 132/76 Code: 8480-6 BMI: 34.1 Code: 98719-8 Heart Rate 1: 62 bpm Height: 5'5" SpO2: 95% Weight: 205 lbs 11/27/2015 Blood Pressure 1: 140/80 Code: 8480-6 BMI: 35.3 Code: 69248-2 Heart Rate 1: 77 bpm Height: 5'5" SpO2: 96% Weight: 212 lbs 05/29/2015 Blood Pressure 1: 130/74 Code: 8480-6 BMI: 34.2 Code: 11062-4 Heart Rate 1: 59 bpm Height: 5'5" SpO2: 97% Weight: 205 lbs 8 oz 11/23/2014 Blood Pressure 1: 136/76 Code: 8480-6 BMI: 33.8 Code: 48556-9 Heart Rate 1: 68 bpm Height: 5'5" SpO2: 98% Weight: 203 lbs 07/20/2014 Blood Pressure 1: 140/88 Code: 8480-6 BMI: 34.4 Code: 77804-4 Heart Rate 1: 68 bpm Height: 5'5" Weight: 207 lbs 04/19/2014 Blood Pressure 1: 130/88 Code: 8480-6 BMI: 34.6 Code: 74741-0 Heart Rate 1: 64 bpm Height: 5'5" Weight: 208 lbs 12/21/2013 Blood Pressure 1: 140/76 Code: 8480-6 BMI: 33.8 Code: 84266-6 Heart Rate 1: 64 bpm Height: 5'5" Weight: 203 lbs 10/18/2013 Blood Pressure 1: 138/70 Code: 8480-6 BMI: 33.1 Code: 13006-3 Heart Rate 1: 74 bpm Height: 5'5" Weight: 199 lbs 07/13/2013 Blood Pressure 1: 115/60 Code: 8480-6 BMI: 30.5 Code: 81908-2 Heart Rate 1: 76 bpm Height: 5'5" Weight: 183 lbs 06/23/2013 Blood Pressure 1: 108/58 Code: 8480-6 Heart Rate 1: 80 bpm Temperature: 37.2 (C) / 98.9 (F) Weight: 06/09/2013 [place] rature: 36.7 (C) / 98.0 (F) Weight: 04/11/2013 Blood Pressure 1: 104/64 Code: 8480-6 Heart Rate 1: 76 bpm Weight: 02/16/2013 Blood Pressure 1: 130/82 Code: 8480-6 BMI: 35.8 Code: 00071-3 Heart Rate 1: 76 bpm Height: 5'5" Weight: 215 lbs 08/18/2012 Blood Pressure 1: 104/64 Code: 8480-6 BMI: 33.6 Code: 68802-0 Heart Rate 1: 64 bpm Height: 5'5" Weight: 202 lbs 02/19/2012 Blood Pressure 1: 120/74 Code: 8480-6 BMI: 33.8 Code: 97626-5 Heart Rate 1: 64 bpm Height: 5'5" Respiratory Rate: 16 bpm Weight: 203 lbs 10/16/2011 Blood Pressure 1: 130/68 Code: 8480-6 Heart Rate 1: 80 bpm Weight: 201 lbs 04/10/2011 Blood Pressure 1: 134/74 Code: 8480-6 Heart Rate 1: 64 bpm Respiratory Rate: 16 bpm Weight: 202 lbs 12/05/2010 Blood Pressure 1: 128/72 Code: 8480-6 BMI: 33.5 Code: 83904-5 Heart Rate 1: 68 bpm Height: 5'5" Respiratory Rate: 16 bpm Weight: 201 lbs 8 oz Functional Status No Functional Status data History of Present Illness Symptom Name Status Resu lt Effective Date Notes Quality enlarging 06/03/2018 None Quality non-tender 06/03/2018 [...] chr onic 06/02/2017 None hypertension Quality willa tinajero hypertension 06/02/2017 None hypertension Onset and Resolution [...] chr onic 12/29/2016 None hypertension Quality willa tinajero hypertension 12/29/2016 None hypertension Onset and Resolution [...] Medications statin 12/01/2016 None hypertension Quality willa tinajero hypertension 12/01/2016 None Annual Medicare Wellness Exam [...] patella - partial staple removal by Dr. Machuca's PA - Romeo Arzola - will remove [...] Alleviating Factors medication 08/18/2012 None hypertension Quality [facility] onic 02/19/2012 None hypertension Onset and Resolution [...] Encounters Encounter Performer Loca tion Codes Date ([id number]) [id number] EST. P ATIENT, LEVEL IV Diagnosis: Essential (primary) hypertension[ICD10: I10] Diagnosis: Mixed hyperlipidemia[ICD10: E78.2] Diagnosis: Other seborrheic keratosis[ICD10: L82.1] Carri Joseph MD, [facility] CPT-4: 61032 06/03/2018 ([id number]) 33384 EST. P ATIENT, LEVEL IV Diagnosis: Essential (primary) hypertension[ICD10: I10] Diagnosis: Mixed hyperlipidemia[ICD10: E78.2] Carri Joseph MD, [facility] CPT- 4: 34657 02/04/2018 ([id number]) 51555 EST. P ATIENT, LEVEL IV Diagnosis: Essential (primary) hypertension[ICD10: I10] Diagnosis: Mixed hyperlipidemia[ICD10: E78.2] [facility] CPT- 4: 66831 10/07/2017 ([id number]) 77230 EST. P ATIENT, LEVEL IV Diagnosis: Essential (primary) hypertension[ICD10: I10] Diagnosis: Mixed hyperlipidemia[ICD10: E78.2] Diagnosis: Ventricular tachycardia[ICD10: I47.2] Diagnosis: Unsteadiness on feet[ICD10: R26.81] [facility] CPT- 4: 30882 06/02/2017 ([id number]) 23289 EST. P ATIENT, LEVEL III Diagnosis: Essential (primary) hypertension[ICD10: I10] Carri Joseph MD, [facility] CPT-4: 01693 01/28/2017 ([id number]) 21978 EST. P ATIENT, LEVEL III Diagnosis: Essential (primary) hypertension[ICD10: I10] Diagnosis: Unsteadiness on feet[ICD10: R26.81] Carri Joseph MD, [facility] CPT- 4: 73175 12/29/2016 ([id number]) 26127 EST. P ATIENT, LEVEL IV Diagnosis: Essential (primary) hypertension[ICD10: I10] Diagnosis: Mixed hyperlipidemia[ICD10: E78.2] Carri Joseph MD, [facility] CPT- 4: 90718 12/01/2016 [id number] EST. PATIENT, LEVEL IV Diagnosis: Essential (primary) hypertension[ICD10: I10] Diagnosis: Chronic atrial fibrillation[ICD10: I48.2] Diagnosis: Mixed hyperlipidemia[ICD10: E78.2] Diagnosis: Encounter for therapeutic drug level monitoring[ICD10: Z51.81] Carri Joseph MD, [facility] CPT-4: 68036 05/27/2016 ([id number]) 87376 EST. P ATIENT, LEVEL III Diagnosis: Essential (primary) hypertension[ICD10: I10] Diagnosis: Cough[ICD10: R05] Carri Joseph MD, [facility] CPT-4: 32679 01/09/2016 ([id number]) 88562 EST. P ATIENT, LEVEL IV Diagnosis: Essential (primary) hypertension[ICD10: I10] Diagnosis: Chronic atrial fibrillation[ICD10: I48.2] Diagnosis: Mixed hyperlipidemia[ICD10: E78.2] [facility] CPT- 4: 90854 11/27/2015 ([id number]) 89009 EST. P ATIENT, LEVEL IV Diagnosis: Essential (primary) hypertension[ICD10: I10] Diagnosis: Chronic atrial fibrillation[ICD10: I48.2] Diagnosis: Mixed hyperlipidemia[ICD10: E78.2] Carri Joseph MD, [facility] CPT- 4: 01489 05/29/2015 ([id number]) 63414 EST. P ATIENT, LEVEL III Diagnosis: Essential (primary) hypertension[ICD10: I10] Diagnosis: Encounter for immunization[ICD10: Z23] Carri Joseph MD [facility] CPT-4: 22652 11/23/2014 ([id number]) 26869 EST. P ATIENT, LEVEL III Diagnosis: ESSENTIAL HYPERTENSION[ICD9: 401.9] [facility] CPT- 4: 62375 07/20/2014 ([id number]) 69305 EST. P ATIENT, LEVEL IV Diagnosis: ESSENTIAL HYPERTENSION[ICD9: 401.9] Diagnosis: Renal insufficiency[ICD9: 593.9] Diagnosis: Atrial fibrillation[ICD9: 427.31] Diagnosis: HYPOTHYROIDISM[ICD9: 244.9] Carri Joseph MD, [facility] CPT-4: 88217 04/19/2014 ([id number]) 52995 EST. P ATIENT, LEVEL IV Diagnosis: ESSENTIAL HYPERTENSION[ICD9: 401.9] Diagnosis: HYPOTHYROIDISM[ICD9: 244.9] Diagnosis: COUGH[ICD9: 786.2] Diagnosis: Atrial fibrillation[ICD9: 427.31] [facility] CPT-4: 58116 12/21/2013 ([id number]) 83359 EST. P ATIENT, LEVEL IV Diagnosis: VACCIN FOR INFLUENZA[ICD10: Z23] Diagnosis: ESSENTIAL HYPERTENSION[ICD9: 401.9] Diagnosis: HYPERLIPIDEMIA[ICD9: 272.4] Diagnosis: Gait instability[ICD9: 781.2] [facility] CPT-4: 82904 10/18/2013 ([id number]) 63906 EST. P ATIENT, LEVEL III Diagnosis: ESSENTIAL HYPERTENSION[SNOMED: 65657849] Diagnosis: Arthralgia of knee[ICD9: 719.46] [facility] CPT-4: 04239 07/13/2013 ([id number]) Patient adm itted to the hospital from clinic (NO CHARGE) Diagnosis: JOINT PAIN-L/LEG[ICD9: 719.46] Diagnosis: CELLULITIS OF LEG[ICD9: 682.6] [facility] CPT-4: 65869G 06/23/2013 ([id number]) 91158 EST. P ATIENT, LEVEL III Diagnosis: Cellulitis of left knee[ICD9: 682.6] Carri Joseph MD, [facility] CPT-4: 95755 06/09/2013 ([id number]) 57247 EST. P ATIENT, LEVEL III Diagnosis: ESSENTIAL HYPERTENSION[SNOMED: 89507219] Diagnosis: Knee pain[ICD9: 719.46] Carri Joseph MD, [facility] CPT-4: 73001 04/11/2013 ([id number]) 89433 EST. P ATIENT, LEVEL IV Diagnosis: ESSENTIAL HYPERTENSION[SNOMED: 55802216] Diagnosis: HYPERLIPIDEMIA[ICD9: 272.4] Carri Joseph MD, [facility] CPT-4: 66120 02/16/2013 ([id number]) 64553 EST. P ATIENT, LEVEL IV Diagnosis: HYPERLIPIDEMIA[ICD9: 272.4] Diagnosis: ESSENTIAL HYPERTENSION[SNOMED: 16883421] Diagnosis: ENCNTR LONG-RX USE NEC[ICD9: V58.69] Carri Joseph MD, [facility] CPT-4: 56306 08/18/2012 ([id number]) 68006 EST. P ATIENT, LEVEL IV Diagnosis: ESSENTIAL HYPERTENSION[SNOMED: 65860189] Diagnosis: Renal insufficiency[ICD9: 593.9] Carri Joseph MD, [facility] CPT-4: 83425 02/19/2012 Miscellaneous no lisset rge Diagnosis: ESSENTIAL HYPERTENSION[SNOMED: 09629493] Carri Joseph MD, C CPT-4: 96076 12/23/2011 ([id number]) 13331 EST. P ATIENT, LEVEL IV Diagnosis: ESSENTIAL HYPERTENSION[SNOMED: 29539851] Diagnosis: HYPERLIPIDEMIA[ICD9: 272.4] Diagnosis: Osteoarthritis of left knee[ICD9: 715.96] Carri Joseph MD, C CPT-4: 39493 10/16/2011 ([id number]) 15678 EST. P ATIENT, LEVEL IV Diagnosis: ESSENTIAL HYPERTENSION[SNOMED: 27805585] Diagnosis: HYPERLIPIDEMIA[ICD9: 272.4] Diagnosis: HYPOTHYROIDISM[ICD9: 244.9] [facility] CPT-4: 96647 04/10/2011 88426 EST. PATIENT, LEVEL IV Diagnosis: ESSENTIAL HYPERTENSION[SNOMED: 23433690] Diagnosis: HYPERLIPIDEMIA[ICD9: 272.4] Diagnosis: OBESITY[ICD9: 278.00] Diagnosis: VACCIN FOR INFLUENZA[ICD9: V04.81] [facility] CPT- 4: 19366 12/05/2010 Plan of Care Planned Activity Notes C odes Status Date Visit Plan: Hypertension - well con trolled [...] no treatment needed at this time. 06/03/2018 Patient Education: Patient Medication Summary Completed 06/03/2018 Patient Education: Cholesterol Management Completed 06/03/2018 Care Plan: Comp Metabolic Pending 06/03/2018 Care Plan: Cbc With Differential Pending 06/03/2018 Care Plan: Tsh Pending 06/03/2018 Care Plan: Lipid Pending 06/03/2018 Care Plan: Total Psa Pending 06/03/2018 Appointment: Carri Joseph WPtel: [address] [place], [place] [address] (15 min) Moderate 05/27/2018 Patient Education: Patient [...] medications. 02/04/2018 [phone] (15 min) Moderate 02/04/2018 Patient Education: Patient Medication Summary Completed 02/04/2018 Patient Education: Cholesterol Management Completed 02/04/2018 Appointment: Injection 12/24/2017 Patient Education: Patient Medication Summary Completed 12/24/2017 Visit Plan: Hypertension - well con troayshaed [...] to medications. 10/07/2017 [facility]ment[phone] [facility] (15 min) Moderate 10/07/2017 Patient Education: Patient Medication Summary Completed 10/07/2017 Visit Plan: Medicare Exam - today w [...] care surrogate. 06/04/2017 Appointment: Samira Rojas WPtel: [facility] [place] [address] - Annual Wellness Visit 06/04/2017 Patient Education: Patient Medication Summary Completed 06/04/2017 Visit Plan: Hypertension - well con trolled [...] with ambulation. 06/02/2017 Appointment: Carri Joseph WPtel: [facility] (15 min) Moderate 06/02/2017 Patient Education: Patient Medication Summary Completed 06/02/2017 Appointment: Carri Joseph WPtel: [phone] [facility] (15 min) Moderate 05/26/2017 Visit Plan: Hypertension [...] falling episodes. 01/28/2017 [facility]ment: [phone] (15 min) Moderate 01/28/2017 Patient Education: Patient [...] does not need to go to a longterm. 12/29/2016 Appointment: [phone] [facility] (15 min) Moderate 12/29/2016 Patient Education: Patient [...] management. 12/01/2016 Appointment: [phone] [facility] (15 min) Moderate 12/01/2016 Patient Education: Patient [...] care surrogate. 05/28/2016 App[facility]ment[phone] [facility] [facility] - Annual Wellness Visit 05/28/2016 Patient Education: Patient Medication Summary Completed 05/28/2016 Patient Education: Obesity Completed 05/28/2016 Visit Plan: Hypertension - well con troayshaed [...] becoming uncontrolled. 05/27/2016 Appointment: [phone] [facility] (15 min) Moderate 05/27/2016 Patient Education: [...] days 01/09/2016 Appointment: Carri Joseph WPtel: [phone] [facility] (15 min) Moderate 01/09/2016 Patient Education: Patient [...] uncontrolled. 11/27/2015 Appointment: [phone] (15 min) Moderate 11/27/2015 Patient Education: [...] Obesity Completed 05/29/2015 Appointment: Carri Joseph WPtel: [facility] [address] (15 min) Moderate 05/24/2015 Appointment: Injection 12/20/2014 Visit Plan: Hypertension - well con trolled - continue with current medications, continue with no added salt diet. Pt has been encouraged to exercise daily. The pt has been advised to call the office if there are any acute concerns about change in blood pressure readings at home. 11/23/2014 Appointment: Carri Joseph WPtel: [facility] (15 min) Moderate 11/23/2014 Patient Education: Patient [...] at home. 07/20/2014 Appointment: Carri Joseph WPtel: [facility] Follow up 07/20/2014 Patient Education: Patient Medication [...] therapy. 04/19/2014 Appointment: [phone] [facility] Follow up 04/19/2014 Patient Education: Patient [...] Hypertension Completed 12/21/2013 Appointment: [phone] [facility] Follow up 12/20/2013 Visit Plan: Hypertension - [...] by orthopedist. 10/18/2013 Appointment: Carri Joseph WPtel: [address] [place], [place] [phone] Follow up 10/18/2013 Patient Education: Patient Medication Summary Completed 10/18/2013 Patient Education: Hypertension Completed 10/18/2013 Appointment: Carri Joseph WPtel: [address] [place], [place] [phone] Follow up 08/16/2013 Visit Plan: Hypertension - well con trolled - continue with current medications, continue with no added salt diet. Pt has been encouraged to exercise daily. The pt has been advised to call the office if there are any acute concerns about change in blood pressure readings at home. Knee - improving - recommended pt to follow up with Dr. Machuca for removal of the kj and to call if symptoms do not improve. 07/13/2013 Appointment: Carri Joseph WPtel: [facility] [facility] follow up 07/13/2013 Patient Education: Patient Medication Summary Completed 07/13/2013 Patient Education: Hypertension Completed 07/13/2013 Visit Plan: [facility] - PT IS ACUTELY ILL, REQUIRES HOSPITALIZATION. THE PATIENT HAS BEEN EVALUATED IN CLINIC AND THIS STANDS THE HOSPITAL HISTORY AND PHYSICAL EXAMINATION. THE PATIENT HAS BEEN SENT TO THE HOSPITAL WITH WRITTEN ORDERS FOR TREATMENT AND EVALUATION OF THE ACUTE ILLNESS. Dr. Gaurav Machuca to see patient in hospital for evaluation of his knee. 06/23/2013 Patient Education: Patient Medication Summary Completed 06/23/2013 Visit Plan: Cellulitis-left knee-ca lled Dr Machuca's office- patient is to see him today at 12:45. Culture of knee done today in the office. 06/09/2013 Appointment: India Lowe WPtel: [phone] [phone] Follow up 06/09/2013 Patient Education: Patient Medication [...] improved - continue with rehab per Dr. Machuca - pt to see Dr. Machuca in a week for re-eval of knee. 04/11/2013 Appointment: Carri Joseph WPtel: [phone] [facility] [place] Follow up 04/11/2013 Patient Education: Patient Medication [...] to medications. 02/16/2013 Appointment: Carri Joseph WPtel: [phone] [facility] [place] Follow up 02/16/2013 Patient Education: Patient Medication [...] liver response to medications. 08/18/2012 Appointment: Carri Joseph WPtel: [facility] Follow up 08/18/2012 Patient Education: Patient Medication Summary Completed 08/18/2012 Patient Education: Hypertension Completed 08/18/2012 Appointment: Carri Joseph WPtel: [address] [place], [place] [phone] Follow up 06/22/2012 Visit Plan: Hypertension - [...] every day. 02/19/2012 Appointment: Carri Joseph WPtel: [facility] Follow up 02/19/2012 Patient Education: Patient Medication Summary Completed 02/19/2012 Patient Education: Hypertension Completed 02/19/2012 Care Plan: CBC Pending 02/19/2012 Visit Plan: no charge for viist - p t with skin mole, no need for removal, no treatment rendered. 12/23/2011 Appointment: Carri Joseph WPtel: [phone] [facility] Surgical Procedure 12/23/2011 Patient Education: Patient Medication [...] AND CHONDROITON. 10/16/2011 Appointment: Carri Joseph WPtel[facility] Follow up 10/16/2011 Patient Education: Patient [...] LABS TODAY 04/10/2011 Appointment: Carri Joseph WPtel: [address] [place], [place] [phone] Other 04/10/2011 Patient Education: Patient Medication Summary Completed 04/10/2011 Patient Education: High Blood Pressure: Essential Hypertension Completed 04/10/2011 Visit Plan: Hypertension - well con trolled [...] shot today 12/05/2010 Appointment: Carri Joseph WPtel: [address] [place], [place] [phone] Other 12/05/2010 Patient Education: Patient Medication Summary Completed 12/05/2010 Patient Education: High Blood Pressure: Essential Hypertension Completed 12/05/2010 Appointment: Carri Joseph WPtel: [address] [place], [place] [address] [place] Lab Draw 11/28/2010 Patient Education: Patient Medication Summary Completed 11/28/2010 Patient Education: High Blood Pressure: Essential Hypertension Completed 11/28/2010 Appointment: Carri Joseph WPtel: [address] [place], [place] [address] [place] Lab Draw 10/17/2010 Patient Education: Patient Medication Summary Completed 10/17/2010 Instructions Comment . ADMIT FROM CLINIC TO HOSPITAL - PT IS ACUTELY ILL, REQUIRES HOSPITALIZATION. THE PATIENT HAS BEEN EVALUATED IN CLINIC AND THIS STANDS THE HOSPITAL HISTORY AND PHYSICAL EXAMINATION. THE PATIENT HAS BEEN SENT TO THE HOSPITAL WITH WRITTEN ORDERS FOR TREATMENT AND EVALUATION OF THE ACUTE ILLNESS. Dr. Gaurav Machuca to see patient in hospital for evaluation [...] wellness therapy. Flu shot- GET IT AT [facility] TOMORROW IF YOU HAVE NOT ALREADY HAD [...] AY IN THE OFFICE APPOINTMENT WITH DR MACHUCA AT 12:45 TODAY. Cellulitis-left knee-called Dr Machuca's office-patient is to see him today at [...] does not need to go to a longterm. . Medicare Exam - to day we [...] recommended pt to follow up with Dr. Machuca for removal of the kj and to call if symptoms do not improve. lora or tomasa ps [facility] - take twice daily when [...] daily x 5 days . Hypertension - wel l controlled - [...] improved - continue with rehab per Dr. Machuca - pt to see Dr. Machuca in a week for re-eval of knee. [...]
--- OUTSIDE RECORDS SUMMARY | 2019-02-01 23:35 | XMS REPORT | CCD ---
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 Name Role Phone Carri Joseph PP Unavailable CCM Unavailable Summary Purpose Interface Exchange Insurance Providers Payer name Policy type / Coverage type Covered democrat ID Effective Begin Date Effective End Date WPS Medicare Part B Medicare Part B [id number] 2017 Unknown [facility] ica Part B [id number] Un known Family history Brother Diagnosis Age [...] ntly unemployed Disabled - previously worked at [employer] in [employer] work 10/17/[address]: 630228305 Never smoker 10/17/[address]: 920160200 Never drinks alcohol 10/17/2010 Has the patient [...] ICD-9: 272.2 ICD-10: E78.2 Active 06/02/2017 Unknown Encounter for immuni zation ICD-9: V04.81 [...] hyperlipidemia ICD-9: 272.2 ICD-10: E78.2 06/02/2017 Active Encounter for immuni zation ICD-9: V04.81 [...] Instructions lisinopril 2.5 mg ta blet RxNorm: 489590 1 Tablet(s) PO daily 02/04/2018 04/29/2019 Active lovastatin 20 mg tablet RxNorm: 409584 1 Tablet(s) daily TAKE 1 TABLET BY MOUTH EVERY EVENING 02/04/2018 04/29/2019 Active Generic For:MEVACOR 20MG 9:05:15 AM lovastatin 20 mg tablet RxNorm: 548044 TAKE 1 TABLET BY MOUTH EVERY EVENING 10/08/2017 02/03/2018 In active Generic For:MEVACOR 20MG 10/08/2017 9:0 5:15 AM sotalol 80 mg tablet RxNorm: 8227033 2 Tablet(s) PO BID Dr Sourav Stark 06/02/2017 No Stop Date Active lovastatin 20 mg tablet RxNorm: 187370 TAKE 1 TABLET BY MOUTH EVERY EVENING 04/03/2017 09/29/2017 In active Generic For:MEVACOR 20MG 04/02/2017 1:1 1:51 PM lovastatin 20 mg tablet RxNorm: 997481 Tablet(s) 1 Tablet(s) PO QPM TAKE 1 TABL ET BY MOUTH EVERY EVENING 10/22/2016 11/20/2016 Inactive [SAVINGS FOR UNINSURED MARGARET ENTS -- BIN:[id number], PCN: ASPROD1, Group: [id number], ID# [id number], Process claim through [employer], for questions: . THIS IS NOT INSURANCE.] lovastatin 20 mg tablet RxNorm: 947690 Tablet(s) 1 Tablet(s) PO QPM TAKE 1 TABL ET BY MOUTH EVERY EVENING 09/26/2016 10/21/2016 Inactive [SAVINGS FOR UNINSURED MARGARET ENTS -- BIN:[id number], PCN: ASPROD1, Group: [id number], ID# [id number], Process claim through [employer], for questions: . THIS IS NOT INSURANCE.] Lanoxin 125 mcg tablet RxNorm: 826273 Tablet(s) TAKE 1 TABLET BY MOUTH EVERY M ORNING 11/14/2015 10/06/2017 Inactive lovastatin 20 mg tablet RxNorm: 958928 Tablet(s) 1 Tablet(s) PO QPM TAKE 1 TABL ET BY MOUTH EVERY EVENING 10/01/2015 03/28/2016 Inactive [SAVINGS FOR UNINSURED MARGARET ENTS -- BIN:[id number], PCN: ASPROD1, Group: [id number], ID# [id number], Process claim through [employer], for questions: . THIS IS NOT INSURANCE.] Lanoxin 125 mcg tablet RxNorm: 886817 Tablet(s) TAKE 1 TABLET BY MOUTH EVERY M ORNING 07/16/2015 11/12/2015 Inactive Generic For:LANOXIN 0.125MG 07/22/2014 9:09:16 AM lovastatin 20 mg tablet RxNorm: 262688 Tablet(s) 1 Tablet(s) PO QPM TAKE 1 TABL ET BY MOUTH EVERY EVENING 03/23/2015 09/18/2015 Inactive [SAVINGS FOR UNINSURED MARGARET ENTS -- BIN:[id number], PCN: ASPROD1, Group: [id number], ID# [id number], Process claim through [employer], for questions: . THIS IS NOT INSURANCE.] lovastatin 20 mg tablet RxNorm: 346429 1 Tablet(s) PO QPM TAKE 1 TABLET BY MOUT H EVERY EVENING 09/11/2014 03/09/2015 Inactive [SAVINGS FOR UNINSURED MARGARET ENTS -- BIN:[id number], PCN: ASPROD1, Group: [id number], ID# [id number], Process claim through [employer], for questions: . THIS IS NOT INSURANCE.] Lanoxin 125 mcg tablet RxNorm: 532071 TAKE 1 TABLET BY MOUTH EVERY MORNING 07/24/2014 07/15/2015 In active Generic For:LANOXIN 0.125MG 07/22/2014 9:09:16 AM sotalol 80 mg tablet RxNorm: 9834831 1 1/2 Tablet(s) PO BID 04/19/2014 06/01/2017 Inactive [SAVINGS FOR NON-COVERED DRUGS -- BIN:[id number] [id number], PCN: ASPROD1, Group: XXXXX, ID# [id number], Questions: . THIS IS NOT INSURANCE.] lovastatin 20 mg tablet RxNorm: 024751 1 Tablet(s) PO QPM TAKE 1 TABLET BY MOUT H EVERY EVENING 09/06/2013 09/05/2013 Inactive [SAVINGS FOR UNINSURED MARGARET ENTS -- BIN:269930, PCN: ASPROD1, Group: [id number], ID# [id number], Process claim through [employer], for questions: . THIS IS NOT INSURANCE.] lovastatin 20 mg tablet RxNorm: 300114 1 Tablet(s) PO QPM TAKE 1 TABLET BY MOUT H EVERY EVENING 09/06/2013 09/10/2014 Inactive [SAVINGS FOR UNINSURED MARGARET ENTS -- BIN:119937, PCN: ASPROD1, Group: [id number], ID# [id number], Process claim through [employer], for questions: . THIS IS NOT INSURANCE.] Lanoxin 125 mcg tablet RxNorm: 411989 1 Tablet(s) PO daily TAKE 1 TABLET BY MO UTH EVERY MORNING 07/25/2013 07/24/2013 Inactive [SAVINGS FOR UNINSURED MARGARET ENTS -- BIN:533595, PCN: ASPROD1, Group: [id number], ID# [id number], Process claim through [employer], for questions: . THIS IS NOT INSURANCE.] Lanoxin 125 mcg tablet RxNorm: 903202 1 Tablet(s) PO daily TAKE 1 TABLET BY MO UTH EVERY MORNING 07/25/2013 08/18/2014 Inactive [SAVINGS FOR UNINSURED MARGARET ENTS -- BIN:568472, PCN: ASPROD1, Group: [id number], ID# [id number], Process claim through [employer], for questions: . THIS IS NOT INSURANCE.] tamsulosin ER 0.4 mg capsule,extended release 24 hr RxNorm: 789988 1 Capsule(s) PO QAM 04/20/2013 04/14/2014 Inactive lovastatin 20 mg tablet RxNorm: 957534 1 Tablet(s) PO QPM TAKE 1 TABLET BY MOUT H EVERY EVENING 08/26/2012 08/26/2012 Inactive lovastatin 20 mg tablet RxNorm: 409732 1 Tablet(s) PO QPM TAKE 1 TABLET BY MOUT H EVERY EVENING 08/26/2012 09/05/2013 Inactive Lanoxin 125 mcg tablet RxNorm: 489178 Tablet(s) PO TAKE 1 TABLET BY MOUTH EVER Y MORNING 06/28/2012 07/24/2013 Inactive lovastatin 20 mg tablet RxNorm: 971533 Tablet(s) PO TAKE 1 TABLET BY MOUTH EVER Y EVENING 04/27/2012 08/26/2012 Inactive lovastatin 20 mg tablet RxNorm: 174891 Tablet(s) PO 11/24/2011 04/26/2012 Inactive TAKE 1 TABLET BY MOUTH EVERY EVENING Lanoxin 125 mcg tablet RxNorm: 024619 Tablet(s) PO 07/14/2011 06/27/2012 Inactive TAKE 1 TABLET BY MOUTH EVERY MORNING lovastatin 20 mg tablet RxNorm: 018736 1 Tablet(s) PO daily 12/05/2010 11/23/2011 Inactive Influenza Virus Vacc ine 0.5 mL RxNorm: IM 11/28/2010 11/28/2010 Inactive multivitamin Oral RxNorm: Oral No Start Date Active aspirin 81 mg Tab, D elayed Release RxNorm: 339938 1 Tablet(s) PO daily No Start Date Active Lanoxin 125 mcg Tab RxNorm: 797027 1 Tablet(s) PO daily No Start Date 07/13/2011 Inactive carvedilol 6.25 mg Tab RxNorm: 515057 1 Tablet(s) PO BID No Start Date 08/17/2012 Inactive lisinopril 2.5 mg ta blet RxNorm: 474524 1 Tablet(s) PO daily No Start Date 02/03/2018 Inactive Lipitor 10 mg Tab RxNorm: 760651 1 Tablet(s) PO daily No Start Date 12/04/2010 Inactive sotalol 80 mg tablet RxNorm: 145738 1 Tablet(s) PO BID No Start Date 04/18/2014 Inactive carvedilol 12.5 mg t ablet RxNorm: 009318 1 Tablet(s) PO BID No Start Date 09/21/2013 Inactive senna 187 mg tablet RxNorm: 624824 1 Tablet(s) PO daily No Start Date 06/22/2013 Inactive Coreg 3.125 mg Tab RxNorm: 070456 1 Tablet(s) PO BID No Start Date 04/09/2011 Inactive tamsulosin ER 0.4 mg capsule,extended release 24 hr RxNorm: 911625 1 Capsule(s) PO QAM No Start Date [...] (primary) hypertension ICD -10: I10 ICD-9: 401.1 02/08/2018 Mixed hyperlipidemia ICD-10: E78.2 ICD-9: 272.2 02/08/2018 Encounter for immunization ICD-10: Z 23 ICD-9: [...] Visit Reason For Visit Effective Dates Notes hypertension 02/04/2018 vaccination against influenza 12/24/2017 hypertension [...] Ord30 C/HDL 2.9 Ratio 11/27/2016 Comp Metabolic Tyv465 NA 140 mEq/L 11/27/2016 Comp Metabolic Rnc513 K 4.6 mEq/L 11/27/2016 Comp Metabolic Dae175 CL 103 mEq/L 11/27/2016 Comp Metabolic Svp625 CO2 28.0 mEq/L 11/27/2016 Comp Metabolic Rjm599 AN ION GAP 14 11/27/2016 Comp Metabolic Yih531 GL UCOSE 107 mg/dL 11/27/2016 Comp Metabolic Qhy262 Cr eat 1.4 mg/dL 11/27/2016 Comp Metabolic Uvl475 eG FR 55 ml/min/1.73m2 11/27 Comp Metabolic Rcg319 BUN 27 mg/dL 11/27/2016 Comp Metabolic Ycc527 B/ C Ratio 19.9 Ratio 11/27/2016 Comp Metabolic Zck462 CA LCIUM 9.8 mg/dL 11/27/2016 Comp Metabolic Dtm064 AL K PHOS 61 U/L 11/27/2016 Comp Metabolic Jle693 T(SGOT) 19 U/L 11/27/2016 Comp Metabolic Asw141 AL T(SGPT) 14 U/L 11/27/2016 Comp Metabolic Qfq383 BI LI T 0.5 mg/dL 11/27/2016 Comp Metabolic Gwp137 AL BUMIN 4.1 g/dL 11/27/2016 Comp Metabolic Ovx496 TP RO 7.1 g/dL 11/27/2016 Comp Metabolic Idd789 GL OB 3.0 g/dL 11/27/2016 Comp Metabolic Bai880 A/ G Ratio 1.4 Ratio 11/27/2016 Comp Metabolic Kxw944 Os mo 285 mOsmo 11/27/2016 Cbc With Differential Ord2 WBC 8.51 K/ul 11/27/2016 Cbc With Differential Ord2 RBC 4.14 M/ul 11/27/2016 Cbc With Differential Ord2 HGB 13.3 g/dl 11/27/2016 Cbc With Differential Ord2 Neut% 71.3 % 11/27/2016 Cbc With Differential Ord2 HCT 40.2 % 11/27/2016 Cbc With Differential Ord2 MCV 97.1 fl 11/27/2016 Cbc With Differential Ord2 Lymph% 16.0 % 11/27/2016 Cbc With Differential Ord2 MCH 32.1 pg 11/27/2016 Cbc With Differential Ord2 [place]% 9.3 % 11/27/2016 Cbc With Differential Ord2 Eos% 2.8 % 11/27/2016 Cbc With Differential Ord2 MCHC 33.1 pg 11/27/2016 Cbc With Differential Ord2 Baso% 0.6 % 11/27/2016 Cbc With Differential Ord2 PLT 188 K/ul 11/27/2016 Cbc With Differential Ord2 RDW 13.4 % 11/27/2016 Cbc With Differential Ord2 Neut ABS# 6.07 K/ul 11/27/2016 Cbc With Differential Ord2 Lymph ABS# 1.36 K/ul 11/27/2016 Cbc With Differential Ord2 [place] ABS# 0.8 K/ul 11/27/2016 Cbc With Differential [...] 31.6 pg 07/04/2016 Cbc With Differential Ord2 [place]% 10.4 % 07/04/2016 Cbc With Differential Ord2 [...] 1.59 K/ul 07/04/2016 Cbc With Differential Ord2 [place] ABS# 0.8 K/ul 07/04/2016 Cbc With Differential [...] 31.8 pg 05/27/2016 Cbc With Differential Ord2 [place]% 10.8 % 05/27/2016 Cbc With Differential Ord2 [...] 1.21 K/ul 05/27/2016 Cbc With Differential Ord2 [place] ABS# 0.9 K/ul 05/27/2016 Cbc With Differential Ord2 Eos ABS# 0.3 K/ul 05/27/2016 Cbc With Differential Ord2 Baso ABS# 0.0 K/ul 05/27/2016 Digoxin Ord9 DIGOXIN 0.8 NG/ML 05/27/2016 Lipid Ord30 CHOL 168 mg/dL 05/27/2016 Lipid Ord30 HDL 53.0 mg/dl 05/27/2016 Lipid Ord30 TRIG 100 mg/dL 05/27/2016 Lipid Ord30 LDL 95 mg/dL 05/27/2016 Lipid Ord30 C/HDL 3.2 Ratio 05/27/2016 Comp Metabolic Gui200 NA 138 mEq/L 05/27/2016 Comp Metabolic Hdc774 K 4.9 mEq/L 05/27/2016 Comp Metabolic Kpq511 CL 101 mEq/L 05/27/2016 Comp Metabolic Cqq037 CO2 28.0 mEq/L 05/27/2016 Comp Metabolic Jzu377 AN ION GAP 14 05/27/2016 Comp Metabolic Frq774 GL UCOSE 95 mg/dL 05/27/2016 Comp Metabolic Igm708 Cr eat 1.4 mg/dL 05/27/2016 Comp Metabolic Lxc777 eG FR 55 ml/min/1.73m2 05/27 Comp Metabolic Jzd498 BUN 26 mg/dL 05/27/2016 Comp Metabolic Cdd642 B/ C Ratio 19.0 Ratio 05/27/2016 Comp Metabolic Nih888 CA LCIUM 9.4 mg/dL 05/27/2016 Comp Metabolic Qaw061 AL K PHOS 62 U/L 05/27/2016 Comp Metabolic Fgt192 T(SGOT) 19 U/L 05/27/2016 Comp Metabolic Owl465 AL T(SGPT) 14 U/L 05/27/2016 Comp Metabolic Zmh286 BI LI T 0.5 mg/dL 05/27/2016 Comp Metabolic Rly642 AL BUMIN 3.8 g/dL 05/27/2016 Comp Metabolic Jnq747 TP RO 7.1 g/dL 05/27/2016 Comp Metabolic Uwg406 GL OB 3.3 g/dL 05/27/2016 Comp Metabolic Zqx873 A/ G Ratio 1.2 Ratio 05/27/2016 Comp Metabolic Yxg023 Os mo 280 mOsmo 05/27/2016 Tsh Ord6 hTSH II 1.30 uIU/mL 05/27/2016 Total Psa Ord10 PSA 1.61 ng/mL 05/27/2016 LIPID GRP 8969154 HDL TE ST 62 MG/DL 08/18/2012 LIPID GRP TRIG 115 MG/DL 08/18/2012 LIPID GRP 3896321 TEST L DL 103 MG/DL 08/18/2012 LIPID GRP 3495372 CHOL 188 MG/DL 08/18/2012 LIPID GRP RCHOL/ HDL 3.03 RATIO 08/18/2012 TSH 4358344 TSH 1.296 uIU/ML 08/18/2012 CBC 8912373 WBC 6.2 10e9/L 08/18/2012 CBC 8509197 RBC 4.13 10e12/L 08/18/2012 CBC 2961572 HGB 13.5 g/dL 08/18/2012 CBC 8699324 HCT DET 40.3 % 08/18/2012 CBC 9456011 MCV 97.6 fL 08/18/2012 CBC 7018563 MCH 32.7 pg 08/18/2012 CBC 5893192 MCHC 33.5 g/dL 08/18/2012 CBC 7649102 PLT 159 10e9/L 08/18/2012 CBC 9531987 MPV 10.8 fL 08/18/2012 CBC 9865085 [place] % 60.9 % 08/18/2012 CBC 3544205 LY % 23.1 % 08/18/2012 CBC 9846722 MON % 11.2 % 08/18/2012 CBC 6140387 EOS % 4.2 % 08/18/2012 CBC 2306279 BASO % 0.6 % 08/18/2012 CBC 3397385 RDW 13.0 % 08/18/2012 CBC 3224839 ABS [place] 3.78 10e9/L 08/18/2012 CBC 3608637 ABS LYMPH 1.43 10e9/L 08/18/2012 CBC 5213966 ABS MONO 0.69 10e9/L 08/18/2012 CBC 3271086 ABS EOS 0.26 10e9/L 08/18/2012 CBC 0666109 ABS BASO 0.04 10e9/L 08/18/2012 CBC 0432456 RDW-SD 45.1 fL 08/18/2012 GFR CALC 1978024 GFR AA >60 ML/MIN 08/18/2012 GFR CALC 0871411 GFR NON -AA 51.0L ML/MIN 3 CHEM 14 2354474 AST 21 U/L 08/18/2012 CHEM 14 1044916 ALT 16 IU/L 08/18/2012 CHEM 14 3859040 BUN 26 MG/DL 08/18/2012 CHEM 14 3957635 ALBUMIN 4.3 GM/DL 08/18/2012 CHEM 14 3430016 CHLORIDE 105 MMOL/L 08/18/2012 CHEM 14 9129559 BILI TOT 0.7 MG/DL 08/18/2012 CHEM 14 9616714 ALK PHOS 41 U/L 08/18/2012 CHEM 14 6647874 SODIUM 138 MMOL/L 08/18/2012 CHEM 14 7714808 CREATINI NE 1.39 MG/DL 08/18/2012 CHEM 14 8114992 CALCIUM 9.6 MG/DL 08/18/2012 CHEM 14 7591223 POTASSIUM 4.4 MMOL/L 08/18/2012 CHEM 14 9447397 PROT TOT 7.0 GM/DL 08/18/2012 CHEM 14 4711388 GLUCOSE 104 MG/DL 08/18/2012 CHEM 14 7301303 BICARB 28 MMOL/L 08/18/2012 CHEM 14 0670275 ANION GAP 5 MEQ/L 08/18/2012 GFR CALC 3781104 GFR AA 58.0L ML/MIN 02/19/2012 GFR CALC 1258751 GFR NON -AA 47.0L ML/MIN 3 CHEM 14 5436096 AST 20 U/L 02/19/2012 CHEM 14 8481755 ALT 18 IU/L 02/19/2012 CHEM 14 9978245 BUN 30 MG/DL 02/19/2012 CHEM 14 6354553 ALBUMIN 4.4 GM/DL 02/19/2012 CHEM 14 3622567 CHLORIDE 105 MMOL/L 02/19/2012 CHEM 14 4702304 BILI TOT 0.5 MG/DL 02/19/2012 CHEM 14 3414823 ALK PHOS 54 U/L 02/19/2012 CHEM 14 3995812 SODIUM 139 MMOL/L 02/19/2012 CHEM 14 7216218 CREATINI NE 1.49 MG/DL 02/19/2012 CHEM 14 8104476 CALCIUM 9.6 MG/DL 02/19/2012 CHEM 14 4248789 POTASSIUM 4.5 MMOL/L 02/19/2012 CHEM 14 5158785 PROT TOT 7.0 GM/DL 02/19/2012 CHEM 14 3468616 GLUCOSE 84 MG/DL 02/19/2012 CHEM 14 0463987 BICARB 26 MMOL/L 02/19/2012 CHEM 14 3487775 ANION GAP 8 MEQ/L 02/19/2012 Review of Systems System Result Effective Dates Constitutional No recent illness 02/04/2018 Constitutional No [...] 1995 Ears/Nose/Throat oral cavity/pharynx/larynx Overall: no masses 04/11/2013 [...] 1995 Ears/Nose/Throat oral cavity/pharynx/larynx Overall: no masses 02/16/2013 [...] General 1994 Eyes conjunctiva/eyelids Overall: eyelids normal 02/19/2012 None [...] oriented 02/19/2012 None Full Exam - General 1994 Psychiatric [...] lesions 10/16/2011 None Full Exam - General 1994 Neurologic mental status Overall: alert 10/16/2011 None Full Exam - General 1994 Neurologic mental status Overall: oriented 10/16/2011 None Full Exam - General 1994 [...] - General 1994 Ears/Nose/Throat external nose Overall: no masses 10/16/2011 None Full Exam - General 1994 Ears/Nose/Throat external nose Overall: non-tender 10/16/2011 None [...] normal 04/10/2011 None Full Exam - General 1995 Eyes conjunctiva/eyelids Overall: cornea clear 04/10/2011 None [...] happy 04/10/2011 None Full Exam - General 1995 Psychiatric [...] PRSV 4 VA L 3 YRS+ CPT-4: 64596 12/24/2017 PPPS, SUBSEQ VISIT CPT- 4: G0439 06/04/2017 PPPS, SUBSEQ VISIT CPT- 4: G0439 05/28/2016 ADMIN PNEUMOCOCCAL V ACCINE SNOMED CT: 82773435 CPT-4: G0009 11/23/2014 PNEUMOCOCCAL VACC [address]: 34223497 CPT-4: 10807 11/23/2014 FLU VAC NO PRSV 4 VA L 3 YRS+ CPT-4: 02297 10/18/2013 ADMIN INFLUENZA VIRU S VAC Assigned to/Ayaka Snyder CPT-4: [id number] 10/18/2013 ROUTINE VENIPUNCTURE CPT-4: 93319 08/18/2012 ROUTINE VENIPUNCTURE CPT-4: 27307 02/19/2012 ROUTINE VENIPUNCTURE CPT-4: 37680 04/10/2011 ADMIN INFLUENZA VIRU S VAC CPT-4: G0008 12/05/2010 FLULAVAL VACC, 3 YRS & >, IM CPT-4: Q2036 12/05/2010 ROUTINE VENIPUNCTURE CPT-4: 89593 11/28/2010 ADMIN INFLUENZA VIRU S VAC CPT-4: G0008 11/28/2010 FLULAVAL VACC, 3 YRS & >, IM CPT-4: Q2036 11/28/2010 ROUTINE VENIPUNCTURE CPT-4: 78186 10/17/2010 Vital Signs Date Vital 02/04/2018 Blood Pressure 1: 120/66 Code: 8480-6 BMI: 33.6 Code: 20558-0 Heart Rate 1: 80 bpm Height: 5'5" Respiratory Rate: 18 bpm Weight: 202 lbs 10/07/2017 Blood Pressure 1: 108/64 Code: 8480-6 BMI: 32.3 Code: 96405-4 Heart Rate 1: 83 bpm Height: 5'5" SpO2: 98% Weight: 194 lbs 06/04/2017 Blood Pressure 1: 116/64 Code: 8480-6 BMI: 33.3 Code: 88984-0 Heart Rate 1: 70 bpm Height: 5'5" SpO2: 97% Waist Measure (cm): 97 cm Weight: 200 lbs 06/02/2017 Blood Pressure 1: 120/72 Code: 8480-6 BMI: 33.1 Code: 28362-4 Heart Rate 1: 70 bpm Height: 5'5" SpO2: 97% Weight: 199 lbs 01/28/2017 Blood Pressure 1: 128/78 Code: 8480-6 BMI: 31.8 Code: 37794-5 Heart Rate 1: 81 bpm Height: 5'5" SpO2: 98% Weight: 191 lbs 12/29/2016 Blood Pressure 1: 130/76 Code: 8480-6 BMI: 31.1 Code: 70083-8 Heart Rate 1: 80 bpm Height: 5'5" SpO2: 98% Weight: 187 lbs 12/01/2016 Blood Pressure 1: 128/80 Code: 8480-6 BMI: 32.0 Code: 50304-7 Heart Rate 1: 78 bpm Height: 5'5" SpO2: 98% Weight: 192 lbs 05/28/2016 Blood Pressure 1: 138/80 Code: 8480-6 BMI: 33.6 Code: 09134-3 Heart Rate 1: 62 bpm Height: 5'5" SpO2: 97% Waist Measure (cm): 97 cm Weight: 202 lbs 05/27/2016 Blood Pressure 1: 138/80 Code: 8480-6 BMI: 33.6 Code: 62488-5 Heart Rate 1: 60 bpm Height: 5'5" SpO2: 98% Weight: 202 lbs 01/09/2016 Blood Pressure 1: 132/76 Code: 8480-6 BMI: 34.1 Code: 66107-8 Heart Rate 1: 62 bpm Height: 5'5" SpO2: 95% Weight: 205 lbs 11/27/2015 Blood Pressure 1: 140/80 Code: 8480-6 BMI: 35.3 Code: 50310-5 Heart Rate 1: 77 bpm Height: 5'5" SpO2: 96% Weight: 212 lbs 05/29/2015 Blood Pressure 1: 130/74 Code: 8480-6 BMI: 34.2 Code: 33260-9 Heart Rate 1: 59 bpm Height: 5'5" SpO2: 97% Weight: 205 lbs 8 oz 11/23/2014 Blood Pressure 1: 136/76 Code: 8480-6 BMI: 33.8 Code: 16447-2 Heart Rate 1: 68 bpm Height: 5'5" SpO2: 98% Weight: 203 lbs 07/20/2014 Blood Pressure 1: 140/88 Code: 8480-6 BMI: 34.4 Code: 85694-3 Heart Rate 1: 68 bpm Height: 5'5" Weight: 207 lbs 04/19/2014 Blood Pressure 1: 130/88 Code: 8480-6 BMI: 34.6 Code: 18996-5 Heart Rate 1: 64 bpm Height: 5'5" Weight: 208 lbs 12/21/2013 Blood Pressure 1: 140/76 Code: 8480-6 BMI: 33.8 Code: 03024-7 Heart Rate 1: 64 bpm Height: 5'5" Weight: 203 lbs 10/18/2013 Blood Pressure 1: 138/70 Code: 8480-6 BMI: 33.1 Code: 79250-3 Heart Rate 1: 74 bpm Height: 5'5" Weight: 199 lbs 07/13/2013 Blood Pressure 1: 115/60 Code: 8480-6 BMI: 30.5 Code: 51791-6 Heart Rate 1: 76 bpm Height: 5'5" Weight: 183 lbs 06/23/2013 Blood Pressure 1: 108/58 Code: 8480-6 Heart Rate 1: 80 bpm Temperature: 37.2 (C) / 98.9 (F) Weight: 06/09/2013 [place] rature: 36.7 (C) / 98.0 (F) Weight: 04/11/2013 Blood Pressure 1: 104/64 Code: 8480-6 Heart Rate 1: 76 bpm Weight: 02/16/2013 Blood Pressure 1: 130/82 Code: 8480-6 BMI: 35.8 Code: 76226-1 Heart Rate 1: 76 bpm Height: 5'5" Weight: 215 lbs 08/18/2012 Blood Pressure 1: 104/64 Code: 8480-6 BMI: 33.6 Code: 62105-0 Heart Rate 1: 64 bpm Height: 5'5" Weight: 202 lbs 02/19/2012 Blood Pressure 1: 120/74 Code: 8480-6 BMI: 33.8 Code: 21392-1 Heart Rate 1: 64 bpm Height: 5'5" Respiratory Rate: 16 bpm Weight: 203 lbs 10/16/2011 Blood Pressure 1: 130/68 Code: 8480-6 Heart Rate 1: 80 bpm Weight: 201 lbs 04/10/2011 Blood Pressure 1: 134/74 Code: 8480-6 Heart Rate 1: 64 bpm Respiratory Rate: 16 bpm Weight: 202 lbs 12/05/2010 Blood Pressure 1: 128/72 Code: 8480-6 BMI: 33.5 Code: 20500-0 Heart Rate 1: 68 bpm Height: 5'5" Respiratory Rate: 16 bpm Weight: 201 lbs 8 oz Functional Status No Functional Status data History of Present Illness Symptom Name Status Resu lt Effective Date Notes Quality chronic 02/04/2018 None Quality primary hypert [...] Encounters Encounter Performer Loca tion Codes Date ([id number]) [id number] EST. P ATIENT, LEVEL IV Diagnosis: Essential (primary) hypertension[ICD10: I10] Diagnosis: Mixed hyperlipidemia[ICD10: E78.2] [facility] CPT- 4: 80114 02/04/2018 [id number]) 92330 EST. P ATIENT, LEVEL IV Diagnosis: Essential (primary) hypertension[ICD10: I10] Diagnosis: Mixed hyperlipidemia[ICD10: E78.2] [facility] CPT- 4: 72244 10/07/2017 [id number]) 45242 EST. P ATIENT, LEVEL IV Diagnosis: Essential (primary) hypertension[ICD10: I10] Diagnosis: Mixed hyperlipidemia[ICD10: E78.2] Diagnosis: Ventricular tachycardia[ICD10: I47.2] Diagnosis: Unsteadiness on feet[ICD10: R26.81] Carri Joseph MD, [facility] CPT- 4: 57884 06/02/2017 ([id number]) 40895 EST. P ATIENT, LEVEL III Diagnosis: Essential (primary) hypertension[ICD10: I10] Carri Joseph MD, [facility] CPT-4: 19376 01/28/2017 ([id number]) 49269 EST. P ATIENT, LEVEL III Diagnosis: Essential (primary) hypertension[ICD10: I10] Diagnosis: Unsteadiness on feet[ICD10: R26.81] Carri Joseph MD, [facility] CPT- 4: 75375 12/29/2016 ([id number]) 89906 EST. P ATIENT, LEVEL IV Diagnosis: Essential (primary) hypertension[ICD10: I10] Diagnosis: Mixed hyperlipidemia[ICD10: E78.2] Carri Joseph MD, [facility] CPT- 4: 91545 12/01/2016 [id number] EST. PATIENT, LEVEL IV Diagnosis: Essential (primary) hypertension[ICD10: I10] Diagnosis: Chronic atrial fibrillation[ICD10: I48.2] Diagnosis: Mixed hyperlipidemia[ICD10: E78.2] Diagnosis: Encounter for therapeutic drug level monitoring[ICD10: Z51.81] Carri Joseph MD, [facility] CPT-4: 28451 05/27/2016 ([id number]) 67206 EST. P ATIENT, LEVEL III Diagnosis: Essential (primary) hypertension[ICD10: I10] Diagnosis: Cough[ICD10: R05] [facility]ri Joseph MD, [facility] CPT-4: 24984 01/09/2016 ([id number]) 05230 EST. P ATIENT, LEVEL IV Diagnosis: Essential (primary) hypertension[ICD10: I10] Diagnosis: Chronic atrial fibrillation[ICD10: I48.2] Diagnosis: Mixed hyperlipidemia[ICD10: E78.2] [facility]ri Joseph MD, [facility] CPT- 4: 65600 11/27/2015 ([id number]) 55344 EST. P ATIENT, LEVEL IV Diagnosis: Essential (primary) hypertension[ICD10: I10] Diagnosis: Chronic atrial fibrillation[ICD10: I48.2] Diagnosis: Mixed hyperlipidemia[ICD10: E78.2] Carri Joseph MD, [facility] CPT- 4: 07353 05/29/2015 ([id number]) 12071 EST. P ATIENT, LEVEL III Diagnosis: Essential (primary) hypertension[ICD10: I10] Diagnosis: Encounter for immunization[ICD10: Z23] [facility]ri Joseph MD, [facility] CPT-4: 59266 11/23/2014 ([id number]) 91257 EST. P ATIENT, LEVEL III Diagnosis: ESSENTIAL HYPERTENSION[ICD9: 401.9] [facility]ri Joseph MD [facility] CPT- 4: 96177 07/20/2014 ([id number]) 87045 EST. P ATIENT, LEVEL IV Diagnosis: ESSENTIAL HYPERTENSION[ICD9: 401.9] Diagnosis: Renal insufficiency[ICD9: 593.9] Diagnosis: Atrial fibrillation[ICD9: 427.31] Diagnosis: HYPOTHYROIDISM[ICD9: 244.9] Carri Joseph MD, [facility] CPT-4: 86945 04/19/2014 ([id number]) 71204 EST. P ATIENT, LEVEL IV Diagnosis: ESSENTIAL HYPERTENSION[ICD9: 401.9] Diagnosis: HYPOTHYROIDISM[ICD9: 244.9] Diagnosis: COUGH[ICD9: 786.2] Diagnosis: Atrial fibrillation[ICD9: 427.31] Carri Joseph MD, [facility] CPT-4: 54905 12/21/2013 ([id number]) 47957 EST. P ATIENT, LEVEL IV Diagnosis: VACCIN FOR INFLUENZA[ICD10: Z23] Diagnosis: ESSENTIAL HYPERTENSION[ICD9: 401.9] Diagnosis: HYPERLIPIDEMIA[ICD9: 272.4] Diagnosis: Gait instability[ICD9: 781.2] Carri Joseph MD, [facility] CPT-4: 34462 10/18/2013 ([id number]) 64471 EST. P ATIENT, LEVEL III Diagnosis: ESSENTIAL HYPERTENSION[SNOMED: 11778466] Diagnosis: Arthralgia of knee[ICD9: 719.46] Carri Joseph MD, [facility] CPT-4: 94369 07/13/2013 ([id number]) Patient adm itted to the hospital from clinic (NO CHARGE) Diagnosis: JOINT PAIN-L/LEG[ICD9: 719.46] Diagnosis: CELLULITIS OF LEG[ICD9: 682.6] Carri Joseph MD, [facility] CPT-4: 03181H 06/23/2013 ([id number]) 15387 EST. P ATIENT, LEVEL III Diagnosis: Cellulitis of left knee[ICD9: 682.6] Carri Joseph MD, [facility] CPT-4: 87577 06/09/2013 ([id number]) 74703 EST. P ATIENT, LEVEL III Diagnosis: ESSENTIAL HYPERTENSION[SNOMED: 07866660] Diagnosis: Knee pain[ICD9: 719.46] Carri Joseph MD, [facility] CPT-4: 76506 04/11/2013 ([id number]) 34369 EST. P ATIENT, LEVEL IV Diagnosis: ESSENTIAL HYPERTENSION[SNOMED: 45301236] Diagnosis: HYPERLIPIDEMIA[ICD9: 272.4] Carri Joseph MD, [facility] CPT-4: 83576 02/16/2013 ([id number]) 55912 EST. P ATIENT, LEVEL IV Diagnosis: HYPERLIPIDEMIA[ICD9: 272.4] Diagnosis: ESSENTIAL HYPERTENSION[SNOMED: 04786408] Diagnosis: ENCNTR LONG-RX USE NEC[ICD9: V58.69] Carri Joseph MD, [facility] CPT-4: 90464 08/18/2012 ([id number]) [id number] EST. P ATIENT, LEVEL IV Diagnosis: ESSENTIAL HYPERTENSION[SNOMED: 54153251] Diagnosis: Renal insufficiency[ICD9: 593.9] Carri Joseph MD, [facility] CPT-4: 50701 02/19/2012 Miscellaneous no lisset rge Diagnosis: ESSENTIAL HYPERTENSION[SNOMED: 23795212] Carri Joseph MD, [facility] CPT-4: 83520 12/23/2011 ([id number]) 29561 EST. P ATIENT, LEVEL IV Diagnosis: ESSENTIAL HYPERTENSION[SNOMED: 48135579] Diagnosis: HYPERLIPIDEMIA[ICD9: 272.4] Diagnosis: Osteoarthritis of left knee[ICD9: 715.96] Carri Joseph MD, C CPT-4: 13921 10/16/2011 ([id number]) 51964 EST. P ATIENT, LEVEL IV Diagnosis: ESSENTIAL HYPERTENSION[SNOMED: 35891238] Diagnosis: HYPERLIPIDEMIA[ICD9: 272.4] Diagnosis: HYPOTHYROIDISM[ICD9: 244.9] Carri Joseph MD, [facility] CPT-4: 36206 04/10/2011 31803 EST. PATIENT, LEVEL IV Diagnosis: ESSENTIAL HYPERTENSION[SNOMED: 54414788] Diagnosis: HYPERLIPIDEMIA[ICD9: 272.4] Diagnosis: OBESITY[ICD9: 278.00] Diagnosis: VACCIN FOR INFLUENZA[ICD9: V04.81] Carri Joseph MD, [facility] CPT- 4: 78927 12/05/2010 Plan of Care Planned Activity Notes C odes Status Date Patient Education: Patient Medication Summary Completed 02/08/2018 [...] to medications. 02/04/2018 Appointment: Carri Joseph WPtel: [address] [place], [place] [address] (15 min) Moderate 02/04/2018 Patient Education: Patient [...] medications. 10/07/2017 Appointment: Carri Joseph WPtel: [phone] [facility] (15 min) Moderate 10/07/2017 Patient Education: Patient [...] surrogate. 06/04/2017 Appointment: Samira Rojas [facility]Ptel[phone] [place] [facility] - Annual Wellness Visit 06/04/2017 Patient Education: [...] with ambulation. 06/02/2017 Appointment: Carri Joseph WPtel: [facility] (15 min) Moderate 06/02/2017 Patient Education: Patient Medication Summary Completed 06/02/2017 Appointment: Carri Joseph WPtel: [facility] (15 min) Moderate 05/26/2017 Visit Plan: [...] episodes. 01/28/2017 Appointment: Carri Joseph WPtel: [phone] [facility] (15 min) Moderate 01/28/2017 Patient Education: Patient [...] does not need to go to a detention. 12/29/2016 Appointment: Carri Joseph [facility]Ptel[facility] ([facility] min) Moderate 12/29/2016 Patient Education: Patient Medication Summary Completed 12/29/2016 Patient Education: Obesity Completed 12/29/2016 Patient Education: Hypertension Completed 12/29/2016 Visit Plan: Hypertension - well con sha - continue with current medications, continue with [...] current management. 12/01/2016 Appointment: Car[facility]Ptel[phone] [facility] (15 min) Moderate 12/01/2016 Patient Education: [...] care surrogate. 05/28/2016 Appointment: Samira Rojas WPtel: [phone] [facility] [place] [facility] - Annual Wellness Visit 05/28/2016 Patient [...] becoming uncontrolled. 05/27/2016 Appointment: Carri Joseph WPtel: [facility] (15 min) Moderate 05/27/2016 Patient Education: Patient [...] 5 days 01/09/2016 Appointment: Carri Joseph WPtel: [phone] [facility] (15 min) Moderate 01/09/2016 Patient Education: [...] uncontrolled. 11/27/2015 Appointment: Carri Joseph WPtel: [phone] [facility] (15 min) Moderate 11/27/2015 Patient Education: Patient Medication Summary Completed 11/27/2015 Patient Education: Obesity Completed 11/27/2015 Visit Plan: Hypertension - well lizbeth dalton - continue with current medications, continue [...] Completed 05/29/2015 Appointment: Carri Joseph WPtel: [phone] [facility] (15 min) Moderate 05/24/2015 Appointment: Injection 12/20/2014 Visit Plan: Hypertension - well con trolled - continue with current medications, continue with no added salt diet. Pt has been encouraged to exercise daily. The pt has been advised to call the office if there are any acute concerns about change in blood pressure readings at home. 11/23/2014 Appointment: Carri Joseph WPtel: [phone] [facility] (15 min) Moderate 11/23/2014 Patient Education: [...] at home. 07/20/2014 Appointment: Carri Joseph WPtel: [phone] [facility] Follow up 07/20/2014 Patient Education: Patient [...] therapy. 04/19/2014 Appointment: [facility]el[phone] [facility] 04/19/2014 Patient Education: Patient [...] Hypertension Completed 12/21/2013 Appointment: Carri Joseph WPtel: [facility] Follow up 12/20/2013 Visit Plan: Hypertension - [...] by orthopedist. 10/18/2013 Appointment: Carri Joseph WPtel: [phone] [facility] Follow up 10/18/2013 Patient Education: Patient Medication Summary Completed 10/18/2013 Patient Education: Hypertension Completed 10/18/2013 Appointment: Carri Joseph WPtel: [phone] [facility] Follow up 08/16/2013 Visit Plan: Hypertension - [...] not improve. 07/13/2013 Appointment: Carri Joseph WPtel: [facility] [facility] follow up 07/13/2013 Patient Education: Patient Medication Summary Completed 07/13/2013 Patient Education: Hypertension Completed 07/13/2013 Visit Plan: ADMIT FROM CLINIC TO [facility] - PT IS ACUTELY ILL, REQUIRES HOSPITALIZATION. [...] today in the office. 06/09/2013 Appointment: India Loew WPtel: [phone] [facility] [place] Follow up 06/09/2013 Patient Education: Patient Medication [...] of knee. 04/11/2013 Appointment: Carri Joseph WPtel: [facility] [place] Follow up 04/11/2013 Patient Education: [...] to medications. 02/16/2013 Appointment: Carri Joseph WPtel: [phone] [facility] Follow up 02/16/2013 Patient Education: Patient Medication [...] to medications. 08/18/2012 Appointment: Carri Joseph WPtel: [phone] [facility] [place] Follow up 08/18/2012 Patient Education: Patient Medication Summary Completed 08/18/2012 Patient Education: Hypertension Completed 08/18/2012 Appointment: Carri Joseph WPtel: [phone] [facility] [place] Follow up 06/22/2012 Visit Plan: Hypertension - [...] every day. 02/19/2012 Appointment: Carri Joseph WPtel: [phone] [facility] Follow up 02/19/2012 Patient Education: Patient Medication Summary Completed 02/19/2012 Patient Education: Hypertension Completed 02/19/2012 Care Plan: CBC Pending 02/19/2012 Visit Plan: no charge for viist - p t with skin mole, no need for removal, no treatment rendered. 12/23/2011 Appointment: Carri Joseph WPtel: [phone] [facility] Surgical Procedure 12/23/2011 Patient Education: Patient [...] CHONDROITON. 10/16/2011 Appointment: Carri [facility]Ptel: [phone] Follow [facility] 10/16/2011 Patient Education: Patient Medication Summary Completed 10/16/2011 Patient Education: High Blood Pressure: Essential Hypertension Completed 10/16/2011 Visit Plan: Hypertension - well con raheemlled - continue with current medications, continue with [...] LABS TODAY 04/10/2011 Appointment: Carri Joseph [facility]Ptel: [phone] [facility] [facility] 04/10/2011 Patient Education: Patient Medication Summary Completed 04/10/2011 Patient Education: High Blood Pressure: Essential Hypertension Completed 04/10/2011 Visit Plan: Hypertension - well con sha - continue with current medications, continue with [...] shot today 12/05/2010 Appointment: Carri Joseph [facility]Ptel: [phone] [facility] [place] Other 12/05/2010 Patient Education: Patient Medication Summary Completed 12/05/2010 Patient Education: High Blood Pressure: Essential Hypertension Completed 12/05/2010 Appointment: Carri [facility]Ptel[phone] [facility] [place] Lab Draw 11/28/2010 Patient Education: Patient Medication Summary Completed 11/28/2010 Patient Education: High Blood Pressure: Essential Hypertension Completed 11/28/2010 Appointment: Carri Joseph WPtel: [phone] [facility] [place] [facility] 10/17/2010 Patient Education: Patient Medication Summary Completed 10/17/2010 Instructions Comment . Hypertension - wel l controlled - [...] vitamin C, and call if symptoms worsen. Pt should take tylen ol when he [...] month for weight check. flu shot today . Hypertension - wel l controlled - [...] use of cane for stability with ambulation. corcidin hbp - get t his medication [...] mucinex 1200mg twice daily x 5 days lora or [facility] - [...] to call if symptoms do not improve. . Medicare Exam - to day we [...] does not need to go to a detention. . Hypertension - wel l controlled - [...] and current exercise regimen. Occasional falling episodes. CULTURE OF WOUND TOD AY IN THE OFFICE APPOINTMENT WITH DR MACHUCA AT 12:45 TODAY. Cellulitis-left knee-called Dr Machuca's office-patient is to see him today at 12:45. Culture of knee done today in the office. . Medicare Exam - to day we [...] her [employer] paperwork for health care surrogate. Flu shot- GET IT AT [employer] TOMORROW IF YOU HAVE NOT ALREADY HAD [...] at least 16 ounces every day. . Hypertension - wel l controlled - [...] - regular treatments with outpatient wellness therapy. . no charge for viis t - [...] their heart rate is becoming uncontrolled. . ADMIT FROM CLINIC TO HOSPITAL - [...]
--- OUTSIDE RECORDS SUMMARY | 2019-02-01 23:36 | XMS REPORT | CCD ---
Author Author Andrade Joseph Organization Carri Joseph MD, [facility] Address [address] [place] [address] Phone Care Team Providers Care Oral Therapist Name Role Phone Carri Joseph PP Unavailable CCM Unavailable Summary Purpose Interface Exchange Insurance Providers Payer name Policy type / Coverage type Covered republican ID Effective Begin Date Effective End Date WPS Medicare Part B Medicare Part B [id number] 2017 Unknown [facility] ica Part B [id number] 2017 Un known Family history Brother Diagnosis [...] ntly unemployed Disabled - previously worked at [employer] in [employer] work 10/17/[address]: 805282530 Never smoker 10/17/[address]: 307468116 Never drinks alcohol 10/17/2010 Has the patient [...] Instructions lisinopril 2.5 mg ta blet RxNorm: 162471 1 Tablet(s) PO daily 02/04/2018 04/29/2019 Active lovastatin 20 mg tablet RxNorm: 098895 1 Tablet(s) daily TAKE 1 TABLET BY MOUTH EVERY EVENING 02/04/2018 04/29/2019 Active Generic For:MEVACOR 20MG 9:05:15 AM lovastatin 20 mg tablet RxNorm: 735346 TAKE 1 TABLET BY MOUTH EVERY EVENING 10/08/2017 02/03/2018 In active Generic For:MEVACOR 20MG 10/08/2017 9:0 5:15 AM sotalol 80 mg tablet RxNorm: 2623782 2 Tablet(s) PO BID Dr Sourav Stark 06/02/2017 No Stop Date Active lovastatin 20 mg tablet RxNorm: 398668 TAKE 1 TABLET BY MOUTH EVERY EVENING 04/03/2017 09/29/2017 In active Generic For:MEVACOR 20MG 04/02/2017 1:1 1:51 PM lovastatin 20 mg tablet RxNorm: 443382 Tablet(s) 1 Tablet(s) PO QPM TAKE 1 TABL ET BY MOUTH EVERY EVENING 10/22/2016 11/20/2016 Inactive [SAVINGS FOR UNINSURED MARGARET ENTS -- BIN:[id number], PCN: ASPROD1, Group: [id number], ID# [id number], Process claim through MedImpact, for questions: . THIS IS NOT INSURANCE.] lovastatin 20 mg tablet RxNorm: 693477 Tablet(s) 1 Tablet(s) PO QPM TAKE 1 TABL ET BY MOUTH EVERY EVENING 09/26/2016 10/21/2016 Inactive [SAVINGS FOR UNINSURED MARGARET ENTS -- BIN:[id number], PCN: ASPROD1, Group: [id number], ID# [id number], Process claim through MedImpact, for questions: . THIS IS NOT INSURANCE.] Lanoxin 125 mcg tablet RxNorm: 795322 Tablet(s) TAKE 1 TABLET BY MOUTH EVERY M ORNING 11/14/2015 10/06/2017 Inactive lovastatin 20 mg tablet RxNorm: 806193 Tablet(s) 1 Tablet(s) PO QPM TAKE 1 TABL ET BY MOUTH EVERY EVENING 10/01/2015 03/28/2016 Inactive [SAVINGS FOR UNINSURED MARGARET ENTS -- BIN:[id number], PCN: ASPROD1, Group: [id number], ID# [id number], Process claim through MedImpact, for questions: . THIS IS NOT INSURANCE.] Lanoxin 125 mcg tablet RxNorm: 922175 Tablet(s) TAKE 1 TABLET BY MOUTH EVERY M ORNING 07/16/2015 11/12/2015 Inactive Generic For:LANOXIN 0.125MG 07/22/2014 9:09:16 AM lovastatin 20 mg tablet RxNorm: 441791 Tablet(s) 1 Tablet(s) PO QPM TAKE 1 TABL ET BY MOUTH EVERY EVENING 03/23/2015 09/18/2015 Inactive [SAVINGS FOR UNINSURED MARGARET ENTS -- BIN:[id number], PCN: ASPROD1, Group: [id number], ID# [id number], Process claim through MedImpact, for questions: . THIS IS NOT INSURANCE.] lovastatin 20 mg tablet RxNorm: 155205 1 Tablet(s) PO QPM TAKE 1 TABLET BY MOUT H EVERY EVENING 09/11/2014 03/09/2015 Inactive [SAVINGS FOR UNINSURED MARGARET ENTS -- BIN:[id number], PCN: ASPROD1, Group: [id number], ID# [id number], Process claim through MedImpact, for questions: . THIS IS NOT INSURANCE.] Lanoxin 125 mcg tablet RxNorm: 599291 TAKE 1 TABLET BY MOUTH EVERY MORNING 07/24/2014 07/15/2015 In active Generic For:LANOXIN 0.125MG 07/22/2014 9:09:16 AM sotalol 80 mg tablet RxNorm: 3660737 1 1/2 Tablet(s) PO BID 04/19/2014 06/01/2017 Inactive [SAVINGS FOR NON-COVERED DRUGS -- BIN:[id number] 3585, PCN: ASPROD1, Group: XXXXX, ID# [id number], Questions: . THIS IS NOT INSURANCE.] lovastatin 20 mg tablet RxNorm: 671651 1 Tablet(s) PO QPM TAKE 1 TABLET BY MOUT H EVERY EVENING 09/06/2013 09/05/2013 Inactive [SAVINGS FOR UNINSURED MARGARET ENTS -- BIN:794915, PCN: ASPROD1, Group: [id number], ID# [id number], Process claim through MedImpact, for questions: . THIS IS NOT INSURANCE.] lovastatin 20 mg tablet RxNorm: 116826 1 Tablet(s) PO QPM TAKE 1 TABLET BY MOUT H EVERY EVENING 09/06/2013 09/10/2014 Inactive [SAVINGS FOR UNINSURED MARGARET ENTS -- BIN:940024, PCN: ASPROD1, Group: [id number], ID# [id number], Process claim through MedImpact, for questions: . THIS IS NOT INSURANCE.] Lanoxin 125 mcg tablet RxNorm: 271724 1 Tablet(s) PO daily TAKE 1 TABLET BY MO UTH EVERY MORNING 07/25/2013 07/24/2013 Inactive [SAVINGS FOR UNINSURED MARGARET ENTS -- BIN:586273, PCN: ASPROD1, Group: [id number], ID# [id number], Process claim through [email or web address], for questions: . THIS IS NOT INSURANCE.] Lanoxin 125 mcg tablet RxNorm: 903496 1 Tablet(s) PO daily TAKE 1 TABLET BY MO UTH EVERY MORNING 07/25/2013 08/18/2014 Inactive [SAVINGS FOR UNINSURED MARGARET ENTS -- BIN:511375, PCN: ASPROD1, Group: [id number], ID# [id number], Process claim through [email or web address], for questions: . THIS IS NOT INSURANCE.] tamsulosin ER 0.4 mg capsule,extended release 24 hr RxNorm: 263365 1 Capsule(s) PO QAM 04/20/2013 04/14/2014 Inactive lovastatin 20 mg tablet RxNorm: 796544 1 Tablet(s) PO QPM TAKE 1 TABLET BY MOUT H EVERY EVENING 08/26/2012 08/26/2012 Inactive lovastatin 20 mg tablet RxNorm: 039192 1 Tablet(s) PO QPM TAKE 1 TABLET BY MOUT H EVERY EVENING 08/26/2012 09/05/2013 Inactive Lanoxin 125 mcg tablet RxNorm: 852847 Tablet(s) PO TAKE 1 TABLET BY MOUTH EVER Y MORNING 06/28/2012 07/24/2013 Inactive lovastatin 20 mg tablet RxNorm: 688431 Tablet(s) PO TAKE 1 TABLET BY MOUTH EVER Y EVENING 04/27/2012 08/26/2012 Inactive lovastatin 20 mg tablet RxNorm: 988455 Tablet(s) PO 11/24/2011 04/26/2012 Inactive TAKE 1 TABLET BY MOUTH EVERY EVENING Lanoxin 125 mcg tablet RxNorm: 368543 Tablet(s) PO 07/14/2011 06/27/2012 Inactive TAKE 1 TABLET BY MOUTH EVERY MORNING lovastatin 20 mg tablet RxNorm: 341431 1 Tablet(s) PO daily 12/05/2010 11/23/2011 Inactive Influenza Virus Vacc ine 0.5 mL RxNorm: IM 11/28/2010 11/28/2010 Inactive multivitamin Oral RxNorm: Oral No Start Date Active aspirin 81 mg Tab, D elayed Release RxNorm: 000601 1 Tablet(s) PO daily No Start Date Active Lanoxin 125 mcg Tab RxNorm: 386876 1 Tablet(s) PO daily No Start Date 07/13/2011 Inactive carvedilol 6.25 mg Tab RxNorm: 246674 1 Tablet(s) PO BID No Start Date 08/17/2012 Inactive lisinopril 2.5 mg ta blet RxNorm: 429481 1 Tablet(s) PO daily No Start Date 02/03/2018 Inactive Lipitor 10 mg Tab RxNorm: 958324 1 Tablet(s) PO daily No Start Date 12/04/2010 Inactive sotalol 80 mg tablet RxNorm: 474972 1 Tablet(s) PO BID No Start Date 04/18/2014 Inactive carvedilol 12.5 mg t ablet RxNorm: 564371 1 Tablet(s) PO BID No Start Date 09/21/2013 Inactive senna 187 mg tablet RxNorm: 837877 1 Tablet(s) PO daily No Start Date 06/22/2013 Inactive Coreg 3.125 mg Tab RxNorm: 454979 1 Tablet(s) PO BID No Start Date 04/09/2011 Inactive tamsulosin ER 0.4 mg capsule,extended release 24 hr RxNorm: 414429 1 Capsule(s) PO QAM No Start Date [...] Ord30 C/HDL 2.9 Ratio 11/27/2016 Comp Metabolic Ejq774 NA 140 mEq/L 11/27/2016 Comp Metabolic Osj432 K 4.6 mEq/L 11/27/2016 Comp Metabolic Eby477 CL 103 mEq/L 11/27/2016 Comp Metabolic Oxq306 CO2 28.0 mEq/L 11/27/2016 Comp Metabolic Wdx611 AN ION GAP 14 11/27/2016 Comp Metabolic Qho509 GL UCOSE 107 mg/dL 11/27/2016 Comp Metabolic Rsh744 Cr eat 1.4 mg/dL 11/27/2016 Comp Metabolic Gzg443 eG FR 55 ml/min/1.73m2 11/27 Comp Metabolic Sxz842 BUN 27 mg/dL 11/27/2016 Comp Metabolic Ybb429 B/ C Ratio 19.9 Ratio 11/27/2016 Comp Metabolic Vlb178 CA LCIUM 9.8 mg/dL 11/27/2016 Comp Metabolic Qqk924 AL K PHOS 61 U/L 11/27/2016 Comp Metabolic Jvm581 T(SGOT) 19 U/L 11/27/2016 Comp Metabolic Oaa421 AL T(SGPT) 14 U/L 11/27/2016 Comp Metabolic Ohk747 BI LI T 0.5 mg/dL 11/27/2016 Comp Metabolic Gcm688 AL BUMIN 4.1 g/dL 11/27/2016 Comp Metabolic Nuf408 TP RO 7.1 g/dL 11/27/2016 Comp Metabolic Sqg385 GL OB 3.0 g/dL 11/27/2016 Comp Metabolic Npc977 A/ G Ratio 1.4 Ratio 11/27/2016 Comp Metabolic Wbk930 Os mo 285 mOsmo 11/27/2016 Cbc With [...] 32.1 pg 11/27/2016 Cbc With Differential Ord2 [place]% 9.3 % 11/27/2016 Cbc With Differential Ord2 [...] 1.36 K/ul 11/27/2016 Cbc With Differential Ord2 [place] ABS# 0.8 K/ul 11/27/2016 Cbc With Differential [...] 31.6 pg 07/04/2016 Cbc With Differential Ord2 [place]% 10.4 % 07/04/2016 Cbc With Differential Ord2 [...] 1.59 K/ul 07/04/2016 Cbc With Differential Ord2 [place] ABS# 0.8 K/ul 07/04/2016 Cbc With Differential [...] 31.8 pg 05/27/2016 Cbc With Differential Ord2 [place]% 10.8 % 05/27/2016 Cbc With Differential Ord2 [...] 1.21 K/ul 05/27/2016 Cbc With Differential Ord2 [place] ABS# 0.9 K/ul 05/27/2016 Cbc With Differential Ord2 Eos ABS# 0.3 K/ul 05/27/2016 Cbc With Differential Ord2 Baso ABS# 0.0 K/ul 05/27/2016 Digoxin Ord9 DIGOXIN 0.8 NG/ML 05/27/2016 Lipid Ord30 CHOL 168 mg/dL 05/27/2016 Lipid Ord30 HDL 53.0 mg/dl 05/27/2016 Lipid Ord30 TRIG 100 mg/dL 05/27/2016 Lipid Ord30 LDL 95 mg/dL 05/27/2016 Lipid Ord30 C/HDL 3.2 Ratio 05/27/2016 Comp Metabolic Bns486 NA 138 mEq/L 05/27/2016 Comp Metabolic Wdt289 K 4.9 mEq/L 05/27/2016 Comp Metabolic Fkl344 CL 101 mEq/L 05/27/2016 Comp Metabolic Azo719 CO2 28.0 mEq/L 05/27/2016 Comp Metabolic Wzg743 AN ION GAP 14 05/27/2016 Comp Metabolic Hcy785 GL UCOSE 95 mg/dL 05/27/2016 Comp Metabolic Geo373 Cr eat 1.4 mg/dL 05/27/2016 Comp Metabolic Ygr001 eG FR 55 ml/min/1.73m2 05/27 Comp Metabolic Vme034 BUN 26 mg/dL 05/27/2016 Comp Metabolic Xlt506 B/ C Ratio 19.0 Ratio 05/27/2016 Comp Metabolic Vxm176 CA LCIUM 9.4 mg/dL 05/27/2016 Comp Metabolic Mfy612 AL K PHOS 62 U/L 05/27/2016 Comp Metabolic Irl622 T(SGOT) 19 U/L 05/27/2016 Comp Metabolic Ail654 AL T(SGPT) 14 U/L 05/27/2016 Comp Metabolic Ucm522 BI LI T 0.5 mg/dL 05/27/2016 Comp Metabolic Rvu899 AL BUMIN 3.8 g/dL 05/27/2016 Comp Metabolic Mzz113 TP RO 7.1 g/dL 05/27/2016 Comp Metabolic Ubi976 GL OB 3.3 g/dL 05/27/2016 Comp Metabolic Nds347 A/ G Ratio 1.2 Ratio 05/27/2016 Comp Metabolic Zvs110 Os mo 280 mOsmo 05/27/2016 Tsh Ord6 hTSH II 1.30 uIU/mL 05/27/2016 Total Psa Ord10 PSA 1.61 ng/mL 05/27/2016 LIPID GRP 1053901 HDL TE ST 62 MG/DL 08/18/2012 LIPID GRP TRIG 115 MG/DL 08/18/2012 LIPID GRP 9710946 TEST L DL 103 MG/DL 08/18/2012 LIPID GRP 1398975 CHOL 188 MG/DL 08/18/2012 LIPID GRP RCHOL/ HDL 3.03 RATIO 08/18/2012 TSH 3727502 TSH 1.296 uIU/ML 08/18/2012 CBC 7926795 WBC 6.2 10e9/L 08/18/2012 CBC 9768282 RBC 4.13 10e12/L 08/18/2012 CBC 6429099 HGB 13.5 g/dL 08/18/2012 CBC 1607063 HCT DET 40.3 % 08/18/2012 CBC 6372675 MCV 97.6 fL 08/18/2012 CBC 2747963 MCH 32.7 pg 08/18/2012 CBC 1133189 MCHC 33.5 g/dL 08/18/2012 CBC 3128426 PLT 159 10e9/L 08/18/2012 CBC 9200018 MPV 10.8 fL 08/18/2012 CBC 8265074 [place] % 60.9 % 08/18/2012 CBC 2604295 LY % 23.1 % 08/18/2012 CBC 7595061 MON % 11.2 % 08/18/2012 CBC 1600823 EOS % 4.2 % 08/18/2012 CBC 5467306 BASO % 0.6 % 08/18/2012 CBC 4767781 RDW 13.0 % 08/18/2012 CBC 8448839 ABS [place] 3.78 10e9/L 08/18/2012 CBC 7106834 ABS LYMPH 1.43 10e9/L 08/18/2012 CBC 3648897 ABS MONO 0.69 10e9/L 08/18/2012 CBC 9199133 ABS EOS 0.26 10e9/L 08/18/2012 CBC 5475480 ABS BASO 0.04 10e9/L 08/18/2012 CBC 7896952 RDW-SD 45.1 fL 08/18/2012 GFR CALC 5881480 GFR AA >60 ML/MIN 08/18/2012 GFR CALC 3483373 GFR NON -AA 51.0L ML/MIN 3 CHEM 14 9434710 AST 21 U/L 08/18/2012 CHEM 14 2482936 ALT 16 IU/L 08/18/2012 CHEM 14 5514962 BUN 26 MG/DL 08/18/2012 CHEM 14 9507490 ALBUMIN 4.3 GM/DL 08/18/2012 CHEM 14 8454677 CHLORIDE 105 MMOL/L 08/18/2012 CHEM 14 5448280 BILI TOT 0.7 MG/DL 08/18/2012 CHEM 14 3758340 ALK PHOS 41 U/L 08/18/2012 CHEM 14 6897273 SODIUM 138 MMOL/L 08/18/2012 CHEM 14 5232367 CREATINI NE 1.39 MG/DL 08/18/2012 CHEM 14 6040226 CALCIUM 9.6 MG/DL 08/18/2012 CHEM 14 7165320 POTASSIUM 4.4 MMOL/L 08/18/2012 CHEM 14 4340456 PROT TOT 7.0 GM/DL 08/18/2012 CHEM 14 1989557 GLUCOSE 104 MG/DL 08/18/2012 CHEM 14 4160196 BICARB 28 MMOL/L 08/18/2012 CHEM 14 8416765 ANION GAP 5 MEQ/L 08/18/2012 GFR CALC 8254697 GFR AA 58.0L ML/MIN 02/19/2012 GFR CALC 4703170 GFR NON -AA 47.0L ML/MIN 3 CHEM 14 0825264 AST 20 U/L 02/19/2012 CHEM 14 5632099 ALT 18 IU/L 02/19/2012 CHEM 14 7048971 BUN 30 MG/DL 02/19/2012 CHEM 14 4625354 ALBUMIN 4.4 GM/DL 02/19/2012 CHEM 14 5176705 CHLORIDE 105 MMOL/L 02/19/2012 CHEM 14 5553936 BILI TOT 0.5 MG/DL 02/19/2012 CHEM 14 7813338 ALK PHOS 54 U/L 02/19/2012 CHEM 14 5943860 SODIUM 139 MMOL/L 02/19/2012 CHEM 14 1528401 CREATINI NE 1.49 MG/DL 02/19/2012 CHEM 14 4658861 CALCIUM 9.6 MG/DL 02/19/2012 CHEM 14 6176732 POTASSIUM 4.5 MMOL/L 02/19/2012 CHEM 14 7316878 PROT TOT 7.0 GM/DL 02/19/2012 CHEM 14 3884239 GLUCOSE 84 MG/DL 02/19/2012 CHEM 14 3397641 BICARB 26 MMOL/L 02/19/2012 CHEM 14 7668784 ANION GAP 8 MEQ/L 02/19/2012 Review of [...] PRSV 4 VA L 3 YRS+ CPT-4: 46422 12/24/2017 PPPS, SUBSEQ VISIT CPT- 4: G0439 06/04/2017 PPPS, SUBSEQ VISIT CPT- 4: G0439 05/28/2016 ADMIN PNEUMOCOCCAL V ACCINE SNOMED CT: 13834671 CPT-4: G0009 11/23/2014 PNEUMOCOCCAL VACC [address]: 47822290 CPT-4: 69064 11/23/2014 FLU VAC NO PRSV 4 VA L 3 YRS+ CPT-4: 73076 10/18/2013 ADMIN INFLUENZA VIRU S VAC Assigned to/Ayaka Snyder CPT-4: B8547Piaroit 10/18/2013 ROUTINE VENIPUNCTURE CPT-4: 85146 08/18/2012 ROUTINE VENIPUNCTURE CPT-4: 90783 02/19/2012 ROUTINE VENIPUNCTURE CPT-4: 43959 04/10/2011 ADMIN INFLUENZA VIRU S VAC CPT-4: G0008 12/05/2010 FLULAVAL VACC, 3 YRS & >, IM CPT-4: Q2036 12/05/2010 ROUTINE VENIPUNCTURE CPT-4: 62160 11/28/2010 ADMIN INFLUENZA VIRU S VAC CPT-4: G0008 11/28/2010 FLULAVAL VACC, 3 YRS & >, IM CPT-4: Q2036 11/28/2010 ROUTINE VENIPUNCTURE CPT-4: 62391 10/17/2010 Vital Signs Date Vital 02/04/2018 Blood Pressure 1: 120/66 Code: 8480-6 BMI: 33.6 Code: 70129-5 Heart Rate 1: 80 bpm Height: 5'5" Respiratory Rate: 18 bpm Weight: 202 lbs 10/07/2017 Blood Pressure 1: 108/64 Code: 8480-6 BMI: 32.3 Code: 81364-1 Heart Rate 1: 83 bpm Height: 5'5" SpO2: 98% Weight: 194 lbs 06/04/2017 Blood Pressure 1: 116/64 Code: 8480-6 BMI: 33.3 Code: 75753-2 Heart Rate 1: 70 bpm Height: 5'5" SpO2: 97% Waist Measure (cm): 97 cm Weight: 200 lbs 06/02/2017 Blood Pressure 1: 120/72 Code: 8480-6 BMI: 33.1 Code: 83352-6 Heart Rate 1: 70 bpm Height: 5'5" SpO2: 97% Weight: 199 lbs 01/28/2017 Blood Pressure 1: 128/78 Code: 8480-6 BMI: 31.8 Code: 68974-5 Heart Rate 1: 81 bpm Height: 5'5" SpO2: 98% Weight: 191 lbs 12/29/2016 Blood Pressure 1: 130/76 Code: 8480-6 BMI: 31.1 Code: 73296-1 Heart Rate 1: 80 bpm Height: 5'5" SpO2: 98% Weight: 187 lbs 12/01/2016 Blood Pressure 1: 128/80 Code: 8480-6 BMI: 32.0 Code: 33992-9 Heart Rate 1: 78 bpm Height: 5'5" SpO2: 98% Weight: 192 lbs 05/28/2016 Blood Pressure 1: 138/80 Code: 8480-6 BMI: 33.6 Code: 96452-9 Heart Rate 1: 62 bpm Height: 5'5" SpO2: 97% Waist Measure (cm): 97 cm Weight: 202 lbs 05/27/2016 Blood Pressure 1: 138/80 Code: 8480-6 BMI: 33.6 Code: 13268-2 Heart Rate 1: 60 bpm Height: 5'5" SpO2: 98% Weight: 202 lbs 01/09/2016 Blood Pressure 1: 132/76 Code: 8480-6 BMI: 34.1 Code: 60100-9 Heart Rate 1: 62 bpm Height: 5'5" SpO2: 95% Weight: 205 lbs 11/27/2015 Blood Pressure 1: 140/80 Code: 8480-6 BMI: 35.3 Code: 32933-6 Heart Rate 1: 77 bpm Height: 5'5" SpO2: 96% Weight: 212 lbs 05/29/2015 Blood Pressure 1: 130/74 Code: 8480-6 BMI: 34.2 Code: 52487-1 Heart Rate 1: 59 bpm Height: 5'5" SpO2: 97% Weight: 205 lbs 8 oz 11/23/2014 Blood Pressure 1: 136/76 Code: 8480-6 BMI: 33.8 Code: 15791-0 Heart Rate 1: 68 bpm Height: 5'5" SpO2: 98% Weight: 203 lbs 07/20/2014 Blood Pressure 1: 140/88 Code: 8480-6 BMI: 34.4 Code: 33188-0 Heart Rate 1: 68 bpm Height: 5'5" Weight: 207 lbs 04/19/2014 Blood Pressure 1: 130/88 Code: 8480-6 BMI: 34.6 Code: 03041-2 Heart Rate 1: 64 bpm Height: 5'5" Weight: 208 lbs 12/21/2013 Blood Pressure 1: 140/76 Code: 8480-6 BMI: 33.8 Code: 29030-3 Heart Rate 1: 64 bpm Height: 5'5" Weight: 203 lbs 10/18/2013 Blood Pressure 1: 138/70 Code: 8480-6 BMI: 33.1 Code: 46191-7 Heart Rate 1: 74 bpm Height: 5'5" Weight: 199 lbs 07/13/2013 Blood Pressure 1: 115/60 Code: 8480-6 BMI: 30.5 Code: 19368-0 Heart Rate 1: 76 bpm Height: 5'5" Weight: 183 lbs 06/23/2013 Blood Pressure 1: 108/58 Code: 8480-6 Heart Rate 1: 80 bpm Temperature: 37.2 (C) / 98.9 (F) Weight: 06/09/2013 [place] rature: 36.7 (C) / 98.0 (F) Weight: 04/11/2013 Blood Pressure 1: 104/64 Code: 8480-6 Heart Rate 1: 76 bpm Weight: 02/16/2013 Blood Pressure 1: 130/82 Code: 8480-6 BMI: 35.8 Code: 46305-3 Heart Rate 1: 76 bpm Height: 5'5" Weight: 215 lbs 08/18/2012 Blood Pressure 1: 104/64 Code: 8480-6 BMI: 33.6 Code: 09190-7 Heart Rate 1: 64 bpm Height: 5'5" Weight: 202 lbs 02/19/2012 Blood Pressure 1: 120/74 Code: 8480-6 BMI: 33.8 Code: 49734-3 Heart Rate 1: 64 bpm Height: 5'5" Respiratory Rate: 16 bpm Weight: 203 lbs 10/16/2011 Blood Pressure 1: 130/68 Code: 8480-6 Heart Rate 1: 80 bpm Weight: 201 lbs 04/10/2011 Blood Pressure 1: 134/74 Code: 8480-6 Heart Rate 1: 64 bpm Respiratory Rate: 16 bpm Weight: 202 lbs 12/05/2010 Blood Pressure 1: 128/72 Code: 8480-6 BMI: 33.5 Code: 78685-2 Heart Rate 1: 68 bpm Height: 5'5" [...] Encounters Encounter Performer Loca tion Codes Date ([id number]) 37977 EST. P ATIENT, LEVEL IV Diagnosis: Essential (primary) hypertension[ICD10: I10] Diagnosis: Mixed hyperlipidemia[ICD10: E78.2] [facility] CPT- 4: 70367 02/04/2018 [id number]) 26110 EST. P ATIENT, LEVEL IV Diagnosis: Essential (primary) hypertension[ICD10: I10] Diagnosis: Mixed hyperlipidemia[ICD10: E78.2] [facility] CPT- 4: 41482 10/07/[id number]) 92448 EST. P ATIENT, LEVEL IV Diagnosis: Essential (primary) hypertension[ICD10: I10] Diagnosis: Mixed hyperlipidemia[ICD10: E78.2] Diagnosis: Ventricular tachycardia[ICD10: I47.2] Diagnosis: Unsteadiness on feet[ICD10: R26.81] Carri Joseph MD, [facility] CPT- 4: 30930 06/02/2017 ([id number]) 11266 EST. P ATIENT, LEVEL III Diagnosis: Essential (primary) hypertension[ICD10: I10] [facility]ri Joseph MD, [facility] CPT-4: 91390 01/28/2017 ([id number]) 54632 EST. P ATIENT, LEVEL III Diagnosis: Essential (primary) hypertension[ICD10: I10] Diagnosis: Unsteadiness on feet[ICD10: R26.81] Carri Joseph MD, [facility] CPT- 4: 16207 12/29/2016 ([id number]) 48921 EST. P ATIENT, LEVEL IV Diagnosis: Essential (primary) hypertension[ICD10: I10] Diagnosis: Mixed hyperlipidemia[ICD10: E78.2] Carri Joseph MD, [facility] CPT- 4: 69494 12/01/2016 93416 EST. PATIENT, LEVEL IV Diagnosis: Essential (primary) hypertension[ICD10: I10] Diagnosis: Chronic atrial fibrillation[ICD10: I48.2] Diagnosis: Mixed hyperlipidemia[ICD10: E78.2] Diagnosis: Encounter for therapeutic drug level monitoring[ICD10: Z51.81] [facility]ri Joseph MD, [facility] CPT-4: 38245 05/27/2016 ([id number]) 59570 EST. P ATIENT, LEVEL III Diagnosis: Essential (primary) hypertension[ICD10: I10] Diagnosis: Cough[ICD10: R05] [facility] Joseph MD, [facility] CPT-4: 74525 01/09/2016 ([id number]) 21025 EST. P ATIENT, LEVEL IV Diagnosis: Essential (primary) hypertension[ICD10: I10] Diagnosis: Chronic atrial fibrillation[ICD10: I48.2] Diagnosis: Mixed hyperlipidemia[ICD10: E78.2] [facility]ri Joseph MD, [facility] CPT- 4: 95114 11/27/2015 ([id number]) 63532 EST. P ATIENT, LEVEL IV Diagnosis: Essential (primary) hypertension[ICD10: I10] Diagnosis: Chronic atrial fibrillation[ICD10: I48.2] Diagnosis: Mixed hyperlipidemia[ICD10: E78.2] [facility]ri Joseph MD, [facility] CPT- 4: 86190 05/29/2015 ([id number]) 80140 EST. P ATIENT, LEVEL III Diagnosis: Essential (primary) hypertension[ICD10: I10] Diagnosis: Encounter for immunization[ICD10: Z23] [facility]ri Joseph MD, [facility] CPT-4: 61915 11/23/2014 ([id number]) 39047 EST. P ATIENT, LEVEL III Diagnosis: ESSENTIAL HYPERTENSION[ICD9: 401.9] [facility] MD [facility] CPT- 4: 36375 07/20/2014 ([id number]) 53107 EST. P ATIENT, LEVEL IV Diagnosis: ESSENTIAL HYPERTENSION[ICD9: 401.9] Diagnosis: Renal insufficiency[ICD9: 593.9] Diagnosis: Atrial fibrillation[ICD9: 427.31] Diagnosis: HYPOTHYROIDISM[ICD9: 244.9] [facility] MD, [facility] CPT-4: 82038 04/19/2014 ([id number]) 60095 EST. P ATIENT, LEVEL IV Diagnosis: ESSENTIAL HYPERTENSION[ICD9: 401.9] Diagnosis: HYPOTHYROIDISM[ICD9: 244.9] Diagnosis: COUGH[ICD9: 786.2] Diagnosis: Atrial fibrillation[ICD9: 427.31] [facility]ri Joseph MD, [facility] CPT-4: 49929 12/21/2013 ([id number]) 64105 EST. P ATIENT, LEVEL IV Diagnosis: VACCIN FOR INFLUENZA[ICD10: Z23] Diagnosis: ESSENTIAL HYPERTENSION[ICD9: 401.9] Diagnosis: HYPERLIPIDEMIA[ICD9: 272.4] Diagnosis: Gait instability[ICD9: 781.2] [facility]ri Joseph MD, [facility] CPT-4: 28758 10/18/2013 ([id number]) 16723 EST. P ATIENT, LEVEL III Diagnosis: ESSENTIAL HYPERTENSION[SNOMED: 86827697] Diagnosis: Arthralgia of knee[ICD9: 719.46] [facility] MD, [facility] CPT-4: 71704 07/13/2013 ([id number]) Patient adm itted to the hospital from clinic (NO CHARGE) Diagnosis: JOINT PAIN-L/LEG[ICD9: 719.46] Diagnosis: CELLULITIS OF LEG[ICD9: 682.6] [facility] MD, [facility] CPT-4: 87349S 06/23/2013 ([id number]) 94453 EST. P ATIENT, LEVEL III Diagnosis: Cellulitis of left knee[ICD9: 682.6] [facility] MD, [facility] CPT-4: 63361 06/09/2013 ([id number]) 86441 EST. P ATIENT, LEVEL III Diagnosis: ESSENTIAL HYPERTENSION[SNOMED: 82433364] Diagnosis: Knee pain[ICD9: 719.46] [facility]ri Joseph MD, [facility] CPT-4: 00861 04/11/2013 ([id number]) 67073 EST. P ATIENT, LEVEL IV Diagnosis: ESSENTIAL HYPERTENSION[SNOMED: 76794396] Diagnosis: HYPERLIPIDEMIA[ICD9: 272.4] [facility]ri Joseph MD, [facility] CPT-4: 62835 02/16/2013 ([id number]) 55081 EST. P ATIENT, LEVEL IV Diagnosis: HYPERLIPIDEMIA[ICD9: 272.4] Diagnosis: ESSENTIAL HYPERTENSION[SNOMED: 71051054] Diagnosis: ENCNTR LONG-RX USE NEC[ICD9: V58.69] [facility] Joseph MD, [facility] CPT-4: 10693 08/18/2012 ([id number]) 75660 EST. P ATIENT, LEVEL IV Diagnosis: ESSENTIAL HYPERTENSION[SNOMED: 21934850] Diagnosis: Renal insufficiency[ICD9: 593.9] Carri Joseph MD, [facility] CPT-4: 15297 02/19/2012 Miscellaneous no lisset rge Diagnosis: ESSENTIAL HYPERTENSION[SNOMED: 74211438] Carri Joseph MD, [facility] CPT-4: 50534 12/23/2011 ([id number]) 56097 EST. P ATIENT, LEVEL IV Diagnosis: ESSENTIAL HYPERTENSION[SNOMED: 97281246] Diagnosis: HYPERLIPIDEMIA[ICD9: 272.4] Diagnosis: Osteoarthritis of left knee[ICD9: 715.96] Carri Joseph MD, C CPT-4: 73199 10/16/2011 ([id number]) 86441 EST. P ATIENT, LEVEL IV Diagnosis: ESSENTIAL HYPERTENSION[SNOMED: 96878021] Diagnosis: HYPERLIPIDEMIA[ICD9: 272.4] Diagnosis: HYPOTHYROIDISM[ICD9: 244.9] Carri Joseph MD, [facility] CPT-4: 88285 04/10/2011 82919 EST. PATIENT, LEVEL IV Diagnosis: ESSENTIAL HYPERTENSION[SNOMED: 15595030] Diagnosis: HYPERLIPIDEMIA[ICD9: 272.4] Diagnosis: OBESITY[ICD9: 278.00] Diagnosis: VACCIN FOR INFLUENZA[ICD9: V04.81] Carri Joseph MD, [facility] CPT- 4: 64114 12/05/2010 Plan of Care Planned Activity Notes [...] to medications. 02/04/2018 Appointment: Carri Joseph WPtel: [address] [place], [place] [id number] (15 min) Moderate 02/04/2018 Patient Education: Patient [...] medications. 10/07/2017 Appointment: Carri Joseph WPtel: [phone] [facility] (15 min) Moderate 10/07/2017 Patient Education: Patient [...] surrogate. 06/04/2017 [phone] [facility] [facility] - Annual Wellness Visit 06/04/2017 Patient [...] with ambulation. 06/02/2017 Appointment: Carri Joseph WPtel: [facility] (15 min) Moderate 06/02/2017 Patient Education: Patient Medication Summary Completed 06/02/2017 Appointment: Carri Joseph WPtel: [facility] (15 min) Moderate 05/26/2017 Visit Plan: Hypertension [...] episodes. 01/28/2017 Appointment: Carri Joseph WPtel: [phone] [facility] (15 min) Moderate 01/28/2017 Patient Education: Patient [...] does not need to go to a alf. 12/29/2016 Appointment: Carri Joseph WPtel: [facility] ([facility] Moderate 12/29/2016 Patient Education: [...] current management. 12/01/2016 Appointment: Car[facility]el[facility] [phone] [facility] ([facility] min) Moderate 12/01/2016 Patient Education: [...] surrogate. 05/28/2016 App[facility]ment: [phone] [facility] [facility] - Annual Wellness Visit 05/28/2016 Patient [...] becoming uncontrolled. 05/27/2016 Appointment: Carri Joseph WPtel: [facility] (15 min) Moderate 05/27/2016 Patient Education: Patient [...] 5 days 01/09/2016 Appointment: Carri Joseph WPtel: [phone] [facility] (15 min) Moderate 01/09/2016 Patient Education: Patient [...] uncontrolled. 11/27/2015 Appointment: Carri Joseph WPtel: [phone] [facility] (15 min) Moderate 11/27/2015 Patient Education: Patient [...] Completed 05/29/2015 Appointment: Carri Joseph WPtel: [phone] [facility] (15 min) Moderate 05/24/2015 Appointment: Injection 12/20/2014 Visit Plan: Hypertension - well con trolled - continue with current medications, continue with no added salt diet. Pt has been encouraged to exercise daily. The pt has been advised to call the office if there are any acute concerns about change in blood pressure readings at home. 11/23/2014 Appointment: Carri Joseph WPtel: [phone] [facility] (15 min) Moderate 11/23/2014 Patient Education: Patient [...] at home. 07/20/2014 Appointment: Carri Joseph WPtel: [phone] [facility] Follow up 07/20/2014 Patient Education: Patient Medication [...] therapy. 04/19/2014 [facility] [phone] [facility] Follow up 04/19/2014 Patient Education: Patient [...] Hypertension Completed 12/21/2013 Appointment: Carri Joseph WPtel: [facility] Follow up 12/20/2013 Visit Plan: Hypertension - [...] by orthopedist. 10/18/2013 Appointment: Carri Joseph WPtel: [phone] [facility] Follow up 10/18/2013 Patient Education: Patient Medication Summary Completed 10/18/2013 Patient Education: Hypertension Completed 10/18/2013 Appointment: Carri Joseph WPtel: [phone] [facility] Follow up 08/16/2013 Visit Plan: Hypertension - [...] not improve. 07/13/2013 Appointment: Carri Joseph WPtel: [facility] [facility] follow up 07/13/2013 Patient Education: Patient Medication Summary Completed 07/13/2013 Patient Education: Hypertension Completed 07/13/2013 Visit Plan: ADMIT FROM CLINIC TO [facility] - PT IS ACUTELY ILL, REQUIRES [...] the office. 06/09/2013 [phone] Follow up 06/09/2013 Patient Education: Patient Medication [...] of knee. 04/11/2013 Appointment: Carri Joseph WPtel: [facility]6 [facility] [place] Follow up 04/11/2013 Patient Education: Patient [...] medications. 02/16/2013 Appointment: Carri Joseph WPtel: [phone] [facility] Follow up 02/16/2013 Patient Education: Patient [...] to medications. 08/18/2012 Appointment: Carri Joseph WPtel: [phone] [facility] [place] Follow up 08/18/2012 Patient Education: Patient Medication Summary Completed 08/18/2012 Patient Education: Hypertension Completed 08/18/2012 Appointment: Carri Joseph WPtel: [phone] [facility] [place] Follow up 06/22/2012 Visit Plan: Hypertension [...] day. 02/19/2012 Appointment: Carri Joseph WPtel: [phone] [facility] Follow up 02/19/2012 Patient Education: Patient Medication Summary Completed 02/19/2012 Patient Education: Hypertension Completed 02/19/2012 Care Plan: CBC Pending 02/19/2012 Visit Plan: no charge for viist - p t with skin mole, no need for removal, no treatment rendered. 12/23/2011 Appointment: Carri Joseph WPtel: [phone] [phone] Surgical Procedure 12/23/2011 Patient Education: Patient Medication [...] CHONDROITON. 10/16/2011 App[facility]ment: [facility]el[facility] [phone] [address] Follow up 10/16/2011 Patient Education: Patient [...] TODAY 04/10/2011 Appointment: [facility]el[facility] [phone] Other 04/10/2011 Patient Education: Patient Medication [...] shot today 12/05/2010 Appointment: [facility]Ptel[facility] [phone] [facility] [place] Other 12/05/2010 Patient Education: Patient Medication Summary Completed 12/05/2010 Patient Education: High Blood Pressure: Essential Hypertension Completed 12/05/2010 Appointment: Car[facility]Ptel[facility] [phone] [facility] [place] Lab Draw 11/28/2010 Patient Education: Patient Medication Summary Completed 11/28/2010 Patient Education: High Blood Pressure: Essential Hypertension Completed 11/28/2010 Appointment: Carri Joseph WPtel: [phone] [facility] [place] Lab Draw 10/17/2010 Patient Education: [...] wellness therapy. Flu shot- GET IT AT [facility] TOMORROW IF YOU HAVE NOT ALREADY HAD [...] does not need to go to a alf. . Medicare Exam - to day we [...]
--- OUTSIDE RECORDS SUMMARY | 2019-02-01 23:37 | XMS REPORT | CCD ---
Author Author Andrade Joseph Organization Carri Joseph MD, [facility] Address [address] [place] [address] Phone Care Team Providers Care Seed Potato Arranger Name Role Phone Carri Joseph PP Unavailable CCM Unavailable Summary Purpose Interface Exchange Insurance Providers Payer name Policy type / Coverage type Covered republican ID Effective Begin Date Effective End Date WPS Medicare Part B Medicare Part B [id number] 2017 Unknown [facility] ica Part B [id number] 2017 Un known Family history Brother Diagnosis [...] ntly unemployed Disabled - previously worked at [employer] in [place] work 10/17/[address]: 529807252 Never smoker 10/17/[address]: 934655673 Never drinks alcohol 10/17/2010 Has the patient [...] Instructions lisinopril 2.5 mg ta blet RxNorm: 640271 1 Tablet(s) PO daily 02/04/2018 04/29/2019 Active lovastatin 20 mg tablet RxNorm: 413532 1 Tablet(s) daily TAKE 1 TABLET BY MOUTH EVERY EVENING 02/04/2018 04/29/2019 Active Generic For:MEVACOR 20MG 9:05:15 AM lovastatin 20 mg tablet RxNorm: 843718 TAKE 1 TABLET BY MOUTH EVERY EVENING 10/08/2017 02/03/2018 In active Generic For:MEVACOR 20MG 10/08/2017 9:0 5:15 AM sotalol 80 mg tablet RxNorm: 1483006 2 Tablet(s) PO BID Dr Sourav Stark 06/02/2017 No Stop Date Active lovastatin 20 mg tablet RxNorm: 813092 TAKE 1 TABLET BY MOUTH EVERY EVENING 04/03/2017 09/29/2017 In active Generic For:MEVACOR 20MG 04/02/2017 1:1 1:51 PM lovastatin 20 mg tablet RxNorm: 069318 Tablet(s) 1 Tablet(s) PO QPM TAKE 1 TABL ET BY MOUTH EVERY EVENING 10/22/2016 11/20/2016 Inactive [SAVINGS FOR UNINSURED MARGARET ENTS -- BIN:[id number], PCN: ASPROD1, Group: [id number], ID# [id number], Process claim through MedImpact, for questions: . THIS IS NOT INSURANCE.] lovastatin 20 mg tablet RxNorm: 625934 Tablet(s) 1 Tablet(s) PO QPM TAKE 1 TABL ET BY MOUTH EVERY EVENING 09/26/2016 10/21/2016 Inactive [SAVINGS FOR UNINSURED MARGARET ENTS -- BIN:[id number], PCN: ASPROD1, Group: [id number], ID# [id number], Process claim through MedImpact, for questions: . THIS IS NOT INSURANCE.] Lanoxin 125 mcg tablet RxNorm: 644561 Tablet(s) TAKE 1 TABLET BY MOUTH EVERY M ORNING 11/14/2015 10/06/2017 Inactive lovastatin 20 mg tablet RxNorm: 359160 Tablet(s) 1 Tablet(s) PO QPM TAKE 1 TABL ET BY MOUTH EVERY EVENING 10/01/2015 03/28/2016 Inactive [SAVINGS FOR UNINSURED MARGARET ENTS -- BIN:[id number], PCN: ASPROD1, Group: [id number], ID# [id number], Process claim through MedImpact, for questions: . THIS IS NOT INSURANCE.] Lanoxin 125 mcg tablet RxNorm: 343864 Tablet(s) TAKE 1 TABLET BY MOUTH EVERY M ORNING 07/16/2015 11/12/2015 Inactive Generic For:LANOXIN 0.125MG 07/22/2014 9:09:16 AM lovastatin 20 mg tablet RxNorm: 405018 Tablet(s) 1 Tablet(s) PO QPM TAKE 1 TABL ET BY MOUTH EVERY EVENING 03/23/2015 09/18/2015 Inactive [SAVINGS FOR UNINSURED MARGARET ENTS -- BIN:[id number], PCN: ASPROD1, Group: [id number], ID# [id number], Process claim through MedImpact, for questions: . THIS IS NOT INSURANCE.] lovastatin 20 mg tablet RxNorm: 490558 1 Tablet(s) PO QPM TAKE 1 TABLET BY MOUT H EVERY EVENING 09/11/2014 03/09/2015 Inactive [SAVINGS FOR UNINSURED MARGARET ENTS -- BIN:[id number], PCN: ASPROD1, Group: [id number], ID# [id number], Process claim through MedImpact, for questions: . THIS IS NOT INSURANCE.] Lanoxin 125 mcg tablet RxNorm: 237542 TAKE 1 TABLET BY MOUTH EVERY MORNING 07/24/2014 07/15/2015 In active Generic For:LANOXIN 0.125MG 07/22/2014 9:09:16 AM sotalol 80 mg tablet RxNorm: 0473627 1 1/2 Tablet(s) PO BID 04/19/2014 06/01/2017 Inactive [SAVINGS FOR NON-COVERED DRUGS -- BIN:[id number] 3585, PCN: ASPROD1, Group: XXXXX, ID# [id number], Questions: . THIS IS NOT INSURANCE.] lovastatin 20 mg tablet RxNorm: 748224 1 Tablet(s) PO QPM TAKE 1 TABLET BY MOUT H EVERY EVENING 09/06/2013 09/05/2013 Inactive [SAVINGS FOR UNINSURED MARGARET ENTS -- BIN:156603, PCN: ASPROD1, Group: [id number], ID# [id number], Process claim through MedImpact, for questions: . THIS IS NOT INSURANCE.] lovastatin 20 mg tablet RxNorm: 570803 1 Tablet(s) PO QPM TAKE 1 TABLET BY MOUT H EVERY EVENING 09/06/2013 09/10/2014 Inactive [SAVINGS FOR UNINSURED MARGARET ENTS -- BIN:[id number], PCN: ASPROD1, Group: [id number], ID# [id number], Process claim through MedImpact, for questions: . THIS IS NOT INSURANCE.] Lanoxin 125 mcg tablet RxNorm: 189209 1 Tablet(s) PO daily TAKE 1 TABLET BY MO UTH EVERY MORNING 07/25/2013 07/24/2013 Inactive [SAVINGS FOR UNINSURED MARGARET ENTS -- BIN:[id number], PCN: ASPROD1, Group: [id number], ID# [id number], Process claim through basno, for questions: . THIS IS NOT INSURANCE.] Lanoxin 125 mcg tablet RxNorm: 701678 1 Tablet(s) PO daily TAKE 1 TABLET BY MO UTH EVERY MORNING 07/25/2013 08/18/2014 Inactive [SAVINGS FOR UNINSURED MARGARET ENTS -- BIN:[id number], PCN: ASPROD1, Group: [id number], ID# [id number], Process claim through basno, for questions: . THIS IS NOT INSURANCE.] tamsulosin ER 0.4 mg capsule,extended release 24 hr RxNorm: 987114 1 Capsule(s) PO QAM 04/20/2013 04/14/2014 Inactive lovastatin 20 mg tablet RxNorm: 049597 1 Tablet(s) PO QPM TAKE 1 TABLET BY MOUT H EVERY EVENING 08/26/2012 08/26/2012 Inactive lovastatin 20 mg tablet RxNorm: 745220 1 Tablet(s) PO QPM TAKE 1 TABLET BY MOUT H EVERY EVENING 08/26/2012 09/05/2013 Inactive Lanoxin 125 mcg tablet RxNorm: 396126 Tablet(s) PO TAKE 1 TABLET BY MOUTH EVER Y MORNING 06/28/2012 07/24/2013 Inactive lovastatin 20 mg tablet RxNorm: 879088 Tablet(s) PO TAKE 1 TABLET BY MOUTH EVER Y EVENING 04/27/2012 08/26/2012 Inactive lovastatin 20 mg tablet RxNorm: 467094 Tablet(s) PO 11/24/2011 04/26/2012 Inactive TAKE 1 TABLET BY MOUTH EVERY EVENING Lanoxin 125 mcg tablet RxNorm: 171634 Tablet(s) PO 07/14/2011 06/27/2012 Inactive TAKE 1 TABLET BY MOUTH EVERY MORNING lovastatin 20 mg tablet RxNorm: 013939 1 Tablet(s) PO daily 12/05/2010 11/23/2011 Inactive Influenza Virus Vacc ine 0.5 mL RxNorm: IM 11/28/2010 11/28/2010 Inactive multivitamin Oral RxNorm: Oral No Start Date Active aspirin 81 mg Tab, D elayed Release RxNorm: 155103 1 Tablet(s) PO daily No Start Date Active Lanoxin 125 mcg Tab RxNorm: 041945 1 Tablet(s) PO daily No Start Date 07/13/2011 Inactive carvedilol 6.25 mg Tab RxNorm: 687764 1 Tablet(s) PO BID No Start Date 08/17/2012 Inactive lisinopril 2.5 mg ta blet RxNorm: 454802 1 Tablet(s) PO daily No Start Date 02/03/2018 Inactive Lipitor 10 mg Tab RxNorm: 671801 1 Tablet(s) PO daily No Start Date 12/04/2010 Inactive sotalol 80 mg tablet RxNorm: 603719 1 Tablet(s) PO BID No Start Date 04/18/2014 Inactive carvedilol 12.5 mg t ablet RxNorm: 490051 1 Tablet(s) PO BID No Start Date 09/21/2013 Inactive senna 187 mg tablet RxNorm: 316798 1 Tablet(s) PO daily No Start Date 06/22/2013 Inactive Coreg 3.125 mg Tab RxNorm: 895192 1 Tablet(s) PO BID No Start Date 04/09/2011 Inactive tamsulosin ER 0.4 mg capsule,extended release 24 hr RxNorm: 753346 1 Capsule(s) PO QAM No Start Date [...] completed Assessments Condition Codes Effectiv e Dates Mixed hyperlipidemia ICD-10: E78.2 ICD-9: 272.2 02/04/2018 Essential (primary) hypertension ICD -10: I10 ICD-9: 401.1 02/04/2018 Encounter for immunization ICD-10: Z 23 ICD-9: [...] Ord30 C/HDL 2.9 Ratio 11/27/2016 Comp Metabolic Kbd219 NA 140 mEq/L 11/27/2016 Comp Metabolic Gse600 K 4.6 mEq/L 11/27/2016 Comp Metabolic Jrr742 CL 103 mEq/L 11/27/2016 Comp Metabolic Esk713 CO2 28.0 mEq/L 11/27/2016 Comp Metabolic Mnk196 AN ION GAP 14 11/27/2016 Comp Metabolic Ulh075 GL UCOSE 107 mg/dL 11/27/2016 Comp Metabolic Gcw653 Cr eat 1.4 mg/dL 11/27/2016 Comp Metabolic Hfe225 eG FR 55 ml/min/1.73m2 11/27 Comp Metabolic Oli737 BUN 27 mg/dL 11/27/2016 Comp Metabolic Dgd617 B/ C Ratio 19.9 Ratio 11/27/2016 Comp Metabolic Ylu925 CA LCIUM 9.8 mg/dL 11/27/2016 Comp Metabolic Stt153 AL K PHOS 61 U/L 11/27/2016 Comp Metabolic Tsu341 T(SGOT) 19 U/L 11/27/2016 Comp Metabolic Fcy530 AL T(SGPT) 14 U/L 11/27/2016 Comp Metabolic Pde281 BI LI T 0.5 mg/dL 11/27/2016 Comp Metabolic Cod262 AL BUMIN 4.1 g/dL 11/27/2016 Comp Metabolic Tqr359 TP RO 7.1 g/dL 11/27/2016 Comp Metabolic Eco943 GL OB 3.0 g/dL 11/27/2016 Comp Metabolic Llk960 A/ G Ratio 1.4 Ratio 11/27/2016 Comp Metabolic Xma841 Os mo 285 mOsmo 11/27/2016 Cbc With [...] 32.1 pg 11/27/2016 Cbc With Differential Ord2 [place]% 9.3 % 11/27/2016 Cbc With Differential Ord2 MCHC 33.1 pg 11/27/2016 Cbc With Differential Ord2 Eos% 2.8 % 11/27/2016 Cbc With Differential Ord2 Baso% 0.6 % 11/27/2016 Cbc With Differential Ord2 PLT 188 K/ul 11/27/2016 Cbc With Differential Ord2 RDW 13.4 % 11/27/2016 Cbc With Differential Ord2 Neut ABS# 6.07 K/ul 11/27/2016 Cbc With Differential Ord2 Lymph ABS# 1.36 K/ul 11/27/2016 Cbc With Differential Ord2 [place] ABS# 0.8 K/ul 11/27/2016 Cbc With Differential [...] 31.6 pg 07/04/2016 Cbc With Differential Ord2 [place]% 10.4 % 07/04/2016 Cbc With Differential Ord2 [...] 1.59 K/ul 07/04/2016 Cbc With Differential Ord2 [place] ABS# 0.8 K/ul 07/04/2016 Cbc With Differential [...] 31.8 pg 05/27/2016 Cbc With Differential Ord2 [place]% 10.8 % 05/27/2016 Cbc With Differential Ord2 [...] 1.21 K/ul 05/27/2016 Cbc With Differential Ord2 [place] ABS# 0.9 K/ul 05/27/2016 Cbc With Differential Ord2 Eos ABS# 0.3 K/ul 05/27/2016 Cbc With Differential Ord2 Baso ABS# 0.0 K/ul 05/27/2016 Digoxin Ord9 DIGOXIN 0.8 NG/ML 05/27/2016 Lipid Ord30 CHOL 168 mg/dL 05/27/2016 Lipid Ord30 HDL 53.0 mg/dl 05/27/2016 Lipid Ord30 TRIG 100 mg/dL 05/27/2016 Lipid Ord30 LDL 95 mg/dL 05/27/2016 Lipid Ord30 C/HDL 3.2 Ratio 05/27/2016 Comp Metabolic Xdj672 NA 138 mEq/L 05/27/2016 Comp Metabolic Krg952 K 4.9 mEq/L 05/27/2016 Comp Metabolic Bnk690 CL 101 mEq/L 05/27/2016 Comp Metabolic Jvp546 CO2 28.0 mEq/L 05/27/2016 Comp Metabolic Ujj298 AN ION GAP 14 05/27/2016 Comp Metabolic Uvf148 GL UCOSE 95 mg/dL 05/27/2016 Comp Metabolic Gay133 Cr eat 1.4 mg/dL 05/27/2016 Comp Metabolic Jvr284 eG FR 55 ml/min/1.73m2 05/27 Comp Metabolic Lbk808 BUN 26 mg/dL 05/27/2016 Comp Metabolic Gzb743 B/ C Ratio 19.0 Ratio 05/27/2016 Comp Metabolic Qbb169 CA LCIUM 9.4 mg/dL 05/27/2016 Comp Metabolic Wlc734 AL K PHOS 62 U/L 05/27/2016 Comp Metabolic Ygp168 T(SGOT) 19 U/L 05/27/2016 Comp Metabolic Fdi394 AL T(SGPT) 14 U/L 05/27/2016 Comp Metabolic Dbp148 BI LI T 0.5 mg/dL 05/27/2016 Comp Metabolic Jhh172 AL BUMIN 3.8 g/dL 05/27/2016 Comp Metabolic Nic778 TP RO 7.1 g/dL 05/27/2016 Comp Metabolic Avz263 GL OB 3.3 g/dL 05/27/2016 Comp Metabolic Gab370 A/ G Ratio 1.2 Ratio 05/27/2016 Comp Metabolic Qbi244 Os mo 280 mOsmo 05/27/2016 Tsh Ord6 hTSH II 1.30 uIU/mL 05/27/2016 Total Psa Ord10 PSA 1.61 ng/mL 05/27/2016 LIPID GRP 4500897 HDL TE ST 62 MG/DL 08/18/2012 LIPID GRP TRIG 115 MG/DL 08/18/2012 LIPID GRP 6007680 TEST L DL 103 MG/DL 08/18/2012 LIPID GRP 7940210 CHOL 188 MG/DL 08/18/2012 LIPID GRP RCHOL/ HDL 3.03 RATIO 08/18/2012 TSH 8962341 TSH 1.296 uIU/ML 08/18/2012 CBC 0294720 WBC 6.2 10e9/L 08/18/2012 CBC 7530672 RBC 4.13 10e12/L 08/18/2012 CBC 5945645 HGB 13.5 g/dL 08/18/2012 CBC 3407960 HCT DET 40.3 % 08/18/2012 CBC 3407473 MCV 97.6 fL 08/18/2012 CBC 1986609 MCH 32.7 pg 08/18/2012 CBC 5454342 MCHC 33.5 g/dL 08/18/2012 CBC 6494444 PLT 159 10e9/L 08/18/2012 CBC 3649444 MPV 10.8 fL 08/18/2012 CBC 5986561 [place] % 60.9 % 08/18/2012 CBC 4159033 LY % 23.1 % 08/18/2012 CBC 6392884 MON % 11.2 % 08/18/2012 CBC 2336413 EOS % 4.2 % 08/18/2012 CBC 4177960 BASO % 0.6 % 08/18/2012 CBC 8258900 RDW 13.0 % 08/18/2012 CBC 9086416 ABS [place] 3.78 10e9/L 08/18/2012 CBC 3464830 ABS LYMPH 1.43 10e9/L 08/18/2012 CBC 7999042 ABS MONO 0.69 10e9/L 08/18/2012 CBC 9810840 ABS EOS 0.26 10e9/L 08/18/2012 CBC 8062781 ABS BASO 0.04 10e9/L 08/18/2012 CBC 6851516 RDW-SD 45.1 fL 08/18/2012 GFR CALC 6341407 GFR AA >60 ML/MIN 08/18/2012 GFR CALC 7201086 GFR NON -AA 51.0L ML/MIN 3 CHEM 14 2486657 AST 21 U/L 08/18/2012 CHEM 14 8494385 ALT 16 IU/L 08/18/2012 CHEM 14 6049736 BUN 26 MG/DL 08/18/2012 CHEM 14 4230349 ALBUMIN 4.3 GM/DL 08/18/2012 CHEM 14 5340140 CHLORIDE 105 MMOL/L 08/18/2012 CHEM 14 5909528 BILI TOT 0.7 MG/DL 08/18/2012 CHEM 14 0917656 ALK PHOS 41 U/L 08/18/2012 CHEM 14 8015612 SODIUM 138 MMOL/L 08/18/2012 CHEM 14 3087342 CREATINI NE 1.39 MG/DL 08/18/2012 CHEM 14 8823826 CALCIUM 9.6 MG/DL 08/18/2012 CHEM 14 4840017 POTASSIUM 4.4 MMOL/L 08/18/2012 CHEM 14 3837360 PROT TOT 7.0 GM/DL 08/18/2012 CHEM 14 2212742 GLUCOSE 104 MG/DL 08/18/2012 CHEM 14 7912520 BICARB 28 MMOL/L 08/18/2012 CHEM 14 9193480 ANION GAP 5 MEQ/L 08/18/2012 GFR CALC 0073196 GFR AA 58.0L ML/MIN 02/19/2012 GFR CALC 5457735 GFR NON -AA 47.0L ML/MIN 3 CHEM 14 7893316 AST 20 U/L 02/19/2012 CHEM 14 2074143 ALT 18 IU/L 02/19/2012 CHEM 14 3933890 BUN 30 MG/DL 02/19/2012 CHEM 14 1960681 ALBUMIN 4.4 GM/DL 02/19/2012 CHEM 14 3182758 CHLORIDE 105 MMOL/L 02/19/2012 CHEM 14 5600141 BILI TOT 0.5 MG/DL 02/19/2012 CHEM 14 5584045 ALK PHOS 54 U/L 02/19/2012 CHEM 14 4185734 SODIUM 139 MMOL/L 02/19/2012 CHEM 14 8100522 CREATINI NE 1.49 MG/DL 02/19/2012 CHEM 14 4951146 CALCIUM 9.6 MG/DL 02/19/2012 CHEM 14 6525395 POTASSIUM 4.5 MMOL/L 02/19/2012 CHEM 14 5328191 PROT TOT 7.0 GM/DL 02/19/2012 CHEM 14 0973103 GLUCOSE 84 MG/DL 02/19/2012 CHEM 14 1724418 BICARB 26 MMOL/L 02/19/2012 CHEM 14 7332378 ANION GAP 8 MEQ/L 02/19/2012 Review of [...] PRSV 4 VA L 3 YRS+ CPT-4: 48673 12/24/2017 PPPS, SUBSEQ VISIT CPT- 4: G0439 06/04/2017 PPPS, SUBSEQ VISIT CPT- 4: G0439 05/28/2016 ADMIN PNEUMOCOCCAL V ACCINE SNOMED CT: 06815356 CPT-4: G0009 11/23/2014 PNEUMOCOCCAL VACC [address]: 74754834 CPT-4: 19440 11/23/2014 FLU VAC NO PRSV 4 VA L 3 YRS+ CPT-4: 65196 10/18/2013 ADMIN INFLUENZA VIRU S VAC Assigned to/Ayaka Snyder CPT-4: [id number] 10/18/2013 ROUTINE VENIPUNCTURE CPT-4: 87948 08/18/2012 ROUTINE VENIPUNCTURE CPT-4: 17335 02/19/2012 ROUTINE VENIPUNCTURE CPT-4: 12425 04/10/2011 ADMIN INFLUENZA VIRU S VAC CPT-4: G0008 12/05/2010 FLULAVAL VACC, 3 YRS & >, IM CPT-4: Q2036 12/05/2010 ROUTINE VENIPUNCTURE CPT-4: 03756 11/28/2010 ADMIN INFLUENZA VIRU S VAC CPT-4: G0008 11/28/2010 FLULAVAL VACC, 3 YRS & >, IM CPT-4: Q2036 11/28/2010 ROUTINE VENIPUNCTURE CPT-4: 80835 10/17/2010 Vital Signs Date Vital 02/04/2018 Blood Pressure 1: 120/66 Code: 8480-6 BMI: 33.6 Code: 17282-6 Heart Rate 1: 80 bpm Height: 5'5" Respiratory Rate: 18 bpm Weight: 202 lbs 10/07/2017 Blood Pressure 1: 108/64 Code: 8480-6 BMI: 32.3 Code: 17662-3 Heart Rate 1: 83 bpm Height: 5'5" SpO2: 98% Weight: 194 lbs 06/04/2017 Blood Pressure 1: 116/64 Code: 8480-6 BMI: 33.3 Code: 65975-6 Heart Rate 1: 70 bpm Height: 5'5" SpO2: 97% Waist Measure (cm): 97 cm Weight: 200 lbs 06/02/2017 Blood Pressure 1: 120/72 Code: 8480-6 BMI: 33.1 Code: 90458-1 Heart Rate 1: 70 bpm Height: 5'5" SpO2: 97% Weight: 199 lbs 01/28/2017 Blood Pressure 1: 128/78 Code: 8480-6 BMI: 31.8 Code: 05822-0 Heart Rate 1: 81 bpm Height: 5'5" SpO2: 98% Weight: 191 lbs 12/29/2016 Blood Pressure 1: 130/76 Code: 8480-6 BMI: 31.1 Code: 27580-4 Heart Rate 1: 80 bpm Height: 5'5" SpO2: 98% Weight: 187 lbs 12/01/2016 Blood Pressure 1: 128/80 Code: 8480-6 BMI: 32.0 Code: 38763-6 Heart Rate 1: 78 bpm Height: 5'5" SpO2: 98% Weight: 192 lbs 05/28/2016 Blood Pressure 1: 138/80 Code: 8480-6 BMI: 33.6 Code: 06330-3 Heart Rate 1: 62 bpm Height: 5'5" SpO2: 97% Waist Measure (cm): 97 cm Weight: 202 lbs 05/27/2016 Blood Pressure 1: 138/80 Code: 8480-6 BMI: 33.6 Code: 77597-3 Heart Rate 1: 60 bpm Height: 5'5" SpO2: 98% Weight: 202 lbs 01/09/2016 Blood Pressure 1: 132/76 Code: 8480-6 BMI: 34.1 Code: 68526-3 Heart Rate 1: 62 bpm Height: 5'5" SpO2: 95% Weight: 205 lbs 11/27/2015 Blood Pressure 1: 140/80 Code: 8480-6 BMI: 35.3 Code: 24744-8 Heart Rate 1: 77 bpm Height: 5'5" SpO2: 96% Weight: 212 lbs 05/29/2015 Blood Pressure 1: 130/74 Code: 8480-6 BMI: 34.2 Code: 26221-6 Heart Rate 1: 59 bpm Height: 5'5" SpO2: 97% Weight: 205 lbs 8 oz 11/23/2014 Blood Pressure 1: 136/76 Code: 8480-6 BMI: 33.8 Code: 71596-5 Heart Rate 1: 68 bpm Height: 5'5" SpO2: 98% Weight: 203 lbs 07/20/2014 Blood Pressure 1: 140/88 Code: 8480-6 BMI: 34.4 Code: 41821-9 Heart Rate 1: 68 bpm Height: 5'5" Weight: 207 lbs 04/19/2014 Blood Pressure 1: 130/88 Code: 8480-6 BMI: 34.6 Code: 55859-6 Heart Rate 1: 64 bpm Height: 5'5" Weight: 208 lbs 12/21/2013 Blood Pressure 1: 140/76 Code: 8480-6 BMI: 33.8 Code: 63067-1 Heart Rate 1: 64 bpm Height: 5'5" Weight: 203 lbs 10/18/2013 Blood Pressure 1: 138/70 Code: 8480-6 BMI: 33.1 Code: 03401-6 Heart Rate 1: 74 bpm Height: 5'5" Weight: 199 lbs 07/13/2013 Blood Pressure 1: 115/60 Code: 8480-6 BMI: 30.5 Code: 16824-4 Heart Rate 1: 76 bpm Height: 5'5" Weight: 183 lbs 06/23/2013 Blood Pressure 1: 108/58 Code: 8480-6 Heart Rate 1: 80 bpm Temperature: 37.2 (C) / 98.9 (F) Weight: 06/09/2013 [place] rature: 36.7 (C) / 98.0 (F) Weight: 04/11/2013 Blood Pressure 1: 104/64 Code: 8480-6 Heart Rate 1: 76 bpm Weight: 02/16/2013 Blood Pressure 1: 130/82 Code: 8480-6 BMI: 35.8 Code: 93802-2 Heart Rate 1: 76 bpm Height: 5'5" Weight: 215 lbs 08/18/2012 Blood Pressure 1: 104/64 Code: 8480-6 BMI: 33.6 Code: 38502-8 Heart Rate 1: 64 bpm Height: 5'5" Weight: 202 lbs 02/19/2012 Blood Pressure 1: 120/74 Code: 8480-6 BMI: 33.8 Code: 36492-3 Heart Rate 1: 64 bpm Height: 5'5" Respiratory Rate: 16 bpm Weight: 203 lbs 10/16/2011 Blood Pressure 1: 130/68 Code: 8480-6 Heart Rate 1: 80 bpm Weight: 201 lbs 04/10/2011 Blood Pressure 1: 134/74 Code: 8480-6 Heart Rate 1: 64 bpm Respiratory Rate: 16 bpm Weight: 202 lbs 12/05/2010 Blood Pressure 1: 128/72 Code: 8480-6 BMI: 33.5 Code: 56455-3 Heart Rate 1: 68 bpm Height: 5'5" [...] Encounters Encounter Performer Loca tion Codes Date ([id number]) 25108 EST. P ATIENT, LEVEL IV Diagnosis: Essential (primary) hypertension[ICD10: I10] Diagnosis: Mixed hyperlipidemia[ICD10: E78.2] [facility] CPT- 4: 13666 02/04/[id number]) 68280 EST. P ATIENT, LEVEL IV Diagnosis: Essential (primary) hypertension[ICD10: I10] Diagnosis: Mixed hyperlipidemia[ICD10: E78.2] [facility] CPT- 4: 51964 10/07/2017 [id number]) 12200 EST. P ATIENT, LEVEL IV Diagnosis: Essential (primary) hypertension[ICD10: I10] Diagnosis: Mixed hyperlipidemia[ICD10: E78.2] Diagnosis: Ventricular tachycardia[ICD10: I47.2] Diagnosis: Unsteadiness on feet[ICD10: R26.81] [facility]ri Joseph MD, [facility] CPT- 4: 44781 06/02/2017 ([id number]) 58752 EST. P ATIENT, LEVEL III Diagnosis: Essential (primary) hypertension[ICD10: I10] [facility] MD, [facility] CPT-4: 66400 01/28/2017 ([id number]) 55252 EST. P ATIENT, LEVEL III Diagnosis: Essential (primary) hypertension[ICD10: I10] Diagnosis: Unsteadiness on feet[ICD10: R26.81] [facility]ri Joseph MD, [facility] CPT- 4: 21524 12/29/2016 ([id number]) 01142 EST. P ATIENT, LEVEL IV Diagnosis: Essential (primary) hypertension[ICD10: I10] Diagnosis: Mixed hyperlipidemia[ICD10: E78.2] [facility]ri Joseph MD, [facility] CPT- 4: 16114 12/01/2016 27938 EST. PATIENT, LEVEL IV Diagnosis: Essential (primary) hypertension[ICD10: I10] Diagnosis: Chronic atrial fibrillation[ICD10: I48.2] Diagnosis: Mixed hyperlipidemia[ICD10: E78.2] Diagnosis: Encounter for therapeutic drug level monitoring[ICD10: Z51.81] [facility] MD, [facility] CPT-4: 73781 05/27/2016 ([id number]) 24847 EST. P ATIENT, LEVEL III Diagnosis: Essential (primary) hypertension[ICD10: I10] Diagnosis: Cough[ICD10: R05] [facility] MD, [facility] CPT-4: 49100 01/09/2016 ([id number]) 59276 EST. P ATIENT, LEVEL IV Diagnosis: Essential (primary) hypertension[ICD10: I10] Diagnosis: Chronic atrial fibrillation[ICD10: I48.2] Diagnosis: Mixed hyperlipidemia[ICD10: E78.2] [facility] MD, [facility] CPT- 4: 34095 11/27/2015 ([id number]) 53051 EST. P ATIENT, LEVEL IV Diagnosis: Essential (primary) hypertension[ICD10: I10] Diagnosis: Chronic atrial fibrillation[ICD10: I48.2] Diagnosis: Mixed hyperlipidemia[ICD10: E78.2] [facility] MD, [facility] CPT- 4: 82658 05/29/2015 ([id number]) 82204 EST. P ATIENT, LEVEL III Diagnosis: Essential (primary) hypertension[ICD10: I10] Diagnosis: Encounter for immunization[ICD10: Z23] [facility] MD, [facility] CPT-4: 21277 11/23/2014 ([id number]) 09256 EST. P ATIENT, LEVEL III Diagnosis: ESSENTIAL HYPERTENSION[ICD9: 401.9] [facility] MD [facility] CPT- 4: 31511 07/20/2014 ([id number]) 20071 EST. P ATIENT, LEVEL IV Diagnosis: ESSENTIAL HYPERTENSION[ICD9: 401.9] Diagnosis: Renal insufficiency[ICD9: 593.9] Diagnosis: Atrial fibrillation[ICD9: 427.31] Diagnosis: HYPOTHYROIDISM[ICD9: 244.9] [facility] MD, [facility] CPT-4: 25811 04/19/2014 ([id number]) 01047 EST. P ATIENT, LEVEL IV Diagnosis: ESSENTIAL HYPERTENSION[ICD9: 401.9] Diagnosis: HYPOTHYROIDISM[ICD9: 244.9] Diagnosis: COUGH[ICD9: 786.2] Diagnosis: Atrial fibrillation[ICD9: 427.31] [facility] MD, [facility] CPT-4: 03595 12/21/2013 ([id number]) 95396 EST. P ATIENT, LEVEL IV Diagnosis: VACCIN FOR INFLUENZA[ICD10: Z23] Diagnosis: ESSENTIAL HYPERTENSION[ICD9: 401.9] Diagnosis: HYPERLIPIDEMIA[ICD9: 272.4] Diagnosis: Gait instability[ICD9: 781.2] [facility] MD, [facility] CPT-4: 00149 10/18/2013 ([id number]) 07344 EST. P ATIENT, LEVEL III Diagnosis: ESSENTIAL HYPERTENSION[SNOMED: 36082819] Diagnosis: Arthralgia of knee[ICD9: 719.46] [facility] MD, [facility] CPT-4: 86839 07/13/2013 ([id number]) Patient adm itted to the hospital from clinic (NO CHARGE) Diagnosis: JOINT PAIN-L/LEG[ICD9: 719.46] Diagnosis: CELLULITIS OF LEG[ICD9: 682.6] [facility] MD, [facility] CPT-4: 32385G 06/23/2013 ([id number]) 83394 EST. P ATIENT, LEVEL III Diagnosis: Cellulitis of left knee[ICD9: 682.6] [facility] MD, [facility] CPT-4: 23940 06/09/2013 ([id number]) 41622 EST. P ATIENT, LEVEL III Diagnosis: ESSENTIAL HYPERTENSION[SNOMED: 83689964] Diagnosis: Knee pain[ICD9: 719.46] [facility] Joseph MD, [facility] CPT-4: 15809 04/11/2013 ([id number]) 53525 EST. P ATIENT, LEVEL IV Diagnosis: ESSENTIAL HYPERTENSION[SNOMED: 39355121] Diagnosis: HYPERLIPIDEMIA[ICD9: 272.4] Carri Joseph MD, [facility] CPT-4: 09409 02/16/2013 ([id number]) 36858 EST. P ATIENT, LEVEL IV Diagnosis: HYPERLIPIDEMIA[ICD9: 272.4] Diagnosis: ESSENTIAL HYPERTENSION[SNOMED: 55350400] Diagnosis: ENCNTR LONG-RX USE NEC[ICD9: V58.69] Carri Joseph MD, [facility] CPT-4: 33626 08/18/2012 ([id number]) 04393 EST. P ATIENT, LEVEL IV Diagnosis: ESSENTIAL HYPERTENSION[SNOMED: 47921921] Diagnosis: Renal insufficiency[ICD9: 593.9] Carri Joseph MD, [facility] CPT-4: 69276 02/19/2012 Miscellaneous no lisset rge Diagnosis: ESSENTIAL HYPERTENSION[SNOMED: 39878101] Carri Joseph MD, [facility] CPT-4: 82668 12/23/2011 ([id number]) 19094 EST. P ATIENT, LEVEL IV Diagnosis: ESSENTIAL HYPERTENSION[SNOMED: 66340201] Diagnosis: HYPERLIPIDEMIA[ICD9: 272.4] Diagnosis: Osteoarthritis of left knee[ICD9: 715.96] Carri Joseph MD, C CPT-4: 58948 10/16/2011 ([id number]) 35439 EST. P ATIENT, LEVEL IV Diagnosis: ESSENTIAL HYPERTENSION[SNOMED: 61877829] Diagnosis: HYPERLIPIDEMIA[ICD9: 272.4] Diagnosis: HYPOTHYROIDISM[ICD9: 244.9] [facility] CPT-4: 33644 04/10/2011 10265 EST. PATIENT, LEVEL IV Diagnosis: ESSENTIAL HYPERTENSION[SNOMED: 47140498] Diagnosis: HYPERLIPIDEMIA[ICD9: 272.4] Diagnosis: OBESITY[ICD9: 278.00] Diagnosis: VACCIN FOR INFLUENZA[ICD9: V04.81] Carri Joseph MD, [facility] CPT- 4: 63286 12/05/2010 Plan of Care Planned Activity Notes [...] assure normal liver response to medications. 02/04/2018 Patient Education: Patient Medication Summary Completed [...] care surrogate. 06/04/2017 Appointment: [phone] [id number] [facility] - Annual Wellness Visit 06/04/2017 [...] with ambulation. 06/02/2017 Appointment: Carri Joseph WPtel: [phone] [facility] (15 min) Moderate 06/02/2017 Patient Education: Patient Medication Summary Completed 06/02/2017 Appointment: [phone] [place] (15 min) Moderate 05/26/2017 Visit Plan: Hypertension [...] episodes. 01/28/2017 Appointment: [facility] Joseph [phone] [place] (15 min) Moderate 01/28/2017 Patient Education: Patient [...] does not need to go to a halfway. 12/29/2016 Appointment: Carri Joseph [facility]el[phone] [facility] [place] [place] (15 min) Moderate 12/29/2016 Patient Education: Patient [...] current management. 12/01/2016 Appointment: Car[phone] [place] (15 min) Moderate 12/01/2016 Patient Education: Patient [...] surrogate. 05/28/2016 Appointment: Sam[facility] Rojas [phone] [facility] - Annual Wellness Visit 05/28/2016 [...] uncontrolled. 05/27/2016 Appointment: Carri Joseph WPtel: [phone] [place] (15 min) Moderate 05/27/2016 Patient Education: Patient [...] 5 days 01/09/2016 Appointment: Carri Joseph WPtel: [facility] [place] (15 min) Moderate 01/09/2016 Patient Education: Patient [...] uncontrolled. 11/27/2015 Appointment: Carri Joseph WPtel: [phone] [place] (15 min) Moderate 11/27/2015 Patient Education: Patient [...] Completed 05/29/2015 Appointment: Carri Joseph WPtel: [phone] [place] [place] (15 min) Moderate 05/24/2015 Appointment: Injection 12/20/2014 Visit Plan: Hypertension - well con trolled - continue with current medications, continue with no added salt diet. Pt has been encouraged to exercise daily. The pt has been advised to call the office if there are any acute concerns about change in blood pressure readings at home. 11/23/2014 Appointment: Carri Joseph WPtel: [facility] [place] (15 min) Moderate 11/23/2014 Patient Education: Patient [...] home. 07/20/2014 Appointment: Carri Joseph WPtel: [phone] [facility] Follow up 07/20/2014 Patient [...] therapy. 04/19/2014 Appointment: Carri Joseph [facility]Ptel: [phone] [place] Follow up 04/19/2014 Patient Education: Patient Medication [...] Hypertension Completed 12/21/2013 Appointment: Carri Joseph WPtel: [facility] Follow up 12/20/2013 Visit [...] by orthopedist. 10/18/2013 Appointment: Carri Joseph WPtel: [facility] Follow up 10/18/2013 Patient Education: Patient Medication Summary Completed 10/18/2013 Patient Education: Hypertension Completed 10/18/2013 Appointment: Carri Joseph WPtel: [address] [place], [place] [phone] [place] Follow up 08/16/2013 Visit Plan: Hypertension - [...] not improve. 07/13/2013 Appointment: Carri Joseph WPtel: [phone] [facility] [facility] follow up 07/13/2013 Patient Education: Patient Medication Summary Completed 07/13/2013 Patient Education: Hypertension Completed 07/13/2013 Visit Plan: ADMIT FROM CLINIC TO [facility] - PT IS ACUTELY ILL, [...] office. 06/09/2013 Appointment: India Lowe [phone] Follow up 06/09/2013 Patient Education: Patient Medication [...] of knee. 04/11/2013 Appointment: Carri Joseph WPtel: [facility]5 [facility] Follow up 04/11/2013 Patient Education: Patient [...] to medications. 08/18/2012 Appointment: Carri Joseph WPtel: [phone] [facility] Follow up 08/18/2012 Patient Education: Patient Medication Summary Completed 08/18/2012 Patient Education: Hypertension Completed 08/18/2012 Appointment: Carri Joseph WPtel: [phone] [facility] Follow up 06/22/2012 Visit Plan: Hypertension [...] least 16 ounces every day. 02/19/2012 [place] [phone] [place] Follow up 02/19/2012 Patient Education: Patient Medication Summary Completed 02/19/2012 Patient Education: Hypertension Completed 02/19/2012 Care Plan: CBC Pending 02/19/2012 Visit Plan: no charge for viist - p t with skin mole, no need for removal, no treatment rendered. 12/23/2011 [place] [phone] [place] Surgical Procedure 12/23/2011 Patient Education: Patient Medication [...] CHONDROITON. 10/16/2011 Appointment: Carri Joseph [facility]Ptel: [phone] [place] Follow up 10/16/2011 Patient Education: Patient Medication [...] LABS TODAY 04/10/2011 Appointment: Carri Joseph WPtel: [phone] [facility] Other 04/10/2011 Patient Education: Patient Medication Summary Completed 04/10/2011 Patient Education: High Blood Pressure: Essential Hypertension Completed 04/10/2011 Visit Plan: Hypertension - well lizbeth sha - continue with current medications, continue [...] shot today 12/05/2010 Appointment: Carri Joseph WPtel: [phone] [facility] Other 12/05/2010 Patient Education: Patient Medication Summary Completed 12/05/2010 Patient Education: High Blood Pressure: Essential Hypertension Completed 12/05/2010 Appointment: Carri Joseph WPtel: [phone] [place] Lab Draw 11/28/2010 Patient Education: Patient Medication Summary Completed 11/28/2010 Patient Education: High Blood Pressure: Essential Hypertension Completed 11/28/2010 Appointment: Carri Joseph WPtel: [phone] [place] [place] Lab Draw 10/17/2010 Patient Education: Patient [...] wellness therapy. Flu shot- GET IT AT [facility] TOMORROW IF YOU HAVE NOT ALREADY HAD [...] does not need to go to a halfway. . Medicare Exam - to day we [...] call if symptoms do not improve. [facility] - take twice daily [...] ON GLUCOSAMIN AND CHONDROITON. prevnar 13 shot tokatie y . Hypertension - well controlled - [...]
--- OUTSIDE RECORDS SUMMARY | 2019-02-01 23:38 | XMS REPORT | Continuity of Care Document ---
Author Organization Unknown Address Unknown Phone Unavailable Allergies Active Description Code Type Severity Reaction Onset Reported/Identified Relationship to Patient Clinical Status Yes piperacillin sodium piperacillin sodiu m Drug Allergy Mild RASH 07/16/2010 Yes tazobactam sodium tazobactam sodium Drug Allergy Mild RASH 07/16/2010 Yes lorazepam lorazepam Drug Allergy Unknown HALLUCINATIONS 07/16/[address] ug Allergy Unknown UNK 07/16/2010 Yes No Known Drug Allergies [id number] Drug Allergy Unknown N/A 03/14/2013 Yes LORazepam NKMA N/A hallucinations 06/09/2013 Medications There is no data. Problems Date Dx Coded Attending Type Code Diagnosis Diagnosed By 10/05/2013 VENESSA KRUGER Ot V54.9 ORTHOPEDIC AFTERCARE NOS 10/05/2013 VENESSA KRUGER Ot V57.1 PHYSICAL THERAPY NEC 12/03/2015 Tonio Hawkins Final D63. 1 Anemia in chronic kidney disease 12/03/2015 Tonio Hawkins Final D64. 9 Anemia, unspecified 12/03/2015 Tonio Hawkins Final E78. 2 Mixed hyperlipidemia 12/03/2015 Tonio Hawknis Final I42. 9 Cardiomyopathy, unspecified 12/03/2015 Tonio Hawkins Final N18. 3 Chronic kidney disease, stage 3 (moderate) 12/03/2015 Tonio Hawkins Final Z 95.810 Presence of automatic (implantable) cardiac defibrilla tor 06/02/2016 Tonio Hawkins Final N18. 3 Chronic kidney disease, stage 3 (moderate) 06/02/2016 Tonio Hawkins Final D63. 1 Anemia in chronic kidney disease 06/02/2016 Tonio Hawkins Final E66. 09 Other obesity due to excess calories 06/02/2016 Tonio Hawkins Final E78. 2 Mixed hyperlipidemia 06/02/2016 Tonio Hawkins Final I42. 9 Cardiomyopathy, unspecified 06/02/2016 Tonio Hawkins Final N18. 9 Chronic kidney disease, unspecified 06/02/2016 Tonio Hawkins Final Z 95.810 Presence of automatic (implantable) cardiac defibrilla tor 06/02/2016 Tonio Hawkins Final Z 96.659 Presence of unspecified artificial knee joint 06/10/2017 FELIPE RIVERA MD Ot Z29.8 ENCOUNTER FOR OTHER SPECIFIED PROPHYLACT 06/18/2017 FELIPE RIVERA MD Ot Z29.8 ENCOUNTER FOR OTHER SPECIFIED PROPHYLACT 07/15/2017 IRMA VELEZ MD A Ot Z29.8 ENCOUNTER FOR OTHER SPECIFIED PROPHYLACT 07/17/2017 IRMA VELEZ MD A Ot Z29.8 ENCOUNTER FOR OTHER SPECIFIED PROPHYLACT 08/19/2017 IRMA VELEZ MD A Ot Z29.8 ENCOUNTER FOR OTHER SPECIFIED PROPHYLACT 08/24/2017 IRMA VELEZ MD A Ot Z29.8 ENCOUNTER FOR OTHER SPECIFIED PROPHYLACT 09/23/2017 IRMA VELEZ MD A Ot Z29.8 ENCOUNTER FOR OTHER SPECIFIED PROPHYLACT 11/04/2017 IRMA VELEZ MD A Ot Z01.818 ENCOUNTER FOR OTHER PREPROCEDURAL EXAMIN 11/04/2017 IRMA VELEZ MD A Ot Z29.8 ENCOUNTER FOR OTHER SPECIFIED PROPHYLACT 11/09/2017 IRMA VELEZ MD A Ot Z01.818 ENCOUNTER FOR OTHER PREPROCEDURAL EXAMIN 11/09/2017 IRMA VELEZ MD A Ot Z29.8 ENCOUNTER FOR OTHER SPECIFIED PROPHYLACT 12/11/2017 IRMA VELEZ MD A Ot Z29.8 ENCOUNTER FOR OTHER SPECIFIED PROPHYLACT 12/16/2017 IRMA VELEZ MD A Ot Z29.8 ENCOUNTER FOR OTHER SPECIFIED PROPHYLACT 01/13/2018 IRMA VELEZ MD A Ot Z29.8 ENCOUNTER FOR OTHER SPECIFIED PROPHYLACT 02/17/2018 IRMA VELEZ MD A Ot Z29.8 ENCOUNTER FOR OTHER SPECIFIED PROPHYLACT 02/18/2018 IRMA VELEZ MD A Ot Z29.8 ENCOUNTER FOR OTHER SPECIFIED PROPHYLACT 03/24/2018 IRMA VELEZ MD A Ot Z29.8 ENCOUNTER FOR OTHER SPECIFIED PROPHYLACT 04/28/2018 IRMA VELEZ MD A Ot Z29.8 ENCOUNTER FOR OTHER SPECIFIED PROPHYLACT 04/29/2018 IRMA VELEZ MD A Ot Z29.8 ENCOUNTER FOR OTHER SPECIFIED PROPHYLACT 06/16/2018 ROSIE MD, IRMA A Ot Z29.8 ENCOUNTER FOR OTHER SPECIFIED PROPHYLACT 06/17/2018 ROSIE JHA, IRMA A Ot Z29.8 ENCOUNTER FOR OTHER SPECIFIED PROPHYLACT 07/21/2018 ROSIE JHA, IRMA A Ot Z29.8 ENCOUNTER FOR OTHER SPECIFIED PROPHYLACT 07/22/2018 ROSIE JHA, IRMA A Ot Z29.8 ENCOUNTER FOR OTHER SPECIFIED PROPHYLACT 08/21/2018 ROSIE JHA, IRMA A Ot Z29.8 ENCOUNTER FOR OTHER SPECIFIED PROPHYLACT 08/24/2018 ROSIE JHA, IRMA A Ot Z29.8 ENCOUNTER FOR OTHER SPECIFIED PROPHYLACT 09/22/2018 ROSIE JHA, IRMA A Ot Z29.8 ENCOUNTER FOR OTHER SPECIFIED PROPHYLACT 09/23/2018 ROSIE JHA, IRMA A Ot Z29.8 ENCOUNTER FOR OTHER SPECIFIED PROPHYLACT 10/24/2018 ROSIE JHA, IRMA A Ot Z29.8 ENCOUNTER FOR OTHER SPECIFIED PROPHYLACT 10/26/2018 ROSIE JHA, IRMA A Ot Z29.8 ENCOUNTER FOR OTHER SPECIFIED PROPHYLACT 11/24/2018 ROSIE JHA, IRMA A Ot Z29.8 ENCOUNTER FOR OTHER SPECIFIED PROPHYLACT 11/25/2018 ROSIE JHA, IRMA A Ot Z29.8 ENCOUNTER FOR OTHER SPECIFIED PROPHYLACT 12/17/2018 ROSIE JHA, IRMA A Ot Z29.8 ENCOUNTER FOR OTHER SPECIFIED PROPHYLACT 12/31/2018 ROSIE JHA, IRMA A Ot Z29.8 ENCOUNTER FOR OTHER SPECIFIED PROPHYLACT 01/03/2019 ROSIE JHA, IRMA A Ot Z29.8 ENCOUNTER FOR OTHER SPECIFIED PROPHYLACT 01/06/2019 IRMA VELEZ MD A Ot Z29.8 ENCOUNTER FOR OTHER SPECIFIED PROPHYLACT 01/07/2019 Jose Angel Lam MD S 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 01/07/2019 Jose Angel Lam MD S F I 10 ESSENTIAL (PRIMARY) HYPERTENSION 01/07/2019 Jose Angel Lam MD S F I25.10 ATHSCL HEART DISEASE OF [place] CORONARY ARTERY W/O 01/07/2019 Jose Angel Lam MD S F I42.8 OTHER CARDIOMYOPATHIES 01/07/2019 Jose Angel Lam MD S F I45.4 NONSPECIFIC INTRAVENTRICULAR BLOCK 01/07/2019 Jose Angel Lam MD S F I47.2 VENTRICULAR TACHYCARDIA 01/07/2019 Jose Angel Lam MD I49.01 VENTRICULAR FIBRILLATION 01/07/2019 Jose Angel Lam MD N17.9 ACUTE KIDNEY FAILURE, UNSPECIFIED 01/07/2019 Jose Angel Lam MD R57.9 SHOCK, UNSPECIFIED 01/07/2019 Jose Angel Lam MD Z79.2 GAG WRITER (CURRENT) USE OF ANTIBIOTICS 01/07/2019 Jose Angel Lam MD Z79.82 GAG WRITER (CURRENT) USE OF ASPIRIN 01/07/2019 Jose Angel Lam MD Z86.14 PERSONAL HISTORY OF METHICILLIN RESIS STAPH INFECT 01/07/2019 Jose Angel Lam MD Z86.718 PERSONAL HISTORY OF OTHER VENOUS THROMBOSIS AND EM 01/07/2019 Jose Angel Lam MD Z87.891 PERSONAL HISTORY OF NICOTINE DEPENDENCE 01/07/2019 Jose Angel Lam MD Z95.810 PRESENCE OF AUTOMATIC (IMPLANTABLE) CARDIAC DEFIBR 01/08/2019 FELIPE RIVERA MD Ot Z29.8 ENCOUNTER FOR OTHER SPECIFIED PROPHYLACT 01/08/2019 IRMA VELEZ MD Ot Z29.8 ENCOUNTER FOR OTHER SPECIFIED PROPHYLACT 01/14/2019 IRMA VELEZ MD Ot Z29.8 ENCOUNTER FOR OTHER SPECIFIED PROPHYLACT 01/17/2019 YVON NAVA MD, Ot E78.00 PURE HYPERCHOLESTEROLEMIA, UNSPECIFIED 01/17/2019 YVON NAVA MD Ot I10 ESSENTIAL (PRIMARY) HYPERTENSION 01/17/2019 YVON NAVA MD Ot I47.2 VENTRICULAR TACHYCARDIA 01/17/2019 YVON NAVA MD, Ot I49.01 VENTRICULAR FIBRILLATION 01/17/2019 YVON NAVA MD, Ot R55 SYNCOPE AND COLLAPSE 01/17/2019 YVON NAVA MD, Ot S00.03XA CONTUSION OF SCALP, INITIAL ENCOUNTER 01/17/2019 YVON NAVA MD, Ot S09.90XA UNSPECIFIED INJURY OF HEAD, INITIAL ENCO 01/17/2019 YVON NAVA MD, Ot T82.897A OTH COMPLICATION OF CARDIAC PROSTH DEV/G 01/17/2019 YVON NAVA MD, Ot W19.XXXA UNSPECIFIED FALL, INITIAL ENCOUNTER 01/17/2019 YVON NAVA MD, Ot Y92.[address] [facility] IN [facility] NON-INSTITUT (PRIVATE 01/17/2019 YVON NAVA MD, Ot Z79.82 GAG WRITER (CURRENT) USE OF ASPIRIN 01/17/2019 YVON NAVA MD, Ot Z82.49 FAMILY HX OF ISCHEM HEART DIS AND OTH DI 01/17/2019 YVON NAVA MD, Ot Z86.73 PRSNL HX OF TIA (TIA), AND CEREB INFRC W 01/17/2019 YVON NAVA MD, Ot Z87.891 PERSONAL HISTORY OF NICOTINE DEPENDENCE 01/17/2019 YVON NAVA MD, Ot Z93.2 ILEOSTOMY STATUS 01/17/2019 YVON NAVA MD, Ot Z99.2 DEPENDENCE ON RENAL DIALYSIS Procedures Code [place] [address] Immu nization administration (includes percutaneous, intradermal, subcutaneous, or intramuscular injections); 1 vaccine (single or combination vaccine/toxoid).. 12/03/2015 28016 Infl uenza virus vaccine, trivalent (IIV3), split virus, when administered to individuals 3 years of age and older, for intramuscular use 1 03367 Offi ce or other outpatient visit for the evaluation and management of an established patient, which requires at least 2 of these 3 cabrera components: An expanded problem focused history; An expanded prob 12/03/19 16 [id number] DI LATION OF CORONARY ARTERY, ONE ARTERY, PERC APPR Jose Angel Lam MD 01/07/2019 [id number] ME ASURE OF CARDIAC SAMPL PRESSURE, L HEART, Jose Angel Gomez MD 01/07/2019 [id number] FL UOROSCOPY OF LEFT HEART USING LOW OSMOLAR CONTRA Jose Angel Lam MD 01/07/2019 Results Test Result Range CBC With Platelet and Differential - 09:55 Absolute Basophils 0.05 10*3 0.00-0.20 Absolute Eosinophils 0.32 10*3 0.00-0.50 Absolute Lymphocytes 1.52 10*3 0.80-3.30 Absolute Monocytes 0.73 10*3 0.30-1.00 Absolute Neutrophils 5.37 10*3 1.90-7.00 Basophils 1 % 0-2 Eosinophils 4 % 0-4 HCT 41.3 % 42.0-52.0 HGB 13.6 g/dL 14.0-18.0 Immature Granulocytes 0.1 % 0.0-1.0 Lymphocytes 19 % 20-46 MCH 31.9 pg 27.0-32.0 MCHC 32.9 g/dL 32.0-36.0 MCV 96.9 fL 82.0-99.0 Monocytes 9 % 4-11 MPV 11.2 fL 8.8-14.8 Neutrophils 67 % 51-75 Platelet Count 147 K/uL 150-400 RBC 4.26 10*6/uL 4.60-6.20 RDW 12.8 % 11.5-14.5 WBC 8.0 K/uL 4.8-10.8 Comprehensive Metabolic Panel (CMP) - 09:55 Albumin 4.4 g/dL 3.4-4.8 Alkaline Phosphatase 60 U/L 40-150 ALT (SGPT) 15 U/L 0-55 Anion Gap 10 NA 3-20 AST (SGOT) 22 U/L 5-34 Bilirubin Total 0.8 mg/dL 0.2-1.2 BUN 28 mg/dL 8-26 Calcium 9.6 mg/dL 8.9-10.5 Chloride 104 mEq/L 99-111 CO2 27 mEq/L 23-31 Creatinine 1.38 mg/dL 0.72-1.25 Globulin 2.7 g/dL 1.8-4.0 Glucose 107 mg/dL 70-99 Potassium 4.6 mEq/L 3.5-5.2 Protein 7.1 g/dL 6.0-7.6 Sodium 141 mEq/L 135-144 Lipid Panel - 12/03/15 09:55 Cardiac Risk 2.9 0.0-5.7 Cholesterol 183 mg/dL 0-199 HDL Cholesterol 63 mg/dL 40-84 LDL Cholesterol 100 mg/dL 0-130 Triglycerides 102 mg/dL 0-149 VLDL Cholesterol 20 mg/dL 0-28 eGFR - 12/03/15 09:55 eGFR 51 mL/min >60 CBC With Platelet and Differential - 11:10 Absolute Basophils 0.07 10*3/uL 0.00-0.2 0 Absolute Eosinophils 0.29 10*3/uL 0.00-0 .50 Absolute Lymphocytes 1.35 10*3/uL 0.80-3 .30 Absolute Monocytes 0.90 10*3/uL 0.30-1.0 0 Absolute Neutrophils 5.20 10*3/uL 1.90-7 .00 Basophils 1 % 0-2 Eosinophils 4 % 0-4 HCT 41.3 % 42.0-52.0 HGB 13.0 g/dL 14.0-18.0 Immature Granulocytes 0.3 % 0.0-1.0 Lymphocytes 17 % 20-46 MCH 30.2 pg 27.0-32.0 MCHC 31.5 g/dL 32.0-36.0 MCV 96.0 fL 82.0-99.0 Monocytes 12 % 4-11 MPV 10.3 fL 8.8-14.8 Neutrophils 66 % 51-75 Platelet Count 215 K/uL 150-400 RBC 4.30 10*6/uL 4.60-6.20 RDW 12.8 % 11.5-14.5 WBC 7.8 K/uL 4.8-10.8 Comprehensive Metabolic Panel (CMP) - 11:10 Albumin 4.1 g/dL 3.4-4.8 Alkaline Phosphatase 75 U/L 40-150 ALT (SGPT) 16 U/L 0-55 Anion Gap 7 mEq/L 3-20 AST (SGOT) 22 U/L 5-34 Bilirubin Total 0.3 mg/dL 0.2-1.2 BUN 26 mg/dL 8-26 Calcium 9.7 mg/dL 8.4-10.2 Chloride 106 mEq/L 99-111 CO2 28 mEq/L 23-31 Creatinine 1.27 mg/dL 0.72-1.25 Globulin 3.4 g/dL 1.8-4.0 Glucose 92 mg/dL 70-99 Potassium 4.7 mEq/L 3.5-5.2 Protein 7.5 g/dL 6.0-7.6 Sodium 141 mEq/L 135-144 LDL Direct - 06/02/16 11:10 LDL Direct 99 mg/dL 0-129 eGFR - 06/02/16 11:10 eGFR 56 mL/min >60 Complete blood count (CBC) with automate d white blood cell (WBC) differential - 01/06/19 20:10 Blood leukocytes automated count (number/volume) 6.9 10*3/uL 4.3-11.0 Blood erythrocytes automated count (number/volume) 3.76 10*6/uL 4.35-5.85 Venous blood hemoglobin measurement (mass/volume) 12.2 g/dL 13.3-17.7 Blood hematocrit (volume fraction) 37 % 40-54 Automated erythrocyte mean corpuscular volume 98 [ foz_us] 80-99 Automated erythrocyte mean corpuscular h emoglobin (mass per erythrocyte) 32 pg 25-34 Automated erythrocyte mean corpuscular h emoglobin concentration measurement (mass/volume) 33 g/dL 32-36 Automated erythrocyte distribution width ratio 12. 8 % 10.0- 14.5 Automated blood platelet count (count/volume) 121 10*3/uL 130-400 Automated blood platelet mean volume measurement 11.5 [foz_us] 7.4-10.4 Automated blood neutrophils/100 leukocytes 51 % 42-75 Automated blood lymphocytes/100 leukocytes 32 % 12-44 Blood monocytes/100 leukocytes 12 % 0-12 Automated blood eosinophils/100 leukocytes 5 % 0-10 Automated blood basophils/100 leukocytes 1 % 0-10 Blood neutrophils automated count (number/volume) 3.5 10*3 1.8-7.8 Blood lymphocytes automated count (number/volume) 2.2 10*3 1.0-4.0 Blood monocytes automated count (number/volume) 0. 8 10*3 0.0-1.0 Automated eosinophil count 0.3 10*3/uL 0 .0-0.3 Automated blood basophil count (count/volume) 0.0 10*3/uL 0.0-0.1 Comprehensive metabolic panel - 01/06/19 20:10 Serum or plasma sodium measurement (moles/volume) 140 mmol/L 135-145 Serum or plasma potassium measurement (moles/volume) 4.5 mmol/L 3.6-5.0 Serum or plasma chloride measurement (moles/volume) 107 mmol/L 98-107 Carbon dioxide 22 mmol/L 21-32 Serum or plasma anion gap determination (moles/volume) 11 mmol/L 5-14 Serum or plasma urea nitrogen measurement (mass/volume ) 29 mg/dL 7-18 Serum or plasma creatinine measurement (mass/volume) 1.59 mg/dL 0.60-1.30 Serum or plasma urea nitrogen/creatinine mass ratio 18 NRG Serum or plasma creatinine measurement w ith calculation of estimated glomerular filtration rate 43 NRG Serum or plasma glucose measurement (mass/volume) 99 mg/dL 70-105 Serum or plasma calcium measurement (mass/volume) 9.0 mg/dL 8.5-10.1 Serum or plasma total bilirubin measurement (mass/volu me) 0.3 mg/dL 0.1-1.0 Serum or plasma alkaline phosphatase levy surement (enzymatic activity/volume) 78 U/L 40-136 Serum or plasma aspartate aminotransfera se measurement (enzymatic activity/volume) 24 U/L 5-34 Serum or plasma alanine aminotransferase measurement (enzymatic activity/volume) 15 U/L 0-55 Serum or plasma protein measurement (mass/volume) 6.9 g/dL 6.4-8.2 Serum or plasma albumin measurement (mass/volume) 4.1 g/dL 3.2-4.5 CALCIUM CORRECTED 8.9 mg/dL 8.5-10.1 Magnesium - 01/06/19 20:10 Magnesium 2.0 mg/dL 1.6-2.4 Serum or plasma troponin i.cardiac measu rement (mass/volume) - 01/06/19 20:10 Serum or plasma troponin i.cardiac measurement (mass/v olume) < ng/mL <0.028 [id number] - 01/06/19 20:10 [id number] < 0.30 0.80-2.00 Complete urinalysis with reflex to cultu re - 01/06/19 21:15 Urine color determination YELLOW NRG Urine clarity determination CLEAR NR G Urine pH measurement by test strip 6.0 5-9 Specific gravity of urine by test strip 1.020 1.016-1.022 Urine protein assay by test strip, semi-quantitative NEGATIVE NEGATIVE Urine glucose detection by automated test strip NE GATIVE NEGATIVE Erythrocytes detection in urine sediment by light micr oscopy NEGATIVE NEGATIVE Urine ketones detection by automated test strip NE GATIVE NEGATIVE Urine nitrite detection by test strip NEGATIVE NEGATIVE Urine total bilirubin detection by test strip NEGA TIVE NEGATIVE Urine urobilinogen measurement by automated test strip (mass/volume) 0.2 mg/dL < = 1.0 Urine leukocyte esterase detection by dipstick NEG ATIVE NEGATIVE Automated urine sediment erythrocyte cou nt by microscopy (number/high power field) NONE NRG Automated urine sediment leukocyte count by microscopy (number/high power field) [HPF] NRG Bacteria detection in urine sediment by light microsco py TRACE NRG Crystals detection in urine sediment by light microsco py NONE NRG Casts detection in urine sediment by light microscopy NONE NRG Mucus detection in urine sediment by light microscopy NEGATIVE NRG Complete urinalysis with reflex to culture NO NRG METABOLIC PANEL, COMPREHN - 01/07/19 02: 24 POTASSIUM 4.3 mmol/L 3.5-5.3 EST GFR (MDRD) 46 mL/min > 59 ANION GAP 9 mmol/L 5-15 EST CrCl (CG) 48 mL/min > 59 GLUCOSE 108 mg/dL 70-99 CALCIUM 9.0 mg/dL 8.5-10.1 BLOOD UREA NITROGEN 28 mg/dL 7-20 CREATININE 1.51 mg/dL 0.70-1.30 SODIUM 144 mmol/L 135-148 CHLORIDE 109 mmol/L 98-110 AST/SGOT 23 Units/L 10-37 ALT/SGPT 24 Units/L < 66 CARBON DIOXIDE 26 mmol/L 21-32 TOTAL PROTEIN 7.2 gm/dL 6.4-8.2 ALBUMIN 3.8 gm/dL 3.4-5.0 BILI TOTAL 0.7 mg/dL 0.0-1.0 ALKALINE PHOSPHATASE TOTAL 70 IU/L 45- 117 MAGNESIUM - 01/07/19 02:24 MAGNESIUM 2.2 mg/dL 1.8-2.4 TSH WITH REFLEX TO FT4 - 01/07/19 02:24 THYROID STIM HORMONE (TSH) 1.40 uIU/mL 0 .34-4.82 TROPONIN I - 01/07/19 02:24 TROPONIN I < 0.02 ng/mL < 0.07 B-TYPE NATRIURETIC PEPTIDE - 01/07/19 03 :05 B-TYPE NATRIURETIC PEPTIDE 256 pg/mL < 1 00 CBC W/DIFF - 01/07/19 03:05 BASOPHIL # 0.1 k/cumm 0.0-0.2 BASOPHIL % 0.7 % 0-1 EOSINOPHIL # 0.3 k/cumm 0.1-0.5 EOSINOPHIL % 3.0 % 2-4 GRANULOCYTE # 5.8 k/cumm 2.0-9.0 GRANULOCYTE % 65.7 % 50-75 LYMPHOCYTE # 1.9 k/cumm 1.0-4.0 LYMPHOCYTE % 21.2 % 20-30 MEAN CELL HGB 31.8 pg 27.0-33.0 MEAN CELL HGB CONCENTRATION 32.9 g/dL 32 .0-37.0 MEAN CELL VOLUME 96.8 fl 80.0-100.0 MONOCYTE # 0.8 k/cumm 0.1-1.0 MONOCYTE % 9.1 % 4-6 MEAN PLATELET VOLUME 11.2 fl 8.5-10.9 RED BLOOD CELL 3.80 m/cumm 4.00-6.00 RED CELL DISTRIBUTION WIDTH 12.5 % 11 .0-15.6 WHITE BLOOD CELL 8.9 k/cumm 5.0-10.0 HEMOGLOBIN 12.1 gm/dL 14.0-18.0 HEMATOCRIT 36.8 % 40.0-54.0 NRBC % 0.0 /100 WBC 0.0-0.0 PLATELET COUNT 113 k/cumm 150-400 IMMATURE GRANULOCYTE % 0.3 % 0.0-0.6 IMMATURE GRANULOCYTE # 0.03 k/cumm 0.00- 0.09 IMMATURE PLATELET FRACTION 4.0 % 1.1 -6.1 METABOLIC PANEL, BASIC - 01/07/19 08:46 POTASSIUM 4.3 mmol/L 3.5-5.3 EST GFR (MDRD) 49 mL/min > 59 ANION GAP 8 mmol/L 5-15 EST CrCl (CG) 51 mL/min > 59 GLUCOSE 110 mg/dL 70-99 CALCIUM 8.9 mg/dL 8.5-10.1 BLOOD UREA NITROGEN 23 mg/dL 7-20 CREATININE 1.42 mg/dL 0.70-1.30 SODIUM 144 mmol/L 135-148 CHLORIDE 109 mmol/L 98-110 CARBON DIOXIDE 27 mmol/L 21-32 LIPID PANEL - 01/07/19 08:46 CHOLESTEROL/HDL RATIO 2.0 < 5.0 LDL CHOLESTEROL 60 mg/dL < 100 VLDL CHOLESTEROL 14 mg/dL < 30 TRIGLYCERIDES 68 mg/dL < 150 CHOLESTEROL 146 mg/dL < 200 HDL CHOLESTEROL 72 mg/dL > 39 CBC W/DIFF - 01/07/19 16:07 BASOPHIL # 0.1 k/cumm 0.0-0.2 BASOPHIL % 0.9 % 0-1 EOSINOPHIL # 0.3 k/cumm 0.1-0.5 EOSINOPHIL % 3.1 % 2-4 GRANULOCYTE # 5.2 k/cumm 2.0-9.0 GRANULOCYTE % 63.9 % 50-75 LYMPHOCYTE # 1.7 k/cumm 1.0-4.0 LYMPHOCYTE % 21.4 % 20-30 MEAN CELL HGB 31.9 pg 27.0-33.0 MEAN CELL HGB CONCENTRATION 32.4 g/dL 32 .0-37.0 MEAN CELL VOLUME 98.5 fl 80.0-100.0 MONOCYTE # 0.9 k/cumm 0.1-1.0 MONOCYTE % 10.5 % 4-6 MEAN PLATELET VOLUME 11.6 fl 8.5-10.9 RED BLOOD CELL 3.89 m/cumm 4.00-6.00 RED CELL DISTRIBUTION WIDTH 12.9 % 11 .0-15.6 WHITE BLOOD CELL 8.1 k/cumm 5.0-10.0 HEMOGLOBIN 12.4 gm/dL 14.0-18.0 HEMATOCRIT 38.3 % 40.0-54.0 NRBC % 0.0 /100 WBC 0.0-0.0 PLATELET COUNT 124 k/cumm 150-400 IMMATURE GRANULOCYTE % 0.2 % 0.0-0.6 IMMATURE GRANULOCYTE # 0.02 k/cumm 0.00- 0.09 IMMATURE PLATELET FRACTION 5.1 % 1.1 -6.1 PROTHROMBIN TIME WITH INR - 01/07/19 16: 07 INTERNATIONAL NORMAL RATIO 1.0 0.9 -1.1 PROTHROMBIN TIME 11.1 sec 10.1-13.3 CBC W/DIFF - 01/08/19 04:12 BASOPHIL # 0.1 k/cumm 0.0-0.2 BASOPHIL % 0.6 % 0-1 EOSINOPHIL # 0.4 k/cumm 0.1-0.5 EOSINOPHIL % 4.0 % 2-4 GRANULOCYTE # 6.2 k/cumm 2.0-9.0 GRANULOCYTE % 66.5 % 50-75 LYMPHOCYTE # 1.7 k/cumm 1.0-4.0 LYMPHOCYTE % 18.5 % 20-30 MEAN CELL HGB 32.2 pg 27.0-33.0 MEAN CELL HGB CONCENTRATION 32.5 g/dL 32 .0-37.0 MEAN CELL VOLUME 99.2 fl 80.0-100.0 MONOCYTE # 0.9 k/cumm 0.1-1.0 MONOCYTE % 10.1 % 4-6 MEAN PLATELET VOLUME 11.2 fl 8.5-10.9 RED BLOOD CELL 3.85 m/cumm 4.00-6.00 RED CELL DISTRIBUTION WIDTH 12.6 % 11 .0-15.6 WHITE BLOOD CELL 9.3 k/cumm 5.0-10.0 HEMOGLOBIN 12.4 gm/dL 14.0-18.0 HEMATOCRIT 38.2 % 40.0-54.0 NRBC % 0.0 /100 WBC 0.0-0.0 PLATELET COUNT 119 k/cumm 150-400 IMMATURE GRANULOCYTE % 0.3 % 0.0-0.6 IMMATURE GRANULOCYTE # 0.03 k/cumm 0.00- 0.09 IMMATURE PLATELET FRACTION 4.8 % 1.1 -6.1 METABOLIC PANEL, BASIC - 01/08/19 04:12 POTASSIUM 3.7 mmol/L 3.5-5.3 EST GFR (MDRD) 53 mL/min > 59 ANION GAP 9 mmol/L 5-15 EST CrCl (CG) 54 mL/min > 59 GLUCOSE 110 mg/dL 70-99 CALCIUM 9.0 mg/dL 8.5-10.1 BLOOD UREA NITROGEN 21 mg/dL 7-20 CREATININE 1.34 mg/dL 0.70-1.30 SODIUM 142 mmol/L 135-148 CHLORIDE 107 mmol/L 98-110 CARBON DIOXIDE 26 mmol/L 21-32 Encounters ACCT No. Visit Date/Time Discharge Status Pt. Type Provider Facility Loc./Unit Complaint [id number] 06/02/2016 10:02:00 017 23:59:00 DIS Outpatient Tonio Hawkins [facility] RTC 6 MOS [id number] 12/03/2015 09:06:00 016 23:59:00 DIS Outpatient Tonio Hawkins [facility] rtc 6 mos [id number] 06/07/2015 12:49:00 23:59:00 DIS Outpatient Tonio Hawkins [facility] prevnar 13 inj [id number] 06/07/2015 10:10:00 23:59:00 DIS Outpatient MuralimiteshTonio V ia [facility] Mur IM 6 MO RCK [id number] 12/05/2014 10:15:00 23:59:00 DIS Outpatient Tonio Hawkins V ia [facility] Mur IM 6 mo rck [id number] 01/10/2014 08:47:00 014 23:59:00 DIS Outpatient Joey Blackmon [facility] FC Ort NPC LT KNEE [id number] 06/05/2014 12:21:00 Document Registration [id number] 01/07/2019 01:16:00 14:45:00 DIS Inpatient Carole JHA, [facility] W.3CE [id number] 01/06/2019 19:53:00 22:39:00 DIS Outpatient ELIJAH JHA, YVON Lozano [facility] FALL,HEAD LAC [id number] 12/29/2018 09:28:00 00:01:00 DIS Outpatient IRMA VELEZ MD [facility] WELLNESS [id number] 11/24/2018 10:28:00 00:01:00 DIS Outpatient IRMA VELEZ MD [facility] [id number] 10/20/2018 09:51:00 00:01:00 DIS Outpatient IRMA VELEZ MD [facility] [id number] 09/20/2018 09:18:00 00:01:00 DIS Outpatient IRMA VELEZ MD [facility] [id number] 08/18/2018 09:09:00 00:01:00 DIS Outpatient IRMA VELEZ MD Via [facility] [id number] 07/19/2018 08:53:00 00:01:00 DIS Outpatient IRMA VELEZ MD [facility] [id number] 06/16/2018 09:36:00 00:01:00 DIS Outpatient IRMA VELEZ MD [facility] [id number] 04/05/2018 12:06:00 00:01:00 DIS Outpatient IRMA VELEZ MD [facility] [id number] 03/24/2018 09:37:00 00:01:00 DIS Outpatient IRMA VELEZ MD [facility] [id number] 02/17/2018 09:29:00 00:01:00 DIS Outpatient IRMA VELEZ MD [facility] [id number] 01/13/2018 09:33:00 00:01:00 DIS Outpatient IRMA VELEZ MD [facility] [id number] 12/09/2017 09:58:00 018 00:01:00 DIS Outpatient IRMA VEELZ MD [facility] [id number] 11/04/2017 10:31:00 018 00:01:00 DIS Outpatient IRMA VELEZ MD [facility] [id number] 09/02/2017 09:33:00 018 23:59:59 CLS Outpatient IRMA VELEZ MD [facility] [id number] 08/19/2017 13:20:00 018 00:01:00 DIS Outpatient IRMA VELEZ MD [facility] [id number] 07/15/2017 09:54:00 018 00:01:00 DIS Outpatient IRMA VELEZ MD [facility] [id number] 06/10/2017 09:30:00 018 00:01:00 DIS Outpatient FELIPE RIVERA MD Via [facility] [id number] 09/13/2013 10:45:00 09:32:00 DIS Outpatient VENESSA KRUGER [facility] FX [id number] 06/09/2013 10:00:00 00:01:00 DIS Outpatient [id number] 06/23/2013 11:36:00 19:05:00 DIS Inpatient [id number] 06/22/2013 09:41:00 23:59:59 CLS Outpatient [id number] 06/16/2013 10:00:00 13:19:00 DIS Outpatient [id number] 03/17/2013 11:00:00 13:55:00 DIS Inpatient [id number] 03/14/2013 07:45:00 11:00:00 DIS Inpatient [id number] 01/31/2019 09:29:[address] Outpatient ROSIE JHA, IRMA Mello [facility]
--- OUTSIDE RECORDS SUMMARY | 2019-02-01 23:38 | XMS REPORT | CCD ---
Author Author Andrade Joseph Organization Carri Joseph MD, [facility] Address [address] [place] [address] Phone Care Team Providers Care Hearing Care Practitioner Name Role Phone Carri Joseph PP Unavailable CCM Unavailable Summary Purpose Interface Exchange Insurance Providers Payer name Policy type / Coverage type Covered republican ID Effective Begin Date Effective End Date WPS Medicare Part B Medicare Part B [id number] 2017 Unknown [facility] ica Part B [id number] Un known Family history Brother Diagnosis Age [...] ntly unemployed Disabled - previously worked at [employer] in [employer] work 10/17/[address]: 183591173 Never smoker 10/17/[address]: 122479171 Never drinks alcohol 10/17/2010 Has the patient [...] Codes Condition Status Onset Date Resolved Date Encounter for immunbrit elizabeth ICD-9: V04.81 ICD-10: Z23 Active 10/18/2013 Unknown Essential (primary) hypertension ICD-9: 401.1 ICD-10: I10 Active 06/02/2017 Unknown Mixed hyperlipidemia ICD-9: 272.4 ICD-10: E78.2 Active 10/18/2013 Unknown Encounter for genera l adult medical examination with abnormal findings ICD-9: V70.0 ICD-10: Z00.01 Active 05/28/2016 Unknown Mixed hyperlipidemia ICD-9: 272.2 ICD-10: E78.2 Active 06/02/2017 Unknown Unsteadiness on feet ICD-9: 781.2 ICD-10: [...] Condition Codes Effectiv e Dates Condition Status Encounter for immuni zation ICD-9: V04.81 ICD-10: Z23 10/18/2013 Active Essential (primary) hypertension ICD-9: 401.1 ICD-10: I10 06/02/2017 Active Mixed hyperlipidemia ICD-9: 272.4 ICD-10: E78.2 10/18/2013 Active Encounter for genera l adult medical examination with abnormal findings ICD-9: V70.0 ICD-10: Z00.01 05/28/2016 Active Mixed hyperlipidemia ICD-9: 272.2 ICD-10: E78.2 06/02/2017 Active Unsteadiness on feet ICD-9: 781.2 ICD-10: [...] Date Stop Date Sta tus Fill Instructions lovastatin 20 mg tablet RxNorm: 920869 TAKE 1 TABLET BY MOUTH EVERY EVENING 10/08/2017 04/05/2018 Ac tive Generic For:MEVACOR 20MG 10/08/2017 9:0 5:15 AM sotalol 80 mg tablet RxNorm: 5781935 2 Tablet(s) PO BID Dr Sourav Stark 06/02/2017 No Stop Date Active lovastatin 20 mg tablet RxNorm: 764493 TAKE 1 TABLET BY MOUTH EVERY EVENING 04/03/2017 09/29/2017 In active Generic For:MEVACOR 20MG 04/02/2017 1:1 1:51 PM lovastatin 20 mg tablet RxNorm: 844325 Tablet(s) 1 Tablet(s) PO QPM TAKE 1 TABL ET BY MOUTH EVERY EVENING 10/22/2016 11/20/2016 Inactive [SAVINGS FOR UNINSURED MARGARET ENTS -- BIN:[id number], PCN: ASPROD1, Group: [id number], ID# [id number], Process claim through MedImpact, for questions: . THIS IS NOT INSURANCE.] lovastatin 20 mg tablet RxNorm: 711968 Tablet(s) 1 Tablet(s) PO QPM TAKE 1 TABL ET BY MOUTH EVERY EVENING 09/26/2016 10/21/2016 Inactive [SAVINGS FOR UNINSURED MARGARET ENTS -- BIN:[id number], PCN: ASPROD1, Group: [id number], ID# [id number], Process claim through MedImpact, for questions: . THIS IS NOT INSURANCE.] Lanoxin 125 mcg tablet RxNorm: 443313 Tablet(s) TAKE 1 TABLET BY MOUTH EVERY M ORNING 11/14/2015 10/06/2017 Inactive lovastatin 20 mg tablet RxNorm: 775042 Tablet(s) 1 Tablet(s) PO QPM TAKE 1 TABL ET BY MOUTH EVERY EVENING 10/01/2015 03/28/2016 Inactive [SAVINGS FOR UNINSURED MARGARET ENTS -- BIN:[id number], PCN: ASPROD1, Group: [id number], ID# [id number], Process claim through MedImpact, for questions: . THIS IS NOT INSURANCE.] Lanoxin 125 mcg tablet RxNorm: 408983 Tablet(s) TAKE 1 TABLET BY MOUTH EVERY M ORNING 07/16/2015 11/12/2015 Inactive Generic For:LANOXIN 0.125MG 07/22/2014 9:09:16 AM lovastatin 20 mg tablet RxNorm: 552573 Tablet(s) 1 Tablet(s) PO QPM TAKE 1 TABL ET BY MOUTH EVERY EVENING 03/23/2015 09/18/2015 Inactive [SAVINGS FOR UNINSURED MARGARET ENTS -- BIN:[id number], PCN: ASPROD1, Group: [id number], ID# [id number], Process claim through MedImpact, for questions: . THIS IS NOT INSURANCE.] lovastatin 20 mg tablet RxNorm: 998389 1 Tablet(s) PO QPM TAKE 1 TABLET BY MOUT H EVERY EVENING 09/11/2014 03/09/2015 Inactive [SAVINGS FOR UNINSURED MARGARET ENTS -- BIN:[id number], PCN: ASPROD1, Group: [id number], ID# [id number], Process claim through MedImpact, for questions: . THIS IS NOT INSURANCE.] Lanoxin 125 mcg tablet RxNorm: 400625 TAKE 1 TABLET BY MOUTH EVERY MORNING 07/24/2014 07/15/2015 In active Generic For:LANOXIN 0.125MG 07/22/2014 9:09:16 AM sotalol 80 mg tablet RxNorm: 7270275 1 1/2 Tablet(s) PO BID 04/19/2014 06/01/2017 Inactive [SAVINGS FOR NON-COVERED DRUGS -- BIN:[id number] [id number], PCN: ASPROD1, Group: XXXXX, ID# [id number], Questions: . THIS IS NOT INSURANCE.] lovastatin 20 mg tablet RxNorm: 987584 1 Tablet(s) PO QPM TAKE 1 TABLET BY MOUT H EVERY EVENING 09/06/2013 09/05/2013 Inactive [SAVINGS FOR UNINSURED MARGARET ENTS -- BIN:[id number], PCN: ASPROD1, Group: [id number], ID# [id number], Process claim through MedImpact, for questions: . THIS IS NOT INSURANCE.] lovastatin 20 mg tablet RxNorm: 623684 1 Tablet(s) PO QPM TAKE 1 TABLET BY MOUT H EVERY EVENING 09/06/2013 09/10/2014 Inactive [SAVINGS FOR UNINSURED MARGARET ENTS -- BIN:[id number], PCN: ASPROD1, Group: [id number], ID# [id number], Process claim through MedImpact, for questions: . THIS IS NOT INSURANCE.] Lanoxin 125 mcg tablet RxNorm: 119292 1 Tablet(s) PO daily TAKE 1 TABLET BY MO UTH EVERY MORNING 07/25/2013 07/24/2013 Inactive [SAVINGS FOR UNINSURED MARGARET ENTS -- BIN:[id number], PCN: ASPROD1, Group: [id number], ID# [id number], Process claim through MedImpact, for questions: . THIS IS NOT INSURANCE.] Lanoxin 125 mcg tablet RxNorm: 980063 1 Tablet(s) PO daily TAKE 1 TABLET BY MO UTH EVERY MORNING 07/25/2013 08/18/2014 Inactive [SAVINGS FOR UNINSURED MARGARET ENTS -- BIN:[id number], PCN: ASPROD1, Group: [id number], ID# [id number], Process claim through [employer]z, for questions: . THIS IS NOT INSURANCE.] tamsulosin ER 0.4 mg capsule,extended release 24 hr RxNorm: 371539 1 Capsule(s) PO QAM 04/20/2013 04/14/2014 Inactive lovastatin 20 mg tablet RxNorm: 237214 1 Tablet(s) PO QPM TAKE 1 TABLET BY MOUT H EVERY EVENING 08/26/2012 08/26/2012 Inactive lovastatin 20 mg tablet RxNorm: 137430 1 Tablet(s) PO QPM TAKE 1 TABLET BY MOUT H EVERY EVENING 08/26/2012 09/05/2013 Inactive Lanoxin 125 mcg tablet RxNorm: 588985 Tablet(s) PO TAKE 1 TABLET BY MOUTH EVER Y MORNING 06/28/2012 07/24/2013 Inactive lovastatin 20 mg tablet RxNorm: 138309 Tablet(s) PO TAKE 1 TABLET BY MOUTH EVER Y EVENING 04/27/2012 08/26/2012 Inactive lovastatin 20 mg tablet RxNorm: 655977 Tablet(s) PO 11/24/2011 04/26/2012 Inactive TAKE 1 TABLET BY MOUTH EVERY EVENING Lanoxin 125 mcg tablet RxNorm: 102320 Tablet(s) PO 07/14/2011 06/27/2012 Inactive TAKE 1 TABLET BY MOUTH EVERY MORNING lovastatin 20 mg tablet RxNorm: 093418 1 Tablet(s) PO daily 12/05/2010 11/23/2011 Inactive Influenza Virus Vacc ine 0.5 mL RxNorm: IM 11/28/2010 11/28/2010 Inactive lisinopril 2.5 mg ta blet RxNorm: 981733 1 Tablet(s) PO daily No Start Date Active multivitamin Oral RxNorm: Oral No Start Date Active aspirin 81 mg Tab, D elayed Release RxNorm: 769373 1 Tablet(s) PO daily No Start Date Active Lanoxin 125 mcg Tab RxNorm: 867678 1 Tablet(s) PO daily No Start Date 07/13/2011 Inactive carvedilol 6.25 mg Tab RxNorm: 320103 1 Tablet(s) PO BID No Start Date 08/17/2012 Inactive Lipitor 10 mg Tab RxNorm: 349668 1 Tablet(s) PO daily No Start Date 12/04/2010 Inactive sotalol 80 mg tablet RxNorm: 857354 1 Tablet(s) PO BID No Start Date 04/18/2014 Inactive carvedilol 12.5 mg t ablet RxNorm: 565226 1 Tablet(s) PO BID No Start Date 09/21/2013 Inactive senna 187 mg tablet RxNorm: 657770 1 Tablet(s) PO daily No Start Date 06/22/2013 Inactive Coreg 3.125 mg Tab RxNorm: 217342 1 Tablet(s) PO BID No Start Date 04/09/2011 Inactive tamsulosin ER 0.4 mg capsule,extended release 24 hr RxNorm: 965850 1 Capsule(s) PO QAM No Start Date 04/19/2013 Inactive Medication Administered Medication Codes Instruc tions Start Date Status Influenza Virus Vaccine 0.5 mL RxNorm: 11/28/2010 No longer Active Immunizations Vaccine Codes Date Status Zoster CVX: 121 03/23/19 18 completed Pneumococcal (Adult) CVX: 133 11/23/2014 completed Pneumococcal (Adult) CVX: 133 11/23/2014 completed Influenza CVX: 141 10/18 completed Influenza CVX: 141 12/10 completed Pneumococcal CVX: 33 02/2012 completed Influenza CVX: 141 12/03 completed Influenza CVX: 141 12/05 completed Influenza CVX: 141 11/28 completed Assessments Condition Codes Effectiv e Dates Encounter for immunization ICD-10: Z 23 ICD-9: V04.81 12/24/2017 Essential (primary) hypertension ICD -10: I10 ICD-9: 401.1 10/07/2017 Mixed hyperlipidemia ICD-10: E78.2 ICD-9: 272.4 10/07/2017 Encounter for general adult medical exam ination with abnormal findings ICD-10: Z00.01 ICD-9: V70.0 06/04/2017 Mixed hyperlipidemia ICD-10: E78.2 ICD-9: 272.2 06/02/2017 Unsteadiness on feet ICD-10: R26.81 ICD-9: 781.2 [...] Visit Reason For Visit Effective Dates Notes vaccination against influenza 12/24/2017 hypertension 10/07/2017 Annual [...] Ord30 C/HDL 2.9 Ratio 11/27/2016 Comp Metabolic Ksl830 NA 140 mEq/L 11/27/2016 Comp Metabolic Qvb902 K 4.6 mEq/L 11/27/2016 Comp Metabolic Eli218 CL 103 mEq/L 11/27/2016 Comp Metabolic Ibp694 CO2 28.0 mEq/L 11/27/2016 Comp Metabolic Mad388 AN ION GAP 14 11/27/2016 Comp Metabolic Och829 GL UCOSE 107 mg/dL 11/27/2016 Comp Metabolic Xgp456 Cr eat 1.4 mg/dL 11/27/2016 Comp Metabolic Tje858 eG FR 55 ml/min/1.73m2 11/27 Comp Metabolic Vsl947 BUN 27 mg/dL 11/27/2016 Comp Metabolic Igr478 B/ C Ratio 19.9 Ratio 11/27/2016 Comp Metabolic Fnk997 CA LCIUM 9.8 mg/dL 11/27/2016 Comp Metabolic Rhg783 AL K PHOS 61 U/L 11/27/2016 Comp Metabolic Xuu951 T(SGOT) 19 U/L 11/27/2016 Comp Metabolic Wtv952 AL T(SGPT) 14 U/L 11/27/2016 Comp Metabolic Dnf059 BI LI T 0.5 mg/dL 11/27/2016 Comp Metabolic Gyo135 AL BUMIN 4.1 g/dL 11/27/2016 Comp Metabolic Evx307 TP RO 7.1 g/dL 11/27/2016 Comp Metabolic Lru631 GL OB 3.0 g/dL 11/27/2016 Comp Metabolic Sst173 A/ G Ratio 1.4 Ratio 11/27/2016 Comp Metabolic Rtn670 Os mo 285 mOsmo 11/27/2016 Cbc With Differential Ord2 WBC 8.51 K/ul 11/27/2016 Cbc With Differential Ord2 RBC 4.14 M/ul 11/27/2016 Cbc With Differential Ord2 HGB 13.3 g/dl 11/27/2016 Cbc With Differential Ord2 Neut% 71.3 % 11/27/2016 Cbc With Differential Ord2 HCT 40.2 % 11/27/2016 Cbc With Differential Ord2 Lymph% 16.0 % 11/27/2016 Cbc With Differential Ord2 MCV 97.1 fl 11/27/2016 Cbc With Differential Ord2 Merrick% 9.3 % 11/27/2016 Cbc With Differential Ord2 MCH 32.1 pg 11/27/2016 Cbc With Differential Ord2 MCHC 33.1 pg 11/27/2016 Cbc With Differential Ord2 Eos% 2.8 % 11/27/2016 Cbc With Differential Ord2 Baso% 0.6 % 11/27/2016 Cbc With Differential Ord2 PLT 188 K/ul 11/27/2016 Cbc With Differential Ord2 RDW 13.4 % 11/27/2016 Cbc With Differential Ord2 Neut ABS# 6.07 K/ul 11/27/2016 Cbc With Differential Ord2 Lymph ABS# 1.36 K/ul 11/27/2016 Cbc With Differential Ord2 [place] ABS# 0.8 K/ul 11/27/2016 Cbc With Differential Ord2 Eos ABS# 0.2 K/ul 11/27/2016 Cbc With Differential Ord2 Baso ABS# 0.1 K/ul 11/27/2016 Tsh Ord6 hTSH II 1.36 uIU/mL 11/27/2016 Cbc With Differential Ord2 WBC 7.82 K/ul 07/04/2016 Cbc With Differential Ord2 RBC 4.08 M/ul 07/04/2016 Cbc With Differential Ord2 HGB 12.9 g/dl 07/04/2016 Cbc With Differential Ord2 Neut% 65.1 % 07/04/2016 Cbc With Differential Ord2 HCT 39.5 % 07/04/2016 Cbc With Differential Ord2 MCV 96.8 fl 07/04/2016 Cbc With Differential Ord2 Lymph% 20.3 % 07/04/2016 Cbc With Differential Ord2 MCH 31.6 pg 07/04/2016 Cbc With Differential Ord2 [place]% 10.4 % 07/04/2016 Cbc With Differential Ord2 [...] 1.59 K/ul 07/04/2016 Cbc With Differential Ord2 [place] ABS# 0.8 K/ul 07/04/2016 Cbc With Differential Ord2 Eos ABS# 0.3 K/ul 07/04/2016 Cbc With Differential Ord2 Baso ABS# 0.0 K/ul 07/04/2016 Cbc With Differential Ord2 WBC 8.08 K/ul 05/27/2016 Cbc With Differential Ord2 RBC 4.06 M/ul 05/27/2016 Cbc With Differential Ord2 HGB 12.9 g/dl 05/27/2016 Cbc With Differential Ord2 Neut% 70.7 % 05/27/2016 Cbc With Differential Ord2 HCT 39.8 % 05/27/2016 Cbc With Differential Ord2 MCV 98.0 fl 05/27/2016 Cbc With Differential Ord2 Lymph% 15.0 % 05/27/2016 Cbc With Differential Ord2 MCH 31.8 pg 05/27/2016 Cbc With Differential Ord2 [place]% 10.8 % 05/27/2016 Cbc With Differential Ord2 [...] 1.21 K/ul 05/27/2016 Cbc With Differential Ord2 [place] ABS# 0.9 K/ul 05/27/2016 Cbc With Differential Ord2 Eos ABS# 0.3 K/ul 05/27/2016 Cbc With Differential Ord2 Baso ABS# 0.0 K/ul 05/27/2016 Digoxin Ord9 DIGOXIN 0.8 NG/ML 05/27/2016 Lipid Ord30 CHOL 168 mg/dL 05/27/2016 Lipid Ord30 HDL 53.0 mg/dl 05/27/2016 Lipid Ord30 TRIG 100 mg/dL 05/27/2016 Lipid Ord30 LDL 95 mg/dL 05/27/2016 Lipid Ord30 C/HDL 3.2 Ratio 05/27/2016 Comp Metabolic Rlj928 NA 138 mEq/L 05/27/2016 Comp Metabolic Emc367 K 4.9 mEq/L 05/27/2016 Comp Metabolic Eif316 CL 101 mEq/L 05/27/2016 Comp Metabolic Vfs630 CO2 28.0 mEq/L 05/27/2016 Comp Metabolic Njf860 AN ION GAP 14 05/27/2016 Comp Metabolic Sjj819 GL UCOSE 95 mg/dL 05/27/2016 Comp Metabolic Gao308 Cr eat 1.4 mg/dL 05/27/2016 Comp Metabolic Ynj962 eG FR 55 ml/min/1.73m2 05/27 Comp Metabolic Nwh804 BUN 26 mg/dL 05/27/2016 Comp Metabolic Iga083 B/ C Ratio 19.0 Ratio 05/27/2016 Comp Metabolic Uhl720 CA LCIUM 9.4 mg/dL 05/27/2016 Comp Metabolic Upb534 AL K PHOS 62 U/L 05/27/2016 Comp Metabolic Ibb322 T(SGOT) 19 U/L 05/27/2016 Comp Metabolic Tin531 AL T(SGPT) 14 U/L 05/27/2016 Comp Metabolic Wxd494 BI LI T 0.5 mg/dL 05/27/2016 Comp Metabolic Keg083 AL BUMIN 3.8 g/dL 05/27/2016 Comp Metabolic Pvv750 TP RO 7.1 g/dL 05/27/2016 Comp Metabolic Cgp373 GL OB 3.3 g/dL 05/27/2016 Comp Metabolic Ehr071 A/ G Ratio 1.2 Ratio 05/27/2016 Comp Metabolic Wsd605 Os mo 280 mOsmo 05/27/2016 Tsh Ord6 hTSH II 1.30 uIU/mL 05/27/2016 Total Psa Ord10 PSA 1.61 ng/mL 05/27/2016 LIPID GRP HDL TE ST 62 MG/DL 08/18/2012 LIPID GRP 3730555 TRIG 115 MG/DL 08/18/2012 LIPID GRP TEST L DL 103 MG/DL 08/18/2012 LIPID GRP CHOL 188 MG/DL 08/18/2012 LIPID GRP RCHOL/ HDL 3.03 RATIO 08/18/2012 TSH 3949921 TSH 1.296 uIU/ML 08/18/2012 CBC 3639878 WBC 6.2 10e9/L 08/18/2012 CBC 7592488 RBC 4.13 10e12/L 08/18/2012 CBC 0349415 HGB 13.5 g/dL 08/18/2012 CBC 5525960 HCT DET 40.3 % 08/18/2012 CBC 7143654 MCV 97.6 fL 08/18/2012 CBC 5503926 MCH 32.7 pg 08/18/2012 CBC 1701088 MCHC 33.5 g/dL 08/18/2012 CBC 5143617 PLT 159 10e9/L 08/18/2012 CBC 5829741 MPV 10.8 fL 08/18/2012 CBC 9473085 [place] % 60.9 % 08/18/2012 CBC 2292936 LY % 23.1 % 08/18/2012 CBC 0239438 MON % 11.2 % 08/18/2012 CBC 3475492 EOS % 4.2 % 08/18/2012 CBC 3357295 BASO % 0.6 % 08/18/2012 CBC 5441476 RDW 13.0 % 08/18/2012 CBC 6921043 ABS [place] 3.78 10e9/L 08/18/2012 CBC 8751220 ABS LYMPH 1.43 10e9/L 08/18/2012 CBC 7215545 ABS MONO 0.69 10e9/L 08/18/2012 CBC 6802459 ABS EOS 0.26 10e9/L 08/18/2012 CBC 1216089 ABS BASO 0.04 10e9/L 08/18/2012 CBC 4354695 RDW-SD 45.1 fL 08/18/2012 GFR CALC 9653248 GFR AA >60 ML/MIN 08/18/2012 GFR CALC 8028872 GFR NON -AA 51.0L ML/MIN 3 CHEM 14 7758531 AST 21 U/L 08/18/2012 CHEM 14 1653249 ALT 16 IU/L 08/18/2012 CHEM 14 2561405 BUN 26 MG/DL 08/18/2012 CHEM 14 3480616 ALBUMIN 4.3 GM/DL 08/18/2012 CHEM 14 0482057 CHLORIDE 105 MMOL/L 08/18/2012 CHEM 14 7189280 BILI TOT 0.7 MG/DL 08/18/2012 CHEM 14 0494903 ALK PHOS 41 U/L 08/18/2012 CHEM 14 5343797 SODIUM 138 MMOL/L 08/18/2012 CHEM 14 5757233 CREATINI NE 1.39 MG/DL 08/18/2012 CHEM 14 9761482 CALCIUM 9.6 MG/DL 08/18/2012 CHEM 14 4152161 POTASSIUM 4.4 MMOL/L 08/18/2012 CHEM 14 7069693 PROT TOT 7.0 GM/DL 08/18/2012 CHEM 14 3870893 GLUCOSE 104 MG/DL 08/18/2012 CHEM 14 5323424 BICARB 28 MMOL/L 08/18/2012 CHEM 14 3277660 ANION GAP 5 MEQ/L 08/18/2012 GFR CALC 2013128 GFR AA 58.0L ML/MIN 02/19/2012 GFR CALC 1290444 GFR NON -AA 47.0L ML/MIN 3 CHEM 14 4176556 AST 20 U/L 02/19/2012 CHEM 14 6718355 ALT 18 IU/L 02/19/2012 CHEM 14 4514844 BUN 30 MG/DL 02/19/2012 CHEM 14 9629247 ALBUMIN 4.4 GM/DL 02/19/2012 CHEM 14 8455583 CHLORIDE 105 MMOL/L 02/19/2012 CHEM 14 7869927 BILI TOT 0.5 MG/DL 02/19/2012 CHEM 14 7666753 ALK PHOS 54 U/L 02/19/2012 CHEM 14 0616348 SODIUM 139 MMOL/L 02/19/2012 CHEM 14 5995066 CREATINI NE 1.49 MG/DL 02/19/2012 CHEM 14 0243606 CALCIUM 9.6 MG/DL 02/19/2012 CHEM 14 3522534 POTASSIUM 4.5 MMOL/L 02/19/2012 CHEM 14 6240790 PROT TOT 7.0 GM/DL 02/19/2012 CHEM 14 4762073 GLUCOSE 84 MG/DL 02/19/2012 CHEM 14 9612252 BICARB 26 MMOL/L 02/19/2012 CHEM 14 2460270 ANION GAP 8 MEQ/L 02/19/2012 Review of Systems System Result Effective Dates Constitutional No recent illness 10/07/2017 Constitutional No [...] 1995 Ears/Nose/Throat oral cavity/pharynx/larynx Overall: no masses 04/19/2014 [...] normal 02/19/2012 None Full Exam - General 1994 Ears/Nose/Throat external ear Overall: normal appearance 02/19/2012 [...] clubbing 10/16/2011 None Full Exam - General 1995 [...] rate 04/10/2011 None Full Exam - General 1995 Cardiovascular auscultation of heart Overall: normal heart sounds 04/10/2011 None Full Exam - General 1994 Abdomen abdominal exam Overall: no tenderness 04/10/2011 None Full Exam - General 1995 Abdomen abdominal exam Overall: normal bowel sounds 04/10/2011 None Full Exam - General 1995 Musculoskeletal [...] PRSV 4 VA L 3 YRS+ CPT-4: 52914 12/24/2017 PPPS, SUBSEQ VISIT CPT- 4: G0439 06/04/2017 PPPS, SUBSEQ VISIT CPT- 4: G0439 05/28/2016 ADMIN PNEUMOCOCCAL V ACCINE SNOMED CT: 13954322 CPT-4: G0009 11/23/2014 PNEUMOCOCCAL VACC [address]: 42093749 CPT-4: 00918 11/23/2014 FLU VAC NO PRSV 4 VA L 3 YRS+ CPT-4: 49815 10/18/2013 ADMIN INFLUENZA VIRU S VAC Assigned to/Ayaka Snyder CPT-4: [id number] 10/18/2013 ROUTINE VENIPUNCTURE CPT-4: 04962 08/18/2012 ROUTINE VENIPUNCTURE CPT-4: 45853 02/19/2012 ROUTINE VENIPUNCTURE CPT-4: 72105 04/10/2011 ADMIN INFLUENZA VIRU S VAC CPT-4: G0008 12/05/2010 FLULAVAL VACC, 3 YRS & >, IM CPT-4: Q2036 12/05/2010 ROUTINE VENIPUNCTURE CPT-4: 28376 11/28/2010 ADMIN INFLUENZA VIRU S VAC CPT-4: G0008 11/28/2010 FLULAVAL VACC, 3 YRS & >, IM CPT-4: Q2036 11/28/2010 ROUTINE VENIPUNCTURE CPT-4: 41183 10/17/2010 Vital Signs Date Vital 10/07/2017 Blood Pressure 1: 108/64 Code: 8480-6 BMI: 32.3 Code: 04058-1 Heart Rate 1: 83 bpm Height: 5'5" SpO2: 98% Weight: 194 lbs 06/04/2017 Blood Pressure 1: 116/64 Code: 8480-6 BMI: 33.3 Code: 64089-0 Heart Rate 1: 70 bpm Height: 5'5" SpO2: 97% Waist Measure (cm): 97 cm Weight: 200 lbs 06/02/2017 Blood Pressure 1: 120/72 Code: 8480-6 BMI: 33.1 Code: 51547-1 Heart Rate 1: 70 bpm Height: 5'5" SpO2: 97% Weight: 199 lbs 01/28/2017 Blood Pressure 1: 128/78 Code: 8480-6 BMI: 31.8 Code: 02915-5 Heart Rate 1: 81 bpm Height: 5'5" SpO2: 98% Weight: 191 lbs 12/29/2016 Blood Pressure 1: 130/76 Code: 8480-6 BMI: 31.1 Code: 39342-7 Heart Rate 1: 80 bpm Height: 5'5" SpO2: 98% Weight: 187 lbs 12/01/2016 Blood Pressure 1: 128/80 Code: 8480-6 BMI: 32.0 Code: 47938-5 Heart Rate 1: 78 bpm Height: 5'5" SpO2: 98% Weight: 192 lbs 05/28/2016 Blood Pressure 1: 138/80 Code: 8480-6 BMI: 33.6 Code: 84447-6 Heart Rate 1: 62 bpm Height: 5'5" SpO2: 97% Waist Measure (cm): 97 cm Weight: 202 lbs 05/27/2016 Blood Pressure 1: 138/80 Code: 8480-6 BMI: 33.6 Code: 41819-0 Heart Rate 1: 60 bpm Height: 5'5" SpO2: 98% Weight: 202 lbs 01/09/2016 Blood Pressure 1: 132/76 Code: 8480-6 BMI: 34.1 Code: 79817-9 Heart Rate 1: 62 bpm Height: 5'5" SpO2: 95% Weight: 205 lbs 11/27/2015 Blood Pressure 1: 140/80 Code: 8480-6 BMI: 35.3 Code: 49896-2 Heart Rate 1: 77 bpm Height: 5'5" SpO2: 96% Weight: 212 lbs 05/29/2015 Blood Pressure 1: 130/74 Code: 8480-6 BMI: 34.2 Code: 89421-9 Heart Rate 1: 59 bpm Height: 5'5" SpO2: 97% Weight: 205 lbs 8 oz 11/23/2014 Blood Pressure 1: 136/76 Code: 8480-6 BMI: 33.8 Code: 25177-2 Heart Rate 1: 68 bpm Height: 5'5" SpO2: 98% Weight: 203 lbs 07/20/2014 Blood Pressure 1: 140/88 Code: 8480-6 BMI: 34.4 Code: 84732-8 Heart Rate 1: 68 bpm Height: 5'5" Weight: 207 lbs 04/19/2014 Blood Pressure 1: 130/88 Code: 8480-6 BMI: 34.6 Code: 02529-0 Heart Rate 1: 64 bpm Height: 5'5" Weight: 208 lbs 12/21/2013 Blood Pressure 1: 140/76 Code: 8480-6 BMI: 33.8 Code: 17184-7 Heart Rate 1: 64 bpm Height: 5'5" Weight: 203 lbs 10/18/2013 Blood Pressure 1: 138/70 Code: 8480-6 BMI: 33.1 Code: 94545-4 Heart Rate 1: 74 bpm Height: 5'5" Weight: 199 lbs 07/13/2013 Blood Pressure 1: 115/60 Code: 8480-6 BMI: 30.5 Code: 32662-9 Heart Rate 1: 76 bpm Height: 5'5" Weight: 183 lbs 06/23/2013 Blood Pressure 1: 108/58 Code: 8480-6 Heart Rate 1: 80 bpm Temperature: 37.2 (C) / 98.9 (F) Weight: 06/09/2013 [place] rature: 36.7 (C) / 98.0 (F) Weight: 04/11/2013 Blood Pressure 1: 104/64 Code: 8480-6 Heart Rate 1: 76 bpm Weight: 02/16/2013 Blood Pressure 1: 130/82 Code: 8480-6 BMI: 35.8 Code: 69069-3 Heart Rate 1: 76 bpm Height: 5'5" Weight: 215 lbs 08/18/2012 Blood Pressure 1: 104/64 Code: 8480-6 BMI: 33.6 Code: 90239-1 Heart Rate 1: 64 bpm Height: 5'5" Weight: 202 lbs 02/19/2012 Blood Pressure 1: 120/74 Code: 8480-6 BMI: 33.8 Code: 40972-5 Heart Rate 1: 64 bpm Height: 5'5" Respiratory Rate: 16 bpm Weight: 203 lbs 10/16/2011 Blood Pressure 1: 130/68 Code: 8480-6 Heart Rate 1: 80 bpm Weight: 201 lbs 04/10/2011 Blood Pressure 1: 134/74 Code: 8480-6 Heart Rate 1: 64 bpm Respiratory Rate: 16 bpm Weight: 202 lbs 12/05/2010 Blood Pressure 1: 128/72 Code: 8480-6 BMI: 33.5 Code: 56634-9 Heart Rate 1: 68 bpm Height: 5'5" Respiratory Rate: 16 bpm Weight: 201 lbs 8 oz Functional Status No Functional Status data History of Present Illness Symptom Name Status Resu lt Effective Date Notes hypertension Quality chr onic 10/07/2017 None hypertension [...] Encounters Encounter Performer Loca tion Codes Date ([id number]) [id number] EST. P ATIENT, LEVEL IV Diagnosis: Essential (primary) hypertension[ICD10: I10] Diagnosis: Mixed hyperlipidemia[ICD10: E78.2] Carri Joseph MD, [facility] CPT- 4: 71318 10/07/2017 ([id number]) 67880 EST. P ATIENT, LEVEL IV Diagnosis: Essential (primary) hypertension[ICD10: I10] Diagnosis: Mixed hyperlipidemia[ICD10: E78.2] Diagnosis: Ventricular tachycardia[ICD10: I47.2] Diagnosis: Unsteadiness on feet[ICD10: R26.81] [facility] CPT- 4: 34613 06/02/2017 ([id number]) 63432 EST. P ATIENT, LEVEL III Diagnosis: Essential (primary) hypertension[ICD10: I10] Carri Joseph MD, [facility] CPT-4: 71656 01/28/2017 ([id number]) 04171 EST. P ATIENT, LEVEL III Diagnosis: Essential (primary) hypertension[ICD10: I10] Diagnosis: Unsteadiness on feet[ICD10: R26.81] Carri Joseph MD, [facility] CPT- 4: 89895 12/29/2016 ([id number]) 50272 EST. P ATIENT, LEVEL IV Diagnosis: Essential (primary) hypertension[ICD10: I10] Diagnosis: Mixed hyperlipidemia[ICD10: E78.2] [facility] CPT- 4: 59623 12/01/2016 [id number] EST. PATIENT, LEVEL IV Diagnosis: Essential (primary) hypertension[ICD10: I10] Diagnosis: Chronic atrial fibrillation[ICD10: I48.2] Diagnosis: Mixed hyperlipidemia[ICD10: E78.2] Diagnosis: Encounter for therapeutic drug level monitoring[ICD10: Z51.81] [facility] CPT-4: 00912 05/27/2016 ([id number]) 89602 EST. P ATIENT, LEVEL III Diagnosis: Essential (primary) hypertension[ICD10: I10] Diagnosis: Cough[ICD10: R05] Carri Joseph MD, [facility] CPT-4: 02997 01/09/2016 ([id number]) 89864 EST. P ATIENT, LEVEL IV Diagnosis: Essential (primary) hypertension[ICD10: I10] Diagnosis: Chronic atrial fibrillation[ICD10: I48.2] Diagnosis: Mixed hyperlipidemia[ICD10: E78.2] Carri Joseph MD, [facility] CPT- 4: 01512 11/27/2015 ([id number]) 47925 EST. P ATIENT, LEVEL IV Diagnosis: Essential (primary) hypertension[ICD10: I10] Diagnosis: Chronic atrial fibrillation[ICD10: I48.2] Diagnosis: Mixed hyperlipidemia[ICD10: E78.2] Carri Joseph MD, [facility] CPT- 4: 69196 05/29/2015 ([id number]) 92409 EST. P ATIENT, LEVEL III Diagnosis: Essential (primary) hypertension[ICD10: I10] Diagnosis: Encounter for immunization[ICD10: Z23] Carri Joseph MD, [facility] CPT-4: 25217 11/23/2014 ([id number]) 22811 EST. P ATIENT, LEVEL III Diagnosis: ESSENTIAL HYPERTENSION[ICD9: 401.9] Carri Joseph MD, [facility] CPT- 4: 32552 07/20/2014 ([id number]) 12017 EST. P ATIENT, LEVEL IV Diagnosis: ESSENTIAL HYPERTENSION[ICD9: 401.9] Diagnosis: Renal insufficiency[ICD9: 593.9] Diagnosis: Atrial fibrillation[ICD9: 427.31] Diagnosis: HYPOTHYROIDISM[ICD9: 244.9] Carri Joseph MD, [facility] CPT-4: 29337 04/19/2014 ([id number]) 57756 EST. P ATIENT, LEVEL IV Diagnosis: ESSENTIAL HYPERTENSION[ICD9: 401.9] Diagnosis: HYPOTHYROIDISM[ICD9: 244.9] Diagnosis: COUGH[ICD9: 786.2] Diagnosis: Atrial fibrillation[ICD9: 427.31] Carri Joseph MD, [facility] CPT-4: 48537 12/21/2013 ([id number]) 22591 EST. P ATIENT, LEVEL IV Diagnosis: VACCIN FOR INFLUENZA[ICD10: Z23] Diagnosis: ESSENTIAL HYPERTENSION[ICD9: 401.9] Diagnosis: HYPERLIPIDEMIA[ICD9: 272.4] Diagnosis: Gait instability[ICD9: 781.2] Carri Joseph MD [facility] CPT-4: 43720 10/18/2013 ([id number]) 92175 EST. P ATIENT, LEVEL III Diagnosis: ESSENTIAL HYPERTENSION[SNOMED: 87767345] Diagnosis: Arthralgia of knee[ICD9: 719.46] Carri Joseph MD [facility] CPT-4: 22581 07/13/2013 ([id number]) Patient adm itted to the hospital from clinic (NO CHARGE) Diagnosis: JOINT PAIN-L/LEG[ICD9: 719.46] Diagnosis: CELLULITIS OF LEG[ICD9: 682.6] Carri Joseph MD [facility] CPT-4: 84228G 06/23/2013 ([id number]) 71076 EST. P ATIENT, LEVEL III Diagnosis: Cellulitis of left knee[ICD9: 682.6] Carri Joseph MD, [facility] CPT-4: 75748 06/09/2013 ([id number]) 76591 EST. P ATIENT, LEVEL III Diagnosis: ESSENTIAL HYPERTENSION[SNOMED: 36968665] Diagnosis: Knee pain[ICD9: 719.46] Carri Joseph MD, [facility] CPT-4: 99131 04/11/2013 ([id number]) 47893 EST. P ATIENT, LEVEL IV Diagnosis: ESSENTIAL HYPERTENSION[SNOMED: 18717144] Diagnosis: HYPERLIPIDEMIA[ICD9: 272.4] Carri Joseph MD, [facility] CPT-4: 04889 02/16/2013 ([id number]) 49303 EST. P ATIENT, LEVEL IV Diagnosis: HYPERLIPIDEMIA[ICD9: 272.4] Diagnosis: ESSENTIAL HYPERTENSION[SNOMED: 18885685] Diagnosis: ENCNTR LONG-RX USE NEC[ICD9: V58.69] [facility] CPT-4: 24497 08/18/2012 ([id number]) 49817 EST. P ATIENT, LEVEL IV Diagnosis: ESSENTIAL HYPERTENSION[SNOMED: 34067134] Diagnosis: Renal insufficiency[ICD9: 593.9] Carri Joseph MD, [facility] CPT-4: 62759 02/19/2012 Miscellaneous no lisset rge Diagnosis: ESSENTIAL HYPERTENSION[SNOMED: 66867143] Carri Joseph MD, [facility] CPT-4: 99682 12/23/2011 ([id number]) 19161 EST. P ATIENT, LEVEL IV Diagnosis: ESSENTIAL HYPERTENSION[SNOMED: 14006001] Diagnosis: HYPERLIPIDEMIA[ICD9: 272.4] Diagnosis: Osteoarthritis of left knee[ICD9: 715.96] Carri Joseph MD, [facility] CPT-4: 28737 10/16/2011 ([id number]) 86428 EST. P ATIENT, LEVEL IV Diagnosis: ESSENTIAL HYPERTENSION[SNOMED: 86603550] Diagnosis: HYPERLIPIDEMIA[ICD9: 272.4] Diagnosis: HYPOTHYROIDISM[ICD9: 244.9] Carri Joseph MD, [facility] CPT-4: 03361 04/10/2011 43961 EST. PATIENT, LEVEL IV Diagnosis: ESSENTIAL HYPERTENSION[SNOMED: 04769570] Diagnosis: HYPERLIPIDEMIA[ICD9: 272.4] Diagnosis: OBESITY[ICD9: 278.00] Diagnosis: VACCIN FOR INFLUENZA[ICD9: V04.81] Carri Joseph MD, [facility] CPT- 4: 63500 12/05/2010 Plan of Care Planned Activity Notes C odes Status Date Patient Education: Patient Medication Summary Completed 12/24/2017 [...] medications. 10/07/2017 [phone] ([facility] min) Moderate 10/07/2017 Patient Education: Patient [...] surrogate. 06/04/2017 App[facility]ment: [phone] [facility] - Annual Wellness Visit 06/04/2017 Patient [...] with ambulation. 06/02/2017 Appointment: Carri Joseph WPtel: [facility] (15 min) Moderate 06/02/2017 Patient Education: Patient Medication Summary Completed 06/02/2017 Appointment: LeicesterCarri WPtel: [facility] (15 min) Moderate 05/26/2017 Visit Plan: [...] falling episodes. 01/28/2017 Appointment: Carri Joseph WPtel: [facility] (15 min) Moderate 01/28/2017 Patient Education: [...] does not need to go to a usp. 12/29/2016 Appointment: Carri Joseph WPtel: [address] [place], [place] [phone] (15 min) Moderate 12/29/2016 Patient Education: Patient [...] current management. 12/01/2016 App[facility]ment: [phone] (15 min) Moderate 12/01/2016 Patient Education: Patient [...] care surrogate. 05/28/2016 Appointment: Samira Rojas [facility]: [phone] [facility] [facility] - Annual Wellness Visit 05/28/2016 Patient [...] becoming uncontrolled. 05/27/2016 Appointment: Carri Joseph WPtel[facility] (15 min) Moderate 05/27/2016 Patient Education: Patient [...] 5 days 01/09/2016 Appointment: Carri Joseph WPtel[facility] (15 min) Moderate 01/09/2016 Patient Education: Patient [...] becoming uncontrolled. 11/27/2015 Appointment: Carri Joseph WPtel: [phone] [facility] (15 min) Moderate 11/27/2015 Patient Education: [...] Obesity Completed 05/29/2015 Appointment: Carri Joseph WPtel: [phone] [facility] (15 min) Moderate 05/24/2015 Appointment: Ana 12/20/2014 Visit Plan: Hypertension - well con trolled - continue with current medications, continue with no added salt diet. Pt has been encouraged to exercise daily. The pt has been advised to call the office if there are any acute concerns about change in blood pressure readings at home. 11/23/2014 Appointment: Carri Joseph WPtel: [phone] [facility] (15 min) Moderate 11/23/2014 Patient Education: [...] home. 07/20/2014 [facility]ment[phone] Follow up 07/20/2014 Patient Education: Patient Medication [...] therapy. 04/19/2014 Appointment: [phone] Follow up 04/19/2014 Patient Education: Patient Medication [...] Patient Education: Hypertension Completed 12/21/2013 Appointment: Carri Josephtel: [address] [place], [place] [phone] Follow up 12/20/2013 Visit Plan: Hypertension - [...] by orthopedist. 10/18/2013 Appointment: Carri Joseph WPtel: [address] [place], [place] [phone] Follow up 10/18/2013 Patient Education: Patient Medication Summary Completed 10/18/2013 Patient Education: Hypertension Completed 10/18/2013 Appointment: Carri Joseph WPtel: [address] [place], [place] [phone] Follow up 08/16/2013 Visit Plan: Hypertension - [...] not improve. 07/13/2013 Appointment: Carri Joseph WPtel: [address] [place], [place] [phone] [facility] follow up 07/13/2013 Patient Education: [...] the office. 06/09/2013 Appointment: India Lowe [facility]: [phone] [phone] Follow up 06/09/2013 Patient Education: Patient Medication [...] knee. 04/11/2013 Appointment: [phone] Follow up 04/11/2013 Patient Education: Patient Medication [...] medications. 02/16/2013 Appointment: Carri Joseph WPtel: [phone] [facility] Follow up 02/16/2013 Patient Education: Patient [...] to medications. 08/18/2012 Appointment: Carri Joseph WPtel: [address] [place], [place] [phone] Follow up 08/18/2012 Patient Education: Patient Medication Summary Completed 08/18/2012 Patient Education: Hypertension Completed 08/18/2012 Appointment: Carri Joseph WPtel: [facility] Follow up 06/22/2012 Visit Plan: Hypertension [...] every day. 02/19/2012 Appointment: Carri Joseph WPtel: [facility] Follow up 02/19/2012 Patient Education: Patient Medication Summary Completed 02/19/2012 Patient Education: Hypertension Completed 02/19/2012 Care Plan: CBC Pending 02/19/2012 Visit Plan: no charge for viist - p t with skin mole, no need for removal, no treatment rendered. 12/23/2011 Appointment: [phone] [facility] Procedure 12/23/2011 Patient Education: Patient Medication [...] CHONDROITON. 10/16/2011 Appointment: [phone] [facility] Follow up 10/16/2011 Patient Education: Patient Medication [...] LABS TODAY 04/10/2011 Appointment: Carri Joseph WPtel: [address] [place] [phone] Other 04/10/2011 Patient Education: Patient Medication Summary [...] shot today 12/05/2010 Appointment: Carri Joseph WPtel: [address] [place] [phone] Other 12/05/2010 Patient Education: Patient Medication Summary Completed 12/05/2010 Patient Education: High Blood Pressure: Essential Hypertension Completed 12/05/2010 Appointment: Carri Joseph WPtel: [address] [place], [place] [phone] [place] Lab Draw 11/28/2010 Patient Education: Patient Medication Summary Completed 11/28/2010 Patient Education: High Blood Pressure: Essential Hypertension Completed 11/28/2010 Appointment: [phone] [facility] [place] [facility] Draw 10/17/2010 Patient Education: Patient [...] wellness therapy. Flu shot- GET IT AT [facility] TOMORROW IF YOU HAVE NOT ALREADY HAD [...] does not need to go to a usp. . Medicare Exam - to day we [...]
== END 2019-01-06 22:39 | disposition short-term general hospital (02) ==
LOC: EDUNIT# 19:52 → ER 19:53
DX: S00.03XA Contusion of scalp, initial encounter (principal); T82.897A Other specified complication of cardiac prosthetic devices, implants and grafts, initial encounter; I47.2 Ventricular tachycardia; I49.01 Ventricular fibrillation; R55 Syncope and collapse; I10 Essential (primary) hypertension; E78.00 Pure hypercholesterolemia, unspecified; Z86.73 Personal history of transient ischemic attack (TIA), and cerebral infarction without residual deficits; Z87.891 Personal history of nicotine dependence; Z79.82 Long term (current) use of aspirin; Z99.2 Dependence on renal dialysis; Z93.2 Ileostomy status; Z82.49 Family history of ischemic heart disease and other diseases of the circulatory system; W19.XXXA Unspecified fall, initial encounter; Y92.009 Unspecified place in unspecified non-institutional (private) residence as the place of occurrence of the external cause
CPT/HCPCS: 36415; 70450; 72125; 80053; 80162; 81000; 83735; 84484; 85025; 93005; 93041; 96365; 96375

== ENCOUNTER 2019-01-31 09:29 | Outpatient (RCR) | payer MEDICARE ==
[~2019-01-31 09:29] MED LIST changes: +LOVA20TA2; +SOTA80TA62
== END 2019-02-02 | disposition home or self-care (01) ==
LOC: CR3 09:29
PROVIDERS: ATTEND Family Medicine
DX: Z29.8 Encounter for other specified prophylactic measures (principal)

== ENCOUNTER 2019-03-09 11:41 | Outpatient (RCR) | payer MEDICARE | END 2019-03-13 | disposition home or self-care (01) | LOC: CR3 11:41 | PROVIDERS: ATTEND Family Medicine | DX: Z29.8 Encounter for other specified prophylactic measures (principal) ==

== ENCOUNTER → 2019-04-13 | Outpatient (RCR) | payer MEDICARE | END | disposition home or self-care (01) | LOC: CR3 03-14 09:30 | PROVIDERS: ATTEND Family Medicine | DX: Z29.8 Encounter for other specified prophylactic measures (principal) ==

== ENCOUNTER 2019-04-20 10:11 | Outpatient (RCR) | payer MEDICARE | END 2019-05-18 | disposition home or self-care (01) | LOC: CR3 10:11 | PROVIDERS: ATTEND Family Medicine | DX: Z29.8 Encounter for other specified prophylactic measures (principal) ==

== ENCOUNTER 2020-01-27 11:12 | Outpatient (RCR) | payer MEDICARE | END 2020-02-19 | disposition home or self-care (01) | PROVIDERS: ATTEND Family Medicine | DX: R26.81 Unsteadiness on feet (principal); R53.1 Weakness; Z95.0 Presence of cardiac pacemaker; Z87.39 Personal history of other diseases of the musculoskeletal system and connective tissue; Z87.820 Personal history of traumatic brain injury ==

== ENCOUNTER → 2020-05-23 | Outpatient (RCR) | payer MEDICARE | END | disposition home or self-care (01) | LOC: CR3 04-23 09:23 | PROVIDERS: ATTEND Family Medicine | DX: Z29.8 Encounter for other specified prophylactic measures (principal) ==

== ENCOUNTER 2020-06-20 10:36 | Outpatient (RCR) | payer MEDICARE | END 2020-06-24 | disposition home or self-care (01) | LOC: CR3 10:36 | PROVIDERS: ATTEND Family Medicine | DX: Z29.8 Encounter for other specified prophylactic measures (principal) ==

== ENCOUNTER → 2020-07-25 | Outpatient (RCR) | payer MEDICARE | END | disposition home or self-care (01) | LOC: CR3 06-25 08:13 | PROVIDERS: ATTEND Family Medicine | DX: Z29.8 Encounter for other specified prophylactic measures (principal) ==

== ENCOUNTER 2020-08-22 09:25 | Outpatient (RCR) | payer MEDICARE | END 2020-08-26 | disposition home or self-care (01) | LOC: CR3 09:25 | PROVIDERS: ATTEND Family Medicine | DX: Z29.8 Encounter for other specified prophylactic measures (principal) ==

== ENCOUNTER 2020-08-26 07:49 | Emergency (ER) | payer MEDICARE ==
[~2020-08-26] VITALS: Ht 170 cm; Wt 90.0 kg
[2020-08-26] MEDS ORDERED: CATHETER FLUSH 10 ML SYR IV ONE (07:51)
[2020-08-26] MEDS ORDERED: SODIUM BICARB 8.4% 50 MEQ/50 ML (ABBOTT) SYR INJ ONE (07:51)
[2020-08-26] MEDS ORDERED: EPINEPHrine 0.1 MG/ML 10 ML (HOSPIRA) SYR IJ ONE (07:51)
[2020-08-26] MEDS ORDERED: ATROPINE INJECTION 1 MG/10 ML SYR (ABBOTT) INJ ONE (07:51)
[2020-08-26] MEDS ORDERED: CALCIUM CHLORIDE 1 GM/10 ML (IMS) SYR INJ ONE (07:51)
[2020-08-26] MEDS ORDERED: LIDOCAINE BOLUS 100 MG/5 ML (IMS) SYR INJ ONE (07:51)
[2020-08-26 08:17] VITALS: BP 0/0
--- NOTE | 2020-08-26 08:31 | ED CPR ---
HPI-CPR General Chief Complaint: Code Blue Stated Complaint: CODE BLUE Nursing Triage Note: SEE NOTES Source of Information: EMS, Old Records (ALL [facility] IS FROM OLD CHART), Spouse History of Present Illness Date Seen by Provider: Aug 26, 2020 Time Seen by Provider: 07:45 Initial Comments PT ARRIVES VIA EMS FROM HOME PT HAD WITNESSED ARREST THIS AM AROUND 0725 REPORTS THAT YESTERDAY HE "DIDN'T FEEL GOOD" --GOT REAL HOT, THEN TOOK A SHOWER AND FELT BETTER WOKE UP THIS AM AROUND 0700 AND DID COUGH A LITTLE, GOT COFFEE, AND THEN STARTED COMPLAINING OF BEING VERY SHORT OF BREATH AND THEN COLLAPSED IN FRONT OF , AND EMS WAS IMMEDIATELY CALLED AT 0725 EMS REPORT THAT PT WAS INITIALLY IN P.E.A, AND WAS GIVEN EPINEPHRINE X 1, THEN WENT INTO V-TACH AND HAS REMAINED PULSELESS AND IN V-TACH SINCE THEN PT RECEIVED AMIODARONE 300 BY EMS, AND DEFIBRILLATED X 3 BY EMS CPR IS IN PROGRESS ON ARRIVAL PT WITH I/O ACCESS IN LEFT TIBIA PT IS INTUBATED WITH "I-JEL" BY EMS PRIOR TO ARRIVAL AND IS BEING BAGGED PT HAS PACEMAKER AND DEFIBRILLATOR WITH HISTORY OF V-TACH AND V-FIB, BUT NO REP ORT THAT HIS OWN DEFIBRILLATOR DISCHARGED. PT HAS RECEIVED COVID-19 VACCINE, HAS . PCP: DR. VELEZ ENGAGEMENT MANAGER [facility] [place] Allergies and Home Medications Allergies Coded Allergies: No Known Drug Allergies (Unverified , 03/14/13) Home Medications Aspirin 81 Mg Tablet, 81 MG PO DAILY, (Reported) Carvedilol 12.5 Mg Tablet, 12.5 MG PO BID, (Reported) Digoxin 125 Mcg Tablet, 125 MCG PO DAILY, (Reported) Folic Acid/Mv,Fe,Other Min 1 Each Tablet, 1 TAB PO DAILY, (Reported) Lisinopril 2.5 Mg Tablet, 2.5 MG PO DAILY, (Reported) Lovastatin 20 Mg Tablet, 20 MG PO DAILY, (Reported) Oxycodone Hcl/Acetaminophen 1 Tab Tablet, 1-2 TAB PO Q4H PRN for PAIN Prescribed by: RIMA VELEZ on 06/28/131652 Oxycodone Hcl/Acetaminophen 1 Tab Tablet, 1 TAB PO TID Prescribed by: IRMA VELEZ on 06/28/131652 Senna 187 Mg Tab, 17.2 MG PO HS Prescribed by: IRMA VELEZ on 03/25/13 1037 Tamsulosin Hcl 0.4 Mg Cap.sr.24h, 0.4 MG PO DAILY Prescribed by: IRMA VELEZ on 03/25/13 1037 Patient Home Medication List Home Medication List Reviewed: Yes Review of Systems Review of Systems Constitutional: other (PER HPI) Past Yjzpikj-Rzztnk-Blxour Hx Seasonal Allergies Seasonal Allergies: No Past Medical History Surgery/Hospitalization HX: PACEMAKER/DEFIBRILLATOR RIGHT TOTAL KNEE REPLACEMENT MULTIPLE LEFT KNEE SURGERIES FOR PATELLA FRACTURE ABDOMINAL TRAUMA WITH EXPLORATORY LAPAROTOMY AND TEMPORARY ILEOSTOMY APPENDECTOMY Surgeries: Yes (PACEMAKER/ILEOSTOMY, left knee patella fracture) Abdominal, Appendectomy, Bowel Surgery, Defibrillator, Joint Replacement, Orthopedic, Pacemaker Respiratory: No Cardiac: Yes (V-TACH/V-FIB; PACEMAKER AND DEFIBRILLATOR IN PLACE; HEART BLOCK) High Cholesterol, Hypertension, Irregular Heartbeat Neurological: Yes (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) Stroke, TIA, Traumatic Brain Injury Reproductive Disorders: No Sexually Transmitted Disease: No HIV/AIDS: No Genitourinary: Yes Renal Failure, Dialysis Gastrointestinal: Yes (ABD TRAUMA/PREVIOUS ILEOSTOMY) Obstructive Bowel Musculoskeletal: Yes (R TKR; L PATELLA FX WITH ORIF/MULTIPLE SURGERIES) Arthritis, Fractures Endocrine: No HEENT: No Cancer: No Psychosocial: No Integumentary: Yes (MRSA) Blood Disorders: No Adverse Reaction/Blood Tranf: No Family Medical History Dementia 03 MOTHER Family history: Cardiovascular disease 03 FATHER 09 BROTHER Physical Exam Vital Signs Capillary Refill : Height, Weight, BMI Height: 5'7.00" Weight: 190lbs. 0.0oz. 86.741261kk; 31.00 BMI Method: General Appearance: Other (FULL ARREST--PT IS BEING BAGGED VIA "I-JEL" TUBE; CPR IN PROGRESS) Respiratory: Other (APNEIC) Cardiovascular: Other (PULSELESS) Gastrointestinal: No Distended Extremity: No Pedal Edema Neurologic/Psychiatric: Other (UNRESPONSIVE) Skin: Cool; No Cyanosis, No Diaphoresis Progress/Results/Core Measures Results/Orders Lab Results Laboratory Tests Test 08/26/20 08:02 08/26/20 08:12 Range/Units Influenza Type A (RT-PCR) Not Detected Not Detecte Influenza Type B (RT-PCR) Not Detected Not Detecte SARS-CoV-2 RNA (RT-PCR) Not Detected Not Detecte Glucometer 209 H 70-110 MG/DL My Orders Orders - TERESE GUZMAN DO Accucheck Stat ONCE (08/26/20 08:24) Monitor-Rhythm Ecg Trace Only (08/26/20 08:24) Covid 19 Inhouse Test (08/26/20 08:24) Influenza A And B By Pcr (08/26/20 08:24) Critical Care Note Critical Care Start Time: 07:45 Stop Time: 08:17 Date of : Aug 26, 2020 Time of : 08:17 Progress SEE NURSING NOTES FOR DETAILS PRIOR TO ARRIVAL, PT HAD BEEN INTUBATED WITH "I-JEL" BY EMS, WITH GOOD AND EQUAL BREATH SOUNDS WITH BAGGING. NO ABDOMINAL DISTENTION. NO CYANOSIS OR MOTTLING. O2 SAT 100% WITH BAGGING PT IS PULSELESS WITH V-FIB ON MONITOR ON ARRIVAL PT HAD BEEN INITIALLY IN P.E.A. AT THE SCENE, ACCORDING TO EMS, AND THEY GAVE EPINEPHRINE X 1 EMS REPORT THAT PT THEN WENT INTO V-TACH AND WAS GIVEN AMIODARONE 300 MG BY EMS, AND WAS DEFIBRILLATED X 3 BY EMS PRIOR TO ARRIVAL ON ARRIVAL HERE, PT CONTINUED TO BE IN V-TACH AND V-FIB PT WAS DEFIBRILLATED A TOTAL OF 12 TIMES IN ER PT WAS GIVEN A TOTAL OF EPINEPHRINE X 7 MG PT WAS GIVEN LIDOCAINE 100 MG X 2 PT ALSO GIVEN BICARB X 1 HERE PT REMAINED PULSELESS AND APENIC DESPITE ALL OF THE ABOVE MEASURES, WITH PERSISTENT V-TACH/V-FIB--WHICH DID NOT RESPOND AT ANY TIME TO ANY MEASURE. AFTER DISCUSSING WITH , AND DOWN TIME APPROACHING AN HOUR, CODE WAS CALLED AND PT PRONOUNCED AT 0817 Departure Communication (Admissions) 0835--SPOKE WITH DR. RAO, COVERING FOR DR. VELEZ, AND INFORMED HER OF PT'S . Impression Primary Impression: Cardiopulmonary arrest Additional Impression: Ventricular arrhythmia Disposition: 20 Condition: Departure-Patient Inst. Referrals: IRMA VELEZ MD (PCP/Family) Primary Care Physician TERESE GUZMAN DO Aug 26, 2020 08:31
== END 2020-08-26 14:00 | disposition expired ==
LOC: EDUNIT# 07:49 → ER 07:50
DX: I46.9 Cardiac arrest, cause unspecified (principal); I47.2 Ventricular tachycardia; I10 Essential (primary) hypertension; E78.00 Pure hypercholesterolemia, unspecified; Z95.810 Presence of automatic (implantable) cardiac defibrillator; Z79.82 Long term (current) use of aspirin; Z79.899 Other long term (current) drug therapy; Z20.822 Contact with and (suspected) exposure to COVID-19
CPT/HCPCS: 82947; 87636